=== PATIENT | female | born 1945 | race African-American/Black ===

== ENCOUNTER 2019-03-28 11:16 | Inpatient (IN) | payer OTHER, SELFPAY ==
[2019-03-28] VITALS (20 sets, daily range): BP systolic 107–153; BP diastolic 74–116; PULSE 92–162; RESP 16–27; TEMP 35.6; O2SAT 97–100; BMI 40.5
--- NOTE | ~2019-03-28 | CT_ITS ---
EXAMINATION: CTA chest PE abdomen pel EXAM DATE: 03/30/2019 09:38 INDICATION: Shortness of breath, elevated liver function tests. Generalized abdominal pain. Rule out pulmonary embolism. TECHNIQUE: Spiral CTA of the chest (pulmonary arteries) was performed with 100 cc Omnipaque 350 intr avenous contrast injection. Images were acquired during the pulmonary arterial phase. Coronal maxi mum intensity projection 3D-reconstructions were created by the technologist on dedicated workstation . Axial, coronal and sagittal reformatted images were reviewed. Spiral CT of the abdomen was then pe rformed with the same intravenous contrast injection. Axial, coronal and sagittal reformatted image s were reviewed. The dose-length product (DLP) for this examination was 1965.52 mGy-cm. The exposur e was tailored according to patient size (auto mA exposure control), and iterative reconstruction (A SIR) was used as additional dose reduction technique. There is no prior study for comparison. FINDINGS: CHEST: Patient has a transvenous pacemaker wire from right femoral approach with tip in the right joellen tricle. No thoracic aortic dissection. There are small bilateral dependent pleural effusions. There is bibasilar groundglass airspace disease which could be edema and/or atelectasis. Some other scatter ed groundglass opacities. Tracheobronchial tree is patent. There is no mediastinal, hilar or axill monica lymphadenopathy. There is no pneumothorax. There is moderate cardiomegaly. There is right low er lobe intralobar and segmental pulmonary embolism. There is left lower lobe segmental pulmonary emb olism. I discussed this finding with Wilian Adhikari MD at 03/30/2019 09:47 HAND CANDLE DIPPER. There is mild cor onary arterial calcification, arterial sclerosis. ABDOMEN PELVIS: Heterogeneously enhancing liver which could be hepatic venous congestion related give n dilated appearance to the right atrium and IVC. There are gallstones within an otherwise unremarka ble gallbladder. No evidence of obstructive biliary disease. There is small wedge-shaped region of d ecreased enhancement in the spleen, possible small splenic infarction. Pancreas, adrenal glands are u nremarkable. There is small amount of ascites in the pelvis and small amount of perihepatic fluid. T here is a Blandon catheter within a collapsed bladder. The uterus is not identified and has likely been surgically resected. There is no retroperitoneal or pelvic lymphadenopathy. The appendix is not positively visualized. There is no pericecal inflammatory change to suggest appe ndicitis. There is small sliding gastroesophageal hiatal hernia. There is expected amount of colon ic stool. No free intraperitoneal gas. There are no osteoblastic or osteolytic lesions identified . IMPRESSION: 1. Small bilateral pulmonary emboli. 2. Moderate cardiomegaly. 3. Small pleural effusions and adjacent atelectasis. 4. Probable mild pulmonary edema. 5. Possible small splenic infarction. 6. Cholelithiasis. Reviewed, dictated and finalized at location A. CANDLE DIPPER
--- NOTE | ~2019-03-28 | US_ITS ---
EXAMINATION: US venous doppler LE EXAM DATE: 03/28/2019 17:21 INDICATION: Bilateral leg pain and swelling. TECHNIQUE: Multiple grayscale, color flow and Doppler images of the lower extremity deep venous syste ms bilaterally were obtained and reviewed. There is no prior study for comparison. FINDINGS: Right side: The right common femoral, femoral and profunda veins demonstrate normal color flow, respi ratory variation, augmentation and compressibility. Compressibility, color flow confirmed within the right popliteal, posterior tibial, peroneal, and greater saphenous veins. Left side: The left common femoral, femoral and profunda veins demonstrate normal color flow, respira tory variation, augmentation and compressibility. Compressibility, color flow confirmed within the l eft popliteal, posterior tibial, peroneal, and greater saphenous veins. IMPRESSION: 1. No lower extremity deep venous thrombosis bilaterally. Reviewed, dictated and finalized at location A. SOFTWARE TEST ENGINEER
--- NOTE | ~2019-03-28 | US_ITS ---
EXAMINATION: US renal BI DATE: 03/29/2019 13:50 INDICATION: Abnormal kidney function tests. TECHNIQUE: Multiple ultrasound grayscale images of the kidneys were obtained. COMPARISON: None. FINDINGS: The right kidney measures 9.6 x 4.0 x 4.0 cm. The left kidney measures 10.3 x 5.8 x 4.6 cm. The kidne ys demonstrate normal parenchymal echogenicity. There is no hydronephrosis. The bladder is decompress ed. IMPRESSION: 1. Normal kidney sizes. No hydronephrosis. Reviewed, dictated and finalized at location A. RAL PRE ARRANGEMENT COUNSELOR
--- NOTE | ~2019-03-28 | XR_ITS ---
EXAMINATION: XR chest 2V DATE: 03/28/2019 12:21 INDICATION: Shortness of breath TECHNIQUE: PA and lateral views of the chest were obtained. COMPARISON: Chest radiograph dated 02/03/19 FINDINGS: Mild increased perihilar opacities which appears to result from bronchial wall thickening. No focal a irspace consolidation. No pleural effusion or pneumothorax. Cardiomegaly. Moderate thoracic spondylos is. IMPRESSION: 1. Perihilar bronchial wall thickening without focal airspace consolidation which could be related to bronchitis or mild perihilar pulmonary edema with peribronchial cuffing. 2. Cardiomegaly. Reviewed, dictated and finalized at location A. SHAPER IMPRESSION: 1. Perihilar bronchial wall thickening without focal airspace consolidation whi ch could be related to bronchitis or mild perihilar pulmonary edema with peribr onchial cuffing. 2. Cardiomegaly.
--- NOTE | ~2019-03-28 | XR_ITS ---
EXAMINATION: XR chest 1V portable DATE: 03/29/2019 01:17 INDICATION: Shortness of breath. TECHNIQUE: A single frontal view of the chest was obtained. COMPARISON: Chest 2 views 03/28/2019 FINDINGS: There is no pneumonia, pleural effusion, or pneumothorax. Cardiomegaly is noted. IMPRESSION: 1. Cardiomegaly. Reviewed, dictated and finalized at location A. OR PHARMACY TECHNICIAN IMPRESSION: 1. Cardiomegaly.
--- NOTE | ~2019-03-28 | XR_ITS ---
EXAMINATION: XR chest PICC line EXAM DATE: 03/29/2019 12:42 INDICATION: PICC line placement. TECHNIQUE: Portable AP frontal chest x-ray was obtained. Comparison is made to prior examination from 03/29/2019. FINDINGS: There is a left-sided PICC line with tip projecting over the SVC at level of isaías. There is cardiomegaly. No confluent consolidation, pneumothorax or pleural effusion suspected. There are n o osseous abnormalities identified. IMPRESSION: 1. PICC line tip projecting over SVC. 2. Cardiomegaly. Reviewed, dictated and finalized at location A. NISTRATION PROFESSIONAL
--- NOTE | ~2019-03-28 | XR_ITS ---
EXAMINATION: XR chest 1V portable DATE: 03/30/2019 07:53 INDICATION: Respiratory failure. TECHNIQUE: A single frontal view of the chest was obtained. COMPARISON: Chest single view 03/29/2019 FINDINGS: There is mild atelectasis in left lower lung zone. No pleural effusion or pneumothorax. Car diomegaly is noted. A left upper extremity peripherally inserted central venous catheter (PICC) is se en with tip in the superior vena cava. IMPRESSION: 1. Mild atelectasis in left lower lung zone. 2. Cardiomegaly. Reviewed, dictated and finalized at location A. OGIC DEVELOPER
--- NOTE | 2019-03-28 11:25 | ECG_ITS ---
Measurements Intervals [place] Rate: 159 P: [place]: 0 QRS: 9 QRSD: 75 T: 83 QT: 279 QTc: 454 Interpretive Statements ATRIAL FIBRILLATION WITH RAPID VENTRICULAR RESPONSE LOW QRS VOLTAGE- DIFFUSE LEADS BORDERLINE T WAVE ABNORMALITY- LATERAL LEADS ABNORMAL ECG Electronically Signed On 04-02-2019 19:04:14 PEDIATRIC ASSISTANT by Hector Antunez D.O.
--- NOTE | 2019-03-28 11:32 | ED.SOB ---
HPI - SOB/Dyspnea General Chief Complaint: Shortness of Breath/Dyspnea Stated Complaint: SOB, FLUID ON LUNGS Time Seen by Provider: 03/28/19 11:19 Source: patient and RN notes reviewed Mode of arrival: ambulatory Limitations: no limitations History of Present Illness HPI Narrative: Pt is a 74 y/o female who presents to the ED with c/o SOB which began 2 months ago, but has worsened since yesterday. She reports her SOB is worsened when she is laying down. Pt states she was getting her blood drawn yesterday, when she drank a bottle of water, and her symptoms worsened. Pt denies chest pain, chest pressure, nausea, or vomiting. She reports she has been referred to Dr. Messer, a electroencephalogram technologist, but has been unable to schedule an appointment with him to evaluate her on her symptoms. She reports being diagnosed with atrial fibrillation last month, and was prescribed medication for it. However, she reports the medication would cause LOC, so she stopped taking her medication. Pt reports her physician did not change her prescription despite her complaints. Pt reports she has been gaining water weight recently. The pt was seen at [facility] recently and was diagnosed with a PE with Atrial fibrillation with RVR and a DVT. The pt was prescribed Eliquis and was discharged shortly after. MD elicited complaint: shortness of breath Pertinent past history: other (atrial fibrillation) Onset (ago): month(s) (2 months ago) Context: other (atrial fibrillation) Timing: other (worse since yesterday) Exacerbating factors: lying flat Relieving factors: nothing Known history of: other (atrial fibrillation) Associated symptoms: denies other symptoms Related Data Home Medications Medication Instructions Recorded Confirmed cholecalciferol (vitamin D3) 50 2,000 unit PO DAILY 02/15/19 mcg (2,000 unit) tablet digoxin 250 mcg (0.25 mg) tablet 250 mcg PO DAILY 02/15/19 metoprolol succinate 25 mg 25 mg PO DAILY 02/15/19 tablet,extended release 24 hr potassium chloride 20 mEq 40 meq PO DAILY tablet 02/15/19 tablet,extended release(part/cryst) spironolactone 50 mg tablet 50 mg PO BID 02/15/19 apixaban [Eliquis] 5 mg PO BID 03/28/19 furosemide 40 mg PO DAILY 03/28/19 potassium chloride 20 meq PO BID 03/28/19 03/28/19 Allergies Allergy/AdvReac Type Severity Reaction Status Date / Time codeine Allergy Unknown Confusion Verified 03/28/19 11:33 Review of Systems Review of Systems: All systems reviewed & are unremarkable except as noted in HPI and below Cardiovascular: Cardiovascular: Denies chest pain and Denies other (chest pressure) Respiratory: Respiratory: Reports dyspnea Gastrointestinal: Gastrointestinal: Denies nausea and Denies vomiting PMFSH Past Medical History Medical History Breast cancer Cardiomegaly Fx ankle Surgical History Surgical History H/O: hysterectomy History of appendectomy Hx of tonsillectomy S/P lumpectomy, right breast Social History Social History Smoking status: Former smoker Tobacco type: cigarettes Exam Narrative: Exam Narrative: GENERAL: Uncomfortable-appearing, well-nourished, and in mild distress. HEAD: Normocephalic, atraumatic. EYES: PERRL and EOMI. ENT: Mucous membranes moist. CHEST: Clear to auscultation. Mild tachypnea. HEART: Tachycardic and irregularly irregular. Normal peripheral pulses. ABDOMEN: Soft, nontender, nondistended. EXTREMITIES: Normal range of motion. 2+ edema. SKIN: Warm, dry, no rash. NEURO: Alert and oriented x3. PSYCH: Very anxious, normal thought content. Course Course Emergency Course: He required diltiazem 20 mg to slow down her rhythm. Prior to going up to her room patient went back into [facility] so a drip was ordered. Patient took Eliquis this morning but has not been taking it for several days. She feels
[2019-03-28 11:55] LABS: Basophils Percent Auto 0.6 % (0.2-1.2); Eosinophils Absolute Auto 0.1 K/mm3 (0-0.3); Hematocrit 47.4 % (37.0-47.0); Hemoglobin 15.9 g/dL (12.0-15.0); Immature Granulocyte Absolute 0.02 K/mm3 (0.00-0.031); Immature Granulocyte Percent A 0.3 % (0-0.5); Lymphocytes Absolute Auto 3.68 K/mm3 (0.9-3.2); Lymphocytes Percent Auto 52.6 % (18.3-44.2); Mean Corpuscular HGB Conc 33.5 g/dl (32-36); Mean Corpuscular Hemoglobin 29.9 pg (26-34); Mean Corpuscular Volume 89.3 fl (80-100); Mean Platelet Volume 12.9 fl (7.4-10.4); Monocytes Absolute Auto 0.5 K/mm3 (0.1-0.6); Monocytes Percent Auto 7.3 % (2.6-8.5); Neutrophils Absolute Auto 2.6 K/mm3 (1.3-6.7); Neutrophils Percent Auto 37.2 % (45.5-73.1); Platelet Count Result 92 k/mm3 (150-375); Red Blood Count 5.31 M/mm3 (4.2-5.4); Red Cell Distribution Width 17.9 % (11.5-14.5)
[2019-03-28 12:05] LABS: INR 1.7; Prothrombin Time 19.8 Seconds (11.1-14.7)
[2019-03-28 12:07] LABS: Blood Urea Nitrogen 25 mg/dL (7-17); Calcium 9.5 mg/dL (8.4-10.2); Carbon Dioxide 20 mmol/L (22-30); Chloride 106 mmol/L (98-107); Estimated CRCL calculation 41 ml/min; Estimated Glomerular Filt Rate 45; Glucose 112 mg/dL (65-105); Potassium 4.5 mmol/L (3.4-5.0); Sodium 137 mmol/L (137-145)
[2019-03-28 12:08] LABS: Partial Thromboplastin Time 38.1 SECONDS (22.3-36.8)
[2019-03-28 12:18] LABS: NT Pro B Type Natriuretic Pept 1500 PG/ML (5-100); Troponin I 0.024 ng/mL (0.000-0.034)
[2019-03-28] MEDS: HEPARIN SODIUM 5,000 UNITS/ML VIAL 6500 UNITS IV PUSH (14:14)
--- NOTE | 2019-03-28 16:10 | PM.CNCAR ---
Assessment and Plan Assessment and plan (1) Noncompliance: Code(s): Z91.19 - Patient's noncompliance with other medical treatment and regimen Status: Acute (2) History of DVT (deep vein thrombosis): Code(s): Z86.718 - Personal history of other venous thrombosis and embolism Status: Acute Assessment and Plan: Will resume anticoagulation, currently with heparin now, and subsequently eventually was switched to oral anticoagulation after assuring that she will take it regularly. Will find a medicine that agrees with her insurance so she can take a regularly (3) Atrial fibrillation: Code(s): I48.91 - Unspecified atrial fibrillation Status: Acute Assessment and Plan: Rate was fast initially now better after was given IV metoprolol, continue with digoxin and switch to oral metoprolol 12.5 every 6 hours and up titrate as tolerated try to maintain heart rate without dropping her blood pressure. Will get echocardiogram to evaluate current status of ventricular systolic function (4) History of pulmonary embolism: Code(s): Z86.711 - Personal history of pulmonary embolism Status: Acute Assessment and Plan: She needs to be on heparin, and subsequently on anticoagulation (5) Diastolic congestive heart failure: Code(s): I50.30 - Unspecified diastolic (congestive) heart failure Status: Acute Assessment and Plan: Will get echocardiogram to evaluate current status of left ventricular systolic function, rate control for atrial fibrillation, IV Lasix, follow up input and outputs closely. (6) Hypertension: Code(s): I10 - Essential (primary) hypertension Status: Acute Additional Plan Thank you for allowing me to participate in this patient's care, I will be following up with you. Please do not hesitate to call me for any other inquiry History of Present Illness History of Present Illness Consult date/time: 03/28/19 16:10 74 years old lady with history of hypertension, history of dyslipidemia, history of atrial fibrillation, history of recent PE and DVT, she was supposed to be on Eliquis but she had not been taking it as she thought it was giving her side effects. Was sent to the emergency room today from her primary care's office because of tachycardia shortness of breath and significant leg swelling. Apparently she had history of known AFib but does aorta she was given medication for that but she stated that 20 which takes a medicine blood pressure drops so she stopped taking those medications, also she was given Eliquis for PE and DVT, and she was noted to have possible side effects from the medicine and possible interaction because of ingrown toenail in her foot, with that she stopped Eliquis. Comes in today complaining of shortness of breath significant orthopnea significant leg swelling. No chest pain. No syncope no dizziness. She was noted to have AFib with RVR, improved now since admission to the hospital here. Reason For Visit: SOB, FLUID ON LUNGS Review of Systems Constitutional: Constitutional: Reports fatigue, Reports lethargy and Reports weakness Cardiovascular: Cardiovascular: Reports as per HPI Respiratory: Respiratory: Reports dyspnea on exertion Gastrointestinal: Gastrointestinal: Reports nausea PMFSH Past Medical History Medical History Breast cancer Cardiomegaly Fx ankle Surgical History Surgical History H/O: hysterectomy History of appendectomy Hx of tonsillectomy S/P lumpectomy, right breast Social History Social History Smoking status: Former smoker Tobacco type: cigarettes Meds Home Medications and Allergies Home Medications Medication Instructions Recorded Confirmed Type cholecalciferol (vitamin D3) 50 2,000 unit PO DAILY
--- NOTE | 2019-03-28 18:20 | PC.NURSE ---
HEPARIN GTT STARTED AT 18U/HR AT 1415.
--- NOTE | 2019-03-28 18:21 | PC.NURSE ---
HEPARIN GTT DECREASED TO 14U/HR.
--- NOTE | 2019-03-28 18:47 | ADMGEN ---
This patient, Consuelo Tovar, was admitted to IMU Room 213-01. Patient/family oriented to hospital policies and general routines including ID bracelet, bed and alarms, visiting hours, pain management, procedures, bathroom and other care routines, personal items, smoking policy, room service/diet, and visiting hours. Valuables list has been completed. Information on how to activate the Rapid Response Team has been discussed. Patient/Family are encouraged to report perceived risks to care and to ask questions if they do not understand what they are told or what they should do.
[2019-03-28] MEDS: HEPARIN SOD/D5W 100 UNITS/ML 25,000 UNITS/250 ML BAG 14 UNITS IV CONT (19:00)
[2019-03-28 19:22] LABS: Cholesterol 148 mg/dL (0-200); HDL Direct 32 mg/dL; Triglycerides 107 mg/dL (<150)
[2019-03-28 19:32] LABS: LDL Cholesterol Direct 100 mg/dL
--- NOTE | 2019-03-28 19:47 | PM.IMHP ---
H&P: HPI History of Present Illness Chief complaint: afib rvr Narrative: Consuelo Tovar is a 74 year old female the patient has a history of PEs and DVTs. The patient was supposed to be on Eliquis but took herself off of the Eliquis. The patient stated that she was afraid to take a blood thinner because she has her toenails done in bleeds often and she is afraid that she would bleed from her toenails. The patient also has a history of atrial fibrillation and she took herself off of the metoprolol because she stated she felt dizzy did like the way it made her feel. She said that the box stacker she was supposed his he rescheduled her appointment 3 times and so she go back to him. The patient was given a referral to see Dr. hutchins and she had not yet had an appoint with Dr. hutchins. The patient was found to be in AFib RVR in the emergency room. So Dr. sosa was outside sales consultant and had a ready seen the patient in the emergency room. The patient was in her primary care doctor's office yesterday. Patient stated she had gone hypotensive with her medications. This is when the patient was referred to Dr. hutchins. The patient has been short of breath and had increased leg swelling. Her legs were weeping and she developed ulcerated area to the left lower extremity. She is not diabetic. Patient was started on heparin drip for her AFib. Her heart rate was up to the 130s when I saw initially blood pressure is 182/78. But she had been started on the Cardizem drip. Her blood pressure came down to 117/76. She states she does not take anything for blood pressure just for her AFib. Date of service 03/28/2019 she said her last echo was about 6 years ago. Review of Systems Review of Systems: All systems reviewed & are unremarkable except as noted in HPI and below Constitutional: Constitutional: Reports as per HPI and Reports no additional constitutional complaints Comments: Short of breath when lying flat and with exertion. Her legs became so edematous did they start to break open on the left lower leg. She said it started to heal a very well but then started to break open again. It is draining thick white substance. No fever chills. She has pain to the left leg. She stated she had a DVT in that left leg. And a PE. However she did not feel like it was safe to continue with the blood thinners. Eyes: Eyes: Reports as per HPI and Reports no additional eye complaints ENT: Reports system reviewed and no additional complaints, except as documented and Reports Normal hearing present Cardiovascular: Cardiovascular: Reports no additional cardiovascular complaints Respiratory: Respiratory: Reports no additional respiratory complaints and Reports no additional respiratory complaints Gastrointestinal: Gastrointestinal: Reports as per HPI and Reports no additional gastrointestinal complaints Musculoskeletal: Musculoskeletal: Reports no additional musculoskeletal complaints Integumentary/Breasts: Skin/Breast: Reports system reviewed and no additional complaints, except as docu and Reports as per HPI Neurologic: Reports system reviewed and no additional complaints, except as documented, Reports as per HPI and Reports Normal hearing present Psychiatric: Psychiatric: Reports no additional psychiatric complaints and Reports as per HPI Endocrine: Endocrine: Reports no additional endocrine complaints Hematologic/Lymphatic: Hematologic/Lymphatic: Reports no additional hematologic/lymphatic complaints Allergic/Immunologic: Allergic/Immunologic: Reports no additional allergic/immunologic complaints [facility] Past Medical History Medical History (Updated 03/28/19 @ 20:09 by Tricia Faust NP) Breast cancer Lumpectomy and chemotherapy and radiation. Cardiomegaly CHF (congestive heart failure), NYHA class I Diastolic Fx ankle Left ankle ORIF Surgical History Surgical History (Updated 03/28/19 @ 20:09 by Tricia Faust NP) H/O: hysterectomy History of appendect
[2019-03-28] MEDS: METOPROLOL TARTRATE 12.5 MG TABLET PO (23:19)
[2019-03-29] VITALS (22 sets, daily range): BP systolic 100–150; BP diastolic 57–106; PULSE 43–137; RESP 13–28; TEMP 36.2–36.8; O2SAT 93–100
--- NOTE | 2019-03-29 | ECHO_ITS ---
Patient Info Name: Consuelo Tovar Age: 74 years : 1945 Gender: Female Ht: 66 in Wt: 243 lbs BSA: 2.32 m2 HR: 106 bpm BP: 126 / 91 mmHg Heart Rhythm: Atrial Fibrillation Technical Quality: Good Exam Date: 03/29/2019 9:53 AM Exam Location: [facility] Patient Status: Inpatient Admit Date: 03/28/2019 Staff Ordering Physician: Davonte Mendenhall MD Accounting Machine Servicer: Loi Hogue RDCS Attending Provider: Sherif Palma MD Exam Type: CA echo doppler color flow Study Info Indications I50.9 - Heart failure, unspecified Complete two-dimensional, color flow and Doppler transthoracic echocardiogram is performed. Strain analysis performed. History/Risk Factors SOB, CHF; cardiomegaly, HTN, edema, tachycardia. Summary 1. Left ventricular systolic function is mildly reduced, estimated at 40-45%. 2. There is mildly increased left ventricular wall thickness. 3. There is mild to moderate aortic valve stenosis. 4. There is moderate mitral valve regurgitation. 5. Mild pulmonary hypertension, estimated pulmonary arterial systolic pressure is 45 mmHg. 6. There is mild tricuspid valve regurgitation. Left Ventricle Left ventricular chamber dimension is normal. Left ventricular systolic function is mildly reduced, estimated at 40-45%. There is mildly increased left ventricular wall thickness. Left ventricular septal wall motion is abnormal with septal motion related to bundle branch block. Right Ventricle Right ventricular chamber dimension is normal. Right ventricular systolic function is normal. Left Atria Left atrial area is mild to moderately enlarged. Right Atria Right atrial chamber dimension is normal. Aortic Valve The aortic valve is trileaflet. There is no aortic valve sclerosis. There is mild to moderate aortic valve stenosis. There is no aortic valve regurgitation. Pulmonic Valve The pulmonic valve is normal. There is no pulmonic valve stenosis. There is no pulmonic regurgitation. Mitral Valve The mitral valve has normal leaflets. There is no mitral valve stenosis. There is moderate mitral valve regurgitation. Tricuspid Valve The tricuspid valve leaflets are normal. There is no significant tricuspid valve stenosis. There is mild tricuspid valve regurgitation. Mild pulmonary hypertension, estimated pulmonary arterial systolic pressure is 45 mmHg. Pericardium/Pleural The pericardium appears normal. There is no pericardial effusion. Inferior Vena Cava Normal inferior vena cava with >50% collapse upon inspiration consistent with elevated right atrial pressure, 15 mmHg. Aorta The aortic root size at the sinus of Valsalva is normal. The prox ascending aorta size is normal. Left Ventricular Outflow Tract Name Value Normal LVOT 2D LVOT Diameter 1.7 cm LVOT Doppler LVOT Peak Gradient 2 mmHg LVOT Mean Gradient 1 mmHg LVOT VTI 10 cm LVOT VTI/AV VTI Ratio 0.7 LVOT Stroke Volume 24 ml LVOT
[2019-03-29 00:27] LABS: Partial Thromboplastin Time 157.6 SECONDS (22.3-36.8)
--- NOTE | 2019-03-29 01:08 | PM.EVENT ---
Event Note Event Note Event Note: Rapid Response Note This is a 74 year old female who is being treated for atrial fibrillation w/ RVR and who had stopped taking her home medications and suddenly tonight was found to memo down to the 30s on telemetry. Rapid response was called and on my arrival to bedside the patient is complaining of shortness of breath. I examined the patient and she had scattered wheeze but no significant crackles or rales. STAT CXR was obtained and did demonstrate pulmonary congestion but not much different from her earlier CXR. I administered a Xopenex treatment which helped and ABG was obtained. Approximately 20 minutes later the patient had another similar episode of bradycardia down to the 30s on telemetry. I have consulted [facility] and transferred the patient to the ICU and she has been placed on pacer pads and the heart monitor for possible pacing if necessary. Routine labs have been obtained including troponin and electrolytes. I have called and discussed the case in detail with Cardiology, Dr. Graham who is in agreement. Total critical care time spent overnight exceeded 36 minutes.
[2019-03-29 01:13] LABS: Base Excess ABG -3.1 mEq/l (+/-2.0); Carboxyhemoglobin 0.3 % THb (0-2.0); Device ROOM AIR; Fractional Inspired Oxygen 21 %; HCO3 ABG 20.6 mEq/l (22.0-26.0); Methemoglobin ABG 0.4 %THb (0-1.5); Modified Allen's Test Pass; Oxygen Saturation ABG 95.2 % (95.0-100.0); PCO2 ABG 33.5 mmHg (35.0-45.0); PO2 ABG 74.6 mmHg (80.0-100.0); PO2 FiO2 Ratio Arterial Blood 3.55 %; Reduced Hemoglobin 6.3 %THb (0-5.0); Site Drawn LEFT RADIAL; Total Hemoglobin 16.1 g/dL (12.0-18.0); pH ABG 7.406 (7.350-7.450)
[2019-03-29 02:04] LABS: Basophils Absolute Auto 0.1 K/mm3 (0.0-0.1); Basophils Percent Auto 0.9 % (0.2-1.2); Eosinophils Absolute Auto 0.3 K/mm3 (0-0.3); Eosinophils Percent Auto 2.7 % (0-4.4); Hematocrit 48.6 % (37.0-47.0); Hemoglobin 15.9 g/dL (12.0-15.0); Immature Granulocyte Absolute 0.02 K/mm3 (0.00-0.031); Immature Granulocyte Percent A 0.2 % (0-0.5); Immature Platelet Fraction Pct 12.6 % (0.9-11.2); Lymphocytes Percent Auto 62.3 % (18.3-44.2); Mean Corpuscular HGB Conc 32.7 g/dl (32-36); Mean Corpuscular Hemoglobin 29.9 pg (26-34); Mean Corpuscular Volume 91.4 fl (80-100); Mean Platelet Volume 13.9 fl (7.4-10.4); Monocytes Absolute Auto 0.6 K/mm3 (0.1-0.6); Monocytes Percent Auto 6.7 % (2.6-8.5); Neutrophils Absolute Auto 2.5 K/mm3 (1.3-6.7); Neutrophils Percent Auto 27.2 % (45.5-73.1); Platelet Count Result 109 k/mm3 (150-375); Red Blood Count 5.32 M/mm3 (4.2-5.4); Red Cell Distribution Width 18.8 % (11.5-14.5); White Blood Count 9.2 K/mm3 (4.5-10.0)
[2019-03-29 02:09] LABS: Lactic Acid 3.3 mmol/L (0.7-2.1)
[2019-03-29 02:11] LABS: Alanine Aminotransferase 40 U/L (4-35); Albumin Level 3.4 g/dL (3.5-5.1); Alkaline Phosphatase 547 U/L (38-126); Aspartate Amino Transferase 51 U/L (14-36); Bilirubin,Total 3.3 mg/dL (0.2-1.3); Blood Urea Nitrogen 25 mg/dL (7-17); Calcium 9.6 mg/dL (8.4-10.2); Carbon Dioxide 17 mmol/L (22-30); Chloride 105 mmol/L (98-107); Estimated CRCL calculation 42 ml/min; Estimated Glomerular Filt Rate 45; Glucose 134 mg/dL (65-105); Magnesium 2.1 mg/dL (1.6-2.3); Potassium 4.3 mmol/L (3.4-5.0); Sodium 137 mmol/L (137-145)
[2019-03-29 04:30] LABS: Free T4 Free Thyroxine Reflex 1.02 ng/dL (0.78-2.19)
[2019-03-29 04:33] LABS: Troponin I 0.023 ng/mL (0.000-0.034)
[2019-03-29 05:16] LABS: Total Triiodothyronine (T3) 0.61 NG/ML (0.97-1.69)
--- NOTE | 2019-03-29 08:45 | PM.IMPN ---
Progress Note: A&P Assessment and Plan (1) Atrial fibrillation with RVR: Code(s): I48.91 - Unspecified atrial fibrillation Status: Acute Assessment and Plan: Continue anticoagulation with heparin Rate control is problematic due to intermittent bradycardia and possible underlying sick sinus syndrome TSH is slightly elevated with normal free T4 and slightly low total T3 suggesting sick euthyroid Echocardiogram pending Cardiology evaluation in progress (2) Hypertension: Qualifiers: Hypertension type: essential hypertension Qualified Code(s): I10 - Essential (primary) hypertension Code(s): I10 - Essential (primary) hypertension Status: Chronic Assessment and Plan: Blood pressure soft with low-dose metoprolol Continue to monitor (3) Diastolic congestive heart failure: Qualifiers: Heart failure chronicity: acute Qualified Code(s): I50.31 - Acute diastolic (congestive) heart failure Code(s): I50.30 - Unspecified diastolic (congestive) heart failure Status: Acute Assessment and Plan: She does not appear to be in acute heart failure Monitor volume status (4) CKD (chronic kidney disease) stage 3, GFR 30-59 ml/min: Code(s): N18.3 - Chronic kidney disease, stage 3 (moderate) Status: Acute Assessment and Plan: Renal U/s (5) Erythrocytosis: Code(s): D75.1 - Secondary polycythemia Status: Acute Assessment and Plan: Suspect secondary perhaps due to sleep apnea ApneaLink (6) Thrombocytopenia: Code(s): D69.6 - Thrombocytopenia, unspecified Status: Acute Assessment and Plan: Etiology unclear, likely chronic (present 02/03/19) Obtain old labs Subjective Date/time seen: 03/29/19 08:45 Interval history: History of ?enlarged heart? and rhythm issues for few months. Last echocardiogram about 5 years ago. Was noncompliant with medications at home because they made her feel bad. Had an appointment with last marker buttock kept getting pushed back. Finally her shortness of breath and ankle swelling worsened to the point where she came to the emergency department.. At admission she had atrial fibrillation with rapid ventricular rate. 03/28 PM she was noted to have episodes of bradycardia and transferred to the intensive care unit. She denied pain. Her only complaint is shortness of breath with any exertion including conversation. Denied GI or complaints. No abnormal bleeding. Review of Systems Review of Systems: All systems reviewed & are unremarkable except as noted in HPI and below Exam Narrative: Exam Narrative: HEENT: EOMI, PERRL, pharyngeal mucosa pink and intact NECK: No JVD CHEST: Clear to auscultation. Normal effort. HEART: NL S1/S2, irregular, tachycardic, no murmur ABDOMEN: BS+, soft, nontender, no mass, no bruits EXTREMITIES: No cyanosis, 1+ pretibial and ankle edema NEUROLOGIC: CN intact and symmetric to inspection. MUSCULOSKELETAL: Tone and strength symmetric. PSYCH: Alert. Oriented to person, place, and time. Objective Data Vital Signs Vital Signs: Vital Signs - 24 hr 03/28/19 11:25 03/28/19 11:26 03/28/19 11:27 Temperature Pulse Rate 151 H 143 H 147 H Respiratory Rate 17 24 H 23 H Blood Pressure 153/116 H 138/103 H Pulse Oximetry 03/28/19 11:29 03/28/19 11:30 03/28/19 11:42 Temperature Pulse Rate 162 H 151 H 156 H Respiratory Rate 22 H 27 H Blood Pressure 138/103 H Pulse Oximetry 97 03/28/19 11:45 03/28/19 11:51 03/28/19 12:00 Temperature Pulse Rate 135 H 131 H 100 Respiratory Rate 24 H 25 H 17 Blood Pressure 122/98 H Pulse Oximetry 03/28/19 12:01 03/28/19 12:24 03/28/19 12:35 Temperature Pulse Rate 108 H 110 H 115 H Respiratory Rate 16 22 H 24 H Blood Pressure 107/74 Pulse Oximetry 03/28/19 13:07 03/28/19 13:15 03/28/19 13:30 Temperature Pulse Rate 95 95 92 Respiratory Rate 21 H 19
--- NOTE | 2019-03-29 08:56 | WPDCNINT ---
Assessment and Plan Assessment and plan (1) Atrial fibrillation with RVR: Code(s): I48.91 - Unspecified atrial fibrillation Status: Acute Assessment and Plan: patient with AFib RVR, was started on Cardizem drip, in the intermediate unit patient was bradycardic x1 in the 40s on the night 02/25/2019. Patient was transferred to the ICU for further management - no episodes of bradycardia and the ICU with patient has been hovering between the 90s to 110s with her heart rate - cardiology following the patient - on heparin infusion - digoxin is on hold, continue low-dose metoprolol, - echocardiogram has been done 03/29/2019 and pending (2) CHF (congestive heart failure), NYHA class I: Code(s): I50.9 - Heart failure, unspecified Status: Chronic Assessment and Plan: history of diastolic heart failure, echocardiogram pending to assess heart function - currently rate controlled AFib - continue IV Lasix (3) CKD (chronic kidney disease) stage 3, GFR 30-59 ml/min: Code(s): N18.3 - Chronic kidney disease, stage 3 (moderate) Status: Acute Assessment and Plan: history of stage 3 chronic kidney disease - ultrasound of the kidneys has been ordered (4) Noncompliance: Code(s): Z91.19 - Patient's noncompliance with other medical treatment and regimen Status: Acute Assessment and Plan: 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 the [place] superintendent of schools patient has been noncompliant with her medications (5) History of DVT (deep vein thrombosis): Code(s): Z86.718 - Personal history of other venous thrombosis and embolism Status: Resolved Assessment and Plan: history of PE and DVT, patient took herself off Eliquis (6) Hypertension: Qualifiers: Hypertension type: essential hypertension Qualified Code(s): I10 - Essential (primary) hypertension Code(s): I10 - Essential (primary) hypertension Status: Chronic Assessment and Plan: blood pressure on the lower end of normal, will hold all antihypertensive (7) DVT prophylaxis: Code(s): Z29.9 - Encounter for prophylactic measures, unspecified Status: Acute Assessment and Plan: continue heparin infusion Additional Plan discussed with patient at length and updated her with her condition and plan of care. I answered all questions and she is aware that she will be getting an echocardiogram done today to assess the status of her heart. Code status: Full code Critical care time spent: 43 minutes Due to a high probability of clinically significant, life threatening deterioration, the patient required my highest level of preparedness to intervene emergently and I personally spent this critical care time directly and personally managing the patient. This critical care time included obtaining a history; examining the patient; pulse oximetry; ordering and review of studies; arranging urgent treatment with development of a management plan; evaluation of patient's response to treatment; frequent reassessment; and discussions with other providers. It was exclusive of separately billable procedures and treating other patients and teaching time. Please see Assessment and Plan section and the rest of the note for further information on patient assessment and treatment Candy Butcher Consult Note Consult date: 03/29/19 Time Seen: 06:54 Reason for consult: AFib RVR, shortness of breath, lower extremity swelling. HPI: Consuelo Tovar is a 74 year old female With past medical history of CHF - diastolic dysfunction,atrial fibrillation, cardiomegaly, breast cancer status post right breast lumpectomy, history of DVT and PE presented to the ED on 03/28/2019 with complains of shortness of breath, lower extremity swelling. Patient has a history of atrial fibrillation and took herself off metoprolol and Eliquis. Has been noncompliant and was sent to the ED from a primary care doctor's office for tachycardia, shortn
[2019-03-29 09:46] LABS: Partial Thromboplastin Time > 200.0 SECONDS (22.3-36.8)
[2019-03-29] MEDS: hetaSTARCH 6%/NACL 500 ML 250 ML IV CONT (10:59)
[2019-03-29] MEDS: FUROSEMIDE INJ 40 MG/4 ML VIAL IV PUSH ×2 (11:00→18:54)
[2019-03-29] MEDS: METOPROLOL TARTRATE 12.5 MG TABLET PO ×2 (11:00→18:13)
[2019-03-29] MEDS: SILVERGEL (ELTA) 45 ML 1 APPLIC TOPICAL (11:00)
[2019-03-29] MEDS: LIDOCAINE HCL 1% PF INJ 5 ML VIAL INFILTRATE (11:50)
--- NOTE | 2019-03-29 12:47 | PM.PNCARD ---
Progress Note: A&P Assessment and Plan (1) Noncompliance: Code(s): Z91.19 - Patient's noncompliance with other medical treatment and regimen Status: Acute (2) History of DVT (deep vein thrombosis): Code(s): Z86.718 - Personal history of other venous thrombosis and embolism Status: Resolved Assessment and Plan: Will resume anticoagulation, currently with heparin now, and subsequently eventually was switched to oral anticoagulation after assuring that she will take it regularly. Will find a medicine that agrees with her insurance so she can take a regularly (3) Atrial fibrillation: Code(s): I48.91 - Unspecified atrial fibrillation Status: Chronic Assessment and Plan: Rate was fast initially now better after was given IV metoprolol, continue with oral metoprolol 12.5 every 6 hours and up titrate as tolerated try to maintain heart rate without dropping her blood pressure. Will get echocardiogram to evaluate current status of ventricular systolic function. Digoxin and Cardizem IV 5 milligrams/hour were discontinued overnight for bradycardia with heart rate 43 bpm, slow ventricular response for atrial fibrillation. She continues on metoprolol tartrate 12.5 mg q.6 hours with careful monitoring of heart rate, currently ranging from the mid 80s to 112 beats per minute. Consider increasing metoprolol as needed or resuming digoxin at a lower dose pending echo results and pending digoxin level. (4) History of pulmonary embolism: Code(s): Z86.711 - Personal history of pulmonary embolism Status: Acute Assessment and Plan: She needs to be on heparin, and subsequently on anticoagulation (5) Diastolic congestive heart failure: Qualifiers: Heart failure chronicity: acute Qualified Code(s): I50.31 - Acute diastolic (congestive) heart failure Code(s): I50.30 - Unspecified diastolic (congestive) heart failure Status: Acute Assessment and Plan: Will get echocardiogram to evaluate current status of left ventricular systolic function, rate control for atrial fibrillation, IV Lasix, follow up input and outputs closely. (6) Hypertension: Qualifiers: Hypertension type: essential hypertension Qualified Code(s): I10 - Essential (primary) hypertension Code(s): I10 - Essential (primary) hypertension Status: Chronic Assessment and Plan: blood pressure currently well controlled and we will continue to monitor on current regimen. Subjective Date/time seen: 02/20/20 12:47 Patient denies chest pain or dizziness. She reports stable dyspnea. Patient was seen, examined, chart reviewed, case discussed with nurse and child and youth program assistant. Exam Narrative: Exam Narrative: Exam Narrative: Awake alert oriented x3 not in acute distress Neck is supple, she has elevated JVD, no carotid bruit Chest: Decreased breathing sounds at the bases noted with bilateral basilar crackles Cardiovascular: Irregularly irregular rhythm, 2/6 systolic murmur noted left sternal border Abdomen: Soft nontender bowel sounds positive Extremities: +2 edema has good pulses distally bilaterally Objective Data Vital Signs Vital Signs: Vital Signs - 24 hr 03/28/19 13:07 03/28/19 13:15 03/28/19 13:30 Temperature Pulse Rate 95 95 92 Respiratory Rate 21 H 19 27 H Blood Pressure Pulse Oximetry 03/28/19 13:36 03/28/19 18:24 03/28/19 19:20 Temperature 35.6 C L Pulse Rate 96 102 H 95 Respiratory Rate 19 20 20 Blood Pressure 117/76 117/76 133/86 Pulse Oximetry 100 100 03/28/19 20:00 03/28/19 23:19 03/29/19 00:00 Temperature 36.2 C L Pulse Rate 121 H 115 H 127 H Respiratory Rate 22 H Blood Pressure 125/93 H Pulse Oximetry 100 03/29/19 00:53 03/29/19 01:35 03/29/19 02:00 Temperature Pulse Rate 43 L 84 98 Respiratory Rate 22 H 22 H Blood Pressure 124/99 H Pulse Oximetry 98 03/29/19 02:25 03/29/19 04:00 03/29/19 0
[2019-03-29 13:17] LABS: Partial Thromboplastin Time 70.5 SECONDS (22.3-36.8)
[2019-03-29 15:09] LABS: Digoxin < 0.4 ng/mL (0.8-2.0)
[2019-03-29 15:36] LABS: Troponin I 0.016 ng/mL (0.000-0.034)
--- NOTE | 2019-03-29 16:25 | PM.PNCARD ---
Subjective Date/time seen: 03/29/19 16:25 Patient noted to have episodic arrhythmia with episodes of tachycardia followed by bradycardia, with heaviness in the chest and neck pain, due to that it was decided to proceed with cardiac catheterization on urgent basis. Cardiac catheterization was done revealed no significant coronary disease revealed moderate left ventricular systolic dysfunction. Temporary pacemaker was placed due to episodes of bradycardia Objective Data Vital Signs Vital Signs: Vital Signs - 24 hr 03/28/19 18:24 03/28/19 19:20 03/28/19 20:00 Temperature 35.6 C L Pulse Rate 102 H 95 121 H Respiratory Rate 20 20 Blood Pressure 117/76 133/86 Pulse Oximetry 100 100 03/28/19 23:19 03/29/19 00:00 03/29/19 00:53 Temperature 36.2 C L Pulse Rate 115 H 127 H 43 L Respiratory Rate 22 H Blood Pressure 125/93 H Pulse Oximetry 100 03/29/19 01:35 03/29/19 02:00 03/29/19 02:25 Temperature Pulse Rate 84 98 98 Respiratory Rate 22 H 22 H 24 H Blood Pressure 124/99 H Pulse Oximetry 98 03/29/19 04:00 03/29/19 06:00 03/29/19 08:00 Temperature 36.6 C 36.6 C Pulse Rate 97 100 118 H Respiratory Rate 18 28 H Blood Pressure 100/67 107/83 Pulse Oximetry 100 100 03/29/19 10:00 03/29/19 11:00 03/29/19 12:00 Temperature 36.7 C Pulse Rate 98 111 H 137 H Respiratory Rate 20 22 H Blood Pressure 124/74 123/58 L Pulse Oximetry 98 94 03/29/19 14:00 Temperature Pulse Rate 116 H Respiratory Rate Blood Pressure Pulse Oximetry Intake/Output Intake/Output: Intake & Output 03/26/19 03/27/19 03/28/19 03/29/19 23:59 23:59 23:59 23:59 Intake Total 830.0 Output Total 300 Balance 530.0 Meds/Results Medications: Active Medications Generic Name Dose Route Start Last Admin Trade Name Freq PRN Reason Stop Dose Admin Acetaminophen 650 mg 03/28/19 14:17 Tylenol Tablet PO Q4H PRN Mild Pain (1-3) or Fever Hydrocodone Bitart/Acetaminophen 1 tab 03/28/19 14:17 [place] 5-325 Mg PO Q4H PRN Pain Rated 4-6 Digoxin 250 mcg 03/29/19 09:00 03/29/19 08:35 Lanoxin Tab PO Not Given QAM [facility] Furosemide 40 mg 03/29/19 09:00 03/29/19 11:00 Lasix Inj IV PUSH 40 mg DAILY ELIDIA Administration Heparin Sodium (Porcine) 6,500 units 03/28/19 14:01 Heparin Sodium IV PUSH PRN PRN aPTT less than 55 seconds Heparin Sodium (Porcine) 3,000 units 03/28/19 14:01 Heparin Sodium IV PUSH PRN PRN aPTT 55 - 70 seconds Heparin Sodium/Dextrose 25,000 units in 250 mls @ 12 mls/hr 03/29/19 14:25 Heparin Sodium/D5w 100 Units/Ml IV CONT .[id number] [facility] Protocol 1,200 UNITS/HR Metoprolol Tartrate 12.5 mg 03/29/19 00:00 03/29/19 11:00 Lopressor PO 12.5 mg Q6HR ELIDIA Administration Morphine Sulfate 4 mg 03/28/19 14:17 Morphine Sulfate Inj IV PUSH Q2H PRN Pain Rated 7-10 Ondansetron HCl 4 mg 03/28/19 14:17 Zofran Inj IV PUSH Q4H PRN Nausea Silver Nitrate 1 applic 03/29/19 09:00 03/29/19 11:00 Silvergel TOPICAL 1 applic DAILY ELIDIA Administration Radiology Results: ITS Impressions Venous Doppler Study 03/28/19 17:22 IMPRESSION: 1. No lower extremity deep venous thrombosis bilaterally. Chest X-Ray 03/29/19 12:47 IMPRESSION: 1. PICC line tip projecting over SVC. 2. Cardiomegaly. Renal Ultrasound 03/29/19 14:10 IMPRESSION: 1. Normal kidney sizes. No hydronephrosis. Labs Labs: Laboratory Results - last 24 hr 03/28/19 03/28/19 03/29/19 18:57 23:49 01:06 WBC RBC Hgb Hct MCV MCH MCHC RDW Plt Count MPV Immature Gran % (Auto) Neut % (Auto) Lymph % (Auto) Potter % (Auto) Eos % (Auto) Baso % (Auto) Lymph # (Auto) Potter # (Auto) Eos # (Auto) Baso # (Auto) Abs Immat Gran (auto) Absolute Neuts (auto) Absolute Nucleated RBC N
--- NOTE | 2019-03-29 16:26 | WPDCARDPROC ---
Cardiac Cath Procedure Note Date of procedure:: 03/29/19 Performing physician:: Davonte Mendenhall MD Procedure: 1. Left heart catheterization, selective coronary angiogram. 2. Left ventricular angiogram. 3. Insertion of temporary pacemaker 4. Angio-Seal device for arterial hemostasis 5. Conscious sedation. Fire Management Officer: Dr. Davonte Mendenhall Complications: None. Sedation: Conscious sedation, local anesthesia, using 1 mg of Versed said, 25 mcg of fentanyl, and using 1% lidocaine for local anesthesia. Starting time is 3:55 p.m. ending time is 4:15 p.m. Technique: After informed consent was obtained from patient, was brought to the laborer general, put in the laborer general table, prepped and draped in usual sterile fashion. Seven Russian sheath inserted to the right common femoral vein using ultrasound guidance through the sheath temporary pacemaker wire was inserted advanced to right atrium and right ventricle, pacing was checked. Pacing threshold was checked and measured and continued pacing was done with backup pacing of 70 and output of 5 volts Five Russian sheath was inserted into the right common femoral artery, through the sheath 5 Russian JL4 catheter inserted, advanced to the left coronary artery, left coronary artery angiogram was obtained. The catheter was exchanged over guidewire into a 5 Russian JR4 catheter, advanced to the right coronary artery, right coronary artery angiogram was obtained. The catheter then was exchanged over guidewire into this 5 Russian pigtail catheter, advanced to left ventricle, left ventricular angiogram was obtained. The catheter then was pulled, the sheath was pulled applying Angio-Seal device for arterial hemostasis. Patient tolerated the procedure no complication, taken from the laborer general to his room in stable condition stable vital signs. Hemodynamics: aortic pressure 124/60 . LV pressure 124/04 with LVEDP of 24 mmHg Angiographic findings: Left main: Medium size artery no significant disease or stenosis. Lad medium size artery showed mid LAD 40% narrowing followed by 50% narrowing in the mid section. Left circumflex artery, medium size artery, no significant disease or stenosis. RCA: Dominant vessel, showed mid RCA significant irregularity with a 40-50% disease. LV: Mildly dilated left ventricle with moderate left ventricular systolic dysfunction EF 40% Summary: Mild coronary disease with a moderate left ventricular systolic dysfunction with nonischemic cardiomyopathy. Early signs of sick sinus syndrome, needing temporary pacemaker. Recommendation: workup for cause of her episodes of distress, which could be due to large PE, continue with heparin, continue with backup pacing, to consider long-term need for permanent pacemaker if she still has significant bradycardia .
[2019-03-29] MEDS: HEPARIN SOD/D5W 100 UNITS/ML 25,000 UNITS/250 ML BAG 12 UNITS IV CONT (18:10)
[2019-03-29] MEDS: ALPRAZOLAM 0.25 MG TABLET PO (18:54)
[2019-03-30] VITALS (21 sets, daily range): BP systolic 89–122; BP diastolic 52–85; PULSE 68–108; RESP 16–25; TEMP 36.3–37; O2SAT 93–100
[2019-03-30 02:27] LABS: Partial Thromboplastin Time > 200.0 SECONDS (22.3-36.8)
--- NOTE | 2019-03-30 03:15 | PCRCNOTE ---
RN EUGENE RENE REQUESTED PT APNEA LINK BE DONE TOMORROW DUE CC AND PT CONFUSION
[2019-03-30] MEDS: METOPROLOL TARTRATE 12.5 MG TABLET PO ×3 (05:30→17:33)
[2019-03-30] MEDS: FUROSEMIDE INJ 40 MG/4 ML VIAL IV PUSH (08:42)
[2019-03-30] MEDS: SILVERGEL (ELTA) 45 ML 1 APPLIC TOPICAL (08:43)
--- NOTE | 2019-03-30 08:59 | WPDINTPN ---
Progress Note: A&P Assessment and Plan (1) Respiratory distress: Code(s): R06.03 - Acute respiratory distress Status: Acute Assessment and Plan: respiratory distress could be related to, heart failure, coronary disease, PE - cardiology's requested CT chest with PE protocol. - LE venous Doppler negative for DVTs bilateral - patient on 2 L nasal cannula with good O2 sats - will add bronchodilators (2) Atrial fibrillation with RVR: Code(s): I48.91 - Unspecified atrial fibrillation Status: Acute Assessment and Plan: patient with AFib RVR, was started on Cardizem drip, in the intermediate unit patient was bradycardic x1 in the 40s on the night 02/25/2019. Patient was transferred to the ICU for further management - 03/29/2019 a temporary venous pacemaker was inserted, may require permanent pacemaker for sick sinus syndrome - 03/29/2019 coronary angiogram with mild coronary disease, sick sinus syndrome, EF of 40% - remains on heparin infusion - low-dose metoprolol (3) CHF (congestive heart failure), NYHA class I: Code(s): I50.9 - Heart failure, unspecified Status: Chronic Assessment and Plan: history of still systolic heart failure, - echocardiogram has been done 03/29/2019: EF 40-45%, moderate aortic valve stenosis, moderate ventral valve regurg, mild pulmonary hypertension with RVSP of 45 mmHg - currently rate controlled AFib - continue IV Lasix and low-dose metoprolol - patient may need a permanent pacemaker (4) CKD (chronic kidney disease) stage 3, GFR 30-59 ml/min: Code(s): N18.3 - Chronic kidney disease, stage 3 (moderate) Status: Acute Assessment and Plan: history of stage 3 chronic kidney disease - renal ultrasound showed normal size kidneys, no hydronephrosis - BMP pending (5) Noncompliance: Code(s): Z91.19 - Patient's noncompliance with other medical treatment and regimen Status: Acute Assessment and Plan: according the jack machine operator patient has been noncompliant with her medications (6) History of DVT (deep vein thrombosis): Code(s): Z86.718 - Personal history of other venous thrombosis and embolism Status: Resolved Assessment and Plan: history of PE and DVT, patient took herself off Eliquis (7) Hypertension: Qualifiers: Hypertension type: essential hypertension Qualified Code(s): I10 - Essential (primary) hypertension Code(s): I10 - Essential (primary) hypertension Status: Chronic Assessment and Plan: blood pressure on the lower end of normal, will hold all antihypertensive (8) Elevated LFTs: Code(s): R94.5 - Abnormal results of liver function studies Status: Acute Assessment and Plan: patient with elevated LFTs and bilirubin, likely related to hepatic congestion or hepatic and/or biliary disease - obtain hepatitis panel - CT abdomen and pelvis (9) DVT prophylaxis: Code(s): Z29.9 - Encounter for prophylactic measures, unspecified Status: Acute Assessment and Plan: continue heparin infusion Additional Plan discussed with patient at length and updated her with her condition and plan of care. I updated her with the cardiac catheterization and echocardiogram results. She is aware that she will be going for of CT scan of the chest abdomen pelvis Critical care time spent: 33 minutes Due to a high probability of clinically significant, life threatening deterioration, the patient required my highest level of preparedness to intervene emergently and I personally spent this critical care time directly and personally managing the patient. This critical care time included obtaining a history; examining the patient; pulse oximetry; ordering and review of studies; arranging urgent treatment with development of a management plan; evaluation of patient's response to treatment; frequent reassessment; and disc
[2019-03-30 11:07] LABS: Basophils Percent Auto 0.6 % (0.2-1.2); Eosinophils Absolute Auto 0.1 K/mm3 (0-0.3); Eosinophils Percent Auto 0.8 % (0-4.4); Hematocrit 44.7 % (37.0-47.0); Hemoglobin 14.5 g/dL (12.0-15.0); Immature Granulocyte Absolute 0.02 K/mm3 (0.00-0.031); Immature Granulocyte Percent A 0.3 % (0-0.5); Immature Platelet Fraction Pct 11.5 % (0.9-11.2); Lymphocytes Absolute Auto 3.18 K/mm3 (0.9-3.2); Lymphocytes Percent Auto 49.5 % (18.3-44.2); Mean Corpuscular HGB Conc 32.4 g/dl (32-36); Mean Corpuscular Hemoglobin 29.7 pg (26-34); Mean Corpuscular Volume 91.4 fl (80-100); Mean Platelet Volume 13.9 fl (7.4-10.4); Monocytes Absolute Auto 0.4 K/mm3 (0.1-0.6); Monocytes Percent Auto 6.4 % (2.6-8.5); Neutrophils Absolute Auto 2.7 K/mm3 (1.3-6.7); Neutrophils Percent Auto 42.4 % (45.5-73.1); Platelet Count Result 103 k/mm3 (150-375); Red Blood Count 4.89 M/mm3 (4.2-5.4); Red Cell Distribution Width 18.6 % (11.5-14.5); White Blood Count 6.4 K/mm3 (4.5-10.0)
[2019-03-30 11:18] LABS: Lactic Acid Reflex 1.4 mmol/L (0.7-2.1)
[2019-03-30 11:21] LABS: Partial Thromboplastin Time 162.9 SECONDS (22.3-36.8)
--- NOTE | 2019-03-30 11:33 | P.PNIM_ITS ---
Progress Note: A&P Assessment and Plan (1) Atrial fibrillation with RVR: Code(s): I48.91 - Unspecified atrial fibrillation Status: Acute Assessment and Plan: * Continue anticoagulation with heparin * Rate control is problematic due to intermittent bradycardia and possible underlying sick sinus syndrome * TSH is slightly elevated with normal free T4 and slightly low total T3 suggesting sick euthyroid * 03/29 cath negative * 03/29 temporary pacemaker * Continue digoxin and metoprolol and heparin (2) Hypertension: Qualifiers: Hypertension type: essential hypertension Qualified Code(s): I10 - Essential (primary) hypertension Code(s): I10 - Essential (primary) hypertension Status: Chronic Assessment and Plan: * Blood pressure soft with low-dose metoprolol * Continue to monitor (3) Diastolic congestive heart failure: Qualifiers: Heart failure chronicity: acute Qualified Code(s): I50.31 - Acute diastolic (congestive) heart failure Code(s): I50.30 - Unspecified diastolic (congestive) heart failure Status: Acute Assessment and Plan: * She does not appear to be in acute heart failure * Monitor volume status (4) CKD (chronic kidney disease) stage 3, GFR 30-59 ml/min: Code(s): N18.3 - Chronic kidney disease, stage 3 (moderate) Status: Acute Assessment and Plan: * Renal U/s (5) Erythrocytosis: Code(s): D75.1 - Secondary polycythemia Status: Acute Assessment and Plan: * Suspect secondary perhaps due to sleep apnea * ApneaLink (6) Thrombocytopenia: Code(s): D69.6 - Thrombocytopenia, unspecified Status: Acute Assessment and Plan: * Etiology unclear, likely chronic (present 02/03/19) * Obtain old labs (7) Pulmonary emboli: Code(s): I26.99 - Other pulmonary embolism without acute cor pulmonale Status: Acute Assessment and Plan: * Continue heparin drip (8) Elevated LFTs: Code(s): R94.5 - Abnormal results of liver function studies Status: Acute Assessment and Plan: * 03/[address] no [address] CT * possible congestive * 03/30 LFTs and hepatitis serologies pending Subjective Date/time seen: 03/30/19 11:33 Interval history: Breathing better today. Spell of shortness of breath yesterday with orthopnea. No chest pain. No abnormal bleeding on heparin. Currently NPO. Review of Systems Review of Systems: All systems reviewed & are unremarkable except as noted in HPI and below Exam Narrative: Exam Narrative: HEENT: EOMI, PERRL, pharyngeal mucosa pink and intact NECK: No JVD CHEST: Clear to auscultation. Normal effort. HEART: NL S1/S2, irregular, tachycardic, no murmur ABDOMEN: BS+, soft, nontender, no mass, no bruits EXTREMITIES: No cyanosis, 1+ pretibial and ankle edema NEUROLOGIC: CN intact and symmetric to inspection. MUSCULOSKELETAL: Tone and strength symmetric. PSYCH: Alert. Oriented to person, place, and time. Objective Data Vital Signs Vital Signs: Vital Signs - 24 hr 03/29/19 12:00 03/29/19 14:00 03/29/19 16:30 Temperature 98.0 F Pulse Rate 137 H 116 H 136 H Pulse Rate [Bilateral Posterior Tibial Doppler] Respiratory Rate 22 H 21 H Blood Pressure 123/58 L 150/106 H Pulse Oximetry 94 100 03/29/19 16:45 03/29/19 17:00 03/29/19 17:15 Temperature
--- NOTE | 2019-03-30 11:33 | PM.IMPN ---
Progress Note: A&P Assessment and Plan (1) Atrial fibrillation with RVR: Code(s): I48.91 - Unspecified atrial fibrillation Status: Acute Assessment and Plan: Continue anticoagulation with heparin Rate control is problematic due to intermittent bradycardia and possible underlying sick sinus syndrome TSH is slightly elevated with normal free T4 and slightly low total T3 suggesting sick euthyroid 03/29 cath negative 03/29 temporary pacemaker Continue digoxin and metoprolol and heparin (2) Hypertension: Qualifiers: Hypertension type: essential hypertension Qualified Code(s): I10 - Essential (primary) hypertension Code(s): I10 - Essential (primary) hypertension Status: Chronic Assessment and Plan: Blood pressure soft with low-dose metoprolol Continue to monitor (3) Diastolic congestive heart failure: Qualifiers: Heart failure chronicity: acute Qualified Code(s): I50.31 - Acute diastolic (congestive) heart failure Code(s): I50.30 - Unspecified diastolic (congestive) heart failure Status: Acute Assessment and Plan: She does not appear to be in acute heart failure Monitor volume status (4) CKD (chronic kidney disease) stage 3, GFR 30-59 ml/min: Code(s): N18.3 - Chronic kidney disease, stage 3 (moderate) Status: Acute Assessment and Plan: Renal U/s (5) Erythrocytosis: Code(s): D75.1 - Secondary polycythemia Status: Acute Assessment and Plan: Suspect secondary perhaps due to sleep apnea ApneaLink (6) Thrombocytopenia: Code(s): D69.6 - Thrombocytopenia, unspecified Status: Acute Assessment and Plan: Etiology unclear, likely chronic (present 02/03/19) Obtain old labs (7) Pulmonary emboli: Code(s): I26.99 - Other pulmonary embolism without acute cor pulmonale Status: Acute Assessment and Plan: Continue heparin drip (8) Elevated LFTs: Code(s): R94.5 - Abnormal results of liver function studies Status: Acute Assessment and Plan: 03/[address] possible congestive 03/30 LFTs and hepatitis serologies pending Subjective Date/time seen: 03/30/19 11:33 Interval history: Breathing better today. Spell of shortness of breath yesterday with orthopnea. No chest pain. No abnormal bleeding on heparin. Currently NPO. Review of Systems Review of Systems: All systems reviewed & are unremarkable except as noted in HPI and below Exam Narrative: Exam Narrative: HEENT: EOMI, PERRL, pharyngeal mucosa pink and intact NECK: No JVD CHEST: Clear to auscultation. Normal effort. HEART: NL S1/S2, irregular, tachycardic, no murmur ABDOMEN: BS+, soft, nontender, no mass, no bruits EXTREMITIES: No cyanosis, 1+ pretibial and ankle edema NEUROLOGIC: CN intact and symmetric to inspection. MUSCULOSKELETAL: Tone and strength symmetric. PSYCH: Alert. Oriented to person, place, and time. Objective Data Vital Signs Vital Signs: Vital Signs - 24 hr 03/29/19 12:00 03/29/19 14:00 03/29/19 16:30 Temperature 98.0 F Pulse Rate 137 H 116 H 136 H Pulse Rate [Bilateral Posterior Tibial Doppler] Respiratory Rate 22 H 21 H Blood Pressure 123/58 L 150/106 H Pulse Oximetry 94 100 03/29/19 16:45 03/29/19 17:00 03/29/19 17:15 Temperature Pulse Rate 116 H 103 H 90 Pulse Rate [Bilateral Posterior Tibial Doppler] Respiratory Rate 19 21 H 17 Blood Pressure 134/84 126/75 115/57 L Pulse Oximetry 100 100 93 03/29/19 17:30 03/29/19 18:00 03/29/19 18:13 Temperature Pulse Rate 98 97 102 H Pulse Rate [Bilateral Posterior Tibial Doppler] Respiratory Rate 13 14 Blood Pressure 118/69 121/94 H Pulse Oximetry 95 93 03/29/19 18:30 03/29/19 20:00 03/29/19 22:00 Temperature 98.3 F Pulse Rate 107 H 88 89 Pulse Rate [Bilateral Posterior Tibial Doppler] Respiratory Rate 18 20 16 Blood Pressure 130/76 144/87 H 117/65
[2019-03-30 11:51] LABS: Hepatitis B Surface Antigen Negative (Negative)
[2019-03-30 11:57] LABS: HAV RESULT Negative (Negative); Hepatitis B Core IgM Result Negative (Negative)
[2019-03-30 12:08] LABS: Hepatitis C Virus Antibody Negative (Negative)
[2019-03-30] MEDS: PANTOPRAZOLE SOD SESQUIHYDRATE 20 MG TAB PO (12:21)
[2019-03-30] MEDS: IPRATROPIUM BR 0.02% INH SOLN 0.5 MG/2.5 ML VIAL INHALATION ×2 (14:35→19:37)
[2019-03-30] MEDS: LEVALBUTEROL NEB 1.25 MG/3 ML 0.63 MG INHALATION ×2 (14:35→19:37)
--- NOTE | 2019-03-30 15:29 | PM.PNCARD ---
Progress Note: A&P Assessment and Plan (1) Noncompliance: Code(s): Z91.19 - Patient's noncompliance with other medical treatment and regimen Status: Acute (2) History of DVT (deep vein thrombosis): Code(s): Z86.718 - Personal history of other venous thrombosis and embolism Status: Resolved Assessment and Plan: Will resume anticoagulation, currently with heparin now, and subsequently eventually was switched to oral anticoagulation after assuring that she will take it regularly. Will find a medicine that agrees with her insurance so she can take a regularly (3) Atrial fibrillation: Code(s): I48.91 - Unspecified atrial fibrillation Status: Chronic Assessment and Plan: Rate was fast initially now better after was given IV metoprolol, continue with oral metoprolol 12.5 every 6 hours and up titrate as tolerated try to maintain heart rate without dropping her blood pressure. Currently rate is in the 100 or so, temporary pacemaker was placed yesterday because of occasional bradycardia, okay to start on digoxin now, and amiodarone for rate control. Eventually if she has significant pacing she would need permanent pacemaker (4) History of pulmonary embolism: Code(s): Z86.711 - Personal history of pulmonary embolism Status: Acute Assessment and Plan: She needs to be on heparin, and subsequently on anticoagulation (5) Diastolic congestive heart failure: Qualifiers: Heart failure chronicity: acute Qualified Code(s): I50.31 - Acute diastolic (congestive) heart failure Code(s): I50.30 - Unspecified diastolic (congestive) heart failure Status: Acute Assessment and Plan: Echocardiogram with moderate left ventricular systolic dysfunction, agree with diuresis and lisinopril (6) Hypertension: Qualifiers: Hypertension type: essential hypertension Qualified Code(s): I10 - Essential (primary) hypertension Code(s): I10 - Essential (primary) hypertension Status: Chronic Assessment and Plan: blood pressure currently well controlled and we will continue to monitor on current regimen. Subjective Date/time seen: 03/30/19 15:29 She feels better today, no chest pain, shortness breath is much better, she has mild orthopnea still with leg swelling. Currently has temporary pacemaker, but mostly she is in AFib with tachycardia had not been paced so much Exam Narrative: Exam Narrative: Exam Narrative: Awake alert oriented x3 not in acute distress Neck is supple, she has elevated JVD, no carotid bruit Chest: Decreased breathing sounds at the bases noted with bilateral basilar crackles Cardiovascular: Irregularly irregular rhythm, 2/6 systolic murmur noted left sternal border Abdomen: Soft nontender bowel sounds positive Extremities: +2 edema has good pulses distally bilaterally Objective Data Vital Signs Vital Signs: Vital Signs - 24 hr 03/29/19 16:30 03/29/19 16:45 03/29/19 17:00 Temperature Pulse Rate 136 H 116 H 103 H Pulse Rate [Bilateral Posterior Tibial Doppler] Respiratory Rate 21 H 19 21 H Blood Pressure 150/106 H 134/84 126/75 Pulse Oximetry 100 100 100 03/29/19 17:15 03/29/19 17:30 03/29/19 18:00 Temperature Pulse Rate 90 98 97 Pulse Rate [Bilateral Posterior Tibial Doppler] Respiratory Rate 17 13 14 Blood Pressure 115/57 L 118/69 121/94 H Pulse Oximetry 93 95 93 03/29/19 18:13 03/29/19 18:30 03/29/19 20:00 Temperature 36.8 C Pulse Rate 102 H 107 H 88 Pulse Rate [Bilateral Posterior Tibial Doppler] Respiratory Rate 18 20 Blood Pressure 130/76 144/87 H Pulse Oximetry 94 97 03/29/19 22:00 03/30/19 00:00 03/30/19 02:00 Temperature 36.6 C Pulse Rate 89 91 78 Pulse Rate [Bilateral Posterior Tibial Doppler] 78 Respiratory Rate 16 16 17 Blood Pressure 117/65 89/65 L 100/70 Pulse Oximetry 96 100 99 03/30/19 04:00 03/30/19 05:30 03/30/19 08:00 Temperature 36.7
--- NOTE | 2019-03-30 16:50 | PC.NURSE ---
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 Refuses to take scheduled meds or iv zofran. bp 114/85, hr 101. will continue to monitor.
[2019-03-30] MEDS: AMIODARONE HCL 200 MG TABLET 400 MG PO (17:32)
[2019-03-30] MEDS: DIGOXIN INJ 250 MCG/ML 2 ML AMP (*BKC) 500 MCG IV PUSH (17:33)
[2019-03-30 18:37] LABS: Partial Thromboplastin Time 100.9 SECONDS (22.3-36.8)
[2019-03-30 19:01] LABS: Alanine Aminotransferase 31 U/L (4-35); Albumin Level 2.5 g/dL (3.5-5.1); Alkaline Phosphatase 444 U/L (38-126); Aspartate Amino Transferase 38 U/L (14-36); Bilirubin,Total 2.9 mg/dL (0.2-1.3); Blood Urea Nitrogen 25 mg/dL (7-17); Calcium 9.3 mg/dL (8.4-10.2); Carbon Dioxide 24 mmol/L (22-30); Chloride 103 mmol/L (98-107); Estimated CRCL calculation 45 ml/min; Estimated Glomerular Filt Rate 49; Glucose 91 mg/dL (65-105); Potassium 4.3 mmol/L (3.4-5.0); Sodium 137 mmol/L (137-145)
[2019-03-30] MEDS: HEPARIN SOD/D5W 100 UNITS/ML 25,000 UNITS/250 ML BAG 8 UNITS IV CONT (22:28)
--- NOTE | 2019-03-30 23:50 | PCRCNOTE ---
The apnea link was cancelled per Buffy Vargas RN due to the patients condition.
[2019-03-31] VITALS (30 sets, daily range): BP systolic 82–115; BP diastolic 54–77; PULSE 63–101; RESP 14–23; TEMP 36.1–36.7; O2SAT 96–100
--- NOTE | 2019-03-31 00:02 | PCRCNOTE ---
The apnea link was cancelled due to the patients condition per Buffy Vargas RN.
[2019-03-31] MEDS: METOPROLOL TARTRATE 12.5 MG TABLET PO ×5 (00:26→23:57)
[2019-03-31 00:56] LABS: Partial Thromboplastin Time 90.3 SECONDS (22.3-36.8)
[2019-03-31] MEDS: IPRATROPIUM BR 0.02% INH SOLN 0.5 MG/2.5 ML VIAL INHALATION ×4 (01:05→21:12)
[2019-03-31] MEDS: LEVALBUTEROL NEB 1.25 MG/3 ML 0.63 MG INHALATION ×4 (01:06→21:12)
[2019-03-31 06:22] LABS: Hematocrit 41.3 % (37.0-47.0); Hemoglobin 13.9 g/dL (12.0-15.0); Mean Corpuscular HGB Conc 33.7 g/dl (32-36); Mean Platelet Volume 12.9 fl (7.4-10.4); Platelet Count Result 124 k/mm3 (150-375); Red Blood Count 4.64 M/mm3 (4.2-5.4); Red Cell Distribution Width 18.1 % (11.5-14.5); White Blood Count 7.1 K/mm3 (4.5-10.0)
[2019-03-31 06:34] LABS: Alanine Aminotransferase 27 U/L (4-35); Albumin Level 2.4 g/dL (3.5-5.1); Alkaline Phosphatase 408 U/L (38-126); Aspartate Amino Transferase 37 U/L (14-36); Bilirubin,Total 2.3 mg/dL (0.2-1.3); Blood Urea Nitrogen 27 mg/dL (7-17); Carbon Dioxide 26 mmol/L (22-30); Chloride 100 mmol/L (98-107); Estimated CRCL calculation 48 ml/min; Estimated Glomerular Filt Rate 54; Glucose 102 mg/dL (65-105); Magnesium 1.9 mg/dL (1.6-2.3); Phosphorus 3.5 mg/dL (2.5-4.5); Potassium 4.5 mmol/L (3.4-5.0); Sodium 135 mmol/L (137-145)
[2019-03-31 06:35] LABS: Partial Thromboplastin Time 91.3 SECONDS (22.3-36.8)
[2019-03-31] MEDS: PANTOPRAZOLE SOD SESQUIHYDRATE 20 MG TAB PO (08:34)
[2019-03-31] MEDS: SILVERGEL (ELTA) 45 ML 1 APPLIC TOPICAL (08:34)
[2019-03-31] MEDS: AMIODARONE HCL 200 MG TABLET 400 MG PO ×2 (08:38→17:09)
--- NOTE | 2019-03-31 08:58 | WPDINTPN ---
Progress Note: A&P Assessment and Plan (1) Respiratory distress: Code(s): R06.03 - Acute respiratory distress Status: Acute Assessment and Plan: respiratory distress could be related to heart failure, coronary disease, PE With bilateral PE found on CT scan - cardiology's requested CT chest with PE protocol which showed bilateral PE. - LE venous Doppler negative for DVTs bilateral - patient on 2 L nasal cannula with good O2 sats - Will continue bronchodilators (2) Atrial fibrillation with RVR: Code(s): I48.91 - Unspecified atrial fibrillation Status: Acute Assessment and Plan: patient with AFib RVR, was started on Cardizem drip, in the intermediate unit patient was bradycardic x1 in the 40s on the night 02/25/2019. Patient was transferred to the ICU for further management - 03/29/2019 a temporary venous pacemaker was inserted, may require permanent pacemaker for sick sinus syndrome but there are no immediate plans for rate from cardiology service. Temporary pacemaker has been discontinued today. - 03/29/2019 coronary angiogram with mild coronary disease, sick sinus syndrome, EF of 40% - remains on heparin infusion. No signs of bleeding. H&H remained stable. It will be transitioned to p.o. anticoagulants today by cardiology service. - low-dose metoprolol. Heart rate within acceptable range. Temporary pacer has been discontinued today by cardiology service. (3) CHF (congestive heart failure), NYHA class I: Code(s): I50.9 - Heart failure, unspecified Status: Chronic Assessment and Plan: history of still systolic heart failure, - echocardiogram has been done 03/29/2019: EF 40-45%, moderate aortic valve stenosis, moderate ventral valve regurg, mild pulmonary hypertension with RVSP of 45 mmHg - currently rate controlled AFib With low-dose metoprolol. She has been started on amiodarone and digoxin by Cardiology Service. - continue IV Lasix and low-dose metoprolol She was started on low-dose lisinopril by cardiology service. She has developed some cough and it will be switched to losartan by cardiology service. - patient may need a permanent pacemaker But there are no immediate plans from cardiology service. 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 (6) History of DVT (deep vein thrombosis): Code(s): Z86.718 - Personal history of other venous thrombosis and embolism Status: Resolved Assessment and Plan: history of PE and DVT, patient took herself off Eliquis CT done yesterday showed bilateral PE. She will be transitioned to p.o. Eliquis and heparin infusion will be stopped. (7) Hypertension: Qualifiers: Hypertension type: essential hypertension Qualified Code(s): I10 - Essential (primary) hypertension Code(s): I10 - Essential (primary) hypertension Status: Chronic Assessment and Plan: blood pressure on the lower end of normal, Morning doses of antihypertensive medication has been on hold. Greater blood pressure improved and her medication will be given. (8) Elevated LFTs: Code(s): R94.5 - Abnormal results of liver function studies Status: Acute Assessment and Plan: patient with elevated LFTs and bilirubin, likely related to hepatic congestion or hepatic and/or biliary disease - Hepatitis panel has been negative. LFTs are improving with bilirubin and AST trending
--- NOTE | 2019-03-31 09:49 | P.PNIM_ITS ---
Progress Note: A&P Assessment and Plan (1) Atrial fibrillation with RVR: Code(s): I48.91 - Unspecified atrial fibrillation Status: Acute Assessment and Plan: * Continue anticoagulation with heparin * TSH is slightly elevated with normal free T4 and slightly low total T3 suggesting sick euthyroid * 03/29 cath negative * 03/29 temporary pacemaker * Continue digoxin and metoprolol and heparin * 03/30 temp pacer intermittently not capturing, few brief pauses (2) Hypertension: Qualifiers: Hypertension type: essential hypertension Qualified Code(s): I10 - Essential (primary) hypertension Code(s): I10 - Essential (primary) hypertension Status: Chronic Assessment and Plan: * Blood pressure soft * monitor (3) Diastolic congestive heart failure: Qualifiers: Heart failure chronicity: acute Qualified Code(s): I50.31 - Acute diast olic (congestive) heart failure Code(s): I50.30 - Unspecified diastolic (congestive) heart failure Status: Acute Assessment and Plan: * She does not appear to be in acute heart failure * Monitor volume status (4) CKD (chronic kidney disease) stage 3, GFR 30-59 ml/min: Code(s): N18.3 - Chronic kidney disease, stage 3 (moderate) Status: Acute Assessment and Plan: * Renal U/s WNL (5) Erythrocytosis: Code(s): D75.1 - Secondary polycythemia Status: Acute Assessment and Plan: * Suspect secondary perhaps due to sleep apnea * ApneaLink pending (6) Thrombocytopenia: Code(s): D69.6 - Thrombocytopenia, unspecified Status: Acute Assessment and Plan: * Etiology unclear, likely chronic (present 02/03/19) * Obtain old labs (7) Pulmonary emboli: Code(s): I26.99 - Other pulmonary embolism without acute cor pulmonale Status: Acute Assessment and Plan: * Continue heparin drip (8) Elevated LFTs: Code(s): R94.5 - Abnormal results of liver function studies Status: Acute Assessment and Plan: * 03/[address] * possible congestive * 03/31 improving AST and ALT with negative viral hepatitis serologies Subjective Date/time seen: 03/31/19 09:49 Interval history: Feels better. No sob or chest pain. Good appetite. No gi/gu c/o. No edema. Review of Systems Review of Systems: All systems reviewed & are unremarkable except as noted in HPI and below Exam Narrative: Exam Narrative: HEENT: EOMI, PERRL, pharyngeal mucosa pink and intact NECK: No JVD CHEST: Clear to auscultation. Normal effort. HEART: NL S1/S2, irregular, tachycardic, no murmur ABDOMEN: BS+, soft, nontender, no mass, no bruits EXTREMITIES: No cyanosis, 1+ pretibial and ankle edema NEUROLOGIC: CN intact and symmetric to inspection. MUSCULOSKELETAL: Tone and strength symmetric. PSYCH: Alert. Oriented to person, place, and time. Objective Data Vital Signs Vital Signs: Vital Signs - 24 hr 03/30/19 10:00 03/30/19 12:00 03/30/19 12:20 Temperature 98.6 F Pulse Rate 103 H 98 108 H Pulse Rate [Bilateral Posterior Tibial Doppler] Pulse Rate [Right Pedal (Dorsalis Pedis) Doppler] Respiratory Rate 18 18 Blood Pressure 106/73 98/52 L Pulse Oximetry 98 99 03/30/19 14:00 03/30/19 14:35 03/30/19 14:44 Temperature Pulse Rate 89 97 97 Pulse Rate [Bilateral Poste
--- NOTE | 2019-03-31 09:49 | PM.IMPN ---
Progress Note: A&P Assessment and Plan (1) Atrial fibrillation with RVR: Code(s): I48.91 - Unspecified atrial fibrillation Status: Acute Assessment and Plan: Continue anticoagulation with heparin TSH is slightly elevated with normal free T4 and slightly low total T3 suggesting sick euthyroid 03/29 cath negative 03/29 temporary pacemaker Continue digoxin and metoprolol and heparin 03/30 temp pacer intermittently not capturing, few brief pauses (2) Hypertension: Qualifiers: Hypertension type: essential hypertension Qualified Code(s): I10 - Essential (primary) hypertension Code(s): I10 - Essential (primary) hypertension Status: Chronic Assessment and Plan: Blood pressure soft monitor (3) Diastolic congestive heart failure: Qualifiers: Heart failure chronicity: acute Qualified Code(s): I50.31 - Acute diastolic (congestive) heart failure Code(s): I50.30 - Unspecified diastolic (congestive) heart failure Status: Acute Assessment and Plan: She does not appear to be in acute heart failure Monitor volume status (4) CKD (chronic kidney disease) stage 3, GFR 30-59 ml/min: Code(s): N18.3 - Chronic kidney disease, stage 3 (moderate) Status: Acute Assessment and Plan: Renal U/s WNL (5) Erythrocytosis: Code(s): D75.1 - Secondary polycythemia Status: Acute Assessment and Plan: Suspect secondary perhaps due to sleep apnea ApneaLink pending (6) Thrombocytopenia: Code(s): D69.6 - Thrombocytopenia, unspecified Status: Acute Assessment and Plan: Etiology unclear, likely chronic (present 02/03/19) Obtain old labs (7) Pulmonary emboli: Code(s): I26.99 - Other pulmonary embolism without acute cor pulmonale Status: Acute Assessment and Plan: Continue heparin drip (8) Elevated LFTs: Code(s): R94.5 - Abnormal results of liver function studies Status: Acute Assessment and Plan: 03/[address] no [address] CT possible congestive 03/31 improving AST and ALT with negative viral hepatitis serologies Subjective Date/time seen: 03/31/19 09:49 Interval history: Feels better. No sob or chest pain. Good appetite. No gi/gu c/o. No edema. Review of Systems Review of Systems: All systems reviewed & are unremarkable except as noted in HPI and below Exam Narrative: Exam Narrative: HEENT: EOMI, PERRL, pharyngeal mucosa pink and intact NECK: No JVD CHEST: Clear to auscultation. Normal effort. HEART: NL S1/S2, irregular, tachycardic, no murmur ABDOMEN: BS+, soft, nontender, no mass, no bruits EXTREMITIES: No cyanosis, 1+ pretibial and ankle edema NEUROLOGIC: CN intact and symmetric to inspection. MUSCULOSKELETAL: Tone and strength symmetric. PSYCH: Alert. Oriented to person, place, and time. Objective Data Vital Signs Vital Signs: Vital Signs - 24 hr 03/30/19 10:00 03/30/19 12:00 03/30/19 12:20 Temperature 98.6 F Pulse Rate 103 H 98 108 H Pulse Rate [Bilateral Posterior Tibial Doppler] Pulse Rate [Right Pedal (Dorsalis Pedis) Doppler] Respiratory Rate 18 18 Blood Pressure 106/73 98/52 L Pulse Oximetry 98 99 03/30/19 14:00 03/30/19 14:35 03/30/19 14:44 Temperature Pulse Rate 89 97 97 Pulse Rate [Bilateral Posterior Tibial Doppler] 89 Pulse Rate [Right Pedal (Dorsalis Pedis) Doppler] Respiratory Rate 18 18 18 Blood Pressure 108/74 Pulse Oximetry 98 03/30/19 16:00 03/30/19 17:32 03/30/19 17:33 Temperature 97.4 F L Pulse Rate 89 108 H 93 Pulse Rate [Bilateral Posterior Tibial Doppler] Pulse Rate [Right Pedal (Dorsalis Pedis) Doppler] Respiratory Rate 20 Blood Pressure 114/85 Pulse Oximetry 98 03/30/19 18:00 03/30/19 19:35 03/30/19 19:38 Temperature 98.0 F Pulse Rate 102 H 80 94 Pulse Rate [Bilateral Posterior Tibial Doppler] 80 Pulse Rate [Right Pedal (Dorsalis Pedis) Doppler]
--- NOTE | 2019-03-31 12:02 | PM.PNCARD ---
Progress Note: A&P Assessment and Plan (1) Noncompliance: Code(s): Z91.19 - Patient's noncompliance with other medical treatment and regimen Status: Acute (2) History of DVT (deep vein thrombosis): Code(s): Z86.718 - Personal history of other venous thrombosis and embolism Status: Resolved Assessment and Plan: Will resume anticoagulation, currently with heparin now, and subsequently eventually was switched to oral anticoagulation after assuring that she will take it regularly. Will find a medicine that agrees with her insurance so she can take a regularly (3) Atrial fibrillation: Code(s): I48.91 - Unspecified atrial fibrillation Status: Chronic Assessment and Plan: Rate was fast initially now better after was given IV metoprolol, continue with oral metoprolol 12.5 every 6 hours and up titrate as tolerated try to maintain heart rate without dropping her blood pressure. Currently rate is is well controlled with current medications, temporary pacemaker was removed, will continue follow-up heart rate, no need for permanent pacemaker at this time. Will switch heparin to Eliquis oral (4) History of pulmonary embolism: Code(s): Z86.711 - Personal history of pulmonary embolism Status: Acute Assessment and Plan: She needs to be on heparin, and subsequently on anticoagulation (5) Diastolic congestive heart failure: Qualifiers: Heart failure chronicity: acute Qualified Code(s): I50.31 - Acute diastolic (congestive) heart failure Code(s): I50.30 - Unspecified diastolic (congestive) heart failure Status: Acute Assessment and Plan: Echocardiogram with moderate left ventricular systolic dysfunction, agree with diuresis and lisinopril (6) Hypertension: Qualifiers: Hypertension type: essential hypertension Qualified Code(s): I10 - Essential (primary) hypertension Code(s): I10 - Essential (primary) hypertension Status: Chronic Assessment and Plan: blood pressure currently well controlled and we will continue to monitor on current regimen. Additional Plan Will keep in ICU for 1 more day, in view of the past events, consider transfer to telemetry tomorrow there is no new events Subjective Date/time seen: 03/31/19 12:02 Feels much better today, rhythm is more stabilized she is not needing the pacemaker, which was removed today. She still in AFib but rate is well controlled shortness breath is better leg swelling is better Exam Narrative: Exam Narrative: Exam Narrative: Awake alert oriented x3 not in acute distress Neck is supple, she has elevated JVD, no carotid bruit Chest: Decreased breathing sounds at the bases noted with bilateral basilar crackles Cardiovascular: Irregularly irregular rhythm, 2/6 systolic murmur noted left sternal border Abdomen: Soft nontender bowel sounds positive Extremities: +2 edema has good pulses distally bilaterally Objective Data Vital Signs Vital Signs: Vital Signs - 24 hr 03/30/19 12:20 03/30/19 14:00 03/30/19 14:35 Temperature Pulse Rate 108 H 89 97 Pulse Rate [Bilateral Posterior Tibial Doppler] 89 Pulse Rate [Right Pedal (Dorsalis Pedis) Doppler] Respiratory Rate 18 18 Blood Pressure 108/74 Pulse Oximetry 98 03/30/19 14:44 03/30/19 16:00 03/30/19 17:32 Temperature 36.3 C L Pulse Rate 97 89 108 H Pulse Rate [Bilateral Posterior Tibial Doppler] Pulse Rate [Right Pedal (Dorsalis Pedis) Doppler] Respiratory Rate 18 20 Blood Pressure 114/85 Pulse Oximetry 98 03/30/19 17:33 03/30/19 18:00 03/30/19 19:35 Temperature 36.7 C Pulse Rate 93 102 H 80 Pulse Rate [Bilateral Posterior Tibial Doppler] 80 Pulse Rate [Right Pedal (Dorsalis Pedis) Doppler] Respiratory Rate 25 H 22 H Blood Pressure 114/73 122/68 Pulse Oximetry 93 98 03/30/19 19:38 03/30/19 19:50 03/30/19 20:00 Temperature Pulse Rate 94 97 106 H Pulse Rate [B
[2019-03-31] MEDS: APIXABAN 5 MG TABLET 10 MG PO (21:11)
[2019-04-01] VITALS (23 sets, daily range): BP systolic 78–133; BP diastolic 42–85; PULSE 75–117; RESP 13–22; TEMP 36–36.9; O2SAT 94–100
[2019-04-01] MEDS: LEVALBUTEROL NEB 1.25 MG/3 ML 0.63 MG INHALATION ×4 (02:12→22:27)
[2019-04-01] MEDS: IPRATROPIUM BR 0.02% INH SOLN 0.5 MG/2.5 ML VIAL INHALATION ×4 (02:12→22:28)
[2019-04-01] MEDS: METOPROLOL TARTRATE 12.5 MG TABLET PO ×2 (05:53→12:27)
[2019-04-01 06:24] LABS: Partial Thromboplastin Time 141.2 SECONDS (22.3-36.8)
[2019-04-01 06:27] LABS: Alanine Aminotransferase 25 U/L (4-35); Albumin Level 2.3 g/dL (3.5-5.1); Alkaline Phosphatase 343 U/L (38-126); Aspartate Amino Transferase 32 U/L (14-36); Blood Urea Nitrogen 22 mg/dL (7-17); Calcium 8.5 mg/dL (8.4-10.2); Carbon Dioxide 27 mmol/L (22-30); Chloride 103 mmol/L (98-107); Estimated CRCL calculation 54 ml/min; Estimated Glomerular Filt Rate 59; Glucose 91 mg/dL (65-105); Magnesium 1.9 mg/dL (1.6-2.3); Phosphorus 3.4 mg/dL (2.5-4.5); Potassium 3.7 mmol/L (3.4-5.0); Sodium 134 mmol/L (137-145)
[2019-04-01 07:31] LABS: Hematocrit 41.1 % (37.0-47.0); Hemoglobin 13.4 g/dL (12.0-15.0); Mean Corpuscular HGB Conc 32.6 g/dl (32-36); Mean Corpuscular Hemoglobin 30.1 pg (26-34); Mean Corpuscular Volume 92.4 fl (80-100); Mean Platelet Volume 13.7 fl (7.4-10.4); Platelet Count Result 127 k/mm3 (150-375); Red Blood Count 4.45 M/mm3 (4.2-5.4); Red Cell Distribution Width 18.1 % (11.5-14.5); White Blood Count 6.1 K/mm3 (4.5-10.0)
[2019-04-01] MEDS: AMIODARONE HCL 200 MG TABLET 400 MG PO ×2 (09:16→16:20)
[2019-04-01] MEDS: PANTOPRAZOLE SOD SESQUIHYDRATE 20 MG TAB PO (09:16)
[2019-04-01] MEDS: APIXABAN 5 MG TABLET 10 MG PO ×2 (09:16→20:58)
[2019-04-01] MEDS: SILVERGEL (ELTA) 45 ML 1 APPLIC TOPICAL (09:22)
--- NOTE | 2019-04-01 09:42 | P.PNIM_ITS ---
Progress Note: A&P Assessment and Plan (1) Atrial fibrillation with RVR: Code(s): I48.91 - Unspecified atrial fibrillation Status: Acute Assessment and Plan: * Continue anticoagulation with heparin * TSH is slightly elevated with normal free T4 and slightly low total T3 suggesting sick euthyroid * 03/29 cath negative * 03/29 temporary pacemaker * Continue digoxin and metoprolol and heparin * 03/31 temp pacer intermittently not capturing, few brief pauses, removed * 04/01 afib with v rate 90s, no prolonged pauses or bradycardia; on amio, metoprolol; to med tele; start PT/OT (2) CHF (congestive heart failure): Qualifiers: Heart failure type: systolic Heart failure chronicity: acute on chronic Qualified Code(s): I50.23 - Acute on chronic systolic (congestive) heart failure Code(s): I50.9 - Heart failure, unspecified Status: Acute Assessment and Plan: * EF 40-45% * IV furosemide, spironolactone, losartan, metoprolol * 04/01 KCL PO x 1, f/u lab * 04/01 Na 134, restrict fluids (3) Hypertension: Qualifiers: Hypertension type: essential hypertension Qualified Code(s): I10 - Essential (primary) hypertension Code(s): I10 - Essential (primary) hypertension Status: Chronic Assessment and Plan: * Blood pressure soft * monitor (4) CKD (chronic kidney disease) stage 3, GFR 30-59 ml/min: Code(s): N18.3 - Chronic kidney disease, stage 3 (moderate) Status: Acute Assessment and Plan: * Renal U/s WNL * 04/01 creatinine improved to 1.1 (5) Erythrocytosis: Code(s): D75.1 - Secondary polycythemia Status: Acute Assessment and Plan: * Suspect secondary perhaps due to sleep apnea * ApneaLink pending (6) Thrombocytopenia: Code(s): D69.6 - Thrombocytopenia, unspecified Status: Acute Assessment and Plan: * Etiology unclear, likely chronic (present 02/03/19) * 04/01 PLT 127k (7) Pulmonary emboli: Qualifiers: Pulmonary embolism type: unspecified Chronicity: unspecified Acute cor pulmonale presence: without acute cor pulmonale Qualified Code(s): I26.99 - Other pulmonary embolism without acute cor pulmonale Code(s): I26.99 - Other pulmonary embolism without acute cor pulmonale Status: Acute Assessment and Plan: * Continue Eliquis (8) Elevated LFTs: Code(s): R94.5 - Abnormal results of liver function studies Status: Acute Assessment and Plan: * 03/[address] no [address] lesions [address] CT * possible congestive * 03/31 improving AST and ALT with negative viral hepatitis serologies * 04/01 transaminases WNL Subjective Date/time seen: 04/01/19 09:42 Interval history: Feeling better. Tolerated diet. No cp or palpitations. No dizziness or presyncope. No bleeding. No gi/gu c/o. Review of Systems Review of Systems: All systems reviewed & are unremarkable except as noted in HPI and below Exam Narrative: Exam Narrative: HEENT: EOMI, PERRL, pharyngeal mucosa pink and intact NECK: No JVD CHEST: Clear to auscultation. Normal effort. HEART: NL S1/S2, irregular, no murmur ABDOMEN: BS+, soft, nontender, no mass, no bruits EXTREMITIES: No cyanosis, 1+ pretibial and ankle edema NEUROLOGIC: CN intact and symmetric to inspection. MUSCULOSKELETAL: Tone and strength symmetric. PSYCH: Alert. Oriented to person, place, and time. Objective Data Vital Signs Vital Signs: Vital Signs - 24 hr 03/31/19
--- NOTE | 2019-04-01 09:42 | PM.IMPN ---
Progress Note: A&P Assessment and Plan (1) Atrial fibrillation with RVR: Code(s): I48.91 - Unspecified atrial fibrillation Status: Acute Assessment and Plan: Continue anticoagulation with heparin TSH is slightly elevated with normal free T4 and slightly low total T3 suggesting sick euthyroid 03/29 cath negative 03/29 temporary pacemaker Continue digoxin and metoprolol and heparin 03/31 temp pacer intermittently not capturing, few brief pauses, removed 04/01 afib with v rate 90s, no prolonged pauses or bradycardia; on amio, metoprolol; to med tele; start PT/OT (2) CHF (congestive heart failure): Qualifiers: Heart failure type: systolic Heart failure chronicity: acute on chronic Qualified Code(s): I50.23 - Acute on chronic systolic (congestive) heart failure Code(s): I50.9 - Heart failure, unspecified Status: Acute Assessment and Plan: EF 40-45% IV furosemide, spironolactone, losartan, metoprolol 04/01 KCL PO x 1, f/u lab 04/01 Na 134, restrict fluids (3) Hypertension: Qualifiers: Hypertension type: essential hypertension Qualified Code(s): I10 - Essential (primary) hypertension Code(s): I10 - Essential (primary) hypertension Status: Chronic Assessment and Plan: Blood pressure soft monitor (4) CKD (chronic kidney disease) stage 3, GFR 30-59 ml/min: Code(s): N18.3 - Chronic kidney disease, stage 3 (moderate) Status: Acute Assessment and Plan: Renal U/s WNL 04/01 creatinine improved to 1.1 (5) Erythrocytosis: Code(s): D75.1 - Secondary polycythemia Status: Acute Assessment and Plan: Suspect secondary perhaps due to sleep apnea ApneaLink pending (6) Thrombocytopenia: Code(s): D69.6 - Thrombocytopenia, unspecified Status: Acute Assessment and Plan: Etiology unclear, likely chronic (present 02/03/19) 04/01 PLT 127k (7) Pulmonary emboli: Qualifiers: Pulmonary embolism type: unspecified Chronicity: unspecified Acute cor pulmonale presence: without acute cor pulmonale Qualified Code(s): I26.99 - Other pulmonary embolism without acute cor pulmonale Code(s): I26.99 - Other pulmonary embolism without acute cor pulmonale Status: Acute Assessment and Plan: Continue Eliquis (8) Elevated LFTs: Code(s): R94.5 - Abnormal results of liver function studies Status: Acute Assessment and Plan: 03/[address] CT possible congestive 03/31 improving AST and ALT with negative viral hepatitis serologies 04/01 transaminases WNL Subjective Date/time seen: 04/01/19 09:42 Interval history: Feeling better. Tolerated diet. No cp or palpitations. No dizziness or presyncope. No bleeding. No gi/gu c/o. Review of Systems Review of Systems: All systems reviewed & are unremarkable except as noted in HPI and below Exam Narrative: Exam Narrative: HEENT: EOMI, PERRL, pharyngeal mucosa pink and intact NECK: No JVD CHEST: Clear to auscultation. Normal effort. HEART: NL S1/S2, irregular, no murmur ABDOMEN: BS+, soft, nontender, no mass, no bruits EXTREMITIES: No cyanosis, 1+ pretibial and ankle edema NEUROLOGIC: CN intact and symmetric to inspection. MUSCULOSKELETAL: Tone and strength symmetric. PSYCH: Alert. Oriented to person, place, and time. Objective Data Vital Signs Vital Signs: Vital Signs - 24 hr 03/31/19 10:00 03/31/19 12:00 03/31/19 12:27 Temperature 97 F L Pulse Rate 75 73 73 Respiratory Rate 21 H 19 Blood Pressure 110/66 110/66 Pulse Oximetry 97 99 03/31/19 14:00 03/31/19 15:03 03/31/19 15:14 Temperature Pulse Rate 76 68 89 Respiratory Rate 18 17 18 Blood Pressure 106/65 Pulse Oximetry 100 03/31/19 16:00 03/31/19 17:09 03/31/19 18:00 Temperature 98.1 F Pulse Rate 87 87 85 Respiratory Rate 20 23 H Blood Pressure 115/77 115/67 Pulse Oximetry 99 98 03/31/19 20:00
[2019-04-01] MEDS: LOSARTAN POTASSIUM 25 MG TABLET PO (10:57)
[2019-04-01] MEDS: SPIRONOLACTONE 25 MG TABLET PO (10:57)
[2019-04-01] MEDS: POTASSIUM CHLORIDE 20 MEQ TABLET 40 MEQ PO (10:57)
[2019-04-01] MEDS: FUROSEMIDE INJ 40 MG/4 ML VIAL 20 MG IV PUSH ×2 (10:58→16:20)
--- NOTE | 2019-04-01 11:29 | PM.PNCARD ---
Progress Note: A&P Assessment and Plan (1) Noncompliance: Code(s): Z91.19 - Patient's noncompliance with other medical treatment and regimen Status: Acute (2) History of DVT (deep vein thrombosis): Code(s): Z86.718 - Personal history of other venous thrombosis and embolism Status: Resolved Assessment and Plan: Will resume anticoagulation, currently with heparin now, and subsequently eventually was switched to oral anticoagulation after assuring that she will take it regularly. Will find a medicine that agrees with her insurance so she can take a regularly (3) Atrial fibrillation: Code(s): I48.91 - Unspecified atrial fibrillation Status: Chronic Assessment and Plan: Rate was fast initially now better after was given IV metoprolol, continue with oral metoprolol 12.5 every 6 hours and up titrate as tolerated try to maintain heart rate without dropping her blood pressure. Currently rate is is well controlled with current medications, temporary pacemaker was removed, will continue follow-up heart rate, no need for permanent pacemaker at this time. Will switch heparin to Eliquis oral (4) History of pulmonary embolism: Code(s): Z86.711 - Personal history of pulmonary embolism Status: Acute Assessment and Plan: She needs to be on heparin, and subsequently on anticoagulation (5) Diastolic congestive heart failure: Qualifiers: Heart failure chronicity: acute Qualified Code(s): I50.31 - Acute diastolic (congestive) heart failure Code(s): I50.30 - Unspecified diastolic (congestive) heart failure Status: Acute Assessment and Plan: Echocardiogram with moderate left ventricular systolic dysfunction, agree with diuresis and lisinopril (6) Hypertension: Qualifiers: Hypertension type: essential hypertension Qualified Code(s): I10 - Essential (primary) hypertension Code(s): I10 - Essential (primary) hypertension Status: Chronic Assessment and Plan: blood pressure currently well controlled and we will continue to monitor on current regimen. Additional Plan She is stable enough to be transferred to telemetry today, will continue quality assurance monitor body Subjective Date/time seen: 04/01/19 11:29 She feels much better today, shortness breath is better, still with mild leg swelling. Heart rate is well controlled now but she still is in AFib Exam Narrative: Exam Narrative: Exam Narrative: Awake alert oriented x3 not in acute distress Neck is supple, she has elevated JVD, no carotid bruit Chest: Decreased breathing sounds at the bases noted with bilateral basilar crackles Cardiovascular: Irregularly irregular rhythm, 2/6 systolic murmur noted left sternal border Abdomen: Soft nontender bowel sounds positive Extremities: +2 edema has good pulses distally bilaterally Objective Data Vital Signs Vital Signs: Vital Signs - 24 hr 03/31/19 12:00 03/31/19 12:27 03/31/19 14:00 Temperature 36.1 C L Pulse Rate 73 73 76 Respiratory Rate 19 18 Blood Pressure 110/66 106/65 Pulse Oximetry 99 100 03/31/19 15:03 03/31/19 15:14 03/31/19 16:00 Temperature 36.7 C Pulse Rate 68 89 87 Respiratory Rate 17 18 20 Blood Pressure 115/77 Pulse Oximetry 99 03/31/19 17:09 03/31/19 18:00 03/31/19 20:00 Temperature 36.4 C Pulse Rate 87 85 92 Respiratory Rate 23 H 21 H Blood Pressure 115/67 110/68 Pulse Oximetry 98 98 03/31/19 21:14 03/31/19 21:17 03/31/19 21:28 Temperature Pulse Rate 79 81 85 Respiratory Rate 21 H 17 19 Blood Pressure Pulse Oximetry 96 03/31/19 22:00 03/31/19 23:57 04/01/19 00:00 Temperature 36.4 C Pulse Rate 82 101 H 117 H Respiratory Rate 16 13 Blood Pressure 98/58 L 113/84 Pulse Oximetry 100 94 04/01/19 01:55 04/01/19 02:13 04/01/19 02:19 Temperature Pulse Rate 78 80 87 Respiratory Rate 17 20 18 Blood Pressure 94/56 L Pulse Oximetry 95 04/01/19
--- NOTE | 2019-04-01 12:15 | PC.NURSE ---
This patient, Consuelo Tovar, was received from ICU on 04/01/19 at 1215. Personal belongings list checked and signed. Patient/family oriented to unit policies and routines. Report received from JENNIFER Jane.
--- NOTE | 2019-04-01 12:27 | WPDINTPN ---
Progress Note: A&P Assessment and Plan (1) Respiratory distress: Code(s): R06.03 - Acute respiratory distress Status: Acute Assessment and Plan: respiratory distress could be related to heart failure, coronary disease, PE with bilateral PE found on CT scan - cardiology's requested CT chest with PE protocol which showed bilateral PE. - LE venous Doppler negative for DVTs bilateral - patient on 2 L nasal cannula with good O2 sats - Will continue bronchodilators (2) Atrial fibrillation with RVR: Code(s): I48.91 - Unspecified atrial fibrillation Status: Acute Assessment and Plan: patient with AFib RVR, was started on Cardizem drip, in the intermediate unit patient was bradycardic x1 in the 40s on the night 02/25/2019. Patient was transferred to the ICU for further management - 03/29/2019 a temporary venous pacemaker was inserted, may require permanent pacemaker for sick sinus syndrome but there are no immediate plans for rate from cardiology service. Temporary pacemaker has been discontinued today. - 03/29/2019 coronary angiogram with mild coronary disease, sick sinus syndrome, EF of 40% - she has been transition to p.o. Eliquis. - low-dose metoprolol. Heart rate within acceptable range. Temporary pacer has been discontinued today by cardiology service. (3) CHF (congestive heart failure), NYHA class I: Code(s): I50.9 - Heart failure, unspecified Status: Chronic Assessment and Plan: history of Chronic systolic heart failure, - echocardiogram has been done 03/29/2019: EF 40-45%, moderate aortic valve stenosis, moderate ventral valve regurg, mild pulmonary hypertension with RVSP of 45 mmHg - currently rate controlled AFib With low-dose metoprolol. She has been started on amiodarone and digoxin by Cardiology Service. - continue IV Lasix and low-dose metoprolol. Borderline low blood pressure. Lasix will be switched to 20 mg twice a day from 40 mg once a day as per cardiology. She was started on low-dose lisinopril by cardiology service. She has developed some cough and it will be switched to losartan by cardiology service. - patient may need a permanent pacemaker But there are no immediate plans from cardiology service. 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 (6) History of DVT (deep vein thrombosis): Code(s): Z86.718 - Personal history of other venous thrombosis and embolism Status: Resolved Assessment and Plan: history of PE and DVT, patient took herself off Eliquis. Now seems to be willing to compliant. CT done yesterday showed bilateral PE. She Has been transitioned to Eliquis. (7) Hypertension: Qualifiers: Hypertension type: essential hypertension Qualified Code(s): I10 - Essential (primary) hypertension Code(s): I10 - Essential (primary) hypertension Status: Chronic Assessment and Plan: blood pressure on the lower end of normal. Lasix will be switched to 20 mg twice a day instead of 40 mg once a day. (8) Elevated LFTs: Code(s): R94.5 - Abnormal results of liver function studies Status: Acute Assessment and Plan: patient with elevated LFTs and bilirubin, likely related to hepatic congestion or hepatic and/or biliary disease - Hepatitis panel has been negative. LFTs are improving with bilirubin and AST trending down. ALT has already been normalized. Klaus
--- NOTE | 2019-04-01 12:29 | PC.NURSE ---
This patient, Consuelo Tovar, was transferred to [ 2md] on 04/01/19 at 1200. Personal belongings sent with patient. Belongings list checked and signed with receiving [ ]. Report given to [khushi hirsch ]. Appropriate documentation sent with patient.
[2019-04-02] VITALS (25 sets, daily range): BP systolic 96–128; BP diastolic 52–78; PULSE 82–104; RESP 16–20; TEMP 36.1–36.6; O2SAT 96–100
[2019-04-02] MEDS: METOPROLOL TARTRATE 12.5 MG TABLET PO ×5 (00:35→23:59)
[2019-04-02 06:14] LABS: Hematocrit 40.2 % (37.0-47.0); Hemoglobin 13.3 g/dL (12.0-15.0); Mean Corpuscular HGB Conc 33.1 g/dl (32-36); Mean Corpuscular Hemoglobin 30.6 pg (26-34); Mean Corpuscular Volume 92.4 fl (80-100); Mean Platelet Volume 12.8 fl (7.4-10.4); Platelet Count Result 140 k/mm3 (150-375); Red Blood Count 4.35 M/mm3 (4.2-5.4); Red Cell Distribution Width 18.2 % (11.5-14.5); White Blood Count 6.1 K/mm3 (4.5-10.0)
[2019-04-02 06:26] LABS: Alanine Aminotransferase 25 U/L (4-35); Albumin Level 2.6 g/dL (3.5-5.1); Alkaline Phosphatase 389 U/L (38-126); Aspartate Amino Transferase 37 U/L (14-36); Bilirubin,Total 1.7 mg/dL (0.2-1.3); Blood Urea Nitrogen 23 mg/dL (7-17); Calcium 8.4 mg/dL (8.4-10.2); Carbon Dioxide 26 mmol/L (22-30); Chloride 100 mmol/L (98-107); Estimated CRCL calculation 50 ml/min; Estimated Glomerular Filt Rate 54; Glucose 105 mg/dL (65-105); Magnesium 1.8 mg/dL (1.6-2.3); Potassium 4.5 mmol/L (3.4-5.0); Sodium 135 mmol/L (137-145)
[2019-04-02 06:28] LABS: Partial Thromboplastin Time 66.1 SECONDS (22.3-36.8)
[2019-04-02] MEDS: LEVALBUTEROL NEB 1.25 MG/3 ML 0.63 MG INHALATION ×3 (09:02→19:27)
[2019-04-02] MEDS: IPRATROPIUM BR 0.02% INH SOLN 0.5 MG/2.5 ML VIAL INHALATION ×3 (09:02→19:27)
--- NOTE | 2019-04-02 09:45 | P.PNIM_ITS ---
Progress Note: A&P Assessment and Plan (1) Atrial fibrillation with RVR: Code(s): I48.91 - Unspecified atrial fibrillation Status: Acute Assessment and Plan: * Continue anticoagulation with heparin * TSH is slightly elevated with normal free T4 and slightly low total T3 suggesting sick euthyroid * 03/29 cath negative * 03/29 temporary pacemaker * Continue digoxin and metoprolol and heparin * 03/31 temp pacer intermittently not capturing, few brief pauses, removed * 04/01 afib with v rate 90s, no prolonged pauses or bradycardia; on amio, metoprolol; to med tele; start PT/OT * 04/02 rate control remains fairly good, intermittently over 100 (2) CHF (congestive heart failure): Qualifiers: Heart failure type: systolic Heart failure chronicity: acute on chronic Qualified Code(s): I50.23 - Acute on chronic systolic (congestive) heart failure Code(s): I50.9 - Heart failure, unspecified Status: Acute Assessment and Plan: * EF 40-45% * IV furosemide, spironolactone, losartan, metoprolol * 04/01 KCL PO x 1, f/u lab * 04/01 Na 134, restricted fluids (3) Hypertension: Qualifiers: Hypertension type: essential hypertension Qualified Code(s): I10 - Essential (primary) hypertension Code(s): I10 - Essential (primary) hypertension Status: Chronic Assessment and Plan: * Blood pressure soft * 04/02 held losartan * monitor (4) CKD (chronic kidney disease) stage 3, GFR 30-59 ml/min: Code(s): N18.3 - Chronic kidney disease, stage 3 (moderate) Status: Acute Assessment and Plan: * Renal U/s WNL * 04/01 creatinine improved to 1.1 (5) Erythrocytosis: Code(s): D75.1 - Secondary polycythemia Status: Acute Assessment and Plan: * Suspect secondary perhaps due to sleep apnea * ApneaLink shows SEVERE sleep disordered breathing (6) Thrombocytopenia: Code(s): D69.6 - Thrombocytopenia, unspecified Status: Acute Assessment and Plan: * Etiology unclear, likely chronic (present 02/03/19) * 04/02 PLT stable (7) Pulmonary emboli: Qualifiers: Pulmonary embolism type: unspecified Chronicity: unspecified Acute cor pulmonale presence: without acute cor pulmonale Qualified Code(s): I26.99 - Other pulmonary embolism without acute cor pulmonale Code(s): I26.99 - Other pulmonary embolism without acute cor pulmonale Status: Acute Assessment and Plan: * Continue Eliquis 10mg bid, day #4 anticoagulation * 04/02 d/c meeks (8) Elevated LFTs: Code(s): R94.5 - Abnormal results of liver function studies Status: Acute Assessment and Plan: * 03/[address] * possible congestive * 03/31 improving AST and ALT with negative viral hepatitis serologies * 04/01 transaminases WNL (9) Obstructive sleep apnea of adult: Code(s): G47.33 - Obstructive sleep apnea (adult) (pediatric) Status: Acute Assessment and Plan: * 04/02 severe by Apnea Link * 04/02 auto-titrating cpap ordered Subjective Date/time seen: 04/02/19 09:45 Interval history: Did not sleep well. No cp or palpitations. No dizziness or presyncope. Urine in meeks with dark blood. No other bleeding. No other gi/gu c/o. Review of Systems Review of Systems: All systems reviewed & are unremarkable except as noted in HPI and below Exam Narrative: Exam Narrative: HEENT: EOMI, PERRL, pharyngeal mucosa pink and intact NECK: No JVD CHEST: Clear to auscultation
--- NOTE | 2019-04-02 09:45 | PM.IMPN ---
Progress Note: A&P Assessment and Plan (1) Atrial fibrillation with RVR: Code(s): I48.91 - Unspecified atrial fibrillation Status: Acute Assessment and Plan: Continue anticoagulation with heparin TSH is slightly elevated with normal free T4 and slightly low total T3 suggesting sick euthyroid 03/29 cath negative 03/29 temporary pacemaker Continue digoxin and metoprolol and heparin 03/31 temp pacer intermittently not capturing, few brief pauses, removed 04/01 afib with v rate 90s, no prolonged pauses or bradycardia; on amio, metoprolol; to med tele; start PT/OT 04/02 rate control remains fairly good, intermittently over 100 (2) CHF (congestive heart failure): Qualifiers: Heart failure type: systolic Heart failure chronicity: acute on chronic Qualified Code(s): I50.23 - Acute on chronic systolic (congestive) heart failure Code(s): I50.9 - Heart failure, unspecified Status: Acute Assessment and Plan: EF 40-45% IV furosemide, spironolactone, losartan, metoprolol 04/01 KCL PO x 1, f/u lab 04/01 Na 134, restricted fluids (3) Hypertension: Qualifiers: Hypertension type: essential hypertension Qualified Code(s): I10 - Essential (primary) hypertension Code(s): I10 - Essential (primary) hypertension Status: Chronic Assessment and Plan: Blood pressure soft 04/02 held losartan monitor (4) CKD (chronic kidney disease) stage 3, GFR 30-59 ml/min: Code(s): N18.3 - Chronic kidney disease, stage 3 (moderate) Status: Acute Assessment and Plan: Renal U/s WNL 04/01 creatinine improved to 1.1 (5) Erythrocytosis: Code(s): D75.1 - Secondary polycythemia Status: Acute Assessment and Plan: Suspect secondary perhaps due to sleep apnea ApneaLink shows SEVERE sleep disordered breathing (6) Thrombocytopenia: Code(s): D69.6 - Thrombocytopenia, unspecified Status: Acute Assessment and Plan: Etiology unclear, likely chronic (present 02/03/19) 04/02 PLT stable (7) Pulmonary emboli: Qualifiers: Pulmonary embolism type: unspecified Chronicity: unspecified Acute cor pulmonale presence: without acute cor pulmonale Qualified Code(s): I26.99 - Other pulmonary embolism without acute cor pulmonale Code(s): I26.99 - Other pulmonary embolism without acute cor pulmonale Status: Acute Assessment and Plan: Continue Eliquis 10mg bid, day #4 anticoagulation 04/02 d/c meeks (8) Elevated LFTs: Code(s): R94.5 - Abnormal results of liver function studies Status: Acute Assessment and Plan: 03/[address] no [address] lesions by CT possible congestive 03/31 improving AST and ALT with negative viral hepatitis serologies 04/01 transaminases WNL (9) Obstructive sleep apnea of adult: Code(s): G47.33 - Obstructive sleep apnea (adult) (pediatric) Status: Acute Assessment and Plan: 04/02 severe by Apnea Link 04/02 auto-titrating cpap ordered Subjective Date/time seen: 04/02/19 09:45 Interval history: Did not sleep well. No cp or palpitations. No dizziness or presyncope. Urine in meeks with dark blood. No other bleeding. No other gi/gu c/o. Review of Systems Review of Systems: All systems reviewed & are unremarkable except as noted in HPI and below Exam Narrative: Exam Narrative: HEENT: EOMI, PERRL, pharyngeal mucosa pink and intact NECK: No JVD CHEST: Clear to auscultation. Normal effort. HEART: NL S1/S2, irregular, no murmur ABDOMEN: BS+, soft, nontender, no mass, no bruits EXTREMITIES: No cyanosis, 1+ pretibial and ankle edema NEUROLOGIC: CN intact and symmetric to inspection. MUSCULOSKELETAL: Tone and strength symmetric. PSYCH: Alert. Oriented to person, place, and time. Objective Data Vital Signs Vital Signs: Vital Signs - 24 hr 04/01/19 09:49 04/01/19 10:00 04/01/19 12:00 Temperature 97 F L Pulse Rate 90 81 82 Respiratory R
[2019-04-02] MEDS: APIXABAN 5 MG TABLET 10 MG PO ×2 (09:58→20:37)
[2019-04-02] MEDS: PANTOPRAZOLE SOD SESQUIHYDRATE 20 MG TAB PO (09:58)
[2019-04-02] MEDS: SPIRONOLACTONE 25 MG TABLET PO (09:59)
[2019-04-02] MEDS: AMIODARONE HCL 200 MG TABLET 400 MG PO ×2 (10:00→17:24)
[2019-04-02] MEDS: FUROSEMIDE INJ 40 MG/4 ML VIAL 20 MG IV PUSH ×2 (10:00→17:27)
[2019-04-02] MEDS: SILVERGEL (ELTA) 45 ML 1 APPLIC TOPICAL (12:33)
--- NOTE | 2019-04-02 16:52 | PM.PNCARD ---
Progress Note: A&P Assessment and Plan (1) Noncompliance: Code(s): Z91.19 - Patient's noncompliance with other medical treatment and regimen Status: Acute (2) History of DVT (deep vein thrombosis): Code(s): Z86.718 - Personal history of other venous thrombosis and embolism Status: Resolved Assessment and Plan: Will resume anticoagulation, currently with heparin now, and subsequently eventually was switched to oral anticoagulation after assuring that she will take it regularly. Will find a medicine that agrees with her insurance so she can take a regularly (3) Atrial fibrillation: Code(s): I48.91 - Unspecified atrial fibrillation Status: Chronic Assessment and Plan: Rate was fast initially now better after was given IV metoprolol, continue with oral metoprolol 12.5 every 6 hours and up titrate as tolerated try to maintain heart rate without dropping her blood pressure. Currently rate is is well controlled with current medications, temporary pacemaker was removed, will continue follow-up heart rate, no need for permanent pacemaker at this time. Will switch heparin to Eliquis oral (4) History of pulmonary embolism: Code(s): Z86.711 - Personal history of pulmonary embolism Status: Acute Assessment and Plan: She is on Eliquis (5) Diastolic congestive heart failure: Qualifiers: Heart failure chronicity: acute Qualified Code(s): I50.31 - Acute diastolic (congestive) heart failure Code(s): I50.30 - Unspecified diastolic (congestive) heart failure Status: Acute Assessment and Plan: Echocardiogram with moderate left ventricular systolic dysfunction, agree with diuresis and losartan (6) Hypertension: Qualifiers: Hypertension type: essential hypertension Qualified Code(s): I10 - Essential (primary) hypertension Code(s): I10 - Essential (primary) hypertension Status: Chronic Assessment and Plan: blood pressure currently well controlled and we will continue to monitor on current regimen. Subjective Date/time seen: 04/02/19 16:52 She feels better today, shortness breath is better, she still complains of cough Exam Narrative: Exam Narrative: Exam Narrative: Awake alert oriented x3 not in acute distress Neck is supple, she has elevated JVD, no carotid bruit Chest: Decreased breathing sounds at the bases noted with bilateral basilar crackles Cardiovascular: Irregularly irregular rhythm, 2/6 systolic murmur noted left sternal border Abdomen: Soft nontender bowel sounds positive Extremities: +2 edema has good pulses distally bilaterally Objective Data Vital Signs Vital Signs: Vital Signs - 24 hr 04/01/19 18:22 04/01/19 20:00 04/01/19 22:00 Temperature 36.1 C L Pulse Rate 105 H 93 Respiratory Rate 21 H Blood Pressure 84/42 L 100/64 Pulse Oximetry 100 04/01/19 22:28 04/01/19 22:34 04/02/19 00:00 Temperature Pulse Rate 110 H 101 H 100 Respiratory Rate 20 20 Blood Pressure Pulse Oximetry 04/02/19 00:35 04/02/19 04:00 04/02/19 05:33 Temperature Pulse Rate 104 H 88 102 H Respiratory Rate Blood Pressure Pulse Oximetry 04/02/19 06:00 04/02/19 08:55 04/02/19 09:06 Temperature 36.6 C Pulse Rate 92 96 97 Respiratory Rate 20 20 20 Blood Pressure 103/62 Pulse Oximetry 99 97 04/02/19 10:00 04/02/19 10:07 04/02/19 11:30 Temperature 36.4 C Pulse Rate 90 Respiratory Rate 16 Blood Pressure 96/78 L 101/52 L 100/62 Pulse Oximetry 100 04/02/19 12:33 04/02/19 14:00 04/02/19 14:05 Temperature 36.4 C L Pulse Rate 99 86 94 Respiratory Rate 16 20 Blood Pressure 108/65 Pulse Oximetry 99 04/02/19 14:15 Temperature Pulse Rate 98 Respiratory Rate 20 Blood Pressure Pulse Oximetry Intake/Output Intake/Output: Intake & Output 03/30/19 03/31/19 04/01/19 04/02/19 23:59 23:59 23:59 23:59 Intake Total 1090 758 930 580 O
--- NOTE | 2019-04-02 19:08 | PC.NURSE ---
On 04/02/19, the license pending Registered Nurse, Denny Worthy, provided care and completed [employer] documentation on this patient. I have reviewed the documentation and agree with the findings.
[2019-04-02] MEDS: ALPRAZOLAM 0.25 MG TABLET PO (20:37)
[2019-04-02] MEDS: GUAIFENESIN/DEXTROMETHORPHAN 10 ML UDC PO (20:37)
[2019-04-03] VITALS (23 sets, daily range): BP systolic 97–122; BP diastolic 51–72; PULSE 67–100; RESP 16–21; TEMP 36.1–36.6; O2SAT 90–100
[2019-04-03] MEDS: IPRATROPIUM BR 0.02% INH SOLN 0.5 MG/2.5 ML VIAL INHALATION ×4 (01:36→20:09)
[2019-04-03] MEDS: LEVALBUTEROL NEB 1.25 MG/3 ML 0.63 MG INHALATION ×4 (01:36→20:09)
[2019-04-03] MEDS: METOPROLOL TARTRATE 12.5 MG TABLET PO ×3 (05:44→17:02)
[2019-04-03] MEDS: GUAIFENESIN/DEXTROMETHORPHAN 10 ML UDC PO ×2 (05:45→21:36)
[2019-04-03 06:02] LABS: Hematocrit 37.9 % (37.0-47.0); Hemoglobin 12.7 g/dL (12.0-15.0); Mean Corpuscular HGB Conc 33.5 g/dl (32-36); Mean Corpuscular Hemoglobin 30.2 pg (26-34); Mean Corpuscular Volume 90.2 fl (80-100); Mean Platelet Volume 11.8 fl (7.4-10.4); Platelet Count Result 146 k/mm3 (150-375); Red Cell Distribution Width 17.8 % (11.5-14.5); White Blood Count 4.9 K/mm3 (4.5-10.0)
[2019-04-03 06:16] LABS: Alanine Aminotransferase 27 U/L (4-35); Albumin Level 2.8 g/dL (3.5-5.1); Alkaline Phosphatase 349 U/L (38-126); Aspartate Amino Transferase 40 U/L (14-36); Bilirubin,Total 2.7 mg/dL (0.2-1.3); Blood Urea Nitrogen 21 mg/dL (7-17); Calcium 8.6 mg/dL (8.4-10.2); Carbon Dioxide 27 mmol/L (22-30); Chloride 101 mmol/L (98-107); Estimated CRCL calculation 56 ml/min; Estimated Glomerular Filt Rate 59; Glucose 88 mg/dL (65-105); Magnesium 1.8 mg/dL (1.6-2.3); Potassium 4.6 mmol/L (3.4-5.0); Sodium 136 mmol/L (137-145)
[2019-04-03] MEDS: LOSARTAN POTASSIUM 25 MG TABLET PO (08:20)
[2019-04-03] MEDS: APIXABAN 5 MG TABLET 10 MG PO ×2 (08:20→21:36)
[2019-04-03] MEDS: FUROSEMIDE INJ 40 MG/4 ML VIAL 20 MG IV PUSH (08:21)
[2019-04-03] MEDS: AMIODARONE HCL 200 MG TABLET 400 MG PO ×2 (08:21→17:00)
[2019-04-03] MEDS: PANTOPRAZOLE SOD SESQUIHYDRATE 20 MG TAB PO (08:21)
[2019-04-03] MEDS: SPIRONOLACTONE 25 MG TABLET PO (08:21)
[2019-04-03] MEDS: SILVERGEL (ELTA) 45 ML 1 APPLIC TOPICAL (08:35)
--- NOTE | 2019-04-03 09:30 | PCPTNOTE ---
Attempted to see Pt. Pt had breathing treatment and received breakfast, requested for therapy to come back a little later. Will attempt again later.
--- NOTE | 2019-04-03 14:17 | P.PNIM_ITS ---
Progress Note: A&P Assessment and Plan (1) Atrial fibrillation with RVR: Code(s): I48.91 - Unspecified atrial fibrillation Status: Acute Assessment and Plan: * Continue anticoagulation with heparin * TSH is slightly elevated with normal free T4 and slightly low total T3 suggesting sick euthyroid * 03/29 cath negative * 03/29 temporary pacemaker * Continue digoxin and metoprolol and heparin * 03/31 temp pacer intermittently not capturing, few brief pauses, removed * 04/01 afib with v rate 90s, no prolonged pauses or bradycardia; on amio, metoprolol; to med tele; start PT/OT * 04/02 rate control remains fairly good, intermittently over 100 continue metoprolol (2) CHF (congestive heart failure): Qualifiers: Heart failure chronicity: acute on chronic Heart failure type: systolic Qualified Code(s): I50.23 - Acute on chronic systolic (congestive) heart failure Code(s): I50.9 - Heart failure, unspecified Status: Acute Assessment and Plan: * EF 40-45% * IV furosemide, spironolactone, losartan, metoprolol, change to po lasix in am04/04 * 04/01 KCL PO x 1, f/u lab * 04/01 Na 134, restricted fluids * 04/03 Na 136 (3) Hypertension: Qualifiers: Hypertension type: essential hypertension Qualified Code(s): I10 - Essential (primary) hypertension Code(s): I10 - Essential (primary) hypertension Status: Chronic Assessment and Plan: * Blood pressure soft * 04/02 held losartan but resumed today 04/03 * monitor (4) CKD (chronic kidney disease) stage 3, GFR 30-59 ml/min: Code(s): N18.3 - Chronic kidney disease, stage 3 (moderate) Status: Acute Assessment and Plan: * Renal U/s WNL * 04/01 creatinine improved to 1.1 and again today 04/03 (5) Erythrocytosis: Code(s): D75.1 - Secondary polycythemia Status: Acute Assessment and Plan: * Suspect secondary perhaps due to sleep apnea * ApneaLink shows SEVERE sleep disordered breathing * Resolved (6) Thrombocytopenia: Code(s): D69.6 - Thrombocytopenia, unspecified Status: Acute Assessment and Plan: * Etiology unclear, likely chronic (present 02/03/19) * 04/02 PLT stable * 04/03 up to 146 K today (7) Pulmonary emboli: Qualifiers: Acute cor pulmonale presence: without acute cor pulmonale Chronicity: unspecified Pulmonary embolism type: unspecified Qualified Code(s): I26.99 - Other pulmonary embolism without acute cor pulmonale Code(s): I26.99 - Other pulmonary embolism without acute cor pulmonale Status: Acute Assessment and Plan: * Continue Eliquis 10mg bid, day #5 anticoagulation * 04/02 d/c constantino (8) Elevated LFTs: Code(s): R94.5 - Abnormal results of liver function studies Status: Acute Assessment and Plan: * 03/[address] CT * possible congestive * 03/31 improving AST and ALT with negative viral hepatitis serologies * 04/01 transaminases WNL * Continue to monitor (9) Obstructive sleep apnea of adult: Code(s): G47.33 - Obstructive sleep apnea (adult) (pediatric) Status: Acute Assessment and Plan: * 04/02 severe by Apnea Link * 04/02 auto-titrating cpap ordered Subjective Date/time seen: 04/03/19 14:17 Interval history: Date of visit 04/03. 74-year-old white female admitted with shortness of breath and found to have pulmonary emboli and congestive heart failure. Breathing better now on oral medication with IV lasix No cp or palpitations. No dizziness or presyncope. Walking kristi
--- NOTE | 2019-04-03 14:17 | PM.IMPN ---
Progress Note: A&P Assessment and Plan (1) Atrial fibrillation with RVR: Code(s): I48.91 - Unspecified atrial fibrillation Status: Acute Assessment and Plan: Continue anticoagulation with heparin TSH is slightly elevated with normal free T4 and slightly low total T3 suggesting sick euthyroid 03/29 cath negative 03/29 temporary pacemaker Continue digoxin and metoprolol and heparin 03/31 temp pacer intermittently not capturing, few brief pauses, removed 04/01 afib with v rate 90s, no prolonged pauses or bradycardia; on amio, metoprolol; to med tele; start PT/OT 04/02 rate control remains fairly good, intermittently over 100 continue metoprolol (2) CHF (congestive heart failure): Qualifiers: Heart failure chronicity: acute on chronic Heart failure type: systolic Qualified Code(s): I50.23 - Acute on chronic systolic (congestive) heart failure Code(s): I50.9 - Heart failure, unspecified Status: Acute Assessment and Plan: EF 40-45% IV furosemide, spironolactone, losartan, metoprolol, change to po lasix in am04/04 04/01 KCL PO x 1, f/u lab 04/01 Na 134, restricted fluids 04/03 Na 136 (3) Hypertension: Qualifiers: Hypertension type: essential hypertension Qualified Code(s): I10 - Essential (primary) hypertension Code(s): I10 - Essential (primary) hypertension Status: Chronic Assessment and Plan: Blood pressure soft 04/02 held losartan but resumed today 04/03 monitor (4) CKD (chronic kidney disease) stage 3, GFR 30-59 ml/min: Code(s): N18.3 - Chronic kidney disease, stage 3 (moderate) Status: Acute Assessment and Plan: Renal U/s WNL 04/01 creatinine improved to 1.1 and again today 04/03 (5) Erythrocytosis: Code(s): D75.1 - Secondary polycythemia Status: Acute Assessment and Plan: Suspect secondary perhaps due to sleep apnea ApneaLink shows SEVERE sleep disordered breathing Resolved (6) Thrombocytopenia: Code(s): D69.6 - Thrombocytopenia, unspecified Status: Acute Assessment and Plan: Etiology unclear, likely chronic (present 02/03/19) 04/02 PLT stable 04/03 up to 146 K today (7) Pulmonary emboli: Qualifiers: Acute cor pulmonale presence: without acute cor pulmonale Chronicity: unspecified Pulmonary embolism type: unspecified Qualified Code(s): I26.99 - Other pulmonary embolism without acute cor pulmonale Code(s): I26.99 - Other pulmonary embolism without acute cor pulmonale Status: Acute Assessment and Plan: Continue Eliquis 10mg bid, day #5 anticoagulation 04/02 d/c constantino (8) Elevated LFTs: Code(s): R94.5 - Abnormal results of liver function studies Status: Acute Assessment and Plan: 03/[address] possible congestive 03/31 improving AST and ALT with negative viral hepatitis serologies 04/01 transaminases WNL Continue to monitor (9) Obstructive sleep apnea of adult: Code(s): G47.33 - Obstructive sleep apnea (adult) (pediatric) Status: Acute Assessment and Plan: 04/02 severe by Apnea Link 04/02 auto-titrating cpap ordered Subjective Date/time seen: 04/03/19 14:17 Interval history: Date of visit 04/03. 74-year-old white female admitted with shortness of breath and found to have pulmonary emboli and congestive heart failure. Breathing better now on oral medication with IV lasix No cp or palpitations. No dizziness or presyncope. Walking halls with walker and PT Exam Narrative: Exam Narrative: Blood pressure 112/52 pulse 66 afebrile HEENT: EOMI, PERRL NECK: No JVD supple CHEST: Clear to auscultation. Normal effort. HEART: NL S1/S2, irregular, no murmur ABDOMEN: BS+, soft, nontender, no mass, no bruits EXTREMITIES: No cyanosis, trace pretibial and ankle edema NEUROLOGIC: CN intact and symmetric to inspection. Objective Data Vital Signs Vital Signs: Vital Signs - 24 h
--- NOTE | 2019-04-03 15:20 | PM.PNCARD ---
Progress Note: A&P Assessment and Plan (1) Noncompliance: Code(s): Z91.19 - Patient's noncompliance with other medical treatment and regimen Status: Acute (2) History of DVT (deep vein thrombosis): Code(s): Z86.718 - Personal history of other venous thrombosis and embolism Status: Resolved Assessment and Plan: Will resume anticoagulation, currently with heparin now, and subsequently eventually was switched to oral anticoagulation after assuring that she will take it regularly. Will find a medicine that agrees with her insurance so she can take a regularly (3) Atrial fibrillation: Code(s): I48.91 - Unspecified atrial fibrillation Status: Chronic Assessment and Plan: Rate was fast initially now better after was given IV metoprolol, continue with oral metoprolol 12.5 every 6 hours and up titrate as tolerated try to maintain heart rate without dropping her blood pressure. Currently rate is is well controlled with current medications, temporary pacemaker was removed, will continue follow-up heart rate, no need for permanent pacemaker at this time. Will switch heparin to Eliquis oral (4) History of pulmonary embolism: Code(s): Z86.711 - Personal history of pulmonary embolism Status: Acute Assessment and Plan: She is on Eliquis (5) Diastolic congestive heart failure: Qualifiers: Heart failure chronicity: acute Qualified Code(s): I50.31 - Acute diastolic (congestive) heart failure Code(s): I50.30 - Unspecified diastolic (congestive) heart failure Status: Acute Assessment and Plan: Echocardiogram with moderate left ventricular systolic dysfunction, agree with diuresis and losartan (6) Hypertension: Qualifiers: Hypertension type: essential hypertension Qualified Code(s): I10 - Essential (primary) hypertension Code(s): I10 - Essential (primary) hypertension Status: Chronic Assessment and Plan: blood pressure currently well controlled and we will continue to monitor on current regimen. Additional Plan She is stable enough to be transferred to telemetry today, will continue monitoring coordinator Subjective Date/time seen: 04/03/19 15:20 She is in a splint today, still with cough no chest pain since this lot. Leg swelling is much better Exam Narrative: Exam Narrative: Exam Narrative: Awake alert oriented x3 not in acute distress Neck is supple, she has elevated JVD, no carotid bruit Chest: Decreased breathing sounds at the bases noted with bilateral basilar crackles Cardiovascular: Irregularly irregular rhythm, 2/6 systolic murmur noted left sternal border Abdomen: Soft nontender bowel sounds positive Extremities: +1 edema has good pulses distally bilaterally Objective Data Vital Signs Vital Signs: Vital Signs - 24 hr 04/02/19 16:00 04/02/19 17:24 04/02/19 17:27 Temperature Pulse Rate 89 82 82 Respiratory Rate Blood Pressure Pulse Oximetry 04/02/19 18:00 04/02/19 19:28 04/02/19 19:32 Temperature 36.1 C L Pulse Rate 89 96 96 Respiratory Rate 16 20 Blood Pressure 122/66 Pulse Oximetry 100 96 04/02/19 19:36 04/02/19 20:00 04/02/19 23:59 Temperature 36.4 C L Pulse Rate 94 85 92 Respiratory Rate 20 18 Blood Pressure 128/76 Pulse Oximetry 96 04/03/19 00:00 04/03/19 01:36 04/03/19 01:45 Temperature Pulse Rate 100 84 80 Respiratory Rate 20 20 Blood Pressure Pulse Oximetry 04/03/19 02:00 04/03/19 04:00 04/03/19 05:44 Temperature 36.2 C L Pulse Rate 81 88 86 Respiratory Rate 20 Blood Pressure 108/60 Pulse Oximetry 98 04/03/19 06:00 04/03/19 08:00 04/03/19 08:21 Temperature 36.3 C L Pulse Rate 86 79 82 Respiratory Rate 21 H Blood Pressure 105/57 L Pulse Oximetry 100 04/03/19 09:30 04/03/19 10:00 04/03/19 12:00 Temperature 36.6 C Pulse Rate 84 67 89 Respiratory Rate 20 18 Blood Pressure 112/51 L Puls
[2019-04-03] MEDS: FUROSEMIDE INJ 40 MG/4 ML VIAL IV PUSH (17:00)
--- NOTE | 2019-04-03 19:12 | PC.NURSE ---
On 04/03/2019, the License pending nurse, Denny Worthy RN provided care and completed [employer] documentation on this patient. I have reviewed the documentation and agree with the findings.
--- NOTE | 2019-04-03 19:14 | PC.NURSE ---
On 04/03/2019, the License Pending nurse Denny Worthy RN provided care and completed [employer] documentation on this patient. I have reviewed the documentation and agree with the findings.
[2019-04-04] VITALS (10 sets, daily range): BP systolic 109–133; BP diastolic 57–67; PULSE 83–104; RESP 12–22; TEMP 36.2–36.5; O2SAT 93–99
[2019-04-04] MEDS: IPRATROPIUM BR 0.02% INH SOLN 0.5 MG/2.5 ML VIAL INHALATION ×3 (01:49→14:07)
[2019-04-04] MEDS: LEVALBUTEROL NEB 1.25 MG/3 ML 0.63 MG INHALATION ×3 (01:50→14:07)
[2019-04-04] MEDS: METOPROLOL TARTRATE 12.5 MG TABLET PO ×2 (03:11→07:32)
[2019-04-04 05:13] LABS: Hematocrit 38.1 % (37.0-47.0); Hemoglobin 12.7 g/dL (12.0-15.0); Mean Corpuscular HGB Conc 33.3 g/dl (32-36); Mean Corpuscular Hemoglobin 29.7 pg (26-34); Mean Corpuscular Volume 89.2 fl (80-100); Mean Platelet Volume 11.8 fl (7.4-10.4); Platelet Count Result 141 k/mm3 (150-375); Red Blood Count 4.27 M/mm3 (4.2-5.4); Red Cell Distribution Width 17.6 % (11.5-14.5); White Blood Count 3.7 K/mm3 (4.5-10.0)
[2019-04-04 05:30] LABS: Alanine Aminotransferase 26 U/L (4-35); Albumin Level 2.7 g/dL (3.5-5.1); Alkaline Phosphatase 333 U/L (38-126); Aspartate Amino Transferase 40 U/L (14-36); Bilirubin,Total 2.1 mg/dL (0.2-1.3); Blood Urea Nitrogen 17 mg/dL (7-17); Calcium 8.8 mg/dL (8.4-10.2); Carbon Dioxide 29 mmol/L (22-30); Chloride 100 mmol/L (98-107); Estimated CRCL calculation 55 ml/min; Estimated Glomerular Filt Rate 59; Glucose 93 mg/dL (65-105); Magnesium 1.8 mg/dL (1.6-2.3); Potassium 3.9 mmol/L (3.4-5.0); Sodium 138 mmol/L (137-145)
--- NOTE | 2019-04-04 09:24 | PM.PNCARD ---
Progress Note: A&P Assessment and Plan (1) Diastolic congestive heart failure: Qualifiers: Heart failure chronicity: acute Qualified Code(s): I50.31 - Acute diastolic (congestive) heart failure Code(s): I50.30 - Unspecified diastolic (congestive) heart failure Status: Acute Assessment and Plan: Echocardiogram with moderate left ventricular systolic dysfunction. [facility] with no significant CAD consistent with non ischemic cardiomyopathy Continue current dose of Metoprolol, Losartan and Spironolactone On Lasix PO daily. Will increase dose to BID. She is stable for discharge from cardiac standpoint. Need BMP in a week. Will arrange for follow up in a week with Dr Mendenhall (2) Atrial fibrillation: Code(s): I48.91 - Unspecified atrial fibrillation Status: Chronic Assessment and Plan: Decrease Amiodarone to 200 mg daily COntinue Metoprolol Continue Eliquis Currently rate is is well controlled with current medications, temporary pacemaker was removed, will continue follow-up heart rate, no need for permanent pacemaker at this time. Will switch heparin to Eliquis oral (3) History of DVT (deep vein thrombosis): Code(s): Z86.718 - Personal history of other venous thrombosis and embolism Status: Resolved Assessment and Plan: Continue Eliquis (4) History of pulmonary embolism: Code(s): Z86.711 - Personal history of pulmonary embolism Status: Acute Assessment and Plan: She is on Eliquis (5) Hypertension: Qualifiers: Hypertension type: essential hypertension Qualified Code(s): I10 - Essential (primary) hypertension Code(s): I10 - Essential (primary) hypertension Status: Chronic Assessment and Plan: blood pressure currently well controlled and we will continue to monitor on current regimen. Additional Plan Tolerating Metoprolol, Losartan and Spironolactone. Subjective Date/time seen: 04/04/19 09:24 Feels better and ready to go home. Denies chest pain or dyspnea. Review of Systems Constitutional: Constitutional: Reports fatigue, Reports lethargy and Reports weakness Cardiovascular: Cardiovascular: Reports as per HPI and Reports dyspnea on exertion Respiratory: Respiratory: Reports dyspnea on exertion Gastrointestinal: Gastrointestinal: Reports nausea Neurologic: Reports weakness Endocrine: Endocrine: Reports fatigue Exam Narrative: Exam Narrative: Exam Narrative: Awake alert oriented x3 not in acute distress Neck is supple, she has elevated JVD, no carotid bruit Chest: Decreased breathing sounds at the bases noted with bilateral basilar crackles Cardiovascular: Irregularly irregular rhythm, 2/6 systolic murmur noted left sternal border Abdomen: Soft nontender bowel sounds positive Extremities: +1 edema has good pulses distally bilaterally Objective Data Vital Signs Vital Signs: Vital Signs - 24 hr 04/03/19 09:30 04/03/19 10:00 04/03/19 12:00 Temperature 36.6 C Pulse Rate 84 67 89 Respiratory Rate 20 18 Blood Pressure 112/51 L Pulse Oximetry 91 04/03/19 14:00 04/03/19 15:28 04/03/19 15:40 Temperature 36.2 C L Pulse Rate 85 85 89 Respiratory Rate 20 20 20 Blood Pressure 106/67 Pulse Oximetry 97 04/03/19 16:00 04/03/19 17:00 04/03/19 17:02 Temperature Pulse Rate 92 78 78 Respiratory Rate Blood Pressure Pulse Oximetry 04/03/19 18:00 04/03/19 20:00 04/03/19 20:23 Temperature 36.1 C L 36.6 C Pulse Rate 98 94 88 Respiratory Rate 16 20 20 Blood Pressure 97/64 L 122/72 Pulse Oximetry 100 90 04/03/19 20:25 04/03/19 20:29 04/04/19 00:00 Temperature 36.4 C Pulse Rate 90 90 Respiratory Rate 20 20 Blood Pressure 133/67 Pulse Oximetry 95 93 04/04/19 01:50 04/04/19 01:55 04/04/19 03:11 Temperature Pulse Rate 96 92 84 Respiratory Rate 20 20 Blood Pressure Pulse Oximetry 04/04/19 04:00 04/04/19 08:23 02
[2019-04-04] MEDS: APIXABAN 5 MG TABLET 10 MG PO (10:06)
[2019-04-04] MEDS: AMIODARONE HCL 200 MG TABLET PO (10:06)
[2019-04-04] MEDS: PANTOPRAZOLE SOD SESQUIHYDRATE 20 MG TAB PO (10:06)
[2019-04-04] MEDS: LOSARTAN POTASSIUM 25 MG TABLET PO (10:07)
[2019-04-04] MEDS: FUROSEMIDE INJ 40 MG/4 ML VIAL IV PUSH (10:07)
[2019-04-04] MEDS: SILVERGEL (ELTA) 45 ML 1 APPLIC TOPICAL (10:07)
[2019-04-04] MEDS: SPIRONOLACTONE 25 MG TABLET PO (10:07)
--- NOTE | 2019-04-04 17:27 | P.DS_ITS ---
DS: Diagnosis Admitting Diagnosis Admitting Diagnosis: Patient's noncompliance with other medical treatment and re gimen Discharge Diagnosis (1) Atrial fibrillation with RVR: Code(s): I48.91 - Unspecified atrial fibrillation Status: Acute Assessment and Plan: * TSH is slightly elevated with normal free T4 and slightly low total T3 sugg esting sick euthyroid * 03/29 cath negative for CAD with EF 40-45% * 03/29 temporary pacemaker placed and removed 03/31 * 04/01 afib with v rate 90s, no prolonged pauses or bradycardia; on amio, metoprolol with eliquis at discharge (2) CHF (congestive heart failure): Qualifiers: Heart failure type: systolic Heart failure chronicity: acute on chronic Qualified Code(s): I50.23 - Acute on chronic systolic (congestive) heart failure Code(s): I50.9 - Heart failure, unspecified Status: Acute Assessment and Plan: * EF 40-45% * IV furosemide, spironolactone, losartan, metoprolol, change to po lasix in am04/04 day or d/c bid 40 mg (3) Hypertension: Qualifiers: Hypertension type: essential hypertension Qualified Code(s): I10 - Essential (primary) hypertension Code(s): I10 - Essential (primary) hypertension Status: Chronic Assessment and Plan: * Blood pressure soft initially * 04/02 held losartan but resumed today 04/03 along with metoprolol * monitor (4) CKD (chronic kidney disease) stage 3, GFR 30-59 ml/min: Code(s): N18.3 - Chronic kidney disease, stage 3 (moderate) Status: Acute Assessment and Plan: * Renal U/s WNL * 04/01 creatinine improved to 1.1 at d/c (5) Erythrocytosis: Code(s): D75.1 - Secondary polycythemia Status: Acute Assessment and Plan: * Suspect secondary perhaps due to sleep apnea * ApneaLink shows SEVERE sleep disordered breathing * Resolved * needs sleep study (6) Thrombocytopenia: Code(s): D69.6 - Thrombocytopenia, unspecified Status: Acute Assessment and Plan: * Etiology unclear, likely chronic (present 02/03/19) * 04/02 PLT stable * 04/03 up to 146 K at d/c (7) Pulmonary emboli: Qualifiers: Pulmonary embolism type: unspecified Chronicity: unspecified Acute cor pulmonale presence: without acute cor pulmonale Qualified Code(s): I26.99 - Other pulmonary embolism without acute cor pulmonale Code(s): I26.99 - Other pulmonary embolism without acute cor pulmonale Status: Acute Assessment and Plan: * Continue Eliquis 5mg bid at d/c (8) Elevated LFTs: Code(s): R94.5 - Abnormal results of liver function studies Status: Acute Assessment and Plan: * 03/29 no hepatic lesions by CT * probable congestive * 03/31 improving AST and ALT with negative viral hepatitis serologies * 04/01 transaminases WNL (9) Obstructive sleep apnea of adult: Code(s): G47.33 - Obstructive sleep apnea (adult) (pediatric) Status: Acute Assessment and Plan: * 04/02 severe by Apnea Link * / auto-titrating cpap ordered * formal sleep study later DS: Summary Hospital Course Hospital Course: 74-year-old black female admitted with chest discomfort shortness of breath. She had atrial fibrillation rapid ventricular response and rate was controlled and she was anticoagulated. Echocardiogram showed decreased ejection fraction about 40% and with elevated troponin and rhythm issue underwent cardiac catheterization which showed normal coronaries. CTA the chest showed pulmonary emboli which she had been known to have and
--- NOTE | 2019-04-04 17:27 | PM.DS ---
DS: Diagnosis Admitting Diagnosis Admitting Diagnosis: Patient's noncompliance with other medical treatment and regimen Discharge Diagnosis (1) Atrial fibrillation with RVR: Code(s): I48.91 - Unspecified atrial fibrillation Status: Acute Assessment and Plan: TSH is slightly elevated with normal free T4 and slightly low total T3 suggesting sick euthyroid 03/29 cath negative for CAD with EF 40-45% 03/29 temporary pacemaker placed and removed 03/31 04/01 afib with v rate 90s, no prolonged pauses or bradycardia; on amio, metoprolol with eliquis at discharge (2) CHF (congestive heart failure): Qualifiers: Heart failure type: systolic Heart failure chronicity: acute on chronic Qualified Code(s): I50.23 - Acute on chronic systolic (congestive) heart failure Code(s): I50.9 - Heart failure, unspecified Status: Acute Assessment and Plan: EF 40-45% IV furosemide, spironolactone, losartan, metoprolol, change to po lasix in am04/04 day or d/c bid 40 mg (3) Hypertension: Qualifiers: Hypertension type: essential hypertension Qualified Code(s): I10 - Essential (primary) hypertension Code(s): I10 - Essential (primary) hypertension Status: Chronic Assessment and Plan: Blood pressure soft initially 04/02 held losartan but resumed today 04/03 along with metoprolol monitor (4) CKD (chronic kidney disease) stage 3, GFR 30-59 ml/min: Code(s): N18.3 - Chronic kidney disease, stage 3 (moderate) Status: Acute Assessment and Plan: Renal U/s WNL 04/01 creatinine improved to 1.1 at d/c (5) Erythrocytosis: Code(s): D75.1 - Secondary polycythemia Status: Acute Assessment and Plan: Suspect secondary perhaps due to sleep apnea ApneaLink shows SEVERE sleep disordered breathing Resolved needs sleep study (6) Thrombocytopenia: Code(s): D69.6 - Thrombocytopenia, unspecified Status: Acute Assessment and Plan: Etiology unclear, likely chronic (present 02/03/19) 04/02 PLT stable 04/03 up to 146 K at d/c (7) Pulmonary emboli: Qualifiers: Pulmonary embolism type: unspecified Chronicity: unspecified Acute cor pulmonale presence: without acute cor pulmonale Qualified Code(s): I26.99 - Other pulmonary embolism without acute cor pulmonale Code(s): I26.99 - Other pulmonary embolism without acute cor pulmonale Status: Acute Assessment and Plan: Continue Eliquis 5mg bid at d/c (8) Elevated LFTs: Code(s): R94.5 - Abnormal results of liver function studies Status: Acute Assessment and Plan: 03/29 no hepatic lesions by CT probable congestive 03/31 improving AST and ALT with negative viral hepatitis serologies 04/01 transaminases WNL (9) Obstructive sleep apnea of adult: Code(s): G47.33 - Obstructive sleep apnea (adult) (pediatric) Status: Acute Assessment and Plan: 04/02 severe by Apnea Link 04/02 auto-titrating cpap ordered formal sleep study later DS: Summary Hospital Course Hospital Course: 74-year-old black female admitted with chest discomfort shortness of breath. She had atrial fibrillation rapid ventricular response and rate was controlled and she was anticoagulated. Echocardiogram showed decreased ejection fraction about 40% and with elevated troponin and rhythm issue underwent cardiac catheterization which showed normal coronaries. CTA the chest showed pulmonary emboli which she had been known to have and anticoagulation was continued. She will follow-up with Dr. ugalde all in 1 week and have a basic metabolic profile drawn an also Continue the ARB, beta-jessica, diuretic, amiodarone, and Eliquis with spironolactone Time Spent with Patient Time attestation: Total time spent providing and/or coordinating discharge services: 35 minutes Exam Narrative: Exam Narrative: Condition on discharge Blood pressure 110/58 pulse is 96
== END 2019-04-04 14:26 | disposition home or self-care (01) | DRG 286 ==
LOC: ANHED 14:03 → ANHIMU 18:42 → ANHICU 03-29 03:34 → ANH2MED 04-02 09:11 → ANHICU 04-05 08:16
PROVIDERS: Family Medicine; Internal Medicine; Internal Medicine Cardiovascular Disease; Nurse Practitioner; Specialist; Admitting Provider Family Medicine; Emergency Provider Emergency Medicine; PCP Family Medicine; Visit Provider Internal Medicine
PROC: 5A1223Z Performance of Cardiac Pacing, Continuous (ICD-10-PCS; CPT 33210; principal; 2019-03-29 15:30)
PROC: 4A023N7 Measurement of Cardiac Sampling and Pressure, Left Heart, Percutaneous Approach (ICD-10-PCS; CPT 93452; 2019-03-29 15:30)
PROC: 5A1223Z Performance of Cardiac Pacing, Continuous (ICD-10-PCS; 2019-03-29 15:30)
DX: I48.91 Unspecified atrial fibrillation (principal); I50.23 Acute on chronic systolic (congestive) heart failure; I26.99 Other pulmonary embolism without acute cor pulmonale; I13.0 Hypertensive heart and chronic kidney disease with heart failure and stage 1 through stage 4 chronic kidney disease, or unspecified chronic kidney disease; Z86.711 Personal history of pulmonary embolism; Z86.718 Personal history of other venous thrombosis and embolism; Z91.14 Patient's other noncompliance with medication regimen; N18.3 Chronic kidney disease, stage 3 (moderate); D69.6 Thrombocytopenia, unspecified; R06.03 Acute respiratory distress; G47.33 Obstructive sleep apnea (adult) (pediatric); D75.1 Secondary polycythemia; I42.8 Other cardiomyopathies
CPT/HCPCS: 33210; 36415; 36569; 36600; 71045; 71046; 71275; 74177; 76775; 80048; 80053; 80061; 80074; 80162; 82375; 82805; 83050; 83605; 83735; 83880; 84100; 84439; 84443; 84480; 84484; 85025; 85027; 85055; 85610; 85730; 87040; 87070; 87081; 87205; 93005; 93306; 93458; 93970; 94640; 94762; 96365; 96366; 96367; 96368; 96374; 96375; 96376; 97110; 97116; 97161; 97165; 97535; 99285; A9270; C1751; C1760; C1887; C1894; G0269; G0378; J0461; J1160; J1644; J1940; J2250; J3010; J7040; Q9967

== ENCOUNTER 2019-05-22 08:41 | Outpatient (CLI) | payer OTHER, SELFPAY | END 2019-05-22 08:42 | disposition home or self-care (01) | PROVIDERS: PCP Family Medicine; Visit Provider Family Medicine | DX: H93.19 Tinnitus, unspecified ear (principal); H81.10 Benign paroxysmal vertigo, unspecified ear; H90.3 Sensorineural hearing loss, bilateral | CPT/HCPCS: 92557; 92567 ==

== ENCOUNTER 2019-11-26 06:52 | Outpatient (CLI) | payer OTHER, SELFPAY ==
--- NOTE | ~2019-11-26 | CT_ITS ---
EXAMINATION: CTA chest PE protocol DATE: 11/26/2019 08:27 INDICATION: Pulmonary embolism TECHNIQUE: Computed tomography (CT) pulmonary angiogram of the chest was performed with 100 mL Omnipa que-350 intravenous contrast. Additional 3D reconstructions utilizing coronal maximum intensity proje ction (MIP) were performed. Automated exposure control and iterative reconstruction technique were em ployed. The dose-length product was 874.54 mGy-cm. COMPARISON: None FINDINGS: Excellent contrast opacification of the pulmonary arteries. There is mild streak artifact from dense contrast in the superior vena cava and right atrium. Mild scattered respiratory motion artifact which does not significantly limit evaluation. Previously seen filling defects in segmental and subsegment al pulmonary arteries in the right and left lower lobes have resolved. No pulmonary arterial filling defects to suggest pulmonary embolism in the current study. Mild scattered dependent atelectasis. The re is some smooth septal line thickening in the peripheral and dependent lungs consistent with mild p ulmonary edema. No pneumonia, pleural effusion or pneumothorax. Cardiomegaly. Small amount of atheros clerotic coronary artery calcification. No pericardial effusion. Thoracic aorta is normal in caliber. Multinodular goiter with largest right thyroid nodule measuring 1.2 cm in maximal diameter. No patho logically enlarged thoracic lymphadenopathy. Small sliding-type hiatal hernia. A couple small calcif ied hepatic nodules consistent with old granulomatous disease. Mild thoracic spondylosis. IMPRESSION: 1. Resolution of prior pulmonary embolism. 2. Likely congestive heart failure with cardiomegaly and mild pulmonary edema. 3. Small sliding-type hiatal hernia. 4. Multinodular goiter. Reviewed, dictated and finalized at location A.
[2019-11-26 08:20] LABS: Estimated Glomerular Filt Rate 54
== END 2019-11-26 06:53 | disposition home or self-care (01) ==
PROVIDERS: PCP Family Medicine; Visit Provider Specialist
DX: I51.7 Cardiomegaly (principal); J81.1 Chronic pulmonary edema; K44.9 Diaphragmatic hernia without obstruction or gangrene; E04.2 Nontoxic multinodular goiter
CPT/HCPCS: 71275; Q9967

== ENCOUNTER 2020-08-25 15:44 | Outpatient (CLI) | payer OTHER, SELFPAY ==
[2020-08-25 19:20] LABS: Add Urine Microscopic? YES; Appearance Urine Clear (Clear); Bilirubin Urine Negative (Negative); Blood Urine Negative (Negative); Color Urine Yellow (Yellow); Glucose Urine UA Negative (Negative); Ketones Urine Negative (Negative); Leukocyte Esterase Ur Negative LEU/UL (NEGATIVE); Nitrate Urine Negative (Negative); Protein Urine Negative (Negative); RBC Urine 0-2 /hpf (0-2); Specific Grav Ur 1.019 (1.001-1.035); Squamous Epithelial Cell Urine Rare /hpf (Few); Urobilinogen Urine Negative mg/dL (<2.0)
== END 2020-08-25 15:45 | disposition home or self-care (01) ==
LOC: ANHBWCLAB 15:46
PROVIDERS: PCP Family Medicine; Visit Provider Family Medicine
DX: R35.0 Frequency of micturition (principal)
CPT/HCPCS: 81001; 87086

== ENCOUNTER 2020-12-23 08:20 | Outpatient (CLI) | payer OTHER, SELFPAY ==
--- NOTE | ~2020-12-23 | XR_ITS ---
XR abdomen/kub 1V DATE: 12/23/2020 09:36 INDICATION: Chronic lower right sided flank pain TECHNIQUE: AP view COMPARISON: 03/30/2019 CT chest abdomen pelvis FINDINGS: Nonspecific bowel gas pattern without evidence of obstruction. No apparent intraperitoneal air. No visceromegaly is evident. Mild levoscoliosis of the lumbar spine. IMPRESSION: Nonspecific abdomen Reviewed, dictated and finalized at Location A. Reviewed, dictated and finalized at location A. GER OF PRODUCT IMPRESSION: Nonspecific abdomen
[2020-12-23 18:36] LABS: Hematocrit 42.3 % (37.0-47.0); Hemoglobin 13.4 g/dL (12.0-15.0); Mean Corpuscular HGB Conc 31.7 g/dl (32-36); Mean Corpuscular Hemoglobin 29.9 pg (26-34); Mean Corpuscular Volume 94.4 fl (80-100); Platelet Count Result 223 k/mm3 (150-375); Red Blood Count 4.48 M/mm3 (4.2-5.4); Red Cell Distribution Width 13.6 % (11.5-14.5); White Blood Count 5.2 K/mm3 (4.5-10.0)
[2020-12-23 18:42] LABS: Add Urine Microscopic? YES; Appearance Urine Clear (Clear); Bacteria Urine Trace /hpf; Bilirubin Urine Negative (Negative); Blood Urine Negative (Negative); Color Urine Yellow (Yellow); Glucose Urine UA Negative (Negative); Ketones Urine Negative (Negative); Leukocyte Esterase Ur Negative LEU/UL (NEGATIVE); Mucus Urine Rare /lpf; Nitrate Urine Negative (Negative); Protein Urine Negative (Negative); Specific Grav Ur 1.025 (1.001-1.035); Squamous Epithelial Cell Urine Few /hpf (Few); Urobilinogen Urine Negative mg/dL (<2.0); WBC Urine 0-3 /hpf (0-3)
[2020-12-23 18:58] LABS: Alanine Aminotransferase 16 U/L (4-35); Albumin Level 4.5 g/dL (3.5-5.1); Alkaline Phosphatase 144 U/L (38-126); Anion Gap 11 mmol/L (8-16); Aspartate Amino Transferase 28 U/L (14-36); Bilirubin,Total 0.7 mg/dL (0.2-1.3); Blood Urea Nitrogen 19 mg/dL (7-17); Calcium 10.2 mg/dL (8.4-10.2); Carbon Dioxide 24 mmol/L (22-30); Chloride 107 mmol/L (98-107); Cholesterol 258 mg/dL (0-200); Estimated Glomerular Filt Rate > 60; Glucose 103 mg/dL (65-110); HDL Direct 68 mg/dL; Potassium 4.2 mmol/L (3.4-5.0); Sodium 142 mmol/L (137-145); Triglycerides 109 mg/dL (<150)
[2020-12-23 19:09] LABS: LDL Cholesterol Direct 146 mg/dL
== END 2020-12-23 08:21 | disposition home or self-care (01) ==
PROVIDERS: PCP Family Medicine; Visit Provider Family Medicine
DX: D69.6 Thrombocytopenia, unspecified (principal); D75.1 Secondary polycythemia; I48.91 Unspecified atrial fibrillation; I50.9 Heart failure, unspecified; R74.8 Abnormal levels of other serum enzymes; R94.5 Abnormal results of liver function studies; N18.30 Chronic kidney disease, stage 3 unspecified; M54.9 Dorsalgia, unspecified; N20.0 Calculus of kidney
CPT/HCPCS: 36415; 74018; 80053; 80061; 81001; 84443; 85027

== ENCOUNTER 2021-07-27 10:59 | Outpatient (CLI) | payer OTHER, SELFPAY ==
[2021-07-27 18:44] LABS: Appearance Urine Clear (Clear); Bilirubin Urine Negative (Negative); Color Urine Yellow (Yellow); Glucose Urine UA Negative (Negative); Ketones Urine Negative (Negative); Leukocyte Esterase Ur Negative LEU/UL (NEGATIVE); Nitrate Urine Negative (Negative); Protein Urine 3+ mg/dL (Negative); Specific Grav Ur 1.025 (1.001-1.035); pH Urine 6.5 (5.0-9.0)
[2021-07-27 18:45] LABS: Add Urine Microscopic? YES; Blood Urine Trace-Intact (Negative)
== END 2021-07-27 11:00 | disposition home or self-care (01) ==
PROVIDERS: PCP Family Medicine; Visit Provider Family Medicine
DX: R82.998 Other abnormal findings in urine (principal); R74.8 Abnormal levels of other serum enzymes; E66.9 Obesity, unspecified
CPT/HCPCS: 81001; 87086

== ENCOUNTER 2021-08-12 10:13 | Outpatient (CLI) | payer OTHER, SELFPAY ==
--- NOTE | ~2021-08-12 | XR_ITS ---
EXAMINATION: XR abdomen obstructive series DATE: 08/12/2021 11:18 INDICATION: Unspecified abdominal pain TECHNIQUE: Upright and supine views of the abdomen were obtained. COMPARISON: 12/23/2020 FINDINGS: The bowel gas pattern is normal. There are no dilated loops of bowel. No free intraperitone al gas is identified. There is mild osteoarthritis of the hips. IMPRESSION: 1. Nonobstructive bowel gas pattern. Reviewed, dictated and finalized at location B.
[2021-08-12 19:11] LABS: Hemoglobin 13.1 g/dL (12.0-15.0); Immature Platelet Fraction Pct 14.4 % (0.9-11.2); Mean Corpuscular HGB Conc 31.2 g/dl (32-36); Mean Corpuscular Volume 96.3 fl (80-100); Mean Platelet Volume 13.3 fl (7.4-10.4); Platelet Count Result 109 k/mm3 (150-375); Red Blood Count 4.36 M/mm3 (4.2-5.4); Red Cell Distribution Width 17.3 % (11.5-14.5); White Blood Count 4.9 K/mm3 (4.5-10.0)
[2021-08-12 19:18] LABS: Lipase 71 U/L (23-300)
[2021-08-12 19:25] LABS: Appearance Urine Cloudy (Clear); Bilirubin Urine 1+ (Negative); Blood Urine Negative (Negative); Color Urine Yellow (Yellow); Glucose Urine UA Negative (Negative); Ketones Urine Trace mg/dL (Negative); Leukocyte Esterase Ur Negative LEU/UL (NEGATIVE); Nitrate Urine Negative (Negative); Protein Urine 3+ mg/dL (Negative); Specific Grav Ur >= 1.030 (1.001-1.035); pH Urine 5.5 (5.0-9.0)
[2021-08-12 19:54] LABS: Thyroid Stimulating Hormone < 0.015 uIU/mL (0.465-4.680)
[2021-08-12 20:24] LABS: Add Urine Microscopic? YES; Bacteria Urine Trace /hpf; Budding Yeast Urine Present /hpf; Mucus Urine Rare /lpf; Squamous Epithelial Cell Urine Few /hpf (Few)
[2021-08-14 04:30] LABS: GGT 360 U/L (3-65)
[2021-08-21 19:11] LABS: Parathyroid Hormone Related Pr 10 pg/mL (11-20)
== END 2021-08-12 10:14 | disposition home or self-care (01) ==
LOC: ANHBWCIMG 10:15 → ANHBWCLAB 13:13 → ANHBWCIMG 13:18 → ANHBWCLAB 13:20
PROVIDERS: PCP Family Medicine; Visit Provider Family Medicine
DX: R10.9 Unspecified abdominal pain (principal); R11.0 Nausea; R19.7 Diarrhea, unspecified; R74.8 Abnormal levels of other serum enzymes; N18.32 Chronic kidney disease, stage 3b
CPT/HCPCS: 36415; 74019; 81001; 82306; 82977; 83519; 83690; 84443; 85027; 85055

== ENCOUNTER 2021-08-18 08:12 | Outpatient (CLI) | payer OTHER, SELFPAY ==
[2021-08-18 19:53] LABS: Appearance Urine Slightly Cloudy (Clear); Bilirubin Urine 1+ (Negative); Blood Urine Negative (Negative); Color Urine Amber (Yellow); Glucose Urine UA Negative (Negative); Ketones Urine Trace mg/dL (Negative); Leukocyte Esterase Ur Negative LEU/UL (NEGATIVE); Nitrate Urine Negative (Negative); Protein Urine 2+ mg/dL (Negative); Specific Grav Ur 1.025 (1.001-1.035); pH Urine 5.5 (5.0-9.0)
[2021-08-18 19:57] LABS: Bacteria Urine Trace /hpf; Mucus Urine Rare /lpf; RBC Urine 0-2 /hpf (0-2); Squamous Epithelial Cell Urine Many /hpf (Few)
[2021-08-18 20:01] LABS: Add Urine Microscopic? YES
[2021-08-18 20:30] LABS: Thyroid Stimulating Hormone < 0.015 uIU/mL (0.465-4.680)
[2021-08-18 21:18] LABS: Free T4 Free Thyroxine 3.99 ng/mL (0.78-2.19)
== END 2021-08-18 08:13 | disposition home or self-care (01) ==
PROVIDERS: PCP Family Medicine; Visit Provider Family Medicine
DX: R79.89 Other specified abnormal findings of blood chemistry (principal); E03.9 Hypothyroidism, unspecified; R31.9 Hematuria, unspecified; I10 Essential (primary) hypertension
CPT/HCPCS: 36415; 81001; 84439; 84443

== ENCOUNTER 2021-08-24 14:12 | Outpatient (CLI) | payer OTHER, SELFPAY ==
[2021-08-27 19:15] LABS: Triiodothyronine T3 Free 2.5 pg/mL (2.3-4.2)
== END 2021-08-24 14:13 | disposition home or self-care (01) ==
PROVIDERS: PCP Family Medicine; Visit Provider Family Medicine
DX: R79.89 Other specified abnormal findings of blood chemistry (principal)
CPT/HCPCS: 36415; 84481

== ENCOUNTER 2021-08-27 09:33 | Outpatient (CLI) | payer OTHER, SELFPAY ==
--- NOTE | ~2021-08-27 | CT_ITS ---
EXAMINATION: CT abdomen wo con DATE: 08/27/2021 09:59 INDICATION: Right upper quadrant abdominal pain. Tachycardia. Elevated liver enzymes. TECHNIQUE: Computed tomography (CT) of the abdomen and pelvis was performed without intravenous contr ast. Automated exposure control and iterative reconstruction technique were employed. The dose-length product was 772.71 mGy-cm. COMPARISON: 03/30/2019 FINDINGS: Mild atelectasis in the lingula and right middle and lower lobes. Cardiomegaly. Persistent small valencia cardial effusion. Prior pleural effusion has resolved. Small sliding-type hiatal hernia. Couple calci fied gallstones within the decompressed gallbladder with no abnormal gallbladder wall thickening or p ericholecystic inflammatory stranding to suggest acute cholecystitis. Mild diffuse hepatic steatosis. Spleen, pancreas, bilateral adrenal glands and kidneys are normal. Visualized portion of the bowels are normal. Small amount of perihepatic ascites. Prominent diffuse body wall edema with additional pr ominent periportal and mesenteric edema. Tiny fat-containing umbilical hernia. No pathologically enla rged abdominal lymphadenopathy. Mild lumbar curvature with mild spondylosis with severe lower lumbar facet osteoarthritis. IMPRESSION: 1. Cholelithiasis. 2. Nonspecific small amount of ascites with mild mesenteric and periportal edema and extensive body w all edema. 3. Unchanged small pericardial effusion. Reviewed, dictated and finalized at location A. IMPRESSION: 1. Cholelithiasis. 2. Nonspecific small amount of ascites with mild mesenteric and periportal joyce a and extensive body wall edema. 3. Unchanged small pericardial effusion.
== END 2021-08-27 09:34 | disposition home or self-care (01) ==
PROVIDERS: PCP Family Medicine; Visit Provider Family Medicine
DX: R74.8 Abnormal levels of other serum enzymes (principal); R10.11 Right upper quadrant pain; K46.9 Unspecified abdominal hernia without obstruction or gangrene; R10.9 Unspecified abdominal pain; K80.20 Calculus of gallbladder without cholecystitis without obstruction; R18.8 Other ascites; M79.89 Other specified soft tissue disorders; I31.3 Pericardial effusion (noninflammatory)
CPT/HCPCS: 74150

== ENCOUNTER 2021-08-27 10:06 | Inpatient (IN) | payer OTHER, SELFPAY ==
[2021-08-27] VITALS (13 sets, daily range): BP systolic 110–134; BP diastolic 61–114; PULSE 75–150; RESP 16–28; TEMP 36.1–36.5; O2SAT 93–100; BMI 42.5
--- NOTE | ~2021-08-27 | XR_ITS ---
XR chest 2V 08/27/2021 11:22 Indication: Fluid overload. Procedure: 2 view chest Comparison: Comparison to multiple prior studies sequentially, with oldest reviewed study dated 03/28. Findings: Cardiomegaly. There is left basilar atelectasis. No focal pneumonia, pleural effusion or pn eumothorax. Mild interstitial edema. Impression: 1: Cardiomegaly with mild interstitial edema. Reviewed, dictated and finalized at location L. Impression: 1: Cardiomegaly with mild interstitial edema.
--- NOTE | ~2021-08-27 | US_ITS ---
EXAMINATION: US venous doppler [facility] DATE: 08/27/2021 14:01 INDICATION: Lower limb edema. TECHNIQUE: Grayscale ultrasound images without and with compression and Doppler ultrasound images of the bilateral lower extremity veins were obtained. COMPARISON: Ultrasound 03/28/2019 FINDINGS: The visualized portions of right common femoral vein, profunda (deep) femoral vein, popliteal vein, p eroneal veins, posterior tibial veins, and greater saphenous vein outflow are patent. The femoral vei n is not well visualized. The visualized portions of left common femoral vein, profunda femoral vein, popliteal vein, peroneal veins, posterior tibial veins, and greater saphenous vein outflow are patent. The femoral vein is not well visualized. IMPRESSION: 1. No deep venous thrombosis. Reviewed, dictated and finalized at location A.
--- NOTE | ~2021-08-27 | CT_ITS ---
EXAMINATION: CTA chest PE protocol DATE: 08/27/2021 17:40 INDICATION: Shortness of breath. TECHNIQUE: Computed tomography angiography (CTA) of the chest was performed with 100 mL Omnipaque-350 intravenous contrast timed to evaluate the pulmonary arteries. Coronal maximum intensity projection 3D-reconstructions were created by the technologist. Automated exposure control and iterative reconst ruction technique were employed. The dose-length product was 627.17 mGy-cm. COMPARISON: Chest CT 11/26/2019 FINDINGS: The lungs demonstrate mild atelectasis. There is smooth septal thickening, consistent with mild pulmonary edema. No pleural effusion. Cardiomegaly is noted. No pericardial effusion. There is n o pulmonary embolus. There is a small sliding hiatal hernia. Body wall edema is noted. There is moder ate thoracic spondylosis. IMPRESSION: 1. No pulmonary embolus. 2. Mild pulmonary edema. 3. Cardiomegaly. 4. Small sliding hiatal hernia. Reviewed, dictated and finalized at location A.
--- NOTE | 2021-08-27 10:11 | ECG_ITS ---
Measurements Intervals [place] Rate: 121 P: AL: 0 QRS: 2 QRSD: 60 T: 4 QT: 338 QTc: 480 Interpretive Statements ATRIAL FIBRILLATION WITH RAPID VENTRICULAR RESPONSE LOW QRS VOLTAGE ANTERIOR INFARCT, AGE INDETERMINATE BORDERLINE T WAVE ABNORMALITY- HIGH LATERAL LEADS BASELINE ARTIFACT- I, III, AVR, AVL ABNORMAL ECG Electronically Signed On 08-27-2021 16:14:22 CDT by Hector Antunez D.O.
[2021-08-27 10:37] LABS: Basophils Absolute Auto 0.1 K/mm3 (0.0-0.1); Basophils Percent Auto 1.5 % (0.2-1.2); Eosinophils Absolute Auto 0.2 K/mm3 (0-0.3); Eosinophils Percent Auto 4.6 % (0-4.4); Hematocrit 42.8 % (37.0-47.0); Hemoglobin 13.5 g/dL (12.0-15.0); Immature Granulocyte Absolute 0.01 K/mm3 (0.00-0.031); Immature Granulocyte Percent A 0.2 % (0-0.5); Lymphocytes Absolute Auto 2.01 K/mm3 (0.9-3.2); Lymphocytes Percent Auto 42.4 % (18.3-44.2); Mean Corpuscular HGB Conc 31.5 g/dl (32-36); Mean Corpuscular Hemoglobin 29.7 pg (26-34); Mean Corpuscular Volume 94.3 fl (80-100); Monocytes Absolute Auto 0.8 K/mm3 (0.1-0.6); Monocytes Percent Auto 15.8 % (2.6-8.5); Neutrophils Absolute Auto 1.7 K/mm3 (1.3-6.7); Neutrophils Percent Auto 35.5 % (45.5-73.1); Platelet Count Result 154 k/mm3 (150-375); Red Blood Count 4.54 M/mm3 (4.2-5.4); Red Cell Distribution Width 16.6 % (11.5-14.5); White Blood Count 4.7 K/mm3 (4.5-10.0)
[2021-08-27 10:46] LABS: Alanine Aminotransferase 22 U/L (6-35); Alkaline Phosphatase 346 U/L (38-126); Anion Gap 7 mmol/L (8-16); Aspartate Amino Transferase 36 U/L (14-36); Bilirubin,Total 2.6 mg/dL (0.2-1.3); Blood Urea Nitrogen 19 mg/dL (7-17); Calcium 8.7 mg/dL (8.4-10.2); Carbon Dioxide 20 mmol/L (22-30); Chloride 108 mmol/L (98-107); Estimated CRCL calculation 45 ml/min; Estimated Glomerular Filt Rate 49; Glucose 111 mg/dL (65-110); INR 1.4; Potassium 4.4 mmol/L (3.4-5.0); Prothrombin Time 16.7 Seconds (11.1-14.7); Sodium 135 mmol/L (137-145)
[2021-08-27 10:47] LABS: Partial Thromboplastin Time 35.8 SECONDS (22.3-36.8)
[2021-08-27 10:58] LABS: NT Pro B Type Natriuretic Pept 1560 pg/mL (5-100); Troponin I < 0.012 ng/mL (0.000-0.034)
--- NOTE | 2021-08-27 12:16 | ED.RECABL ---
HPI - Recheck/Abnormal Lab/Rx General Chief Complaint: Recheck/Abnormal Lab/Rx Stated Complaint: Request for ED after CT Scan Time Seen by Provider: 08/27/21 11:19 Source: patient and RN notes reviewed Mode of arrival: ambulatory Limitations: no limitations History of Present Illness HPI narrative: This is a 76 year old female with history of atrial fibrillation who presents for evaluation of swelling. Patient reports she has gained 20 pounds in 2 weeks. She has swelling in both leg , groin and abdomen. He denies taking a diuretic. She reports being started on carvedilol 2 weeks ago for palpitations. She was diagnosed with palpitations and atrial fibrillation in the past. She denies chest pain but she reports shortness of breath for several months. She also states she is only urinating 30 cc every 10 hours. She states she has cut back on her fluid intake because she is having difficulty making it to bathroom. 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 She denies anticoagulation. Related Data Home Medications Medication Instructions Recorded Confirmed cholecalciferol (vitamin D3) 25 25 mcg PO DAILY 12/20/19 08/27/21 mcg (1,000 unit) capsule multivitamin 1 tablet PO DAILY 12/20/19 08/27/21 Allergies Allergy/AdvReac Type Severity Reaction Status Date / Time codeine Allergy Unknown Confusion Verified 08/27/21 15:14 Review of Systems Review of Systems: All systems reviewed & are unremarkable except as noted in HPI and below Constitutional: Constitutional: Denies chills, Reports fatigue and Reports weakness ENT: Denies nasal congestion Respiratory: Respiratory: Denies cough and Reports dyspnea Gastrointestinal: Gastrointestinal: Reports abdominal pain, Denies diarrhea, Denies nausea and Denies vomiting Neurologic: Denies headache(s) and Denies focal weakness PMFSH Past Medical History Medical History Atrial fibrillation Breast cancer Lumpectomy and chemotherapy and radiation. CHF (congestive heart failure) Erythrocytosis Fx ankle Left ankle ORIF Hernia History of DVT (deep vein thrombosis) Ultrasounds clear today History of pulmonary embolism Hypertension Nephrolithiasis Obesity Obstructive sleep apnea of adult Pulmonary emboli Thrombocytopenia UTI (urinary tract infection) Surgical History Surgical History H/O: hysterectomy History of appendectomy History of removal of Port-a-Cath Hx of tonsillectomy S/P lumpectomy, right breast Family History Family History Mother Medical history unknown Father Murder Social History Social History (Updated 08/27/21 @ 12:55 by MOISES Torres) Social History: Patient quit smoking in the . She has 2 children. 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 She wishes to be a full code. 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 No alcohol or illicit drugs. 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
[2021-08-27] MEDS: dilTIAZem HCl INJ 25 MG/5 ML VIAL 10 MG IV PUSH (12:31)
[2021-08-27] MEDS: FUROSEMIDE INJ 40 MG/4 ML VIAL IV PUSH ×2 (12:31→20:16)
[2021-08-27] MEDS: ENOXAPARIN 120 MG/0.8 ML SYRINGE SUB-Q (12:41)
[2021-08-27] MEDS: dilTIAZem 100 MG/100 ML 100 MG/100 ML BAG IV CONT (12:42)
--- NOTE | 2021-08-27 12:44 | PM.IMHP ---
H&P: HPI History of Present Illness Date/Time: 08/27/21 12:44 Chief Complaint: Shortness of breath Narrative: Patient is a 76-year-old female with past medical history of AFib, CHF, cardiomegaly who presented to the ED from outpatient imaging complaints swelling, shortness of breath and palpitations over the last couple weeks. Patient does report a 20 lb weight gain. She also stated that she has edema all the way up to her groin and abdomen. Patient stated that she has been having many issues over the last few years with palpitations. She stated that her palpitations have never went away. It was found of 2019 that she had a DVT and a PE. She is very short of breath and cannot complete sentences and does take a couple of seconds to a minute in between each sentence. Abdomen is very distended and firm. She stated that she has gained over 20 lb and she has not been urinating but 30 cc every 10 hours. She stated that she went to the doctor and they took her off the metoprolol per on carvedilol because the metoprolol caused her to swell up more. She stated that the carvedilol has not helped or did anything to her that she is swollen still and her heart rate is still high. She did state that she was having increased shortness of breath. She stated that as she stated the carvedilol that lightheadedness and dizziness has been a concern she is just not able to do things. She also stated that her rates been in the 130s 140s before the carvedilol. She also stated that she put herself on a fluid restriction issues care that it was going to cause her to gain more weight. She denies any nausea, vomiting, chest pain, hearing changes, visual changes, headache, sweats, fevers, chills. She also stated that she was on a blood thinner however they took her off of that. Patient does have a history and currently in AFib. Cardiology has been consulted due to uncontrolled heart rate. Will put patient on metoprolol 25 mg p.o. b.i.d.. Currently on Cardizem drip. Patient was able to get on the commode and off the commode with minimal help. She is putting out more urine with the Lasix IV that was given in the ED. venous Dopplers were ordered and D-dimer was 11.16. CTA has been ordered. Patient is being admitted to the hospital services in observation. Review of Systems Review of Systems: All systems reviewed & are unremarkable except as noted in HPI and below PMFSH Past Medical History Medical History Atrial fibrillation Breast cancer Lumpectomy and chemotherapy and radiation. CHF (congestive heart failure) Erythrocytosis Fx ankle Left ankle ORIF Hernia History of DVT (deep vein thrombosis) Ultrasounds clear today History of pulmonary embolism Hypertension Nephrolithiasis Obesity Obstructive sleep apnea of adult Pulmonary emboli Thrombocytopenia UTI (urinary tract infection) Surgical History Surgical History H/O: hysterectomy History of appendectomy History of removal of Port-a-Cath Hx of tonsillectomy S/P lumpectomy, right breast Family History Family History Mother Medical history unknown Father Murder Social History Social History (Updated 08/27/21 @ 12:55 by MOISES Torres) Social History: Patient quit smoking in the . She has 2 children. 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 She wishes to be a full code. 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 No alcohol or illicit drugs. 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
[2021-08-27 13:22] LABS: Appearance Urine Slightly Cloudy (Clear); Bilirubin Urine 1+ (Negative); Blood Urine Negative (Negative); Color Urine Amber (Yellow); Glucose Urine UA Negative (Negative); Ketones Urine Negative (Negative); Leukocyte Esterase Ur Negative LEU/UL (Negative); Nitrate Urine Negative (Negative); Protein Urine 2+ mg/dL (Negative); Specific Grav Ur 1.025 (1.001-1.035)
--- NOTE | 2021-08-27 13:26 | PC.NURSE ---
Ordered pt a heart healthy lunch at 1326 being sent to her room in 201 per hakeem
[2021-08-27 13:27] LABS: Mucus Urine Rare /lpf; RBC Urine 0-2 /hpf (0-2); Squamous Epithelial Cell Urine Moderate /hpf (Few); WBC Urine 0-3 /hpf
[2021-08-27 13:34] LABS: SARS-CoV-2 RNA PCR Negative
[2021-08-27 13:34] LABS: Add Urine Microscopic? YES
[2021-08-27 13:43] LABS: D Dimer 11.16 ug/mL (<0.48)
--- NOTE | 2021-08-27 15:05 | ADMGEN ---
This patient, Consuelo Tovar, was admitted to IMU Room 201-01 @ 1434. Patient oriented to hospital policies and general routines including ID bracelet, bed and alarms, visiting hours, pain management, procedures, bathroom and other care routines, personal items, smoking policy, room service/diet, and visiting hours. Information on how to activate the Rapid Response Team has been discussed. Patient encouraged to report perceived risks to care and to ask questions if they do not understand what they are told or what they should do.
--- NOTE | 2021-08-27 17:48 | PM.CNCAR ---
Assessment and Plan Assessment and plan (1) Atrial fibrillation with RVR: Code(s): I48.91 - Unspecified atrial fibrillation Status: Acute Assessment and Plan: Patient with likely permanent atrial fibrillation, admitted with AFib RVR Probably some degree of noncompliance as she has been off all of her cardiac medications. Will add p.o. metoprolol and wean off the diltiazem since she has a degree of systolic failure. Resume Eliquis Continue with rate control and anticoagulation strategy (2) Acute on chronic combined systolic and diastolic CHF (congestive heart failure): Code(s): I50.43 - Acute on chronic combined systolic (congestive) and diastolic (congestive) heart failure Status: Acute Assessment and Plan: History of nonischemic cardiomyopathy, EF 40% in 2020, now in acute heart failure with severe volume overload, with at least a 20 lb weight gain (I suspect more based on her anasarca). Agree with furosemide 40 mg IV push b.i.d. Metoprolol, Entresto (1/2 tab BID to start then titrate in 1-2 days if BP OK), probably add spironolactone and Jardiance at some point Daily BMP (3) Cardiomyopathy: Code(s): I42.9 - Cardiomyopathy, unspecified Status: Acute Assessment and Plan: EF was 40% in 2020 Echo pending (4) Hypertension: Qualifiers: Hypertension type: essential hypertension Qualified Code(s): I10 - Essential (primary) hypertension Code(s): I10 - Essential (primary) hypertension Status: Acute Assessment and Plan: History of hypertension Controlled at this time (5) CKD (chronic kidney disease) stage 3, GFR 30-59 ml/min: Code(s): N18.3 - Chronic kidney disease, stage 3 (moderate) Status: Acute Assessment and Plan: CKD stage 2-3 Daily BMP (6) CAD (coronary artery disease): Code(s): I25.10 - Atherosclerotic heart disease of [place] coronary artery without angina pectoris Status: Acute Assessment and Plan: Mild to moderate CAD by catheterization in 2020 Asymptomatic, no angina Resume statin, cont Eliquis (7) Noncompliance: Code(s): Z91.19 - Patient's noncompliance with other medical treatment and regimen Status: Acute Assessment and Plan: History of noncompliance in the past, has been off cardiac medications Patient can't understand why she is swollen. Counseled patient about her CHF and atrial fibrillation leading to swelling and SOB, these are long-term problems needing ongoing care and long-term medications, etc. At the end of the conversation she could not understand why she was swollen. Will need more education regarding her health conditions History of Present Illness History of Present Illness Consult date/time: 08/27/21 17:48 Reason For Visit: atrial fibrillation with rvr,chf Narrative: Consuelo Tovar is a 76-year-old female whom I was asked to see at the request of the ER MD Dr. Plata for advice and opinion regarding her atrial fibrillation and CHF in consultation. History of persistent AFib, CHF, hypertension, hyperlipidemia DVT and PE. History of grade 3 right-sided breast cancer 2010. Patient was admitted here in March 2019 with AFib, heart failure, and noncompliance, seen by Dr. Mendenhall at the time. Echo EF was 40%. She also has some episodes of tachycardia and bradycardia and required a temporary pacemaker. She underwent cardiac catheterization which showed 50% mid Left anterior descending stenosis and 40-50% stenosis of the mid RCA. Mildly dilated left ventricle with ejection fraction of 40%. She was discharged on furosemide, amiodarone, metoprolol, losartan, spironolactone and Eliquis in a fib w/ a controlled HR. Patient has followed up with Dr. Mendenhall, but has
--- NOTE | 2021-08-27 18:06 | PC.NURSE ---
1445- IV Cardizem infusing at 5ml/hr- monitor atrial fib 120's-140's
[2021-08-27] MEDS: METOPROLOL TARTRATE 25 MG TABLET PO (20:16)
[2021-08-27] MEDS: APIXABAN 5 MG TABLET PO (22:13)
[2021-08-27] MEDS: SACUBITRIL/VALSARTAN 12-13 MG TABLET 1 TAB PO (22:13)
[2021-08-28] VITALS (18 sets, daily range): BP systolic 93–125; BP diastolic 42–71; PULSE 63–100; RESP 12–22; TEMP 36.4–36.9; O2SAT 97–100
--- NOTE | 2021-08-28 | ECHO_ITS ---
Patient Info Name: Consuelo Tovar Age: 76 years : 1945 Gender: Female Ht: 66 in Wt: 270 lbs BSA: 2.45 m2 HR: 74 bpm BP: 93 / 57 mmHg Heart Rhythm: Atrial Fibrillation Technical Quality: Fair Exam Date: 08/28/2021 7:33 AM Exam Location: [facility] Patient Status: Outpatient Admit Date: 08/27/2021 Staff Ordering Physician: Sudhakar Aguilar Political Cartoonist: Bouchra Pacheco RDCS Attending Provider: Misty Sagastume DO Referring Physician: Jeff STEWART; Exam Type: CA echo doppler color flow Study Info Indications - afib, edema Complete two-dimensional, color flow and Doppler transthoracic echocardiogram is performed. Summary 1. Complete two-dimensional, color flow and Doppler transthoracic echocardiogram is performed. 2. Left ventricular hypertrophy with mild LV enlargement and mild hypokinesia. 3. Severe biatrial dilation. 4. Moderate tricuspid insufficiency. 5. Small amount mitral aortic and pulmonic insufficiency. 6. Atrial fibrillation. Left Ventricle Left ventricular chamber dimension is mildly enlarged. Left ventricular systolic function is mildly reduced, estimated at 45-50%. There is mild concentric increased left ventricular wall thickness. The left ventricular diastolic function is indeterminate. Right Ventricle Right ventricular chamber dimension is normal. Left Atria Left atrial chamber dimension is moderately enlarged. Right Atria Right atrial chamber dimension is severely enlarged. Aortic Valve The aortic valve is trileaflet. There is trace aortic valve regurgitation. Pulmonic Valve The pulmonic valve is normal. There is trace pulmonic regurgitation. Mitral Valve The mitral valve has normal leaflets. There is mild mitral valve regurgitation. Tricuspid Valve The tricuspid valve leaflets are normal. There is mild to moderate tricuspid valve regurgitation. Pericardium/Pleural There is small pericardial effusion. Aorta The aortic root size at the sinus of Valsalva is normal. Left Ventricular Outflow Tract Name Value Normal LVOT 2D LVOT Diameter 2.0 cm LVOT Doppler LVOT Peak Gradient 3 mmHg LVOT Mean Gradient 1 mmHg LVOT VTI 14 cm LVOT VTI/AV VTI Ratio 0.6 LVOT Stroke Volume 41 ml LVOT CO 2.7 l/min LVOT CI 1.1 l/min/m2 Pulmonic Valve Name Value Normal RVOT Doppler RVOT Peak Gradient 1 mmHg PV Doppler PV Peak Gradient 3 mmHg Mitral Valve Name Va
[2021-08-28 04:41] LABS: Basophils Absolute Auto 0.1 K/mm3 (0.0-0.1); Basophils Percent Auto 1.3 % (0.2-1.2); Eosinophils Absolute Auto 0.2 K/mm3 (0-0.3); Eosinophils Percent Auto 3.6 % (0-4.4); Hematocrit 42.2 % (37.0-47.0); Hemoglobin 13.8 g/dL (12.0-15.0); Immature Granulocyte Absolute 0.01 K/mm3 (0.00-0.031); Immature Granulocyte Percent A 0.2 % (0-0.5); Lymphocytes Absolute Auto 2.16 K/mm3 (0.9-3.2); Lymphocytes Percent Auto 41.4 % (18.3-44.2); Mean Corpuscular HGB Conc 32.7 g/dl (32-36); Mean Corpuscular Hemoglobin 30.1 pg (26-34); Mean Corpuscular Volume 92.1 fl (80-100); Mean Platelet Volume 12.3 fl (7.4-10.4); Monocytes Absolute Auto 0.8 K/mm3 (0.1-0.6); Monocytes Percent Auto 16.1 % (2.6-8.5); Neutrophils Percent Auto 37.4 % (45.5-73.1); Platelet Count Result 155 k/mm3 (150-375); Red Blood Count 4.58 M/mm3 (4.2-5.4); Red Cell Distribution Width 16.6 % (11.5-14.5); White Blood Count 5.2 K/mm3 (4.5-10.0)
[2021-08-28 04:54] LABS: Alanine Aminotransferase 21 U/L (6-35); Albumin Level 2.8 g/dL (3.5-5.1); Alkaline Phosphatase 348 U/L (38-126); Anion Gap 7 mmol/L (8-16); Aspartate Amino Transferase 33 U/L (14-36); Bilirubin,Total 2.1 mg/dL (0.2-1.3); Blood Urea Nitrogen 20 mg/dL (7-17); Calcium 8.7 mg/dL (8.4-10.2); Carbon Dioxide 21 mmol/L (22-30); Chloride 107 mmol/L (98-107); Estimated CRCL calculation 43 ml/min; Estimated Glomerular Filt Rate 45; Glucose 112 mg/dL (65-110); Potassium 4.2 mmol/L (3.4-5.0); Sodium 135 mmol/L (137-145)
[2021-08-28] MEDS: FUROSEMIDE INJ 40 MG/4 ML VIAL IV PUSH ×2 (08:26→20:43)
[2021-08-28] MEDS: CHOLECALCIFEROL 1,000 UNITS TABLET 1000 UNITS PO (08:27)
[2021-08-28] MEDS: SACUBITRIL/VALSARTAN 12-13 MG TABLET 1 TAB PO ×2 (08:28→20:43)
[2021-08-28] MEDS: MULTIVITAMINS THERAPEUTIC TAB (*BKC) 1 TABLET PO (08:28)
[2021-08-28] MEDS: METOPROLOL TARTRATE 25 MG TABLET PO ×2 (08:28→20:43)
[2021-08-28] MEDS: ATORVASTATIN 20 MG TABLET PO (08:29)
[2021-08-28] MEDS: APIXABAN 5 MG TABLET PO ×2 (08:29→20:42)
--- NOTE | 2021-08-28 09:05 | PM.PNCARD ---
Progress Note: A&P Assessment and Plan (1) Atrial fibrillation with RVR: Code(s): I48.91 - Unspecified atrial fibrillation Status: Acute Assessment and Plan: Patient with likely permanent atrial fibrillation, admitted with AFib RVR Probably some degree of noncompliance as she has been off all of her cardiac medications. Will add p.o. metoprolol and wean off the diltiazem since she has a degree of systolic failure. Resume Eliquis Continue with rate control and anticoagulation strategy (2) Acute on chronic combined systolic and diastolic CHF (congestive heart failure): Code(s): I50.43 - Acute on chronic combined systolic (congestive) and diastolic (congestive) heart failure Status: Acute Assessment and Plan: History of nonischemic cardiomyopathy, EF 40% in 2020, now in acute heart failure with severe volume overload. Agree with furosemide 40 mg IV push b.i.d. Metoprolol, Entresto (1/2 tab BID to start then titrate in 1-2 days if BP OK), Added spironolactone Daily BMP (3) Cardiomyopathy: Code(s): I42.9 - Cardiomyopathy, unspecified Status: Acute Assessment and Plan: EF was 40% in 2020 Echo during this hospitalization shows mild LV dysfunction, EF 45%, severe SON (4) Hypertension: Qualifiers: Hypertension type: essential hypertension Qualified Code(s): I10 - Essential (primary) hypertension Code(s): I10 - Essential (primary) hypertension Status: Acute Assessment and Plan: History of hypertension Controlled at this time (5) CKD (chronic kidney disease) stage 3, GFR 30-59 ml/min: Code(s): N18.3 - Chronic kidney disease, stage 3 (moderate) Status: Acute Assessment and Plan: CKD stage 2-3 Daily BMP (6) CAD (coronary artery disease): Code(s): I25.10 - Atherosclerotic heart disease of [place] coronary artery without angina pectoris Status: Acute Assessment and Plan: Mild to moderate CAD by catheterization in 2020 Asymptomatic, no angina Resume statin, cont Eliquis (7) Noncompliance: Code(s): Z91.19 - Patient's noncompliance with other medical treatment and regimen Status: Acute Assessment and Plan: History of noncompliance in the past, has been off cardiac medications Patient can't understand why she is swollen. Counseled patient about her CHF and atrial fibrillation leading to swelling and SOB, these are long-term problems needing ongoing care and long-term medications, etc. At the end of the conversation she could not understand why she was swollen. Will need more education regarding her health conditions Subjective Date/time seen: 08/28/21 09:05 cardiology follow up for atrial fibrillation, CHF Feeling better with rate control but still has significant dyspnea with any activity. No palpitations or chest pain today. Review of Systems Constitutional: Constitutional: Denies fever(s) Eyes: Eyes: Reports no additional eye complaints ENT: Denies epistaxis Cardiovascular: Cardiovascular: Denies chest pain, Reports pedal edema, Reports leg edema, Denies lightheadedness, Reports palpitations, Reports dyspnea and Reports dyspnea on exertion Respiratory: Respiratory: Denies chest congestion, Denies cough, Reports dyspnea and Reports dyspnea on exertion Gastrointestinal: Gastrointestinal: Denies abdominal pain and Denies hematochezia Musculoskeletal: Musculoskeletal: Denies no additional musculoskeletal complaints Integumentary/Breasts: Skin/Breast: Reports system reviewed and no additional complaints, except as docu and Reports pruritus (Skin on legs and abdomen feels tight and itchy) Neurologic: Reports system reviewed and no additional complaints, except as documented, Denies behavio
[2021-08-28] MEDS: diphenhydrAMINE HCl CAP 25 MG CAPSULE PO ×2 (12:12→20:43)
--- NOTE | 2021-08-28 16:19 | P.PNIM_ITS ---
Progress Note: A&P Assessment and Plan (1) Diastolic congestive heart failure: Code(s): I50.30 - Unspecified diastolic (congestive) heart failure Status: Acute Assessment and Plan: * BNP elevated at 1560 * Severe bilateral edema noted on lower extremities * IV Lasix initiated and continued from ed * Echo ordered * Cardiology on board * Trend labs * daily weights * Strict I&Os 08/28: Appreciate cardiology consultation, will continue current management and assess response to diuresis, start Entresto and spironolactone (2) Atrial fibrillation with RVR: Code(s): I48.91 - Unspecified atrial fibrillation Status: Acute Assessment and Plan: * EKG indicates afib RVR with a rate in the 120s * Not on any anticoagulation * Probably should be on one since she also has a history of DVT and PE * Frank vas score is 4 which places her at a high risk * Start aspirin * Echo ordered * Cardiology on board * Dimer ordered * Venous doppler ordered * Metoprolol 25mg PO Q12Hr * Cardizem drip on board (3) CKD (chronic kidney disease) stage 3, GFR 30-59 ml/min: Code(s): N18.3 - Chronic kidney disease, stage 3 (moderate) Status: Acute Assessment and Plan: * Current BUN 19, Cr 1.30, Creatinine Clearance 45, GFR 49 * Appears to be at baseline * Continue to trend labs * Avoid nephrotoxic medications * Renal dose medications as needed * Trend urine output (4) Obstructive sleep apnea of adult: Code(s): G47.33 - Obstructive sleep apnea (adult) (pediatric) Status: Acute Assessment and Plan: * Continue CPAP/BIPAP per home settings (5) Hypertension: Qualifiers: Hypertension type: essential hypertension Qualified Code(s): I10 - Essential (primary) hypertension Code(s): I10 - Essential (primary) hypertension Status: Acute Assessment and Plan: * Current BP is 110/61 * On carvedilol at home, Cardiology wants to change it to metoprolol * Trend Blood pressure * Adjust therapy as indicated (6) Hyperthyroidism: Code(s): E05.90 - Thyrotoxicosis, unspecified without thyrotoxic crisis or storm Status: Acute Assessment and Plan: * Last TSH <0.015 form 08/18/21 * Will repeat to get T3 and T4 * Treat as indicated (7) Elevated d-dimer: Code(s): R79.89 - Other specified abnormal findings of blood chemistry Status: Acute Assessment and Plan: * D.Dimer is 11.16 * CTA ordered * Venous doppler negative for DVT * Could have a PE with tachycardia, tachypnea, and shortness of breath * Hx of PE * Start full dose lovenox until CT results are back Subjective Date/time seen: 08/28/21 16:19 Interval history: patient states she feels much better than when she came in. No chest pain or shortness of breath.? No nausea, vomiting or diarrhea.? No fevers or chills. Review of Systems Review of Systems: All systems reviewed & are unremarkable except as noted in HPI and below Exam Narrative: General:??No acute distress, alert and oriented per baseline HEENT:? Atraumatic, normocephalic, mucous membranes moist CV:? Regular rate and rhythm, S1, S2 Lungs:? Clear to auscultation bilaterally, no rales or crackles noted, no wheezes, good air entry Abdomen:? Soft, nontender, n
--- NOTE | 2021-08-28 16:19 | PM.IMPN ---
Progress Note: A&P Assessment and Plan (1) Diastolic congestive heart failure: Code(s): I50.30 - Unspecified diastolic (congestive) heart failure Status: Acute Assessment and Plan: BNP elevated at 1560 Severe bilateral edema noted on lower extremities IV Lasix initiated and continued from ed Echo ordered Cardiology on board Trend labs daily weights Strict I&Os 08/28: Appreciate cardiology consultation, will continue current management and assess response to diuresis, start Entresto and spironolactone (2) Atrial fibrillation with RVR: Code(s): I48.91 - Unspecified atrial fibrillation Status: Acute Assessment and Plan: EKG indicates afib RVR with a rate in the 120s Not on any anticoagulation Probably should be on one since she also has a history of DVT and PE Frank vas score is 4 which places her at a high risk Start aspirin Echo ordered Cardiology on board Dimer ordered Venous doppler ordered Metoprolol 25mg PO Q12Hr Cardizem drip on board (3) CKD (chronic kidney disease) stage 3, GFR 30-59 ml/min: Code(s): N18.3 - Chronic kidney disease, stage 3 (moderate) Status: Acute Assessment and Plan: Current BUN 19, Cr 1.30, Creatinine Clearance 45, GFR 49 Appears to be at baseline Continue to trend labs Avoid nephrotoxic medications Renal dose medications as needed Trend urine output (4) Obstructive sleep apnea of adult: Code(s): G47.33 - Obstructive sleep apnea (adult) (pediatric) Status: Acute Assessment and Plan: Continue CPAP/BIPAP per home settings (5) Hypertension: Qualifiers: Hypertension type: essential hypertension Qualified Code(s): I10 - Essential (primary) hypertension Code(s): I10 - Essential (primary) hypertension Status: Acute Assessment and Plan: Current BP is 110/61 On carvedilol at home, Cardiology wants to change it to metoprolol Trend Blood pressure Adjust therapy as indicated (6) Hyperthyroidism: Code(s): E05.90 - Thyrotoxicosis, unspecified without thyrotoxic crisis or storm Status: Acute Assessment and Plan: Last TSH <0.015 form 08/18/21 Will repeat to get T3 and T4 Treat as indicated (7) Elevated d-dimer: Code(s): R79.89 - Other specified abnormal findings of blood chemistry Status: Acute Assessment and Plan: D.Dimer is 11.16 CTA ordered Venous doppler negative for DVT Could have a PE with tachycardia, tachypnea, and shortness of breath Hx of PE Start full dose lovenox until CT results are back Subjective Date/time seen: 08/28/21 16:19 Interval history: patient states she feels much better than when she came in. No chest pain or shortness of breath.? No nausea, vomiting or diarrhea.? No fevers or chills. Review of Systems Review of Systems: All systems reviewed & are unremarkable except as noted in HPI and below Exam Narrative: General:??No acute distress, alert and oriented per baseline HEENT:? Atraumatic, normocephalic, mucous membranes moist CV:? Regular rate and rhythm, S1, S2 Lungs:? Clear to auscultation bilaterally, no rales or crackles noted, no wheezes, good air entry Abdomen:? Soft, nontender, nondistended Extremities:? significant edema in B/L? Skin:? No rashes noted, no lesions or wounds seen Psych:? Euthymic, normal affect Objective Data Vital Signs Vital Signs: Vital Signs - 24 hr 08/27/21 18:00 08/27/21 19:58 08/27/21 20:16 Temperature 97.7 F Pulse Rate 118 H 127 H 105 H Respiratory Rate 20 Blood Pressure 112/68 Pulse Oximetry 100 Oxygen Delivery 08/27/21 20:16 08/27/21 20:00 08/27/21 20:00 Temperature Pulse Rate 105 H 97 Respiratory Rate Blood Pressure Pulse Oximetry Oxygen Delivery Room Air 08/27/21 22:13 08/27/21 22:00 08/28/21 00:00 Temper
[2021-08-29] VITALS (17 sets, daily range): BP systolic 115–131; BP diastolic 53–72; PULSE 74–118; RESP 16–20; TEMP 36.3–36.9; O2SAT 96–100
[2021-08-29] MEDS: FUROSEMIDE INJ 40 MG/4 ML VIAL IV PUSH ×2 (08:26→20:31)
[2021-08-29] MEDS: MULTIVITAMINS THERAPEUTIC TAB (*BKC) 1 TABLET PO (08:27)
[2021-08-29] MEDS: ATORVASTATIN 20 MG TABLET PO (08:27)
[2021-08-29] MEDS: SPIRONOLACTONE 25 MG TABLET PO (08:28)
[2021-08-29] MEDS: SACUBITRIL/VALSARTAN 12-13 MG TABLET 1 TAB PO ×2 (08:28→20:31)
[2021-08-29] MEDS: APIXABAN 5 MG TABLET PO ×2 (08:28→20:30)
[2021-08-29] MEDS: CHOLECALCIFEROL 1,000 UNITS TABLET 1000 UNITS PO (08:28)
[2021-08-29] MEDS: METOPROLOL TARTRATE 25 MG TABLET PO ×2 (08:28→20:31)
--- NOTE | 2021-08-29 12:48 | PM.IMPN ---
Progress Note: A&P Assessment and Plan (1) Diastolic congestive heart failure: Code(s): I50.30 - Unspecified diastolic (congestive) heart failure Status: Acute Assessment and Plan: BNP elevated at 1560 Severe bilateral edema noted on lower extremities IV Lasix initiated and continued from ed Echo ordered Cardiology on board Trend labs daily weights Strict I&Os 08/28: Appreciate cardiology consultation, will continue current management and assess response to diuresis, start Entresto and spironolactone 08/29: Much improved, anticipate discharging tomorrow on oral medications after continued IV diuresing today (2) Atrial fibrillation with RVR: Code(s): I48.91 - Unspecified atrial fibrillation Status: Acute Assessment and Plan: 08/29: Off Cardizem drip, appreciate cardiology consultation, continue metoprolol, Entresto, Aldactone and Eliquis (3) CKD (chronic kidney disease) stage 3, GFR 30-59 ml/min: Code(s): N18.3 - Chronic kidney disease, stage 3 (moderate) Status: Acute Assessment and Plan: kidney function is essentially stable (4) Obstructive sleep apnea of adult: Code(s): G47.33 - Obstructive sleep apnea (adult) (pediatric) Status: Acute Assessment and Plan: Continue CPAP/BIPAP per home settings (5) Hypertension: Qualifiers: Hypertension type: essential hypertension Qualified Code(s): I10 - Essential (primary) hypertension Code(s): I10 - Essential (primary) hypertension Status: Acute Assessment and Plan: blood pressure stable on current medications, see above for details (6) Hyperthyroidism: Code(s): E05.90 - Thyrotoxicosis, unspecified without thyrotoxic crisis or storm Status: Acute Assessment and Plan: repeat TSH, asymptomatic (7) Elevated d-dimer: Code(s): R79.89 - Other specified abnormal findings of blood chemistry Status: Acute Assessment and Plan: CTA showed some pulmonary edema with no PE, suspect elevated D-dimers an acute phase reactant due to heart failure exacerbation Subjective Date/time seen: 08/29/21 12:48 Interval history: Patient sitting up in bed, resting comfortably. She states her swelling is much improved but still a lot more than baseline.? No overnight events noted.? No chest pain or shortness of breath.? No nausea, vomiting or diarrhea.? No fevers or chills. Review of Systems Review of Systems: All systems reviewed & are unremarkable except as noted in HPI and below Exam Narrative: General:??No acute distress, alert and oriented per baseline HEENT:? Atraumatic, normocephalic, mucous membranes moist CV:? Regular rate and rhythm, S1, S2 Lungs:? Clear to auscultation bilaterally, no rales or crackles noted, no wheezes, good air entry Abdomen:? Soft, nontender, nondistended Extremities:? Trace pitting edema bilateral lower extremity Skin:? No rashes noted, no lesions or wounds seen Psych:? Euthymic, normal affect Objective Data Vital Signs Vital Signs: Vital Signs - 24 hr 08/28/21 14:00 08/28/21 16:00 08/28/21 16:00 Temperature 98.2 F Pulse Rate 82 84 Respiratory Rate 14 Blood Pressure 109/60 Pulse Oximetry 97 97 Oxygen Delivery Room Air 08/28/21 16:00 08/28/21 20:00 08/28/21 20:00 Temperature 98.1 F Pulse Rate 100 63 63 Respiratory Rate 22 H 22 H Blood Pressure 122/71 Pulse Oximetry 100 100 Oxygen Delivery Room Air 08/28/21 20:43 08/28/21 20:00 08/28/21 21:32 Temperature Pulse Rate 89 93 96 Respiratory Rate Blood Pressure Pulse Oximetry Oxygen Delivery 08/28/21 23:32 08/28/21 23:41 08/29/21 00:00 Temperature 97.6 F Pulse Rate 73 73 83 Respiratory Rate 20 20 Blood Pressure 125/67 Pulse Oximetry 97 97 Oxygen Delivery Room Air 08/29/21 02:00 08/29/21 04:00 08/29/21 04:00 Temperature
[2021-08-29 14:32] LABS: Thyroid Stimulating Hormone 0.019 uIU/mL (0.465-4.680)
--- NOTE | 2021-08-29 14:53 | PM.PNCARD ---
Progress Note: A&P Assessment and Plan (1) Atrial fibrillation with RVR: Code(s): I48.91 - Unspecified atrial fibrillation Status: Acute Assessment and Plan: Patient with likely permanent atrial fibrillation, admitted with AFib RVR Exacerbation secondary to noncompliance as she stopped all her medications. Continue metoprolol tartrate 25 mg every 12 hours. Up titrate for heart rate control as appropriate. Transition to Toprol XL prior to discharge. Continue with rate control and anticoagulation strategy (2) Acute on chronic combined systolic and diastolic CHF (congestive heart failure): Code(s): I50.43 - Acute on chronic combined systolic (congestive) and diastolic (congestive) heart failure Status: Acute Assessment and Plan: History of nonischemic cardiomyopathy, EF 40% in 2020, now in acute heart failure with severe volume overload. Agree with furosemide 40 mg IV push b.i.d. Metoprolol, Entresto increased to 24/26 mg twice daily as BP permits. Continue spironolactone. Daily BMP no labs ordered for today so will order (3) Cardiomyopathy: Code(s): I42.9 - Cardiomyopathy, unspecified Status: Acute Assessment and Plan: EF was 40% in 2020 Echo during this hospitalization shows mild LV dysfunction, EF 45%, severe SON (4) Hypertension: Qualifiers: Hypertension type: essential hypertension Qualified Code(s): I10 - Essential (primary) hypertension Code(s): I10 - Essential (primary) hypertension Status: Acute Assessment and Plan: History of hypertension Controlled at this time (5) CKD (chronic kidney disease) stage 3, GFR 30-59 ml/min: Code(s): N18.3 - Chronic kidney disease, stage 3 (moderate) Status: Acute Assessment and Plan: CKD stage 2-3 Daily BMP (6) CAD (coronary artery disease): Code(s): I25.10 - Atherosclerotic heart disease of [place] coronary artery without angina pectoris Status: Acute Assessment and Plan: Mild to moderate CAD by catheterization in 2020 Asymptomatic, no angina Continue statin (7) Noncompliance: Code(s): Z91.19 - Patient's noncompliance with other medical treatment and regimen Status: Acute Assessment and Plan: History of noncompliance in the past, has been off cardiac medications Counseled patient about her CHF and atrial fibrillation leading to swelling and SOB, these are long-term problems needing ongoing care and long-term medications, etc. At the end of the conversation she could not understand why she was swollen. Subjective Date/time seen: Date of service: 08/29/21 14:53 Follow-up for CHF, medication noncompliance, atrial fibrillation Patient feeling much better overall. States her abdomen and legs are less tight L able to move better, breathing much improved. Still notes coughing productive at times wheezing but significant improved shortness of breath. No chest pain or palpitations. Heart rate fairly well controlled on telemetry. Good urine output with diuresis. Review of Systems Review of Systems: Feeling better overall All systems reviewed & are unremarkable except as noted in HPI and below Constitutional: Constitutional: Denies fever(s) Eyes: Eyes: Reports no additional eye complaints ENT: Denies epistaxis Cardiovascular: Cardiovascular: Denies chest pain, Reports pedal edema, Reports leg edema, Denies lightheadedness, Reports palpitations, Reports dyspnea and Reports dyspnea on exertion Respiratory: Respiratory: Denies chest congestion, Denies cough, Reports dyspnea and Reports dyspnea on exertion Gastrointestinal: Gastrointestinal: Denies abdominal pain and Denies hematochezia Genitourinary: Genitourinary: Reports as per HPI Mus
--- NOTE | 2021-08-29 15:28 | PC.NURSE ---
Dr. Sagastume notified of asymptomatic 6 beat run of Vtach.
[2021-08-29 16:29] LABS: Anion Gap 5 mmol/L (8-16); Blood Urea Nitrogen 18 mg/dL (7-17); Calcium 7.7 mg/dL (8.4-10.2); Carbon Dioxide 26 mmol/L (22-30); Chloride 105 mmol/L (98-107); Estimated CRCL calculation 54 ml/min; Estimated Glomerular Filt Rate 59; Glucose 111 mg/dL (65-110); Potassium 3.6 mmol/L (3.4-5.0); Sodium 136 mmol/L (137-145)
[2021-08-29] MEDS: ONDANSETRON INJ 4 MG/2 ML VIAL IV PUSH (20:28)
[2021-08-29] MEDS: diphenhydrAMINE HCl CAP 25 MG CAPSULE PO (20:31)
[2021-08-30] VITALS (17 sets, daily range): BP systolic 96–131; BP diastolic 55–85; PULSE 63–114; RESP 12–22; TEMP 35.7–37.2; O2SAT 93–100
[2021-08-30] MEDS: diphenhydrAMINE HCl CAP 25 MG CAPSULE PO ×2 (05:06→20:27)
[2021-08-30] MEDS: MULTIVITAMINS THERAPEUTIC TAB (*BKC) 1 TABLET PO (08:21)
[2021-08-30] MEDS: SACUBITRIL/VALSARTAN 12-13 MG TABLET 1 TAB PO ×2 (08:21→20:22)
[2021-08-30] MEDS: CHOLECALCIFEROL 1,000 UNITS TABLET 1000 UNITS PO (08:21)
[2021-08-30] MEDS: SPIRONOLACTONE 25 MG TABLET PO (08:21)
[2021-08-30] MEDS: FUROSEMIDE INJ 40 MG/4 ML VIAL IV PUSH ×3 (08:21→20:23)
[2021-08-30] MEDS: ATORVASTATIN 20 MG TABLET PO (08:21)
[2021-08-30] MEDS: APIXABAN 5 MG TABLET PO ×2 (08:21→20:23)
[2021-08-30] MEDS: METOPROLOL TARTRATE 25 MG TABLET PO (08:21)
--- NOTE | 2021-08-30 09:28 | PM.IMPN ---
Progress Note: A&P Assessment and Plan (1) Diastolic congestive heart failure: Code(s): I50.30 - Unspecified diastolic (congestive) heart failure Status: Acute Assessment and Plan: BNP elevated at 1560 Severe bilateral edema noted on lower extremities IV Lasix initiated and continued from ed Echo ordered Cardiology on board Trend labs daily weights Strict I&Os 08/28: Appreciate cardiology consultation, will continue current management and assess response to diuresis, start Entresto and spironolactone 08/29: Much improved, anticipate discharging tomorrow on oral medications after continued IV diuresing today 08/30: Continues to improve, not euvolemic yet, continue IV diuresis today, increase Lasix from q.12h to q.8 hours, Is and Os and daily weights appear grossly inaccurate (2) Atrial fibrillation with RVR: Code(s): I48.91 - Unspecified atrial fibrillation Status: Acute Assessment and Plan: 08/29: Off Cardizem drip, appreciate cardiology consultation, continue metoprolol, Entresto, Aldactone and Eliquis (3) CKD (chronic kidney disease) stage 3, GFR 30-59 ml/min: Code(s): N18.3 - Chronic kidney disease, stage 3 (moderate) Status: Acute Assessment and Plan: kidney function is essentially stable (4) Obstructive sleep apnea of adult: Code(s): G47.33 - Obstructive sleep apnea (adult) (pediatric) Status: Acute Assessment and Plan: Continue CPAP/BIPAP per home settings (5) Hypertension: Qualifiers: Hypertension type: essential hypertension Qualified Code(s): I10 - Essential (primary) hypertension Code(s): I10 - Essential (primary) hypertension Status: Acute Assessment and Plan: blood pressure stable on current medications, see above for details (6) Hyperthyroidism: Code(s): E05.90 - Thyrotoxicosis, unspecified without thyrotoxic crisis or storm Status: Acute Assessment and Plan: repeat TSH, asymptomatic (7) Elevated d-dimer: Code(s): R79.89 - Other specified abnormal findings of blood chemistry Status: Acute Assessment and Plan: CTA showed some pulmonary edema with no PE, suspect elevated D-dimers an acute phase reactant due to heart failure exacerbation Subjective Date/time seen: 08/30/21 09:28 Interval history: patient feels better than yesterday, still with significant swelling in her abdomen and lower extremities.? No overnight events noted.? No chest pain or shortness of breath.? No nausea, vomiting or diarrhea.? No fevers or chills. Review of Systems Review of Systems: ? 12 point review of systems was assessed and was negative except as noted in the HPI Exam Narrative: General:??No acute distress, alert and oriented per baseline HEENT:? Atraumatic, normocephalic, mucous membranes moist CV:? Regular rate and rhythm, S1, S2 Lungs:? Clear to auscultation bilaterally, no rales or crackles noted, no wheezes, good air entry Abdomen:? Soft, nontender, nondistended Extremities:? Trace pitting edema bilateral lower extremity, Edema noted in abdomen Skin:? No rashes noted, no lesions or wounds seen Psych:? Euthymic, normal affect Objective Data Vital Signs Vital Signs: Vital Signs - 24 hr 08/29/21 10:00 08/29/21 12:00 08/29/21 12:00 Temperature 97.5 F L Pulse Rate 89 74 85 Respiratory Rate 18 Blood Pressure 125/56 L Pulse Oximetry 100 Oxygen Delivery 08/29/21 12:00 08/29/21 13:20 08/29/21 14:00 Temperature Pulse Rate 85 Respiratory Rate Blood Pressure Pulse Oximetry 100 99 Oxygen Delivery Room Air Room Air 08/29/21 16:00 08/29/21 16:00 08/29/21 16:00 Temperature 97.6 F Pulse Rate 84 99 Respiratory Rate 16 Blood Pressure 128/60 Pulse Oximetry 99 100 Oxygen Delivery Room Air 08/29/21 18:00 08/29/21 20:31 08/29/21 20:00 Temperature
--- NOTE | 2021-08-30 13:37 | PM.PNCARD ---
Progress Note: A&P Assessment and Plan (1) Atrial fibrillation with RVR: Code(s): I48.91 - Unspecified atrial fibrillation Status: Acute Assessment and Plan: Patient with likely permanent atrial fibrillation, admitted with AFib RVR Exacerbation secondary to noncompliance as she stopped all her medications. Continue metoprolol tartrate but increased to 50 mg every 12 hours. Up titrate for heart rate control as appropriate. Transition to Toprol XL prior to discharge. Continue with rate control and anticoagulation strategy (2) Acute on chronic combined systolic and diastolic CHF (congestive heart failure): Code(s): I50.43 - Acute on chronic combined systolic (congestive) and diastolic (congestive) heart failure Status: Acute Assessment and Plan: History of nonischemic cardiomyopathy, EF 40% in 2020, now in acute heart failure with severe volume overload. Increase furosemide 40 mg IV push q.8 hours Entresto 24/26 mg twice daily as BP permits. Continue spironolactone. Renal function stable, monitor electrolytes closely. Given additional 20 mEq potassium chloride p.o. x1. Patient has slow improvement overall. Agree with increase in diuretic. Monitor electrolytes and renal function. Accurate input and output, daily weight. (3) Cardiomyopathy: Qualifiers: Cardiomyopathy type: dilated Qualified Code(s): I42.0 - Dilated cardiomyopathy Code(s): I42.9 - Cardiomyopathy, unspecified Status: Acute Assessment and Plan: EF was 40% in 2020 Echo during this hospitalization shows mild LV dysfunction, EF 45%, severe SON May benefit from addition of Jardiance 10 mg daily. Check with insurance for coverage (4) Hypertension: Qualifiers: Hypertension type: essential hypertension Qualified Code(s): I10 - Essential (primary) hypertension Code(s): I10 - Essential (primary) hypertension Status: Acute Assessment and Plan: History of hypertension Controlled at this time (5) CKD (chronic kidney disease) stage 3, GFR 30-59 ml/min: Code(s): N18.3 - Chronic kidney disease, stage 3 (moderate) Status: Acute Assessment and Plan: CKD stage 2-3 Daily BMP (6) CAD (coronary artery disease): Code(s): I25.10 - Atherosclerotic heart disease of [place] coronary artery without angina pectoris Status: Acute Assessment and Plan: Mild to moderate CAD by catheterization in 2020 Asymptomatic, no angina Continue statin (7) Noncompliance: Code(s): Z91.19 - Patient's noncompliance with other medical treatment and regimen Status: Acute Assessment and Plan: History of noncompliance in the past, has been off cardiac medications Patient has been counseled about her CHF and atrial fibrillation leading to swelling and SOB, these are long-term problems needing ongoing care and long-term medications, etc. At the end of the conversation she could not understand why she was swollen. Subjective Date/time seen: Date of service: 08/30/21 13:37 Follow-up for atrial fibrillation with RVR, CHF, noncompliance Patient feels okay but complains of diffuse itching which began long before she presented to the emergency department after stopping her medications. States her breathing is a little better, edema slowly improving but complains of fullness in her abdomen which is uncomfortable at times depending on which position she lies in bed. Remains in atrial fibrillation with episodes of RVR early this morning. No chest pain, fevers or chills. Review of Systems Review of Systems: All systems reviewed & are unremarkable except as noted in HPI and below Constitutional: Constitutional: Denies fever(s) Eyes: Eyes: Reports no additio
[2021-08-30] MEDS: POTASSIUM CHLORIDE 20 MEQ TABLET PO (17:38)
--- NOTE | 2021-08-30 18:44 | PC.NURSE ---
This patient, Consuelo Tovar, was transferred to [facility] via bed without issue on 08/30/21 at 1844. Personal belongings sent with patient. Report given to JENNIFER Bucio. Appropriate documentation sent with patient.
--- NOTE | 2021-08-30 19:19 | PC.NURSE ---
Pt arrived from [facility] to [facility] @2357.
[2021-08-30] MEDS: METOPROLOL TARTRATE 50 MG TAB PO (20:21)
[2021-08-31] VITALS (12 sets, daily range): BP systolic 102–128; BP diastolic 54–80; PULSE 90–113; RESP 16–20; TEMP 36–36.9; O2SAT 94–100
[2021-08-31] MEDS: diphenhydrAMINE HCl CAP 25 MG CAPSULE PO (03:56)
[2021-08-31] MEDS: FUROSEMIDE INJ 40 MG/4 ML VIAL IV PUSH ×3 (05:42→19:48)
--- NOTE | 2021-08-31 08:04 | PM.IMPN ---
Progress Note: A&P Assessment and Plan (1) Diastolic congestive heart failure: Code(s): I50.30 - Unspecified diastolic (congestive) heart failure Status: Acute Assessment and Plan: BNP elevated at 1560 Severe bilateral edema noted on lower extremities IV Lasix initiated and continued from ed Echo ordered Cardiology on board Trend labs daily weights Strict I&Os 08/28: Appreciate cardiology consultation, will continue current management and assess response to diuresis, start Entresto and spironolactone 08/29: Much improved, anticipate discharging tomorrow on oral medications after continued IV diuresing today 08/30: Continues to improve, not euvolemic yet, continue IV diuresis today, increase Lasix from q.12h to q.8 hours, Is and Os and daily weights appear grossly inaccurate 08/31: Still improving, not euvolemic (2) Atrial fibrillation with RVR: Code(s): I48.91 - Unspecified atrial fibrillation Status: Acute Assessment and Plan: 08/29: Off Cardizem drip, appreciate cardiology consultation, continue metoprolol, Entresto, Aldactone and Eliquis (3) CKD (chronic kidney disease) stage 3, GFR 30-59 ml/min: Code(s): N18.3 - Chronic kidney disease, stage 3 (moderate) Status: Acute Assessment and Plan: kidney function is essentially stable (4) Obstructive sleep apnea of adult: Code(s): G47.33 - Obstructive sleep apnea (adult) (pediatric) Status: Acute Assessment and Plan: Continue CPAP/BIPAP per home settings (5) Hypertension: Qualifiers: Hypertension type: essential hypertension Qualified Code(s): I10 - Essential (primary) hypertension Code(s): I10 - Essential (primary) hypertension Status: Acute Assessment and Plan: blood pressure stable on current medications, see above for details (6) Hyperthyroidism: Code(s): E05.90 - Thyrotoxicosis, unspecified without thyrotoxic crisis or storm Status: Acute Assessment and Plan: repeat TSH, asymptomatic (7) Elevated d-dimer: Code(s): R79.89 - Other specified abnormal findings of blood chemistry Status: Acute Assessment and Plan: CTA showed some pulmonary edema with no PE, suspect elevated D-dimers an acute phase reactant due to heart failure exacerbation Subjective Date/time seen: 08/31/21 08:04 Interval history: patient still with edema, much improved. She thinks 1 more day of diuresis will help wants to go home tomorrow. ?No overnight events noted.? No chest pain or shortness of breath.? No nausea, vomiting or diarrhea.? No fevers or chills. Review of Systems Review of Systems: All systems reviewed & are unremarkable except as noted in HPI and below Exam Narrative: General:??No acute distress, alert and oriented per baseline HEENT:? Atraumatic, normocephalic, mucous membranes moist CV:? Regular rate and rhythm, S1, S2 Lungs:? Clear to auscultation bilaterally, no rales or crackles noted, no wheezes, good air entry Abdomen:? Soft, nontender, nondistended Extremities:? Trace pitting edema bilateral lower extremity, decreased edema in abdomen Skin:? No rashes noted, no lesions or wounds seen Psych:? Euthymic, normal affect Objective Data Vital Signs Vital Signs: Vital Signs - 24 hr 08/30/21 08:21 08/30/21 10:00 08/30/21 12:00 Temperature 98.9 F Pulse Rate 105 H 97 95 Respiratory Rate 12 Blood Pressure 96/60 L Pulse Oximetry 99 Oxygen Delivery 08/30/21 12:00 08/30/21 12:00 08/30/21 14:00 Temperature Pulse Rate 87 97 Respiratory Rate Blood Pressure Pulse Oximetry 99 Oxygen Delivery Room Air 08/30/21 16:00 08/30/21 16:00 08/30/21 16:00 Temperature 97.2 F L Pulse Rate 92 82 Respiratory Rate 16 Blood Pressure 105/85 Pulse Oximetry 100 100 Oxygen Delivery Room Air 08/30/21 18:00 08/30/21 18:40
[2021-08-31] MEDS: METOPROLOL TARTRATE 50 MG TAB PO ×2 (09:45→19:47)
[2021-08-31] MEDS: APIXABAN 5 MG TABLET PO ×2 (09:45→19:48)
[2021-08-31] MEDS: SACUBITRIL/VALSARTAN 12-13 MG TABLET 1 TAB PO ×2 (09:45→19:47)
[2021-08-31] MEDS: ATORVASTATIN 20 MG TABLET PO (09:45)
[2021-08-31] MEDS: MULTIVITAMINS THERAPEUTIC TAB (*BKC) 1 TABLET PO (09:46)
[2021-08-31] MEDS: SPIRONOLACTONE 25 MG TABLET PO (09:46)
[2021-08-31] MEDS: CHOLECALCIFEROL 1,000 UNITS TABLET 1000 UNITS PO (09:46)
--- NOTE | 2021-08-31 10:24 | P.PNCA_ITS ---
Progress Note: A&P Assessment and Plan (1) Atrial fibrillation with RVR: Code(s): I48.91 - Unspecified atrial fibrillation Status: Acute Assessment and Plan: Patient with likely permanent atrial fibrillation, admitted with AFib RVR * Exacerbation secondary to noncompliance as she stopped all her medications. * Continue metoprolol tartrate 50 mg every 12 hours. Up titrate for heart rate control as appropriate. Transition to Toprol XL prior to discharge. * Continue with rate control and anticoagulation strategy (2) Acute on chronic combined systolic and diastolic CHF (congestive heart failure): Code(s): I50.43 - Acute on chronic combined systolic (congestive) and diastolic (congestive) heart failure Status: Acute Assessment and Plan: History of nonischemic cardiomyopathy, EF 40% in 2020, now in acute heart failure with severe volume overload. * Increase furosemide 40 mg IV push q.8 hours * Entresto 24/26 mg twice daily as BP permits. * Continue spironolactone. * Renal function stable, monitor electrolytes closely. * Accurate I&O * Fluid restriction * Daily standing weight (3) Cardiomyopathy: Qualifiers: Cardiomyopathy type: dilated Qualified Code(s): I42.0 - Dilated cardiomyopathy Code(s): I42.9 - Cardiomyopathy, unspecified Status: Acute Assessment and Plan: EF was 40% in 2020 * Echo during this hospitalization shows mild LV dysfunction, EF 45%, severe SON * Add Jardiance 10mg daily (4) Hypertension: Qualifiers: Hypertension type: essential hypertension Qualified Code(s): I10 - Essential (primary) hypertension Code(s): I10 - Essential (primary) hypertension Status: Acute Assessment and Plan: History of hypertension * Controlled at this time (5) CKD (chronic kidney disease) stage 3, GFR 30-59 ml/min: Code(s): N18.3 - Chronic kidney disease, stage 3 (moderate) Status: Acute Assessment and Plan: CKD stage 2-3 * Daily BMP, renal function improved today. (6) CAD (coronary artery disease): Code(s): I25.10 - Atherosclerotic heart disease of [place] coronary artery without angina pectoris Status: Acute Assessment and Plan: Mild to moderate CAD by catheterization in 2020 * Asymptomatic, no angina * Continue statin (7) Noncompliance: Code(s): Z91.19 - Patient's noncompliance with other medical treatment and regimen Status: Acute Assessment and Plan: History of noncompliance in the past, has been off cardiac medications * Patient has been counseled about her CHF and atrial fibrillation leading to swelling and SOB, these are long-term problems needing ongoing care and long- term medications, etc. Subjective Date/time seen: 08/31/21 10:24 cardiology follow up for Afib, CHF Continues to make slow improvement. Denies any shortness of breath. Does feel palpitations from time to time. Swelling is improving. Review of Systems Review of Systems: All systems reviewed & are unremarkable except as noted in HPI and below Constitutional: Constitutional: Denies fever(s) Eyes: Eyes: Reports no additional eye complaints ENT: Denies epistaxis Cardiovascular: Cardiovascular: Denies chest pain, Reports pedal edema, Reports leg edema, Denies lightheadedness,
--- NOTE | 2021-08-31 10:24 | PM.PNCARD ---
Progress Note: A&P Assessment and Plan (1) Atrial fibrillation with RVR: Code(s): I48.91 - Unspecified atrial fibrillation Status: Acute Assessment and Plan: Patient with likely permanent atrial fibrillation, admitted with AFib RVR Exacerbation secondary to noncompliance as she stopped all her medications. Continue metoprolol tartrate 50 mg every 12 hours. Up titrate for heart rate control as appropriate. Transition to Toprol XL prior to discharge. Continue with rate control and anticoagulation strategy (2) Acute on chronic combined systolic and diastolic CHF (congestive heart failure): Code(s): I50.43 - Acute on chronic combined systolic (congestive) and diastolic (congestive) heart failure Status: Acute Assessment and Plan: History of nonischemic cardiomyopathy, EF 40% in 2020, now in acute heart failure with severe volume overload. Increase furosemide 40 mg IV push q.8 hours Entresto 24/26 mg twice daily as BP permits. Continue spironolactone. Renal function stable, monitor electrolytes closely. Accurate I&O Fluid restriction Daily standing weight (3) Cardiomyopathy: Qualifiers: Cardiomyopathy type: dilated Qualified Code(s): I42.0 - Dilated cardiomyopathy Code(s): I42.9 - Cardiomyopathy, unspecified Status: Acute Assessment and Plan: EF was 40% in 2020 Echo during this hospitalization shows mild LV dysfunction, EF 45%, severe SON Add Jardiance 10mg daily (4) Hypertension: Qualifiers: Hypertension type: essential hypertension Qualified Code(s): I10 - Essential (primary) hypertension Code(s): I10 - Essential (primary) hypertension Status: Acute Assessment and Plan: History of hypertension Controlled at this time (5) CKD (chronic kidney disease) stage 3, GFR 30-59 ml/min: Code(s): N18.3 - Chronic kidney disease, stage 3 (moderate) Status: Acute Assessment and Plan: CKD stage 2-3 Daily BMP, renal function improved today. (6) CAD (coronary artery disease): Code(s): I25.10 - Atherosclerotic heart disease of [place] coronary artery without angina pectoris Status: Acute Assessment and Plan: Mild to moderate CAD by catheterization in 2020 Asymptomatic, no angina Continue statin (7) Noncompliance: Code(s): Z91.19 - Patient's noncompliance with other medical treatment and regimen Status: Acute Assessment and Plan: History of noncompliance in the past, has been off cardiac medications Patient has been counseled about her CHF and atrial fibrillation leading to swelling and SOB, these are long-term problems needing ongoing care and long-term medications, etc. Subjective Date/time seen: 08/31/21 10:24 cardiology follow up for Afib, CHF Continues to make slow improvement. Denies any shortness of breath. Does feel palpitations from time to time. Swelling is improving. Review of Systems Review of Systems: All systems reviewed & are unremarkable except as noted in HPI and below Constitutional: Constitutional: Denies fever(s) Eyes: Eyes: Reports no additional eye complaints ENT: Denies epistaxis Cardiovascular: Cardiovascular: Denies chest pain, Reports pedal edema, Reports leg edema, Denies lightheadedness, Reports palpitations, Reports dyspnea and Reports dyspnea on exertion Respiratory: Respiratory: Denies chest congestion, Denies cough, Reports dyspnea and Reports dyspnea on exertion Gastrointestinal: Gastrointestinal: Denies abdominal pain and Denies hematochezia Genitourinary: Genitourinary: Reports as per HPI Musculoskeletal: Musculoskeletal: Denies no additional musculoskeletal complaints Integumentary/Breasts: Skin/Breast: Reports system reviewed
[2021-09-01] VITALS (12 sets, daily range): BP systolic 92–113; BP diastolic 49–72; PULSE 80–128; RESP 16–18; TEMP 36.7–37.1; O2SAT 98–100
[2021-09-01] MEDS: FUROSEMIDE INJ 40 MG/4 ML VIAL IV PUSH (05:56)
[2021-09-01] MEDS: SACUBITRIL/VALSARTAN 12-13 MG TABLET 1 TAB PO (09:36)
[2021-09-01] MEDS: CHOLECALCIFEROL 1,000 UNITS TABLET 1000 UNITS PO (09:36)
[2021-09-01] MEDS: ATORVASTATIN 20 MG TABLET PO (09:36)
[2021-09-01] MEDS: SPIRONOLACTONE 25 MG TABLET PO (09:36)
[2021-09-01] MEDS: MULTIVITAMINS THERAPEUTIC TAB (*BKC) 1 TABLET PO (09:36)
[2021-09-01] MEDS: METOPROLOL TARTRATE 50 MG TAB PO (09:36)
[2021-09-01] MEDS: APIXABAN 5 MG TABLET PO ×2 (09:36→20:02)
[2021-09-01] MEDS: EMPAGLIFLOZIN 10 MG TABLET PO (09:36)
--- NOTE | 2021-09-01 10:46 | PM.IMPN ---
Progress Note: A&P Assessment and Plan (1) Diastolic congestive heart failure: Code(s): I50.30 - Unspecified diastolic (congestive) heart failure Status: Acute Assessment and Plan: BNP elevated at 1560 Severe bilateral edema noted on lower extremities IV Lasix initiated and continued from ed Echo ordered Cardiology on board Trend labs daily weights Strict I&Os 08/28: Appreciate cardiology consultation, will continue current management and assess response to diuresis, start Entresto and spironolactone 08/29: Much improved, anticipate discharging tomorrow on oral medications after continued IV diuresing today 08/30: Continues to improve, not euvolemic yet, continue IV diuresis today, increase Lasix from q.12h to q.8 hours, Is and Os and daily weights appear grossly inaccurate 08/31: Still improving, not euvolemic 09/01: Appreciate Cardiology recommendations, improving on increased diuresis, transition to oral diuresis today in anticipation of discharge in the next 24-48 hours per Cardiology (2) Atrial fibrillation with RVR: Code(s): I48.91 - Unspecified atrial fibrillation Status: Acute Assessment and Plan: 08/29: Off Cardizem drip, appreciate cardiology consultation, continue metoprolol, Entresto, Aldactone and Eliquis (3) CKD (chronic kidney disease) stage 3, GFR 30-59 ml/min: Code(s): N18.3 - Chronic kidney disease, stage 3 (moderate) Status: Acute Assessment and Plan: kidney function is essentially stable (4) Obstructive sleep apnea of adult: Code(s): G47.33 - Obstructive sleep apnea (adult) (pediatric) Status: Acute Assessment and Plan: Continue CPAP/BIPAP per home settings (5) Hypertension: Qualifiers: Hypertension type: essential hypertension Qualified Code(s): I10 - Essential (primary) hypertension Code(s): I10 - Essential (primary) hypertension Status: Acute Assessment and Plan: blood pressure stable on current medications, see above for details (6) Hyperthyroidism: Code(s): E05.90 - Thyrotoxicosis, unspecified without thyrotoxic crisis or storm Status: Acute Assessment and Plan: repeat TSH, asymptomatic (7) Elevated d-dimer: Code(s): R79.89 - Other specified abnormal findings of blood chemistry Status: Acute Assessment and Plan: CTA showed some pulmonary edema with no PE, suspect elevated D-dimers an acute phase reactant due to heart failure exacerbation Subjective Date/time seen: 09/01/21 10:46 Interval history: Patient sitting up decided bed, eating food. She thinks she would feel better if she went home tomorrow instead of today. She still has some fluid buildup in her belly and legs. She does feel significantly better than yesterday. She has not had any episodes of palpitations. No overnight events noted.? No chest pain or shortness of breath.? No nausea, vomiting or diarrhea.? No fevers or chills. Extensive time spent discussing all of patient's medications, indications, importance. All questions answered. Patient very concerned about being able to afford everything. Review of Systems Review of Systems: ? 12 point review of systems was assessed and was negative except as noted in the HPI Exam Narrative: General:??No acute distress, alert and oriented per baseline HEENT:? Atraumatic, normocephalic, mucous membranes moist CV:? Regular rate and rhythm, S1, S2 Lungs:? Clear to auscultation bilaterally, no rales or crackles noted, no wheezes, good air entry Abdomen:? Soft, nontender, nondistended Extremities:? Trace pitting edema bilateral lower extremity, decreased edema in abdomen Skin:? No rashes noted, no lesions or wounds seen Psych:? Euthymic, normal affect Objective Data Vital Signs Vital Signs: Vital Signs - 24 hr 08/31/21 12:00 08/31/21 14:08 08/31/21 12:00 Brendon
--- NOTE | 2021-09-01 11:00 | PM.PNCARD ---
Progress Note: A&P Assessment and Plan (1) Atrial fibrillation with RVR: Code(s): I48.91 - Unspecified atrial fibrillation <MOISES Hicks - Last Filed: 09/01/21 11:28> Status: Acute <MOISES Hicks - Last Filed: 09/01/21 11:28> Assessment and Plan: Patient with likely permanent atrial fibrillation, admitted with AFib RVR Exacerbation secondary to noncompliance as she stopped all her medications. Increase metoprolol to 75mg b.i.d. Up titrate as necessary. Continue with rate control and anticoagulation strategy <MOISES Hicks - Last Filed: 09/01/21 11:28> (2) Acute on chronic combined systolic and diastolic CHF (congestive heart failure): Code(s): I50.43 - Acute on chronic combined systolic (congestive) and diastolic (congestive) heart failure <MOISES Hicks - Last Filed: 09/01/21 11:28> Status: Acute <MOISES Hicks - Last Filed: 09/01/21 11:28> Assessment and Plan: History of nonischemic cardiomyopathy, EF 40% in 2020, now in acute heart failure with severe volume overload. Shift furosemide to 80mg p.o. BID with the intention she will be able to discharge within 24-48 hours Shifting Entresto to lisinopril because she cannot afford the Entresto Continue spironolactone. Renal function stable, monitor electrolytes closely. Accurate I&O Fluid restriction Daily standing weight Complaining of some positional dizziness. check orthostatic BP <MOISES Hicks - Last Filed: 09/01/21 11:28> (3) Cardiomyopathy: Qualifiers: Cardiomyopathy type: dilated Qualified Code(s): I42.0 - Dilated cardiomyopathy <MOISES Hicks - Last Filed: 09/01/21 11:28> Code(s): I42.9 - Cardiomyopathy, unspecified <MOISES Hicks - Last Filed: 09/01/21 11:28> Status: Acute <MOISES Hicks - Last Filed: 09/01/21 11:28> Assessment and Plan: EF was 40% in 2020 Echo during this hospitalization shows mild LV dysfunction, EF 45%, severe SON Add Jardiance 10mg daily <MOISES Hicks - Last Filed: 09/01/21 11:28> (4) Hypertension: Qualifiers: Hypertension type: essential hypertension Qualified Code(s): I10 - Essential (primary) hypertension <MOISES Hicks - Last Filed: 09/01/21 11:28> Code(s): I10 - Essential (primary) hypertension <MOISES Hicks - Last Filed: 09/01/21 11:28> Status: Acute <MOISES Hicks - Last Filed: 09/01/21 11:28> Assessment and Plan: History of hypertension Controlled at this time <MOISES Hicks - Last Filed: 09/01/21 11:28> (5) CKD (chronic kidney disease) stage 3, GFR 30-59 ml/min: Code(s): N18.3 - Chronic kidney disease, stage 3 (moderate) <MOISES Hicks - Last Filed: 09/01/21 11:28> Status: Acute <MOISES Hicks - Last Filed: 09/01/21 11:28> Assessment and Plan: CKD stage 2-3 Daily BMP <MOISES Hicks - Last Filed: 09/01/21 11:28> (6) CAD (coronary artery disease): Code(s): I25.10 - Atherosclerotic heart disease of [place] coronary artery without angina pectoris <MOISES Hicks - Last Filed: 09/01/21 11:28> Status: Acute <MOISES Hicks - Last Filed: 09/01/21 11:28> Assessment and Plan: Mild to moderate CAD by catheterization in 2020 Asymptomatic, no angina Continue statin <MOISES Hicks - Last Filed: 09/01/21 11:28> (7) Noncompliance: Code(s): Z91.19 - Patient's noncompliance with other medical treatment and regimen <MOISES Hicks - Last Filed: 09/01/21 11:28> Status: Acute <MOISES Hicks - Last Filed: 09/01/21 11:28> Assessment and Plan: History of noncompliance in the past, has been off cardiac medications Patient has been counseled about her CHF and atrial fibrillation leading to swelling and
[2021-09-01] MEDS: FUROSEMIDE 80 MG TABLET PO (16:36)
[2021-09-01] MEDS: diphenhydrAMINE HCl CAP 25 MG CAPSULE PO (20:02)
[2021-09-01] MEDS: METOPROLOL TARTRATE 25 MG TABLET 75 MG PO (20:02)
[2021-09-02] VITALS (10 sets, daily range): BP systolic 104–107; BP diastolic 69–77; PULSE 67–122; RESP 16–20; TEMP 36.4–36.5; O2SAT 98–100
--- NOTE | 2021-09-02 09:15 | PM.PNCARD ---
Progress Note: A&P Assessment and Plan (1) Atrial fibrillation with RVR: Code(s): I48.91 - Unspecified atrial fibrillation Status: Acute Assessment and Plan: Patient with likely permanent atrial fibrillation, admitted with AFib RVR Exacerbation secondary to noncompliance as she stopped all her medications. Will further increase metoprolol to 100 mg b.i.d. Up titrate as necessary. Continue with rate control and anticoagulation strategy (2) Acute on chronic combined systolic and diastolic CHF (congestive heart failure): Code(s): I50.43 - Acute on chronic combined systolic (congestive) and diastolic (congestive) heart failure Status: Acute Assessment and Plan: History of nonischemic cardiomyopathy, EF 40% in 2020, now in acute heart failure with severe volume overload. Shift furosemide to 80mg p.o. BID with the intention she will be able to discharge within 24-48 hours Shifting Entresto to lisinopril because she cannot afford the Entresto Continue spironolactone. Renal function stable, monitor electrolytes closely. Accurate I&O Fluid restriction Daily standing weight (3) Cardiomyopathy: Qualifiers: Cardiomyopathy type: dilated Qualified Code(s): I42.0 - Dilated cardiomyopathy Code(s): I42.9 - Cardiomyopathy, unspecified Status: Acute Assessment and Plan: EF was 40% in 2020 Echo during this hospitalization shows mild LV dysfunction, EF 45%, severe SON (4) Hypertension: Qualifiers: Hypertension type: essential hypertension Qualified Code(s): I10 - Essential (primary) hypertension Code(s): I10 - Essential (primary) hypertension Status: Acute Assessment and Plan: History of hypertension Controlled at this time (5) CKD (chronic kidney disease) stage 3, GFR 30-59 ml/min: Code(s): N18.3 - Chronic kidney disease, stage 3 (moderate) Status: Acute Assessment and Plan: CKD stage 2-3 Daily BMP (6) CAD (coronary artery disease): Code(s): I25.10 - Atherosclerotic heart disease of [place] coronary artery without angina pectoris Status: Acute Assessment and Plan: Mild to moderate CAD by catheterization in 2020 Asymptomatic, no angina Continue statin (7) Noncompliance: Code(s): Z91.19 - Patient's noncompliance with other medical treatment and regimen Status: Acute Assessment and Plan: History of noncompliance in the past, has been off cardiac medications Patient has been counseled about her CHF and atrial fibrillation leading to swelling and SOB, these are long-term problems needing ongoing care and long-term medications, etc. Subjective Date/time seen: 09/02/21 09:15 Interval history: 76-year-old admitted with hypertension, AFib, heart failure Date of service 09/02/2021-anxious to go home. No chest pain or shortness of breath. Review of Systems Review of Systems: All systems reviewed & are unremarkable except as noted in HPI and below Constitutional: Constitutional: Denies fever(s) Eyes: Eyes: Reports no additional eye complaints ENT: Denies epistaxis Cardiovascular: Cardiovascular: Denies chest pain, Reports pedal edema, Reports leg edema, Denies lightheadedness, Reports palpitations, Reports dyspnea and Reports dyspnea on exertion Respiratory: Respiratory: Denies chest congestion, Denies cough, Reports dyspnea and Reports dyspnea on exertion Gastrointestinal: Gastrointestinal: Denies abdominal pain and Denies hematochezia Genitourinary: Genitourinary: Reports as per HPI Musculoskeletal: Musculoskeletal: Denies no additional musculoskeletal complaints Integumentary/Breasts: Skin/Breast: Reports system reviewed and no additional complaints, except
--- NOTE | 2021-09-02 09:15 | P.PNCA_ITS ---
Progress Note: A&P Assessment and Plan (1) Atrial fibrillation with RVR: Code(s): I48.91 - Unspecified atrial fibrillation Status: Acute Assessment and Plan: Patient with likely permanent atrial fibrillation, admitted with AFib RVR * Exacerbation secondary to noncompliance as she stopped all her medications. * Will further increase metoprolol to 100 mg b.i.d. Up titrate as necessary. * Continue with rate control and anticoagulation strategy (2) Acute on chronic combined systolic and diastolic CHF (congestive heart failure): Code(s): I50.43 - Acute on chronic combined systolic (congestive) and diastolic (congestive) heart failure Status: Acute Assessment and Plan: History of nonischemic cardiomyopathy, EF 40% in 2020, now in acute heart failure with severe volume overload. * Shift furosemide to 80mg p.o. BID with the intention she will be able to discharge within 24-48 hours * Shifting Entresto to lisinopril because she cannot afford the Entresto * Continue spironolactone. * Renal function stable, monitor electrolytes closely. * Accurate I&O * Fluid restriction * Daily standing weight * (3) Cardiomyopathy: Qualifiers: Cardiomyopathy type: dilated Qualified Code(s): I42.0 - Dilated cardiomyopathy Code(s): I42.9 - Cardiomyopathy, unspecified Status: Acute Assessment and Plan: EF was 40% in 2020 * Echo during this hospitalization shows mild LV dysfunction, EF 45%, severe SON * (4) Hypertension: Qualifiers: Hypertension type: essential hypertension Qualified Code(s): I10 - Essential (primary) hypertension Code(s): I10 - Essential (primary) hypertension Status: Acute Assessment and Plan: History of hypertension * Controlled at this time (5) CKD (chronic kidney disease) stage 3, GFR 30-59 ml/min: Code(s): N18.3 - Chronic kidney disease, stage 3 (moderate) Status: Acute Assessment and Plan: CKD stage 2-3 * Daily BMP (6) CAD (coronary artery disease): Code(s): I25.10 - Atherosclerotic heart disease of [place] coronary artery without angina pectoris Status: Acute Assessment and Plan: Mild to moderate CAD by catheterization in 2020 * Asymptomatic, no angina * Continue statin (7) Noncompliance: Code(s): Z91.19 - Patient's noncompliance with other medical treatment and regimen Status: Acute Assessment and Plan: History of noncompliance in the past, has been off cardiac medications * Patient has been counseled about her CHF and atrial fibrillation leading to swelling and SOB, these are long-term problems needing ongoing care and long- term medications, etc. Subjective Date/time seen: 09/02/21 09:15 Interval history: 76-year-old admitted with hypertension, AFib, heart failure Date of service 09/02/2021-anxious to go home. No chest pain or shortness of breath. Review of Systems Review of Systems: All systems reviewed & are unremarkable except as noted in HPI and below Constitutional: Constitutional: Denies fever(s) Eyes: Eyes: Reports no additional eye complaints ENT: Denies epistaxis Cardiovascular: Cardiovascular: Denies chest pain, Reports pedal edema, Reports leg edema, Denies lightheadedness, Reports palpita
[2021-09-02] MEDS: APIXABAN 5 MG TABLET PO ×2 (09:16→21:09)
[2021-09-02] MEDS: MULTIVITAMINS THERAPEUTIC TAB (*BKC) 1 TABLET PO (09:16)
[2021-09-02] MEDS: SPIRONOLACTONE 25 MG TABLET PO (09:16)
[2021-09-02] MEDS: METOPROLOL TARTRATE 25 MG TABLET 75 MG PO (09:16)
[2021-09-02] MEDS: FUROSEMIDE 80 MG TABLET PO (09:16)
[2021-09-02] MEDS: EMPAGLIFLOZIN 10 MG TABLET PO (09:16)
[2021-09-02] MEDS: ATORVASTATIN 20 MG TABLET PO (09:16)
[2021-09-02] MEDS: CHOLECALCIFEROL 1,000 UNITS TABLET 1000 UNITS PO (09:16)
--- NOTE | 2021-09-02 14:28 | PM.IMPN ---
Progress Note: A&P Assessment and Plan (1) Diastolic congestive heart failure: Code(s): I50.30 - Unspecified diastolic (congestive) heart failure Status: Acute Assessment and Plan: Acute on chronic Cardiology consulted Started on Entresto and spironolactone but later switched to lisinopril due to cost. IV diuresis Which is switched to oral now Fluid restriction trend labs also on Jardiance 10 mg daily echo with mild LV dysfunction EF 45% severe SON [id number] CAD by catheterization in 2019 History of noncompliance with medications off cardiac medication prior to admission (2) Atrial fibrillation with RVR: Code(s): I48.91 - Unspecified atrial fibrillation Status: Acute Assessment and Plan: Started on Cardizem drip. On rate control metoprolol 100 mg b.i.d. On Eliquis for anticoagulation (3) CKD (chronic kidney disease) stage 3, GFR 30-59 ml/min: Code(s): N18.3 - Chronic kidney disease, stage 3 (moderate) Status: Acute Assessment and Plan: kidney function is essentially stable Recheck labs in a.m. (4) Obstructive sleep apnea of adult: Code(s): G47.33 - Obstructive sleep apnea (adult) (pediatric) Status: Acute Assessment and Plan: Continue CPAP/BIPAP per home settings (5) Hypertension: Qualifiers: Hypertension type: essential hypertension Qualified Code(s): I10 - Essential (primary) hypertension Code(s): I10 - Essential (primary) hypertension Status: Acute Assessment and Plan: blood pressure stable on current medications, see above for details (6) Hyperthyroidism: Code(s): E05.90 - Thyrotoxicosis, unspecified without thyrotoxic crisis or storm Status: Acute Assessment and Plan: repeat TSH, asymptomatic (7) Elevated d-dimer: Code(s): R79.89 - Other specified abnormal findings of blood chemistry Status: Acute Assessment and Plan: CTA showed some pulmonary edema with no PE, suspect elevated D-dimers an acute phase reactant due to heart failure exacerbation Plan remove [place] Subjective Date/time seen: 09/02/21 14:28 Interval history: 09/02/2021 no overnight events. Swelling is getting better. Still has some swelling in her right side of abdominal wall No nausea vomiting no fever chills Blandon in place. Review of Systems Review of Systems: All systems reviewed & are unremarkable except as noted in HPI and below Exam Narrative: General:??No acute distress, alert and oriented per baseline HEENT:? Atraumatic, normocephalic, mucous membranes moist CV:? Regular rate and rhythm, S1, S2 Lungs:? Clear to auscultation bilaterally, no rales or crackles noted, no wheezes, good air entry Abdomen:? Soft, nontender, nondistended Extremities:? Trace pitting edema bilateral lower extremity, decreased edema in abdomen Skin:? No rashes noted, no lesions or wounds seen Psych:? Euthymic, normal affect Objective Data Vital Signs Vital Signs: Vital Signs - 24 hr 09/01/21 14:29 09/01/21 16:00 09/01/21 20:02 Temperature 98.1 F Pulse Rate 87 96 106 H Respiratory Rate 18 Blood Pressure 108/64 Pulse Oximetry 100 09/01/21 21:34 09/01/21 20:00 09/02/21 00:00 Temperature 98.4 F Pulse Rate 80 128 H 113 H Respiratory Rate 18 Blood Pressure 113/72 Pulse Oximetry 99 09/02/21 04:00 09/02/21 09:16 09/02/21 08:00 Temperature Pulse Rate 89 122 H 110 H Respiratory Rate Blood Pressure Pulse Oximetry 09/02/21 12:00 Temperature Pulse Rate 99 Respiratory Rate Blood Pressure Pulse Oximetry Intake/Output Intake/Output: Intake & Output 08/30/21 08/31/21 09/01/21 09/02/21 23:59 23:59 23:59 23:59 Intake Total 1590 1000 840 460 Output Total 3425 4500 3550 900 [facility] -[id number] [phone] -[phone] -440 Meds/Results Medications: Active Medications Generic Name Dos
[2021-09-02] MEDS: FUROSEMIDE 40 MG TABLET PO (16:52)
[2021-09-02] MEDS: METOPROLOL TARTRATE 50 MG TAB 100 MG PO (21:10)
[2021-09-03] VITALS (7 sets, daily range): BP systolic 109; BP diastolic 61; PULSE 85–99; RESP 20; TEMP 36.7; O2SAT 96–98
[2021-09-03] MEDS: diphenhydrAMINE HCl CAP 25 MG CAPSULE PO (00:27)
[2021-09-03 06:20] LABS: Alanine Aminotransferase 25 U/L (6-35); Alkaline Phosphatase 339 U/L (38-126); Anion Gap 7 mmol/L (8-16); Aspartate Amino Transferase 50 U/L (14-36); Blood Urea Nitrogen 18 mg/dL (7-17); Calcium 8.6 mg/dL (8.4-10.2); Carbon Dioxide 31 mmol/L (22-30); Chloride 100 mmol/L (98-107); Estimated CRCL calculation 48 ml/min; Estimated Glomerular Filt Rate 53; Glucose 102 mg/dL (65-110); Magnesium 1.7 mg/dL (1.6-2.3); Potassium 3.9 mmol/L (3.4-5.0); Sodium 138 mmol/L (137-145)
[2021-09-03 06:21] LABS: Basophils Absolute Auto 0.1 K/mm3 (0.0-0.1); Basophils Percent Auto 1.5 % (0.2-1.2); Eosinophils Absolute Auto 0.4 K/mm3 (0-0.3); Eosinophils Percent Auto 7.1 % (0-4.4); Hemoglobin 14.9 g/dL (12.0-15.0); Immature Granulocyte Absolute 0.01 K/mm3 (0.00-0.031); Immature Granulocyte Percent A 0.2 % (0-0.5); Lymphocytes Absolute Auto 2.85 K/mm3 (0.9-3.2); Lymphocytes Percent Auto 53.6 % (18.3-44.2); Mean Corpuscular HGB Conc 33.1 g/dl (32-36); Mean Corpuscular Hemoglobin 29.9 pg (26-34); Mean Corpuscular Volume 90.4 fl (80-100); Mean Platelet Volume 11.7 fl (7.4-10.4); Monocytes Absolute Auto 0.6 K/mm3 (0.1-0.6); Monocytes Percent Auto 11.5 % (2.6-8.5); Neutrophils Absolute Auto 1.4 K/mm3 (1.3-6.7); Neutrophils Percent Auto 26.1 % (45.5-73.1); Platelet Count Result 214 k/mm3 (150-375); Red Blood Count 4.98 M/mm3 (4.2-5.4); White Blood Count 5.3 K/mm3 (4.5-10.0)
[2021-09-03] MEDS: FUROSEMIDE 40 MG TABLET PO (08:08)
[2021-09-03] MEDS: METOPROLOL TARTRATE 50 MG TAB 100 MG PO (08:08)
[2021-09-03] MEDS: CHOLECALCIFEROL 1,000 UNITS TABLET 1000 UNITS PO (08:08)
[2021-09-03] MEDS: SPIRONOLACTONE 25 MG TABLET PO (08:08)
[2021-09-03] MEDS: MULTIVITAMINS THERAPEUTIC TAB (*BKC) 1 TABLET PO (08:09)
[2021-09-03] MEDS: EMPAGLIFLOZIN 10 MG TABLET PO (08:09)
[2021-09-03] MEDS: APIXABAN 5 MG TABLET PO (08:09)
[2021-09-03] MEDS: ATORVASTATIN 20 MG TABLET PO (08:09)
--- NOTE | 2021-09-03 08:45 | PM.PNCARD ---
Progress Note: A&P Assessment and Plan (1) Atrial fibrillation with RVR: Code(s): I48.91 - Unspecified atrial fibrillation Status: Acute Assessment and Plan: Patient with likely permanent atrial fibrillation, admitted with AFib RVR Exacerbation secondary to noncompliance as she stopped all her medications. Will further increase metoprolol to 100 mg b.i.d. Up titrate as necessary. Continue with rate control and anticoagulation strategy (2) Acute on chronic combined systolic and diastolic CHF (congestive heart failure): Code(s): I50.43 - Acute on chronic combined systolic (congestive) and diastolic (congestive) heart failure Status: Acute Assessment and Plan: History of nonischemic cardiomyopathy, EF 40% in 2020, now in acute heart failure with severe volume overload. Decrease furosemide to 40mg b.i.d. Shifting Entresto to lisinopril because she cannot afford the Entresto Continue spironolactone. Renal function stable, electrolytes WNL Outpatient BMP in one week Low sodium diet OK for discharge home today from a cardiac standpoint (3) Cardiomyopathy: Qualifiers: Cardiomyopathy type: dilated Qualified Code(s): I42.0 - Dilated cardiomyopathy Code(s): I42.9 - Cardiomyopathy, unspecified Status: Acute Assessment and Plan: EF was 40% in 2020 Echo during this hospitalization shows mild LV dysfunction, EF 45%, severe SON (4) Hypertension: Qualifiers: Hypertension type: essential hypertension Qualified Code(s): I10 - Essential (primary) hypertension Code(s): I10 - Essential (primary) hypertension Status: Acute Assessment and Plan: History of hypertension Controlled at this time (5) CKD (chronic kidney disease) stage 3, GFR 30-59 ml/min: Code(s): N18.3 - Chronic kidney disease, stage 3 (moderate) Status: Acute Assessment and Plan: CKD stage 2-3 Daily BMP (6) CAD (coronary artery disease): Code(s): I25.10 - Atherosclerotic heart disease of [place] coronary artery without angina pectoris Status: Acute Assessment and Plan: Mild to moderate CAD by catheterization in 2020 Asymptomatic, no angina Continue statin (7) Noncompliance: Code(s): Z91.19 - Patient's noncompliance with other medical treatment and regimen Status: Acute Assessment and Plan: History of noncompliance in the past, has been off cardiac medications Patient has been counseled about her CHF and atrial fibrillation leading to swelling and SOB, these are long-term problems needing ongoing care and long-term medications, etc. Subjective Date/time seen: 09/03/21 08:45 Cardiology follow up for CHF, Afib Feeling much better today. Swelling continues to improve. No chest pain or shortness of breath. Review of Systems Review of Systems: All systems reviewed & are unremarkable except as noted in HPI and below Constitutional: Constitutional: Denies fever(s) Eyes: Eyes: Reports no additional eye complaints ENT: Denies epistaxis Cardiovascular: Cardiovascular: Denies chest pain, Reports pedal edema, Reports leg edema, Denies lightheadedness, Reports palpitations, Reports dyspnea and Reports dyspnea on exertion Respiratory: Respiratory: Denies chest congestion, Denies cough, Reports dyspnea and Reports dyspnea on exertion Gastrointestinal: Gastrointestinal: Denies abdominal pain and Denies hematochezia Genitourinary: Genitourinary: Reports as per HPI Musculoskeletal: Musculoskeletal: Denies no additional musculoskeletal complaints Integumentary/Breasts: Skin/Breast: Reports system reviewed and no additional complaints, except as docu and Reports pruritus (Skin on legs and abdomen feels tight and itchy) Neurologic: Reports system reviewed and no additional complaints, e
--- NOTE | 2021-09-03 11:27 | PM.DS ---
DS: Admitting Diagnosis Discharge Date 09/03/21 Admitting Diagnosis shortness of breath DS: Discharge Diagnosis Discharge Diagnosis (1) Diastolic congestive heart failure: Code(s): I50.30 - Unspecified diastolic (congestive) heart failure Status: Acute Assessment and Plan: Acute on chronic , noncompliant with medications as she was off cardiac medication prior to admission for several months. Cardiology consulted Started on Entresto and spironolactone but later switched to lisinopril due to cost. IV diuresis Which is switched to oral now . She diuresed well with IV diuresis and was switched to Lasix oral by the time of discharge. Fluid restriction trend labs He is also placed on Jardiance 10 mg daily echo with mild LV dysfunction EF 45% severe SON on ONUR inhibitor and beta-jessica [id number] CAD by catheterization in 2019 follow-up with cardiology closely Discussed diet fluid restriction monitoring weight with scale, taking medications regularly and follow-up with cardiology (2) Atrial fibrillation with RVR: Code(s): I48.91 - Unspecified atrial fibrillation Status: Acute Assessment and Plan: Started on Cardizem drip. On rate control metoprolol 100 mg b.i.d. On Eliquis for anticoagulation (3) CKD (chronic kidney disease) stage 3, GFR 30-59 ml/min: Code(s): N18.3 - Chronic kidney disease, stage 3 (moderate) Status: Acute Assessment and Plan: kidney function is essentially stable BMP in 1 week (4) Obstructive sleep apnea of adult: Code(s): G47.33 - Obstructive sleep apnea (adult) (pediatric) Status: Acute Assessment and Plan: Continue CPAP/BIPAP per home settings (5) Hypertension: Qualifiers: Hypertension type: essential hypertension Qualified Code(s): I10 - Essential (primary) hypertension Code(s): I10 - Essential (primary) hypertension Status: Acute Assessment and Plan: blood pressure stable on current medications, see above for details (6) Hyperthyroidism: Code(s): E05.90 - Thyrotoxicosis, unspecified without thyrotoxic crisis or storm Status: Acute Assessment and Plan: repeat TSH, asymptomatic (7) Elevated d-dimer: Code(s): R79.89 - Other specified abnormal findings of blood chemistry Status: Acute Assessment and Plan: CTA showed some pulmonary edema with no PE, suspect elevated D-dimers an acute phase reactant due to heart failure exacerbation DS: Summary Hospital Course Hospital Course: See above Time Spent with Patient Time attestation: Total time spent providing and/or coordinating discharge services: remarks Exam Narrative: General:??No acute distress, alert and oriented per baseline HEENT:? Atraumatic, normocephalic, mucous membranes moist CV:? Regular rate and rhythm, S1, S2 Lungs:? Clear to auscultation bilaterally, no rales or crackles noted, no wheezes, good air entry Abdomen:? Soft, nontender, nondistended Extremities:? Trace pitting edema bilateral lower extremity, decreased edema in abdomen Skin:? No rashes noted, no lesions or wounds seen Psych:? Euthymic, normal affect DS: Data Data Completed and Pending Labs on day of discharge: Labs from last 24 hours 09/03/21 09/03/21 05:40 05:40 WBC 5.3 RBC 4.98 Hgb 14.9 Hct 45.0 MCV 90.4 MCH 29.9 MCHC 33.1 RDW 16.0 H Plt Count 214 MPV 11.7 H Immature Gran % (Auto) 0.2 Neut % (Auto) 26.1 L Lymph % (Auto) 53.6 H [place] % (Auto) 11.5 H Eos % (Auto) 7.1 H Baso % (Auto) 1.5 H Lymph # (Auto) 2.85 [place] # (Auto) 0.6 Eos # (Auto) 0.4 H Baso # (Auto) 0.1 Abs Immat Gran (auto) 0.01 Absolute Neuts (auto) 1.4 Absolute Nucleated RBC 0.0 Nucleated RBC % 0.0 Sodium 138 Potassium 3.9 Chloride 100 Carbon Dioxide 31 H Anion Gap 7 L BUN 18 H Creatinine 1.20 H Estim
== END 2021-09-03 13:15 | disposition home or self-care (01) | DRG 291 ==
LOC: ANHED 12:57 → ANHIMU 13:13 → ANH3MED 08-30 18:32
PROVIDERS: Internal Medicine Cardiovascular Disease; Student in an Organized Health Care Education/Training Program; Admitting Provider Family Medicine; Emergency Provider General Practice; PCP Family Medicine; Visit Provider Internal Medicine
DX: I13.0 Hypertensive heart and chronic kidney disease with heart failure and stage 1 through stage 4 chronic kidney disease, or unspecified chronic kidney disease (principal); I50.43 Acute on chronic combined systolic (congestive) and diastolic (congestive) heart failure; I48.21 Permanent atrial fibrillation; I42.8 Other cardiomyopathies; I11.0 Hypertensive heart disease with heart failure; N18.30 Chronic kidney disease, stage 3 unspecified; I25.10 Atherosclerotic heart disease of native coronary artery without angina pectoris; E05.90 Thyrotoxicosis, unspecified without thyrotoxic crisis or storm; G47.33 Obstructive sleep apnea (adult) (pediatric); R60.1 Generalized edema; R79.1 Abnormal coagulation profile; Z86.718 Personal history of other venous thrombosis and embolism; Z85.3 Personal history of malignant neoplasm of breast; Z86.711 Personal history of pulmonary embolism; Z91.19 Patient's noncompliance with other medical treatment and regimen; Z87.442 Personal history of urinary calculi; Z90.710 Acquired absence of both cervix and uterus; Z87.891 Personal history of nicotine dependence
CPT/HCPCS: 36415; 71046; 71275; 80048; 80053; 81001; 83735; 83880; 84443; 84484; 85025; 85380; 85610; 85730; 93005; 93306; 93970; 96365; 96366; 96372; 96375; 96376; 97161; 97165; 97535; 99285; A9270; C9803; G0378; J1650; J1940; J2405; Q9967; U0003; U0005

== ENCOUNTER 2021-09-09 08:12 | Outpatient (CLI) | payer OTHER, SELFPAY ==
[2021-09-09 21:53] LABS: Anion Gap 12 mmol/L (8-16); Blood Urea Nitrogen 30 mg/dL (7-17); Calcium 9.6 mg/dL (8.4-10.2); Carbon Dioxide 24 mmol/L (22-30); Chloride 101 mmol/L (98-107); Estimated Glomerular Filt Rate 41; Glucose 146 mg/dL (65-110); Potassium 3.9 mmol/L (3.4-5.0); Sodium 137 mmol/L (137-145)
== END 2021-09-09 08:13 | disposition home or self-care (01) ==
LOC: ANHBWCLAB 08:13
PROVIDERS: PCP Family Medicine; Visit Provider Internal Medicine
DX: I50.30 Unspecified diastolic (congestive) heart failure (principal); I42.9 Cardiomyopathy, unspecified
CPT/HCPCS: 36415; 80048

== ENCOUNTER 2021-09-28 12:03 | Outpatient (CLI) | payer OTHER, SELFPAY ==
[2021-09-28 19:58] LABS: Anion Gap 13 mmol/L (8-16); Blood Urea Nitrogen 32 mg/dL (7-17); Calcium 9.4 mg/dL (8.4-10.2); Carbon Dioxide 31 mmol/L (22-30); Chloride 93 mmol/L (98-107); Estimated Glomerular Filt Rate 45; Glucose 144 mg/dL (65-110); Potassium 3.1 mmol/L (3.4-5.0); Sodium 137 mmol/L (137-145)
== END 2021-09-28 12:04 | disposition home or self-care (01) ==
PROVIDERS: PCP Family Medicine; Visit Provider Family Medicine
DX: I50.43 Acute on chronic combined systolic (congestive) and diastolic (congestive) heart failure (principal)
CPT/HCPCS: 36415; 80048

== ENCOUNTER 2021-10-07 08:39 | Outpatient (CLI) | payer OTHER, SELFPAY ==
[2021-10-07 19:56] LABS: Hemoglobin A1C 6.3 % (<5.7)
[2021-10-07 20:09] LABS: Anion Gap 12 mmol/L (8-16); Blood Urea Nitrogen 26 mg/dL (7-17); Calcium 9.5 mg/dL (8.4-10.2); Carbon Dioxide 25 mmol/L (22-30); Chloride 98 mmol/L (98-107); Estimated Glomerular Filt Rate 49; Glucose 148 mg/dL (65-110); Potassium 3.7 mmol/L (3.4-5.0); Sodium 135 mmol/L (137-145)
== END 2021-10-07 08:40 | disposition home or self-care (01) ==
PROVIDERS: PCP Family Medicine; Visit Provider Family Medicine
DX: E87.6 Hypokalemia (principal); R73.9 Hyperglycemia, unspecified
CPT/HCPCS: 36415; 80048; 83036

== ENCOUNTER 2021-11-09 11:37 | Outpatient (CLI) | payer OTHER, SELFPAY ==
--- NOTE | ~2021-11-09 | XR_ITS ---
XR chest 2V 11/09/2021 12:26 Indication: Chronic shortness of breath Procedure: 2 view chest Comparison: Comparison to multiple prior studies sequentially, with oldest reviewed study dated 03/29. Findings: Cardiomegaly. There is chronic lingular atelectasis/scarring. No acute focal pneumonia, raimundo ma, pleural effusion or pneumothorax. No acute osseous abnormality. Impression: 1: No acute cardiopulmonary disease. Reviewed, dictated and finalized at location A. Impression: 1: No acute cardiopulmonary disease.
[2021-11-09 19:49] LABS: Alanine Aminotransferase 29 U/L (6-35); Alkaline Phosphatase 370 U/L (38-126); Anion Gap 12 mmol/L (8-16); Aspartate Amino Transferase 111 U/L (14-36); Bilirubin,Total 1.8 mg/dL (0.2-1.3); Blood Urea Nitrogen 25 mg/dL (7-17); Calcium 9.4 mg/dL (8.4-10.2); Carbon Dioxide 22 mmol/L (22-30); Chloride 104 mmol/L (98-107); Estimated Glomerular Filt Rate 53; Glucose 113 mg/dL (65-110); Sodium 138 mmol/L (137-145)
[2021-11-09 19:53] LABS: NT Pro B Type Natriuretic Pept 1640 pg/mL (5-100)
[2021-11-09 20:42] LABS: Free T4 Free Thyroxine 1.58 ng/mL (0.78-2.19)
[2021-11-09 20:49] LABS: Basophils Absolute Auto 0.1 K/mm3 (0.0-0.1); Basophils Percent Auto 1.1 % (0.2-1.2); Eosinophils Absolute Auto 0.2 K/mm3 (0-0.3); Eosinophils Percent Auto 3.5 % (0-4.4); Hematocrit 50.8 % (37.0-47.0); Hemoglobin 16.5 g/dL (12.0-15.0); Immature Platelet Fraction Pct 12.3 % (0.9-11.2); Lymphocytes Absolute Auto 2.67 K/mm3 (0.9-3.2); Lymphocytes Percent Auto 49.8 % (18.3-44.2); Mean Corpuscular HGB Conc 32.5 g/dl (32-36); Mean Corpuscular Hemoglobin 29.2 pg (26-34); Mean Corpuscular Volume 89.8 fl (80-100); Monocytes Absolute Auto 0.6 K/mm3 (0.1-0.6); Monocytes Percent Auto 10.3 % (2.6-8.5); Neutrophils Absolute Auto 1.9 K/mm3 (1.3-6.7); Neutrophils Percent Auto 35.3 % (45.5-73.1); Platelet Count Result 138 k/mm3 (150-375); Red Blood Count 5.66 M/mm3 (4.2-5.4); Red Cell Distribution Width 20.4 % (11.5-14.5); White Blood Count 5.4 K/mm3 (4.5-10.0)
[2021-11-11 12:55] LABS: Triiodothyronine T3 Free 2.8 pg/mL (2.3-4.2)
[2021-11-12 13:53] LABS: Thyroid Stimulating Immunoglob <89 % baseline (<140)
== END 2021-11-09 11:38 | disposition home or self-care (01) ==
PROVIDERS: PCP Family Medicine; Visit Provider Family Medicine
DX: E05.90 Thyrotoxicosis, unspecified without thyrotoxic crisis or storm (principal); I48.91 Unspecified atrial fibrillation; I25.10 Atherosclerotic heart disease of native coronary artery without angina pectoris; E87.6 Hypokalemia; I50.43 Acute on chronic combined systolic (congestive) and diastolic (congestive) heart failure; R06.00 Dyspnea, unspecified
CPT/HCPCS: 36415; 71046; 80053; 83880; 84439; 84443; 84445; 84481; 85025; 85055

== ENCOUNTER 2021-11-16 09:46 | Outpatient (CLI) | payer OTHER, SELFPAY ==
--- NOTE | ~2021-11-16 | US_ITS ---
EXAMINATION: US thyroid DATE: 11/16/2021 10:43 INDICATION: Thyrotoxicosis TECHNIQUE: Multiple ultrasound images of the thyroid were obtained. COMPARISON: None. FINDINGS: The right thyroid lobe measures 3.8 x 1.6 x 1.8 cm. The left thyroid lobe measures 2.8 x 1.0 x 1.8 c m. Wider than tall 1.4 cm solid isoechoic nodule with smooth margins and without echogenic foci in t he right thyroid lobe (TI-RADS 3, mildly suspicious , FNA if >=2.5 cm, annual followup is >=1.5 cm). 8 mm solid hypoechoic nodule with smooth margins at the inferior right thyroid lobe (TI-RADS 5, highl y suspicious , FNA if >=1.0 cm, annual followup is >0.5 cm). 1 cm wider than tall solid isoechoic nod ule with smooth or ill-defined margins in the left thyroid lobe TI-RADS 3. There is normal echotextu re, echogenicity and vascular flow throughout the remainder of the thyroid gland. IMPRESSION: 1. Multinodular goiter, with no nodules meeting criteria for biopsy at this time. Recommend annual th yroid ultrasound follow-up. Reviewed, dictated and finalized at location B. IMPRESSION: 1. Multinodular goiter, with no nodules meeting criteria for biopsy at this daniella e. Recommend annual thyroid ultrasound follow-up.
== END 2021-11-16 09:47 | disposition home or self-care (01) ==
PROVIDERS: PCP Family Medicine; Visit Provider Radiology Diagnostic Radiology
DX: E05.90 Thyrotoxicosis, unspecified without thyrotoxic crisis or storm (principal); E04.2 Nontoxic multinodular goiter
CPT/HCPCS: 76536

== ENCOUNTER 2021-11-17 14:05 | Outpatient (CLI) | payer OTHER, SELFPAY ==
[2021-11-17 19:08] LABS: Anion Gap 14 mmol/L (8-16); Blood Urea Nitrogen 24 mg/dL (7-17); Calcium 9.1 mg/dL (8.4-10.2); Carbon Dioxide 23 mmol/L (22-30); Chloride 102 mmol/L (98-107); Estimated Glomerular Filt Rate 49; Glucose 113 mg/dL (65-110); Iron 98 ug/dL (37-170); Potassium 3.4 mmol/L (3.4-5.0); Sodium 139 mmol/L (137-145)
[2021-11-17 19:17] LABS: Percent Iron Saturation 24 % (20-50)
[2021-11-17 19:43] LABS: Basophils Absolute Auto 0.1 K/mm3 (0.0-0.1); Basophils Percent Auto 1.2 % (0.2-1.2); Eosinophils Absolute Auto 0.2 K/mm3 (0-0.3); Eosinophils Percent Auto 2.7 % (0-4.4); Hematocrit 50.3 % (37.0-47.0); Hemoglobin 16.6 g/dL (12.0-15.0); Immature Granulocyte Absolute 0.02 K/mm3 (0.00-0.031); Immature Granulocyte Percent A 0.4 % (0-0.5); Immature Platelet Fraction Pct 10.9 % (0.9-11.2); Lymphocytes Percent Auto 51.2 % (18.3-44.2); Mean Corpuscular Hemoglobin 29.8 pg (26-34); Mean Corpuscular Volume 90.3 fl (80-100); Mean Platelet Volume 12.2 fl (7.4-10.4); Monocytes Absolute Auto 0.7 K/mm3 (0.1-0.6); Monocytes Percent Auto 11.5 % (2.6-8.5); Neutrophils Absolute Auto 1.9 K/mm3 (1.3-6.7); Platelet Count Result 149 k/mm3 (150-375); Red Blood Count 5.57 M/mm3 (4.2-5.4); Red Cell Distribution Width 21.2 % (11.5-14.5); White Blood Count 5.7 K/mm3 (4.5-10.0)
== END 2021-11-17 14:06 | disposition home or self-care (01) ==
LOC: ANHBWCLAB 14:07
PROVIDERS: PCP Family Medicine; Visit Provider Family Medicine
DX: E87.6 Hypokalemia (principal); D75.1 Secondary polycythemia; R53.83 Other fatigue
CPT/HCPCS: 36415; 80048; 82728; 83540; 83550; 85025; 85055

== ENCOUNTER 2021-11-25 09:11 | Outpatient (CLI) | payer OTHER, SELFPAY ==
--- NOTE | 2021-12-04 16:22 | P.PCNPFT_ITS ---
PFT Procedure Performed PFT Procedure Performed Spirometry with Pre/Post Bronchodilator Plethysmography (Lung Vol) Diffusing Cap (DLCO) Flow Vol Loop PFT Interpretation DOS: 11/25/2021 REQUESTING: Sol Virgen PA-C REASON FOR TESTING: Dyspnea PULMONARY FUNCTION TESTS Results are reliable and reproducible. Spirometry: pre bronchodilator FEV1 is 1.36 L, 71%, normal. Pre bronchodilator FVC is 2.08 L, 83%, normal. FEV1/FVC 66%, within normal range. After bronchodilator, FEV1 increases 17% greater than 200 mL. FVC increases 5%. This is statistically significant. the FEF 25-75% is 0.56 L, below the lower limit of normal. This is 35% predicted. This is extremely low. After br onchodilator, the FEF 25-75 increases by 101%, and this becomes 1.12 L, 70% predicted, normal. Lung volumes: Total lung capacity 5.37 L, 114%, normal. Residual volume 3.13 L, 142%, moderate air trapping. RV/TLC increased 58%, consistent with air trapping. Airway resistance increased, 170%. Diffusion: DLCO is 15.1, 72% predicted, within the normal range. DLCO/VA is 4.5, normal, 109% predicted. Flow volume loop: There is coving of the expiratory limb. IMPRESSION: This study shows a mild obstructive ventilatory pattern which is severe in the small airways with excellent response to bronchodilator. Air trapping is moderate. Clinical correlation is recommended. Kenia Lee MD
== END 2021-11-25 09:12 | disposition home or self-care (01) ==
PROVIDERS: PCP Family Medicine; Visit Provider Physician Assistant
DX: R06.00 Dyspnea, unspecified (principal)
CPT/HCPCS: 94060; 94726; 94729

== ENCOUNTER 2021-12-14 08:15 | Outpatient (CLI) | payer OTHER, SELFPAY ==
--- NOTE | ~2021-12-14 | XR_ITS ---
EXAMINATION: XR chest 2V DATE: 12/14/2021 08:25 INDICATION: Atherosclerotic heart disease of [place] coronary arteries TECHNIQUE: Frontal and lateral views of the chest are obtained COMPARISON: 11/09/2021 FINDINGS: The lungs are free of acute opacities. Chronic scarring or atelectasis is noted in the ling patrick. No pleural effusion or pneumothorax. The cardiomediastinal silhouette is normal. There is modera te thoracic spondylosis. IMPRESSION: 1. No acute cardiopulmonary abnormality. Reviewed, dictated and finalized at location B. MANAGEMENT MANAGER
== END 2021-12-14 08:16 | disposition home or self-care (01) ==
PROVIDERS: PCP Family Medicine; Visit Provider Family Medicine
DX: I25.10 Atherosclerotic heart disease of native coronary artery without angina pectoris (principal); I42.0 Dilated cardiomyopathy; I50.43 Acute on chronic combined systolic (congestive) and diastolic (congestive) heart failure
CPT/HCPCS: 71046

== ENCOUNTER 2021-12-24 10:27 | Outpatient (CLI) | payer OTHER, SELFPAY ==
[2021-12-28 01:36] LABS: Thyroid Peroxidase Antibodies <1 IU/mL (<9)
== END 2021-12-24 10:28 | disposition home or self-care (01) ==
LOC: ANHWCLAB 10:29
PROVIDERS: PCP Family Medicine; Visit Provider Internal Medicine Endocrinology, Diabetes & Metabolism
DX: R79.89 Other specified abnormal findings of blood chemistry (principal); E04.9 Nontoxic goiter, unspecified
CPT/HCPCS: 36415; 84443; 86376

== ENCOUNTER 2022-01-07 11:30 | Outpatient (CLI) | payer OTHER, SELFPAY ==
--- NOTE | ~2022-01-07 | XR_ITS ---
XR chest 2V 01/07/2022 14:31 Indication: Chronic shortness of breath. Procedure: 2 view chest Comparison: 03/30/2019 Findings: Cardiomegaly. Chronic lingular atelectasis/scarring. No acute focal pneumonia, edema or eff usion. No pneumothorax. Impression: 1: No acute cardiopulmonary disease. Reviewed, dictated and finalized at location A. D DYNAMICIST Impression: 1: No acute cardiopulmonary disease.
[2022-01-07 18:52] LABS: Appearance Urine Clear (Clear); Bilirubin Urine Negative (Negative); Blood Urine Negative (Negative); Color Urine Yellow (Yellow); Glucose Urine UA Negative (Negative); Ketones Urine Negative (Negative); Leukocyte Esterase Ur Negative LEU/UL (NEGATIVE); Nitrate Urine Negative (Negative); Protein Urine 1+ mg/dL (Negative); Specific Grav Ur 1.015 (1.001-1.035); pH Urine 6.5 (5.0-9.0)
[2022-01-07 18:54] LABS: Amorphous Sediment Urine Few; Mucus Urine Rare /lpf; RBC Urine 0-2 /hpf (0-2); Squamous Epithelial Cell Urine Occasional /hpf (Few); WBC Urine 0-3 /hpf (0-3)
[2022-01-07 19:02] LABS: Add Urine Microscopic? YES
== END 2022-01-07 11:31 | disposition home or self-care (01) ==
LOC: ANHBWCLAB 11:31
PROVIDERS: PCP Family Medicine; Visit Provider Family Medicine
DX: R53.83 Other fatigue (principal); I25.10 Atherosclerotic heart disease of native coronary artery without angina pectoris; I50.43 Acute on chronic combined systolic (congestive) and diastolic (congestive) heart failure; R06.00 Dyspnea, unspecified
CPT/HCPCS: 71046; 81001

== ENCOUNTER 2022-02-10 11:32 | Outpatient (CLI) | payer MEDICARE, SELFPAY ==
[2022-02-10 19:17] LABS: Add Urine Microscopic? YES; Appearance Urine Clear (Clear); Bilirubin Urine Negative (Negative); Blood Urine 3+ (Negative); Color Urine Yellow (Yellow); Glucose Urine UA Negative (Negative); Ketones Urine Negative (Negative); Leukocyte Esterase Ur 3+ LEU/UL (Negative); Nitrate Urine Negative (Negative); Protein Urine Trace mg/dL (Negative); Specific Grav Ur 1.015 (1.001-1.035)
[2022-02-10 19:30] LABS: Bacteria Urine Trace /hpf; Mucus Urine Rare /lpf; RBC Urine 21-50 /hpf (0-2); Squamous Epithelial Cell Urine Occasional /hpf (Few); WBC Clumps Urine Present /HPF; WBC Urine >75 /hpf
== END 2022-02-10 11:33 | disposition home or self-care (01) ==
PROVIDERS: PCP Family Medicine; Visit Provider Family Medicine
DX: R31.9 Hematuria, unspecified (principal)
CPT/HCPCS: 81001; 87077; 87086; 87186

== ENCOUNTER 2022-02-11 07:45 | Outpatient (CLI) | payer MEDICARE, SELFPAY ==
[2022-02-11 21:03] LABS: Anion Gap 9 mmol/L (8-16); Blood Urea Nitrogen 40 mg/dL (7-17); Calcium 9.1 mg/dL (8.4-10.2); Carbon Dioxide 34 mmol/L (22-30); Chloride 86 mmol/L (98-107); Estimated Glomerular Filt Rate 53; Glucose 109 mg/dL (65-110); Potassium 3.1 mmol/L (3.4-5.0); Sodium 129 mmol/L (137-145)
== END 2022-02-11 07:46 | disposition home or self-care (01) ==
PROVIDERS: PCP Family Medicine; Visit Provider Family Medicine
DX: E87.6 Hypokalemia (principal)
CPT/HCPCS: 36415; 80048

== ENCOUNTER 2022-02-23 08:15 | Outpatient (CLI) | payer MEDICARE, SELFPAY ==
[2022-02-23 20:28] LABS: Basophils Absolute Auto 0.1 K/mm3 (0.0-0.1); Basophils Percent Auto 1.1 % (0.2-1.2); Eosinophils Absolute Auto 0.2 K/mm3 (0-0.3); Eosinophils Percent Auto 3.5 % (0-4.4); Hematocrit 44.3 % (37.0-47.0); Hemoglobin 14.3 g/dL (12.0-15.0); Immature Granulocyte Absolute 0.02 K/mm3 (0.00-0.031); Immature Granulocyte Percent A 0.3 % (0-0.5); Lymphocytes Absolute Auto 2.08 K/mm3 (0.9-3.2); Lymphocytes Percent Auto 31.7 % (18.3-44.2); Mean Corpuscular HGB Conc 32.3 g/dl (32-36); Mean Corpuscular Hemoglobin 31.7 pg (26-34); Mean Corpuscular Volume 98.2 fl (80-100); Mean Platelet Volume 11.5 fl (7.4-10.4); Monocytes Absolute Auto 0.7 K/mm3 (0.1-0.6); Monocytes Percent Auto 10.2 % (2.6-8.5); Neutrophils Absolute Auto 3.5 K/mm3 (1.3-6.7); Neutrophils Percent Auto 53.2 % (45.5-73.1); Platelet Count Result 260 k/mm3 (150-375); Red Blood Count 4.51 M/mm3 (4.2-5.4); Red Cell Distribution Width 17.2 % (11.5-14.5); White Blood Count 6.6 K/mm3 (4.5-10.0)
[2022-02-23 20:35] LABS: Alanine Aminotransferase 58 U/L (6-35); Albumin Level 3.9 g/dL (3.5-5.1); Alkaline Phosphatase 651 U/L (38-126); Anion Gap 7 mmol/L (8-16); Aspartate Amino Transferase 77 U/L (14-36); Bilirubin,Total 1.1 mg/dL (0.2-1.3); Blood Urea Nitrogen 28 mg/dL (7-17); Calcium 9.2 mg/dL (8.4-10.2); Carbon Dioxide 27 mmol/L (22-30); Chloride 100 mmol/L (98-107); Estimated Glomerular Filt Rate 59; Glucose 102 mg/dL (65-110); Potassium 4.1 mmol/L (3.4-5.0); Sodium 134 mmol/L (137-145)
== END 2022-02-23 08:16 | disposition home or self-care (01) ==
PROVIDERS: PCP Family Medicine; Visit Provider Family Medicine
DX: E87.6 Hypokalemia (principal); D75.1 Secondary polycythemia
CPT/HCPCS: 36415; 80053; 85025

== ENCOUNTER 2022-04-21 12:06 | Outpatient (CLI) | payer MEDICARE, SELFPAY ==
[2022-04-21 18:47] LABS: Hematocrit 52.4 % (37.0-47.0); Hemoglobin 16.5 g/dL (12.0-15.0); Mean Corpuscular HGB Conc 31.5 g/dl (32-36); Mean Corpuscular Hemoglobin 31.3 pg (26-34); Mean Corpuscular Volume 99.4 fl (80-100); Mean Platelet Volume 13.1 fl (7.4-10.4); Platelet Count Result 121 k/mm3 (150-375); Red Blood Count 5.27 M/mm3 (4.2-5.4); Red Cell Distribution Width 17.6 % (11.5-14.5); White Blood Count 5.4 K/mm3 (4.5-10.0)
[2022-04-21 19:34] LABS: Appearance Urine Clear (Clear); Bilirubin Urine 1+ (Negative); Blood Urine Trace-intact (Negative); Color Urine Yellow (Yellow); Glucose Urine UA Negative (Negative); Ketones Urine Negative (Negative); Leukocyte Esterase Ur Negative LEU/UL (NEGATIVE); Nitrate Urine Negative (Negative); Protein Urine 3+ mg/dL (Negative); Specific Grav Ur 1.025 (1.001-1.035)
[2022-04-21 20:07] LABS: Add Urine Microscopic? YES
[2022-04-21 20:08] LABS: RBC Urine 0-2 /hpf (0-2); WBC Urine None seen /hpf (0-3)
[2022-04-21 20:10] LABS: Calcium Oxalate Crystals Urine Present /hpf; Squamous Epithelial Cell Urine None seen /hpf (Few)
[2022-04-21 20:11] LABS: Bacteria Urine None seen /hpf
[2022-04-21 20:12] LABS: Alanine Aminotransferase 36 U/L (6-35); Albumin Level 4.7 g/dL (3.5-5.1); Alkaline Phosphatase 600 U/L (38-126); Anion Gap 13 mmol/L (8-16); Aspartate Amino Transferase 75 U/L (14-36); Blood Urea Nitrogen 19 mg/dL (7-17); Calcium 9.6 mg/dL (8.4-10.2); Carbon Dioxide 24 mmol/L (22-30); Chloride 98 mmol/L (98-107); Estimated Glomerular Filt Rate > 60; Glucose 90 mg/dL (65-110); Potassium 3.3 mmol/L (3.4-5.0); Sodium 135 mmol/L (137-145)
== END 2022-04-21 12:07 | disposition home or self-care (01) ==
PROVIDERS: PCP Family Medicine; Visit Provider Family Medicine
DX: E87.6 Hypokalemia (principal); R73.9 Hyperglycemia, unspecified; R53.83 Other fatigue; I50.30 Unspecified diastolic (congestive) heart failure; I48.91 Unspecified atrial fibrillation; I42.0 Dilated cardiomyopathy; I25.10 Atherosclerotic heart disease of native coronary artery without angina pectoris; I10 Essential (primary) hypertension; D75.1 Secondary polycythemia; I50.23 Acute on chronic systolic (congestive) heart failure; N18.30 Chronic kidney disease, stage 3 unspecified
CPT/HCPCS: 36415; 80053; 81001; 83036; 84443; 85027

== ENCOUNTER 2022-05-11 12:31 | Outpatient (CLI) | payer MEDICARE, SELFPAY ==
[2022-05-11 18:07] LABS: Free T4 Free Thyroxine 1.63 ng/mL (0.78-2.19)
[2022-05-14 02:59] LABS: Thyroid Peroxidase Antibodies <1 IU/mL (<9)
[2022-05-15 05:41] LABS: Triiodothyronine T3 Free 1.9 pg/mL (2.3-4.2)
== END 2022-05-11 12:32 | disposition home or self-care (01) ==
LOC: ANHWCLAB 12:32
PROVIDERS: PCP Family Medicine; Visit Provider Internal Medicine Endocrinology, Diabetes & Metabolism
DX: R79.89 Other specified abnormal findings of blood chemistry (principal); E04.9 Nontoxic goiter, unspecified
CPT/HCPCS: 36415; 84439; 84443; 84481; 86376

== ENCOUNTER 2022-05-18 08:13 | Inpatient (IN) | payer MEDICARE, SELFPAY ==
[2022-05-18] VITALS (15 sets, daily range): BP systolic 95–125; BP diastolic 60–91; PULSE 60–124; RESP 14–24; TEMP 36.2–36.4; O2SAT 90–100; BMI 36.4
--- NOTE | 2022-05-18 | ECHO_ITS ---
Patient Info Name: Consuelo Jordan Young Age: 77 years : 1945 Gender: Female Ht: 66 in Wt: 220 lbs BSA: 2.20 m2 HR: 80 bpm BP: 95 / 60 mmHg Heart Rhythm: Atrial Fibrillation, Tachycardia Technical Quality: Fair Exam Date: 05/18/2022 4:47 PM Exam Location: [facility] Patient Status: Inpatient Admit Date: 05/18/2022 Staff Ordering Physician: Tricia Faust NP Acid Operator: Bouchra Pacheco RDCS Attending Provider: Skip Salvador MD Referring Physician: Christianne KENNEDY; Exam Type: CA echo doppler color flow Study Info Indications - chf Complete two-dimensional, color flow and Doppler transthoracic echocardiogram is performed. Summary 1. Complete two-dimensional, color flow and Doppler transthoracic echocardiogram is performed. 2. Left ventricular chamber dimension is normal. 3. Left ventricular systolic function is mildly reduced, estimated at 40-45%. 4. There is mildly increased left ventricular wall thickness. 5. Right ventricular chamber dimension is mildly enlarged. 6. Right ventricular systolic function is reduced. 7. Flattening of the septum in diastole and systole consistent with right ventricular volume and pressure overload. 8. Left atrial chamber dimension is severely enlarged. 9. Right atrial chamber dimension is severely enlarged. 10. There is mild aortic valve regurgitation. 11. The mitral valve has thickened leaflets. 12. There is moderate mitral valve regurgitation. 13. There is moderate to severe tricuspid valve regurgitation. 14. There is mild pulmonic regurgitation. 15. Dilated inferior vena cava with no collapse upon inspiration consistent with elevated right atrial pressure, 15 mmHg. 16. There is small pericardial effusion. Left Ventricle Left ventricular chamber dimension is normal. Left ventricular systolic function is mildly reduced, estimated at 40-45%. There is mildly increased left ventricular wall thickness. Right Ventricle Flattening of the septum in diastole and systole consistent with right ventricular volume and pressure overload. Right ventricular chamber dimension is mildly enlarged. Right ventricular systolic function is reduced. Left Atria Left atrial chamber dimension is severely enlarged. Right Atria Right atrial chamber dimension is severely enlarged. Atrial Septum Intact interatrial septum visualized by color flow imaging. Aortic Valve The aortic valve is trileaflet. There is no aortic valve stenosis. There is mild aortic valve regurgitation. Pulmonic Valve The pulmonic valve is not well visualized. There is mild pulmonic regurgitation. Mitral Valve The mitral valve has thickened leaflets. There is moderate mitral valve regurgitation. Tricuspid Valve There is moderate to severe tricuspid valve regurgitation. Pericardium/Pleural There is small pericardial effusion. Inferior Vena Cava Dilated inferior vena cava with no collapse upon inspiration consistent with elevated right atrial pressure, 15 mmHg. Aorta The aortic root size at the sinus of Valsalva is normal. Left Ventricular Outflow Tract Name Value Normal LVOT 2D LVOT Diameter 2.0 cm LVOT Doppler
--- NOTE | ~2022-05-18 | XR_ITS ---
EXAMINATION: XR chest 1V portable DATE: 05/18/2022 08:31 INDICATION: Shortness of breath. TECHNIQUE: A single frontal view of the chest was obtained. COMPARISON: Chest 2 views 01/07/2022, chest CT 08/27/2021 FINDINGS: There is mild atelectasis in left lower lung zone. No pleural effusion or pneumothorax. Car diomegaly is noted. IMPRESSION: 1. Mild atelectasis in left lower lung zone. 2. Cardiomegaly. Reviewed, dictated and finalized at location A.
--- NOTE | ~2022-05-18 | XR_ITS ---
Portable chest x-ray Comparison: 05/18/2022 Clinical History: Shortness of breath Findings: Lungs are clear, without focal consolidation or pleural effusion. Cardiomediastinal silho uette is stable. Bones and soft tissues are unremarkable. Impression: Clear lungs. Reviewed, dictated and finalized at location . Impression: Clear lungs.
--- NOTE | ~2022-05-18 | US_ITS ---
EXAMINATION: US renal BI DATE: 05/19/2022 16:43 INDICATION: decreased urine output and hematuria TECHNIQUE: Multiple grayscale and Doppler ultrasound images of the kidneys were obtained. COMPARISON: CT abdomen 08/27/2021 FINDINGS: The right kidney measures 9.1 x 3.8 x 4.0 cm. The left kidney measures 10.2 x 4.8 x 4.3 cm. The kidne ys demonstrate normal parenchymal echogenicity. There is no hydronephrosis. The bladder is decompress ed by Blandon catheter. IMPRESSION: Unremarkable renal sonogram findings. Urinary bladder decompressed by Blandon catheter and therefore no t well evaluated. Reviewed, dictated and finalized at location K. IMPRESSION: Unremarkable renal sonogram findings. Urinary bladder decompressed by Blandon cat heter and therefore not well evaluated.
--- NOTE | ~2022-05-18 | XR_ITS ---
XR abdomen/kub 1V 05/20/2022 12:36 INDICATION: Gross hematuria TECHNIQUE: KUB COMPARISON: None FINDINGS: Bowel gas pattern is normal. There is no evidence of free air, mass, organomegaly, ascites or obstruction. No abnormal calculi are seen. The bones appear intact. There is mild levoscoliosis with lower lumbar spondylosis. Calcifications in the pelvis are believed to be phleboliths. IMPRESSION: 1: No acute abdominal abnormality identified. Reviewed, dictated and finalized at location L.
--- NOTE | ~2022-05-18 | CT_ITS ---
EXAMINATION: CT abdomen pelvis wo con DATE: 05/20/2022 12:22 INDICATION: Hematuria. Acute kidney injury. TECHNIQUE: Computed tomography (CT) of the abdomen and pelvis was performed without intravenous contr ast. Automated exposure control and iterative reconstruction technique were employed. The dose-length product was 1108.57 mGy-cm. COMPARISON: CT abdomen 08/27/2021 FINDINGS: The visualized portions of the lung bases demonstrate mild atelectasis. No pleural effusion . Cardiomegaly is noted. There is a small pericardial effusion. Calcifications in the liver consisten t with old granulomatous disease. The spleen is normal. The gallbladder is absent. The pancreas, adre nal glands, and kidneys are normal. There is no urolithiasis. There is a Blandon catheter in expected p osition. There are no dilated loops of bowel. The appendix is not visualized. There is widespread raimundo ma of the intra-abdominal fat and body wall fat. There are no pathologically enlarged lymph nodes. Th ere is a small volume of perihepatic ascites. There is mild lumbar spondylosis. IMPRESSION: 1. No urolithiasis. 2. Stable small pericardial effusion. 3. Stable small volume of ascites. 4. Widespread edema of the intra-abdominal fat and body wall fat again seen. Reviewed, dictated and finalized at location A.
--- NOTE | 2022-05-18 08:15 | ECG_ITS ---
Measurements Intervals [place] Rate: 134 P: [place]: 0 QRS: 3 QRSD: 75 T: 32 QT: 317 QTc: 474 Interpretive Statements ATRIAL FIBRILLATION WITH RAPID VENTRICULAR RESPONSE LOW QRS VOLTAGE IN PRECORDIAL LEADS CANNOT RULE OUT ANTEROSEPTAL INFARCT, AGE INDETERMINATE ABNORMAL ECG COMPARED TO ECG 08/27/2021 10:15:59 NO SIGNIFICANT CHANGES Electronically Signed On 05-18-2022 16:18:04 CDT by Jj Jones M.D.
--- NOTE | 2022-05-18 08:29 | ED.GENADULT ---
HPI - General Adult General Chief complaint: Shortness of Breath/Dyspnea Stated complaint: SOB Time Seen by Provider: 05/18/22 08:14 Source: patient and RN notes reviewed History of Present Illness HPI narrative: Patient presents emergency department from ophthalmology office via EMS for shortness of breath. Patient states she is scheduled to have eye surgery on her left eye this morning. She states that she was feeling short of breath and second to that EMS was called. When EMS arrived they did note the patient that be in A-fib but should patient does have a history of. Patient states she did not take her medications this morning she normally takes them at 8 AM. Patient states that she has been feeling short of breath since this morning she denies any fevers or chills she denies any chest pain abdominal pain nausea or vomiting or any other symptoms. The patient does note history of heart failure and does take Lasix Related Data Home Medications Medication Instructions Recorded Confirmed cholecalciferol (vitamin D3) 25 25 mcg PO DAILY 12/20/19 05/11/22 mcg (1,000 unit) capsule multivitamin 1 tablet PO DAILY 12/20/19 05/11/22 aspirin 81 mg tablet,delayed 81 mg PO DAILY 11/10/21 05/11/22 release Allergies Allergy/AdvReac Type Severity Reaction Status Date / Time silver Allergy Mild Unknown Verified 05/11/22 11:41 [From Tegaderm AG Mesh] codeine Allergy Unknown Confusion Verified 05/11/22 11:41 astaxanthin Allergy Mild Rash Uncoded 05/11/22 11:41 Review of Systems Review of Systems: Gen.: Denies fevers or chills ENT: Denies congestion Respiratory: Reports shortness of breath CV: Denies chest pain or palpitations GI: Denies abdominal pain nausea, emesis or diarrhea Musculoskeletal: Denies back pain or muscle pain Neuro: Denies numbness, tingling, weakness or focal weakness Skin: Denies rash Except as documented, all other systems reviewed and negative [facility] Past Medical History Medical History (Updated 05/18/22 @ 14:10 by Kahlil Perez DO) Atrial fibrillation Breast cancer Lumpectomy and chemotherapy and radiation. CAD (coronary artery disease) CHF (congestive heart failure) Erythrocytosis Fx ankle Left ankle ORIF Hernia History of DVT (deep vein thrombosis) Ultrasounds clear today History of pulmonary embolism Hypertension Nephrolithiasis Obesity Obstructive sleep apnea of adult Pulmonary emboli Thrombocytopenia UTI (urinary tract infection) Surgical History Surgical History (Updated 05/18/22 @ 12:23 by Tricia Faust NP) H/O: hysterectomy History of appendectomy History of removal of Port-a-Cath Hx laparoscopic cholecystectomy Hx of cardiac cath Hx of tonsillectomy S/P lumpectomy, right breast S/P ORIF (open reduction internal fixation) fracture myra ankles Family History Family History Mother Medical history unknown Father Murder Social History Social History Social History: Patient quit smoking in the 1980s. She has 2 children. Her power contracts attorney. She wishes to be a full code. 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 No alcohol or illicit drugs. 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
[2022-05-18 08:54] LABS: Basophils Absolute Auto 0.1 K/mm3 (0.0-0.1); Basophils Percent Auto 1.2 % (0.2-1.2); Eosinophils Absolute Auto 0.1 K/mm3 (0-0.3); Eosinophils Percent Auto 1.9 % (0-4.4); Hematocrit 49.8 % (37.0-47.0); Hemoglobin 16.5 g/dL (12.0-15.0); Immature Granulocyte Absolute 0.02 K/mm3 (0.00-0.031); Immature Granulocyte Percent A 0.4 % (0-0.5); Lymphocytes Absolute Auto 2.22 K/mm3 (0.9-3.2); Lymphocytes Percent Auto 38.9 % (18.3-44.2); Mean Corpuscular HGB Conc 33.1 g/dl (32-36); Mean Corpuscular Volume 96.7 fl (80-100); Mean Platelet Volume 13.3 fl (7.4-10.4); Monocytes Absolute Auto 0.8 K/mm3 (0.1-0.6); Monocytes Percent Auto 13.2 % (2.6-8.5); Neutrophils Absolute Auto 2.5 K/mm3 (1.3-6.7); Neutrophils Percent Auto 44.4 % (45.5-73.1); Platelet Count Result 113 k/mm3 (150-375); Red Blood Count 5.15 M/mm3 (4.2-5.4); Red Cell Distribution Width 19.4 % (11.5-14.5); White Blood Count 5.7 K/mm3 (4.5-10.0)
[2022-05-18 09:03] LABS: Alanine Aminotransferase 34 U/L (6-35); Alkaline Phosphatase 660 U/L (38-126); Anion Gap 11 mmol/L (8-16); Aspartate Amino Transferase 69 U/L (14-36); Bilirubin,Total 5.2 mg/dL (0.2-1.3); Blood Urea Nitrogen 37 mg/dL (7-17); Calcium 8.9 mg/dL (8.4-10.2); Carbon Dioxide 25 mmol/L (22-30); Chloride 103 mmol/L (98-107); Estimated CRCL calculation 37 ml/min; Estimated Glomerular Filt Rate 44; Glucose 81 mg/dL (65-110); Potassium 4.5 mmol/L (3.4-5.0); Sodium 139 mmol/L (137-145)
[2022-05-18 09:15] LABS: NT Pro B Type Natriuretic Pept 1160 pg/mL (19.9-100); Troponin I 0.013 ng/mL (0.000-0.034)
--- NOTE | 2022-05-18 09:36 | PC.NURSE ---
Phleb from lab obtained blood d/t multiple unsuccessful ED staff attempts.
[2022-05-18 09:50] LABS: INR 2.1; Prothrombin Time 22.7 Seconds (11.1-14.7)
[2022-05-18 09:51] LABS: Partial Thromboplastin Time 41.7 SECONDS (22.3-36.8)
[2022-05-18] MEDS: METOPROLOL TARTRATE 25 MG TABLET PO (11:10)
[2022-05-18] MEDS: FUROSEMIDE INJ 100 MG/10 ML VIAL 80 MG IV PUSH ×2 (11:10→18:49)
--- NOTE | 2022-05-18 11:45 | PC.NURSE ---
Patient yelling out that she is SOB. Patient evaluated by 2 RN and EDP and found to be stable. Patient speaking in full sentences, RR even and unlabored. Patient provided with therapeutic communication.
--- NOTE | 2022-05-18 12:20 | PM.IMHP ---
H&P: HPI History of Present Illness Date/Time: 05/18/22 12:20 Chief Complaint: Shortness of breath Narrative: This is a 77-year-old female patient who has a history of atrial fibrillation and congestive heart failure. The patient came to the emergency room today with complaints of shortness of breath. The patient was supposed to have a cataract removed from her left eye today and she developed shortness of breath. EMS was activated. The patient and she stated that she does not always take her medication as prescribed. The patient has been short of breath since this morning and has been edematous. She denies any fever chills. The patient has not taken any of her medications today. Chest x-ray was read as mild atelectasis and left lower lung zones cardiomegaly. Creatinine is 1.4 today baseline is anywhere from 1.1 to 2.13. BNP is 1160. The patient was given Lopressor and Lasix in the emergency room. The patient is being admitted to observation status on the date of service of 05/18/2022. Review of Systems Review of Systems: All systems reviewed & are unremarkable except as noted in HPI and below Constitutional: Constitutional: Reports as per HPI and Reports no additional constitutional complaints Eyes: Eyes: Reports as per HPI and Reports no additional eye complaints ENT: Reports system reviewed and no additional complaints, except as documented and Reports Normal hearing present Cardiovascular: Cardiovascular: Reports no additional cardiovascular complaints Respiratory: Respiratory: Reports no additional respiratory complaints and Reports no additional respiratory complaints Gastrointestinal: Gastrointestinal: Reports as per HPI and Reports no additional gastrointestinal complaints Musculoskeletal: Musculoskeletal: Reports no additional musculoskeletal complaints Integumentary/Breasts: Skin/Breast: Reports system reviewed and no additional complaints, except as docu and Reports as per HPI Neurologic: Reports system reviewed and no additional complaints, except as documented, Reports as per HPI and Reports Normal hearing present Psychiatric: Psychiatric: Reports no additional psychiatric complaints and Reports as per HPI Endocrine: Endocrine: Reports no additional endocrine complaints Hematologic/Lymphatic: Hematologic/Lymphatic: Reports no additional hematologic/lymphatic complaints Allergic/Immunologic: Allergic/Immunologic: Reports no additional allergic/immunologic complaints [facility] Past Medical History Medical History (Updated 05/18/22 @ 14:10 by Kahlil Perez DO) Atrial fibrillation Breast cancer Lumpectomy and chemotherapy and radiation. CAD (coronary artery disease) CHF (congestive heart failure) Erythrocytosis Fx ankle Left ankle ORIF Hernia History of DVT (deep vein thrombosis) Ultrasounds clear today History of pulmonary embolism Hypertension Nephrolithiasis Obesity Obstructive sleep apnea of adult Pulmonary emboli Thrombocytopenia UTI (urinary tract infection) Surgical History Surgical History (Updated 05/18/22 @ 14:39 by Tricia Faust NP) H/O: hysterectomy History of appendectomy History of laparoscopic cholecystectomy History of removal of Port-a-Cath Hx laparoscopic cholecystectomy Hx of cardiac cath Hx of tonsillectomy S/P lumpectomy, right breast S/P ORIF (open reduction internal fixation) fracture myra ankles Family History Family History Mother Medical history unknown Father Murder Social History Social History (Updated 05/18/22 @ 14:29 by Tricia Faust NP) Social History: Patient quit smoking in the . She has 2 children. Her is the power public relations writer. She wishes to be a full code. 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 No alcohol or illicit drugs. Code status full code Smoking packs per day: 3 Smoking cigarettes per day: 60.0 Years smoked: 19 Smoking pack-years: 57.00 Smoking status: Former
--- NOTE | 2022-05-18 14:42 | PC.NURSE ---
Phleb from lab attempted x 2 to get lab work without success.
--- NOTE | 2022-05-18 16:27 | PM.CNCAR ---
Assessment and Plan Assessment and plan (1) Afib: Code(s): I48.91 - Unspecified atrial fibrillation Status: Acute Assessment and Plan: Persistent atrial fibrillation being managed with rate control and anticoagulation strategy. Episode of RVR this morning at outpatient surgery center. She tells me she was supposed to be taking metoprolol 100mg b.i.d as an outpatient (not on home med rec) but has not been taking this for quite some time. She also has diltiazem on her home medication list but reports she is not taking this medication either. Difficult management as patient is unable to tolerate metoprolol (extreme shortness of breath and inability to urinate), diltiazem (unknown adverse reaction), amiodarone (elevated LFT's), flecainide and sotalol (reduced LVSF, and unsure if she has underlying CAD), digoxin (CKD stage 3). She has been referred to Dr. Rodrigues for evaluation for possible ablation but missed her first appointment because of transportation issues. Ultimately, she will need to reschedule with EP to explore non-medical options for management of her arrhythmia. For now, she is generally well rate controlled without any AV charity agents. Continue a/c with apixaban (2) Cardiomyopathy: Qualifiers: Cardiomyopathy type: dilated Qualified Code(s): I42.0 - Dilated cardiomyopathy Code(s): I42.9 - Cardiomyopathy, unspecified Status: Acute Assessment and Plan: She has a known cardiomyopathy with an EF of 40 - 45%. Echo from 01/2022 showing moderate-severe MR, severe TR. She is not currently on any medical therapy for this. Most recent office note from [facility] states patient was hesitant to agree to Entresto or Jardiance. Ideally, would like to start her on Entresto, Jardiance, and spironolactone. She refuses to take beta blockers, otherwise would recommend Toprol XL as well Repeat echo has been ordered (3) Acute on chronic combined systolic and diastolic CHF (congestive heart failure): Code(s): I50.43 - Acute on chronic combined systolic (congestive) and diastolic (congestive) heart failure Status: Acute Assessment and Plan: Presents with shortness of breath but she does not appear to be significantly volume overloaded on exam. No evidence of CHF on CXR. Would continue with her home regimen of furosemide for now Accurate I&O Daily weight Low Na diet CHF counseling History of Present Illness History of Present Illness Consult date/time: 05/18/22 16:27 Requesting physician: Kahlil Perez DO Consult reason: atrial fibrillation and congestive heart failure Reason For Visit: CHF/Atrial Fibrillation Narrative: Consuelo Tovar is a 77 year old female with a history of atrial fibrillation and cardiomyopathy with EF 40 - 45%. This is a patient who was brought to the emergency room from an outpatient surgery center for atrial fibrillation with rapid ventricular response. Per patient report, her heart rate was 199bpm. She was not experiencing any palpitations or chest pain but did have increased shortness of breath. She reports increasing shortness of breath over the past few weeks as well as lower extremity swelling which is chronic. She Reports compliance with her diuretic regimen but does tell me that she quit taking her metoprolol because she felt as if it made her unable to urinate. Cardiology has been asked to see her for management of her atrial fibrillation and acute on chronic CHF. She has removed her telemetry monitoring at the time of my interview but according to RN reportand vital signs documentation, her heart rate has been in the 60-70 range, but she did have some intermittent tachycardia earlier today and was given p.o. metoprolol. Review of Systems Review of Systems: All systems reviewed & are unremarkable except as noted in HPI and below PMFSH Past Medical History Medical History (Reviewed 05/18/22 @ 16:50 by Jennifer Olsen
--- NOTE | 2022-05-18 16:32 | PC.NURSE ---
Patient continually self removing awake overnight monitor and pulse ox. Patient reminded it is of most importance to keep those items on.
--- NOTE | 2022-05-18 16:34 | PC.NURSE ---
Phleb at bedside to attempt to obtain labs.
[2022-05-18 17:35] LABS: Troponin I 0.034 ng/mL (0.000-0.034)
--- NOTE | 2022-05-18 18:03 | ADMGEN ---
This patient, Consuelo Tovar, was admitted to IMU Room 204-01. Patient/family oriented to hospital policies and general routines including ID bracelet, bed and alarms, visiting hours, pain management, procedures, bathroom and other care routines, personal items, smoking policy, room service/diet, and visiting hours. Information on how to activate the Rapid Response Team has been discussed. Patient/Family are encouraged to report perceived risks to care and to ask questions if they do not understand what they are told or what they should do.
[2022-05-18 20:27] LABS: Troponin I 0.024 ng/mL (0.000-0.034)
[2022-05-19] VITALS (25 sets, daily range): BP systolic 94–118; BP diastolic 42–70; PULSE 61–131; RESP 16–22; TEMP 36.3–36.6; O2SAT 94–100
--- NOTE | 2022-05-19 00:35 | ECG_ITS ---
Measurements Intervals [place] Rate: 102 P: [place]: 0 QRS: 47 QRSD: 84 T: 24 QT: 357 QTc: 466 Interpretive Statements ATRIAL FIBRILLATION WITH RAPID VENTRICULAR RESPONSE LOW QRS VOLTAGE [QRS DEFLECTION < 0.5/1.0 mV IN LIMB/CHEST LEADS] POSSIBLE ANTERIOR MYOCARDIAL INFARCTION [30 ms Q WAVE IN V3/V4, OR R < 0.2 mV IN V4], PROBABLY OLD COMPARED TO ECG 05/18/2022 08:19:23 NO SIGNIFICANT CHANGES Electronically Signed On 05-19-2022 18:00:41 CDT by Nani Troy M.D.
[2022-05-19] MEDS: ALBUTEROL SULFATE NEB 2.5 MG/3 ML INH INHALATION ×2 (00:58→09:00)
[2022-05-19] MEDS: IPRATROPIUM BR 0.02% INH SOLN 0.5 MG/2.5 ML VIAL INHALATION ×4 (00:58→20:33)
[2022-05-19] MEDS: BUMETANIDE INJ 1 MG/4 ML VIAL IV PUSH (01:04)
[2022-05-19] MEDS: methylPREDNISolone SOD SUCC 125 MG VIAL IV PUSH (01:10)
[2022-05-19 01:27] LABS: Base Excess ABG -2.6 mEq/l (+/-2.0); Fractional Inspired Oxygen 50 %; HCO3 ABG 18.9 mEq/l (22.0-26.0); Modified Allen's Test Pass; Oxygen Content ABG 22.7 %vol (16.0-22.0); Oxygen Saturation ABG 99.4 % (95.0-100.0); Oxyhemoglobin 97.6 % THb (90.0-100.0); PCO2 ABG 25.9 mmHg (35.0-45.0); PO2 ABG 194.4 mmHg (80.0-100.0); PO2 FiO2 Ratio Arterial Blood 3.89 %; Site Drawn RIGHT RADIAL; Total Hemoglobin 16.3 g/dL (12.0-18.0); pH ABG 7.481 (7.350-7.450)
[2022-05-19 01:28] LABS: Device OTHER DEVICE
[2022-05-19 04:50] LABS: Basophils Percent Auto 0.9 % (0.2-1.2); Eosinophils Percent Auto 0.5 % (0-4.4); Hematocrit 47.6 % (37.0-47.0); Immature Granulocyte Absolute 0.02 K/mm3 (0.00-0.031); Immature Granulocyte Percent A 0.5 % (0-0.5); Immature Platelet Fraction Pct 13.6 % (0.9-11.2); Lymphocytes Absolute Auto 1.07 K/mm3 (0.9-3.2); Mean Corpuscular HGB Conc 33.6 g/dl (32-36); Mean Corpuscular Hemoglobin 31.4 pg (26-34); Mean Corpuscular Volume 93.3 fl (80-100); Mean Platelet Volume 13.5 fl (7.4-10.4); Monocytes Absolute Auto 0.3 K/mm3 (0.1-0.6); Monocytes Percent Auto 6.5 % (2.6-8.5); Neutrophils Absolute Auto 2.9 K/mm3 (1.3-6.7); Neutrophils Percent Auto 66.6 % (45.5-73.1); Platelet Count Result 101 k/mm3 (150-375); Red Cell Distribution Width 19.2 % (11.5-14.5); White Blood Count 4.3 K/mm3 (4.5-10.0)
[2022-05-19 04:56] LABS: Alanine Aminotransferase 34 U/L (6-35); Albumin Level 4.1 g/dL (3.5-5.1); Alkaline Phosphatase 610 U/L (38-126); Anion Gap 14 mmol/L (8-16); Aspartate Amino Transferase 72 U/L (14-36); Bilirubin,Total 6.9 mg/dL (0.2-1.3); Blood Urea Nitrogen 38 mg/dL (7-17); Calcium 8.9 mg/dL (8.4-10.2); Carbon Dioxide 24 mmol/L (22-30); Chloride 99 mmol/L (98-107); Estimated CRCL calculation 30 ml/min; Estimated Glomerular Filt Rate 33; Glucose 94 mg/dL (65-110); Magnesium 2.5 mg/dL (1.6-2.3); Potassium 4.4 mmol/L (3.4-5.0); Sodium 137 mmol/L (137-145)
[2022-05-19] MEDS: ASCORBIC ACID 500 MG TABLET 2000 MG PO (08:36)
[2022-05-19] MEDS: FUROSEMIDE INJ 100 MG/10 ML VIAL 80 MG IV PUSH ×2 (08:36→17:50)
[2022-05-19] MEDS: ASPIRIN 81 MG ENTERIC TABLET PO (08:37)
[2022-05-19] MEDS: CHOLECALCIFEROL 1,000 UNITS TABLET 2000 UNITS PO (08:37)
[2022-05-19] MEDS: APIXABAN 5 MG TABLET PO (08:37)
[2022-05-19] MEDS: MULTIVITAMINS THERAPEUTIC TAB (*BKC) 1 TABLET PO (08:37)
[2022-05-19] MEDS: POTASSIUM CHLORIDE 10 MEQ TABLET.ER PO ×2 (08:37→17:50)
[2022-05-19 11:31] LABS: Total Triiodothyronine (T3) 0.56 NG/ML (0.97-1.69)
[2022-05-19] MEDS: HYDROCORTISONE ACETATE 25 MG SUPPOSITORY RECTAL ×2 (12:17→20:45)
[2022-05-19] MEDS: metOLazone 5 MG TABLET PO (12:17)
[2022-05-19] MEDS: TRIAMCINOLONE ACET 0.1% CREAM 15 GM TUBE 1 APPLIC TOPICAL (15:00)
--- NOTE | 2022-05-19 15:53 | PM.IMPN ---
Progress Note: A&P Assessment and Plan (1) Hematuria: Code(s): R31.9 - Hematuria, unspecified Status: Acute Assessment and Plan: Renal us ordered, cbc. bmp ordered, oac held Watch hematuria consult urology (2) Afib: Code(s): I48.91 - Unspecified atrial fibrillation Status: Acute Assessment and Plan: pt has difficult to manage af, medications causing itchy rash. Patient has anasarca. She has edema from her abdomen all the way down to her lower extremities. Patient was given Lasix in the emergency room. Continue with apixaban Continue with home medications. It appears that her diltiazem was placed on hold from outpatient medication reconciliation. (3) Acute on chronic combined systolic and diastolic CHF (congestive heart failure): Code(s): I50.43 - Acute on chronic combined systolic (congestive) and diastolic (congestive) heart failure Status: Acute Assessment and Plan: An echo will be ordered. Continue with Lasix IV. However will need to continue to monitor her renal function. bmp ordered (4) Hypertension: Qualifiers: Hypertension type: essential hypertension Qualified Code(s): I10 - Essential (primary) hypertension Code(s): I10 - Essential (primary) hypertension Status: Acute Assessment and Plan: watch blood pressures in hospital (5) Obstructive sleep apnea of adult: Code(s): G47.33 - Obstructive sleep apnea (adult) (pediatric) Status: Acute Assessment and Plan: Continue with CPAP/BiPAP (6) Hyperthyroidism: Code(s): E05.90 - Thyrotoxicosis, unspecified without thyrotoxic crisis or storm Status: Acute Assessment and Plan: Continue with current treatment. Subjective Date/time seen: 05/19/22 15:53 77-year-old female patient who has a history of atrial fibrillation and congestive heart failure.? The patient came to the emergency room today with complaints of shortness of breath.? Pt is treated with iv lasix. Pt as difficult to manage af. Unfortunately pt started having hematuria in her meeks catheter and uo is poor. Review of Systems Review of Systems: Poor urine output and hematuria Exam Const: General: cooperative, healthy appearing, comfortable, no acute distress, well developed, alert, awake, Physically active, average body habitus, well nourished and overweight Nutritional Appearance: average body habitus, well nourished and overweight Orientation/consciousness: oriented to person, oriented to place, oriented to time and patient oriented x3 Limitations: no limitations Chest: Chest palpation & inspection: normal inspection of the chest Resp: Effort & Inspection: normal respiratory effort Auscultation: clear to auscultation bilaterally Percussion: percussion normal Cardio: Palpation: normal PMI Rate: regular rate Rhythm: regular rhythm and abnormal rhythm irregularly irregular Heart sounds: S1 normal heart sound present and S2 normal heart sound present Peripheral pulses: Peripheral pulses 2+ throughout GI: Inspection: normal to inspection Auscultation: normal bowel sounds Skin: General skin exam: normal color Lesions: no lesions Rashes: no rashes Trauma: no lacerations or abrasions Wounds: no wounds Hair: normal Nails: normal Neuro: General: oriented to person, oriented to place, oriented to time and patient oriented x3 Cranial nerves: Yes Equal, round and reactive pupils present and Yes Normal hearing present Cognition (Neuro): normal cognition Speech: normal speech Gait exam (Neuro): Normal gait present Motor exam (neuro): 5/5 motor strength present throughout Sensory Exam: normal sensation Extrem: General: normal to inspection Right upper extremity: normal to inspection and shoulder/upper arm Left upper extremity: normal to inspection and shoulder/upper arm Right lower extremity: normal to inspection and edema Details: 3+ Left lower extremity: normal to inspectio
--- NOTE | 2022-05-19 16:14 | PM.PNCARD ---
Progress Note: A&P Assessment and Plan (1) Acute on chronic combined systolic and diastolic CHF (congestive heart failure): Code(s): I50.43 - Acute on chronic combined systolic (congestive) and diastolic (congestive) heart failure Status: Acute Assessment and Plan: She has a known cardiomyopathy with an EF of 40 - 45%.? Echo from 01/2022 showing moderate-severe MR, severe TR. She is not currently on any medical therapy for this.? Most recent office note from [facility] states patient was hesitant to agree to Entresto or Jardiance. Ideally, would like to start her on Entresto, Jardiance, and Spironolactone.? She refuses to take beta blockers, otherwise would recommend Toprol XL as well Repeat echo shows LVEF 40-45%, reduced RVSF, moderate MR, moderate-severe TR, dilated IVC with no collapse Continue with intermittent IV Lasix, will add a dose of Metolazone. (2) Atrial fibrillation with RVR: Code(s): I48.91 - Unspecified atrial fibrillation Status: Acute Assessment and Plan: Persistent atrial fibrillation being managed with rate control and anticoagulation strategy.? Episode of RVR at outpatient surgery center.? She did not tolerate Metoprolol due to urinary retention which she believes was from the medication.? She also has diltiazem on her home medication list but reports she is not taking this medication either.? ? Difficult management as patient is unable to tolerate metoprolol (extreme shortness of breath and inability to urinate), diltiazem (unknown adverse reaction), amiodarone (elevated LFT's), flecainide and sotalol (reduced LVSF, and unsure if she has underlying CAD), digoxin (CKD stage 3).? She has been referred to Dr. Rodrigues for evaluation for possible ablation but missed her first appointment because of transportation issues.? Ultimately, she will need to reschedule with EP to explore non-medical options for management of her arrhythmia. For now, she is generally well rate controlled without any AV charity agents.? Continue a/c with apixaban (3) CKD (chronic kidney disease) stage 3, GFR 30-59 ml/min: Code(s): N18.3 - Chronic kidney disease, stage 3 (moderate) Status: Acute Assessment and Plan: Monitor renal function closely Subjective Date/time seen: 05/19/22 16:14 Interval history: Reason for visit: Congestive heart failure HPI: Consuelo Tovar is a 77 year old female with a history of atrial fibrillation and cardiomyopathy with EF 40 - 45%.? This is a patient who was brought to the emergency room from an outpatient surgery center for atrial fibrillation with rapid ventricular response.? Per patient report, her heart rate was 199bpm.? She was not experiencing any palpitations or chest pain but did have increased shortness of breath.? She reports increasing shortness of breath over the past few weeks as well as lower extremity swelling which is chronic.? She Reports compliance with her diuretic regimen but does tell me that she quit taking her metoprolol because she felt as if it made her unable to urinate.? Cardiology has been asked to see her for management of her atrial fibrillation and acute on chronic CHF.? She has removed her telemetry monitoring at the time of my interview but according to RN report and vital signs documentation, her heart rate has been in the 60-70 range, but she did have some intermittent tachycardia earlier today and was given p.o. metoprolol.? ? Date of service 05/19/2021: Still with lower extremity edema. No chest pain, palpitations. Review of Systems Review of Systems: 8 point ROS obtained. Negative, unless stated in HPI. Exam Const: General: comfortable, no acute distress, alert and awake Orientation/consciousness: patient oriented x3 HENMT: Head: normal to inspection Eyes: General: appearance normal, both eyes and all related structures Sclera: sclerae normal Neck: Neck: supple Resp: Effort & Inspection: normal respiratory
[2022-05-19 17:10] LABS: Hematocrit 48.6 % (37.0-47.0); Hemoglobin 15.7 g/dL (12.0-15.0); Mean Corpuscular HGB Conc 32.3 g/dl (32-36); Mean Corpuscular Hemoglobin 31.5 pg (26-34); Mean Corpuscular Volume 97.6 fl (80-100); Mean Platelet Volume 13.3 fl (7.4-10.4); Platelet Count Result 111 k/mm3 (150-375); Red Blood Count 4.98 M/mm3 (4.2-5.4); Red Cell Distribution Width 19.3 % (11.5-14.5); White Blood Count 3.5 K/mm3 (4.5-10.0)
[2022-05-19 17:20] LABS: Anion Gap 18 mmol/L (8-16); Blood Urea Nitrogen 43 mg/dL (7-17); Calcium 8.4 mg/dL (8.4-10.2); Carbon Dioxide 18 mmol/L (22-30); Chloride 99 mmol/L (98-107); Estimated CRCL calculation 31 ml/min; Estimated Glomerular Filt Rate 36; Glucose 232 mg/dL (65-110); Potassium 4.5 mmol/L (3.4-5.0); Sodium 135 mmol/L (137-145)
[2022-05-19 18:13] LABS: Appearance Urine Turbid (Clear); Bilirubin Urine 1+ (Negative); Blood Urine 3+ (Negative); Color Urine Red (Yellow); Glucose Urine UA Negative (Negative); Ketones Urine Negative (Negative); Leukocyte Esterase Ur Negative LEU/UL (Negative); Nitrate Urine Negative (Negative); Protein Urine 3+ mg/dL (Negative); pH Urine 5.5 (5.0-9.0)
[2022-05-19 18:22] LABS: Bacteria Urine 2+ /hpf; Need Manual Microscopic Reviewed; Non Pathogenic Casts 0-2; Squamous Epithelial Cell Urine None seen /hpf (Few); WBC Urine 51-100 /hpf
[2022-05-19 18:24] LABS: RBC Urine >75 /hpf (0-2)
[2022-05-19 18:25] LABS: Add Urine Microscopic? YES
--- NOTE | 2022-05-19 18:38 | PC.NURSE ---
patient had a bladder spasm and urinated around the catheter. Unmeasurable void documented. Urine is bright red like that in meeks. NO clots noted. Dr. Worley made aware.
[2022-05-20] VITALS (37 sets, daily range): BP systolic 108–121; BP diastolic 51–81; PULSE 94–167; RESP 14–97; TEMP 35.6–36.4; O2SAT 96–100
[2022-05-20] MEDS: IPRATROPIUM BR 0.02% INH SOLN 0.5 MG/2.5 ML VIAL INHALATION ×4 (02:16→20:14)
[2022-05-20 05:09] LABS: Hematocrit 49.7 % (37.0-47.0); Hemoglobin 16.2 g/dL (12.0-15.0); Immature Platelet Fraction Pct 15.1 % (0.9-11.2); Mean Corpuscular HGB Conc 32.6 g/dl (32-36); Mean Corpuscular Hemoglobin 31.5 pg (26-34); Mean Corpuscular Volume 96.5 fl (80-100); Mean Platelet Volume 13.7 fl (7.4-10.4); Platelet Count Result 106 k/mm3 (150-375); Red Blood Count 5.15 M/mm3 (4.2-5.4); Red Cell Distribution Width 19.6 % (11.5-14.5); White Blood Count 7.5 K/mm3 (4.5-10.0)
[2022-05-20 05:21] LABS: Anion Gap 18 mmol/L (8-16); Blood Urea Nitrogen 47 mg/dL (7-17); Calcium 8.7 mg/dL (8.4-10.2); Carbon Dioxide 17 mmol/L (22-30); Chloride 98 mmol/L (98-107); Estimated CRCL calculation 28 ml/min; Estimated Glomerular Filt Rate 31; Glucose 175 mg/dL (65-110); Potassium 4.3 mmol/L (3.4-5.0); Sodium 133 mmol/L (137-145)
[2022-05-20] MEDS: ASPIRIN 81 MG ENTERIC TABLET PO (08:47)
[2022-05-20] MEDS: CHOLECALCIFEROL 1,000 UNITS TABLET 2000 UNITS PO (08:47)
[2022-05-20] MEDS: ASCORBIC ACID 500 MG TABLET 2000 MG PO (08:47)
[2022-05-20] MEDS: TRIAMCINOLONE ACET 0.1% CREAM 15 GM TUBE 1 APPLIC TOPICAL (08:48)
[2022-05-20] MEDS: metOLazone 5 MG TABLET PO (08:48)
[2022-05-20] MEDS: FUROSEMIDE INJ 100 MG/10 ML VIAL 80 MG IV PUSH (08:48)
[2022-05-20] MEDS: POTASSIUM CHLORIDE 10 MEQ TABLET.ER PO ×2 (08:48→19:08)
[2022-05-20] MEDS: HYDROCORTISONE ACETATE 25 MG SUPPOSITORY RECTAL ×2 (08:48→21:24)
[2022-05-20] MEDS: MULTIVITAMINS THERAPEUTIC TAB (*BKC) 1 TABLET PO (08:48)
--- NOTE | 2022-05-20 11:08 | WPDURCON ---
Assessment and Plan Assessment and plan (1) Hematuria: Code(s): R31.9 - Hematuria, unspecified Status: Acute Assessment and Plan: I was unable to irrigate her 14fr catheter even after re-positioning it, therefore her catheter was replaced at the bedside by a [employer] with my supervision with an 18fr catheter without any difficulty. >100cc of blood urine was noted on return. It was then easily irrigated, with several small clots removed from her bladder and immediate clearing of urine to light pink/clear. The patient tolerated this well. (2) PRIETO (acute kidney injury): Code(s): N17.9 - Acute kidney failure, unspecified Status: Acute Assessment and Plan: Unclear of origin, possibly from clogged catheter and urinary retention, will proceed with CT scan to rule out obstruction in upper tracts. (3) UTI (urinary tract infection): Code(s): N39.0 - Urinary tract infection, site not specified Status: Acute Assessment and Plan: Urine culture pending, treat if infection is resulted. (4) Decreased urine output: Code(s): R34 - Anuria and oliguria Status: Acute Assessment and Plan: Urine is now draining and clear after clot removal at the bedside. Urine output should increase since catheter is patent. Monitor output. Urology Consult Note HPI Date Seen: 05/20/22 Time Seen: 11:11 Requesting Physician: Mike Hairston MD Primary Care Provider: Silvano Alvarez MD Consult Narrative Reason for consult: Hematuria/PRIETO/Decreased Urine Output Narrative: Consuelo Tovar is a 77 year old female who presented initially to the ER with c/o SOB from her opthamologist where she was to have eye surgery on 05/18/22. She was brought in by EMS d/t her SOB. She has known A-Fib and hadn't taken her medications that morning d/t impending surgery. During the course of her admission she was started on Lasix and had a meeks placed for I&O monitoring. 50cc was noted on insertion, however hematuria has developed within the past day as well as PRIETO and little urine output. Specifically, she had only 335cc of output in 24 hours on 05/19/22, and 300cc overnight last night. Her creatinine is 1.90 today and 1.00 at baseline. She has a urine culture pending and UA is suggestive of a UTI. She did have a UTI on 02/10/22 growing Klebsiella on her urine culture. Her WHITNEY done yesterday shows no concerns. Her WBC is 7.5 and she is tachycardic but afebrile. The patient states she saw a urologist years ago but doesn't remember why. She states she doesn't have a history of recurrent UTI, blood in her urine or difficulty with urination prior to this episode. She was on Eliquis which is being held as of yesterday. A larger catheter was attempted at being placed in the ER but couldn't therefore a 14fr was placed. Review of Systems Cardiovascular: Cardiovascular: Denies chest pain Respiratory: Respiratory: Reports dyspnea Gastrointestinal: Gastrointestinal: Denies abdominal pain, Denies nausea and Denies vomiting Genitourinary: Genitourinary: Reports hematuria, Denies nocturia, Denies pelvic pain, Denies flank pain, Denies urinary incontinence, Denies urinary hesitancy and Denies urinary urgency PMFSH Past Medical History Medical History Atrial fibrillation Breast cancer Lumpectomy and chemotherapy and radiation. CAD (coronary artery disease) CHF (congestive heart failure) Erythrocytosis Fx ankle Left ankle ORIF Hernia History of DVT (deep vein thrombosis) Ultrasounds clear today History of pulmonary embolism Hypertension Nephrolithiasis Obesity Obstructive sleep apnea of adult Pulmonary emboli Thrombocytopenia UTI (urinary tract infection) Surgical History Surgical History H/O: hysterectomy History of appendectomy History of laparoscopic cholecystectomy History of removal of Port
[2022-05-20] MEDS: guaiFENesin/DEXTROMETHORPHAN 10 ML UDC PO (11:54)
--- NOTE | 2022-05-20 12:14 | PM.IMPN ---
Progress Note: A&P Assessment and Plan (1) PRIETO (acute kidney injury): Code(s): N17.9 - Acute kidney failure, unspecified Status: Acute Assessment and Plan: Creatinine is 1.9 today. Last month her creatinine was 1. Could be from Lasix. She does not have any pedal edema. She does have some edema in the thighs. This could be lymphedema. I would recommend to hold the Lasix at this time but Cardiology is managing that. I will consult Nephrology for further help (2) Hematuria: Code(s): R31.9 - Hematuria, unspecified Status: Acute Assessment and Plan: Renal us ordered, cbc. bmp ordered, oac held Watch hematuria consulted urology (3) Afib: Code(s): I48.91 - Unspecified atrial fibrillation Status: Acute Assessment and Plan: pt has difficult to manage af, medications causing itchy rash. Patient has anasarca. She has edema from her abdomen all the way down to her lower extremities. Patient was given Lasix in the emergency room. Continue with apixaban Continue with home medications. It appears that her diltiazem was placed on hold from outpatient medication reconciliation. Cardiology on board (4) Acute on chronic combined systolic and diastolic CHF (congestive heart failure): Code(s): I50.43 - Acute on chronic combined systolic (congestive) and diastolic (congestive) heart failure Status: Acute Assessment and Plan: An echo will be ordered. Continue with Lasix IV. Creatinine has gone up to 1.9. Would recommend holding Lasix. will defer to Cardiology (5) Hypertension: Qualifiers: Hypertension type: essential hypertension Qualified Code(s): I10 - Essential (primary) hypertension Code(s): I10 - Essential (primary) hypertension Status: Acute Assessment and Plan: Monitor (6) Obstructive sleep apnea of adult: Code(s): G47.33 - Obstructive sleep apnea (adult) (pediatric) Status: Acute Assessment and Plan: Continue with CPAP/BiPAP (7) Hyperthyroidism: Code(s): E05.90 - Thyrotoxicosis, unspecified without thyrotoxic crisis or storm Status: Acute Assessment and Plan: Continue with current treatment. Subjective Date/time seen: 05/20/22 12:14 Patient states she is short of breath and feels really weak Review of Systems Cardiovascular: Cardiovascular: Denies chest pain Respiratory: Respiratory: Reports dyspnea Gastrointestinal: Gastrointestinal: Denies abdominal pain, Denies nausea and Denies vomiting Genitourinary: Genitourinary: Reports hematuria, Denies nocturia, Denies pelvic pain, Denies flank pain, Denies urinary incontinence, Denies urinary hesitancy and Denies urinary urgency Exam Const: General: comfortable Nutritional Appearance: average body habitus, well nourished and overweight Orientation/consciousness: oriented to person, oriented to place, oriented to time and patient oriented x3 Limitations: no limitations Chest: Chest palpation & inspection: normal inspection of the chest Resp: Effort & Inspection: normal respiratory effort Auscultation: clear to auscultation bilaterally Percussion: percussion normal Other: tachypnea Cardio: Palpation: normal PMI Rate: tachycardic Rhythm: regular rhythm and abnormal rhythm irregularly irregular Heart sounds: S1 normal heart sound present and S2 normal heart sound present Peripheral pulses: Peripheral pulses 2+ throughout GI: Inspection: normal to inspection GI Palp: Yes Soft to palpation and No Tenderness to palpation present (GI) Auscultation: normal bowel sounds : Other: gross hematuria noted Urinary Catheter: Urinary Catheter: patent and draining and urine red Skin: General skin exam: normal color Lesions: no lesions Rashes: no rashes Trauma: no lacerations or abrasions Wounds: no wounds Hair: normal Nails: normal Neuro: General: oriented to person, oriented to place, oriented to time and patient orient
--- NOTE | 2022-05-20 13:26 | P.CONNP_ITS ---
Assessment and Plan Assessment and plan (1) PRIETO (acute kidney injury): Code(s): N17.9 - Acute kidney failure, unspecified Status: Acute Assessment and Plan: * etiology not clear * furthermore, her creatinine has fluctuated to extremes in the last year * seems to average out to ~ 1.0 - 1.5mg/dl * however, it has been as high as 2.13mg/dl * she may have some underlying renal insufficiency at baseline * risk factors for CKD include cardiomyopathy/CHF, need for diuretic therapy, HTN (although seems controlled w/o medications), TING, and nephrolithiasis * creatinine running higher in the last few days... * due to diuretics +/- intravascular volume depletion? * urinary retention/obstruction of meeks due to hematuria? * possible UTI? * atrial fibrillation? * renal ultrasound noted * CT scan of abd/pelvis to be done * check urine electrolytes and urine eosinophils and CPK * r/o proteinuria/nephrotic syndrome * not opposed to trial of holding diuretics * follow repeat labs and UOP (2) Afib: Code(s): I48.91 - Unspecified atrial fibrillation Status: Acute Assessment and Plan: * not well controlled on admission * being managed with rate control + anticoagulation * however, not taking any rate control medications * further complicated by side effects of other medications as noted * noted plans for outpatient EP evaluation * continue rate control strategy within limits of treatment options * on eliquis * Cardiology following (3) Cardiomyopathy: Qualifiers: Cardiomyopathy type: dilated Qualified Code(s): I42.0 - Dilated cardiomyopathy Code(s): I42.9 - Cardiomyopathy, unspecified Status: Acute Assessment and Plan: * as noted by history and Echo * Cardiology recommendations noted * continue efforts to optimize medical therapy as patient will allow * trial of holding loop diuretics given #1 (4) Hematuria: Code(s): R31.9 - Hematuria, unspecified Status: Acute Assessment and Plan: * noted today * Urology recommendations noted * meeks catheter replaced (due to inability to irrigate) * may need CBI I will continue follow patient with you while she remains hospitalized and make further recommendations during her hospital course. Thank you for allowing me to participate in the care of this patient. History of Present Illness Reason for Consult Consult date: 05/20/22 Reason for consult: acute renal failure Chief Complaint Chief complaint: CHF/Atrial Fibrillation History of Present Illness Narrative: The patient is a 77-year-old female with extensive past medical history as outlined below who presented to [facility] Emergency room for further evaluation of shortness of breath. Apparently, on the day of presentation to the ER, she was supposed to have outpatient left eye cataract surgery. However, due to her shortness of breath, this procedure was canceled and EMS was called and she was transferred to the e mergency room for further assessment. Workup and evaluation emergency room demonstrated the patient complaining up shortness of breath however she did not appear to be acutely hypoxic. She was otherwise hemodynamically stable. The patient reports that she really says that she has been short of breath for a few days but seemed to be more so on the morning of presentation. She also reports that there has been increased swelling edema from her mid abdomen down to her lower extremities. She denies any fevers, chills, nausea, vomiting, diarrhea, dizziness,
--- NOTE | 2022-05-20 13:26 | PM.CNNEP ---
Assessment and Plan Assessment and plan (1) PRIETO (acute kidney injury): Code(s): N17.9 - Acute kidney failure, unspecified Status: Acute Assessment and Plan: etiology not clear furthermore, her creatinine has fluctuated to extremes in the last year seems to average out to ~ 1.0 - 1.5mg/dl however, it has been as high as 2.13mg/dl she may have some underlying renal insufficiency at baseline risk factors for CKD include cardiomyopathy/CHF, need for diuretic therapy, HTN (although seems controlled w/o medications), TING, and nephrolithiasis creatinine running higher in the last few days... due to diuretics +/- intravascular volume depletion? urinary retention/obstruction of meeks due to hematuria? possible UTI? atrial fibrillation? renal ultrasound noted CT scan of abd/pelvis to be done check urine electrolytes and urine eosinophils and CPK r/o proteinuria/nephrotic syndrome not opposed to trial of holding diuretics follow repeat labs and UOP (2) Afib: Code(s): I48.91 - Unspecified atrial fibrillation Status: Acute Assessment and Plan: not well controlled on admission being managed with rate control + anticoagulation however, not taking any rate control medications further complicated by side effects of other medications as noted noted plans for outpatient EP evaluation continue rate control strategy within limits [facility] following (3) Cardiomyopathy: Qualifiers: Cardiomyopathy type: dilated Qualified Code(s): I42.0 - Dilated cardiomyopathy Code(s): I42.9 - Cardiomyopathy, unspecified Status: Acute Assessment and Plan: as noted by history and Echo Cardiology recommendations noted continue efforts to optimize medical therapy as patient will allow trial of holding loop diuretics given #1 (4) Hematuria: Code(s): R31.9 - Hematuria, unspecified Status: Acute Assessment and Plan: noted today Urology recommendations noted meeks catheter replaced (due to inability to irrigate) may need CBI I will continue follow patient with you while she remains hospitalized and make further recommendations during her hospital course. Thank you for allowing me to participate in the care of this patient. History of Present Illness Reason for Consult Consult date: 05/20/22 Reason for consult: acute renal failure Chief Complaint Chief complaint: CHF/Atrial Fibrillation History of Present Illness Narrative: The patient is a 77-year-old female with extensive past medical history as outlined below who presented to [facility] Emergency room for further evaluation of shortness of breath. Apparently, on the day of presentation to the ER, she was supposed to have outpatient left eye cataract surgery. However, due to her shortness of breath, this procedure was canceled and EMS was called and she was transferred to the emergency room for further assessment. Workup and evaluation emergency room demonstrated the patient complaining up shortness of breath however she did not appear to be acutely hypoxic. She was otherwise hemodynamically stable. The patient reports that she really says that she has been short of breath for a few days but seemed to be more so on the morning of presentation. She also reports that there has been increased swelling edema from her mid abdomen down to her lower extremities. She denies any fevers, chills, nausea, vomiting, diarrhea, dizziness, or lightheadedness. Routine blood tests were significant for an elevated creatinine of 1.4 mg/dL with no critical electrolyte abnormalities but a BNP of 11 60. Her chest x-ray demonstrated mild atelectasis in left lower lung zone and cardiomegaly. She was noted to be in AFib with RVR and gives given a dose of IV Lopressor which seemed to improve her heart rate. There was some concern of CHF exacerbation
--- NOTE | 2022-05-20 14:09 | PM.PNCARD ---
Progress Note: A&P Assessment and Plan (1) Acute on chronic combined systolic and diastolic CHF (congestive heart failure): Code(s): I50.43 - Acute on chronic combined systolic (congestive) and diastolic (congestive) heart failure Status: Acute Assessment and Plan: She has a known cardiomyopathy with an EF of 40 - 45%.? Echo from 01/2022 showing moderate-severe MR, severe TR. She is not currently on any medical therapy for this.? Most recent office note from [facility] states patient was hesitant to agree to Entresto or Jardiance. Ideally, would like to start her on Entresto, Jardiance, and Spironolactone.? She refuses to take beta blockers, otherwise would recommend Toprol XL as well Repeat echo shows LVEF 40-45%, reduced RVSF, moderate MR, moderate-severe TR, dilated IVC with no collapse Continue with intermittent IV Lasix for today. Perhaps shift back to p.o. tomorrow. (2) Atrial fibrillation with RVR: Code(s): I48.91 - Unspecified atrial fibrillation Status: Acute Assessment and Plan: Persistent atrial fibrillation being managed with rate control and anticoagulation strategy.? Episode of RVR at outpatient surgery center.? She did not tolerate Metoprolol due to urinary retention which she believes was from the medication.? She also has diltiazem on her home medication list but reports she is not taking this medication either.? ? Difficult management as patient is unable to tolerate metoprolol (extreme shortness of breath and inability to urinate), diltiazem (unknown adverse reaction), amiodarone (elevated LFT's), flecainide and sotalol (reduced LVSF, and unsure if she has underlying CAD), digoxin (CKD stage 3).? She has been referred to Dr. Rodrigues for evaluation for possible ablation but missed her first appointment because of transportation issues.? Ultimately, she will need to reschedule with EP to explore non-medical options for management of her arrhythmia. For now, she is generally well rate controlled without any AV charity agents. Continue a/c with apixaban (3) CKD (chronic kidney disease) stage 3, GFR 30-59 ml/min: Code(s): N18.3 - Chronic kidney disease, stage 3 (moderate) Status: Acute Assessment and Plan: Monitor renal function closely Subjective Date/time seen: 05/20/22 14:09 Cardiology follow up for atrial fibrillation, CHF She is complaining of weakness today. Unable to sleep well last night. She is also complaining of nausea. She is denying any chest pain but states she can feel it. No palpitations or shortness of breath. Edema improved. Review of Systems Review of Systems: All systems reviewed & are unremarkable except as noted in HPI and below Exam Const: General: comfortable, no acute distress, alert and awake Orientation/consciousness: patient oriented x3 HENMT: Head: normal to inspection Eyes: General: appearance normal, both eyes and all related structures Sclera: sclerae normal Pupils: Equal, round and reactive pupils present Neck: Neck: normal visual inspection, supple and no JVD Carotids: normal carotid upstroke Resp: Effort & Inspection: normal respiratory effort Auscultation: clear to auscultation bilaterally Cardio: Rate: regular rate and tachycardic Rhythm: abnormal rhythm irregularly irregular Heart sounds: S1 normal heart sound present, S2 normal heart sound present and Murmur heart sound present systolic GI: Auscultation: normal bowel sounds Skin: General skin exam: normal color Neuro: General: patient oriented x3 Cranial nerves: Yes Equal, round and reactive pupils present Speech: normal speech Extrem: General: abnormal to inspection Other: She does not have any pitting edema. However, she does have significant swelling to her left lateral ankle which is chronic s/p ORIF Psych: Appearance: grossly normal Mental Status: mental status grossly normal Objective Data Vital Signs Vital Signs: Vital Signs
[2022-05-20] MEDS: CIPROFLOXACIN 500 MG TAB PO (19:07)
[2022-05-20] MEDS: BENZOCAINE/MENTHOL (*BKC) 18 EA LOZENGE 1 LOZENGE PO (19:08)
[2022-05-20] MEDS: PANTOPRAZOLE 40 MG TABLET PO (21:24)
[2022-05-20] MEDS: LORazepam INJ (*CRX) 2 MG/ML VIAL 0.5 MG IV PUSH (21:24)
[2022-05-20] MEDS: guaiFENesin 12 HR 600 MG TABCR PO (21:24)
--- NOTE | 2022-05-20 22:16 | ECG_ITS ---
Measurements Intervals [place] Rate: 129 P: MO: 0 QRS: 25 QRSD: 90 T: 22 QT: 306 QTc: 449 Interpretive Statements ATRIAL FIBRILLATION WITH RAPID VENTRICULAR RESPONSE LOW-VOLTAGE QRS IN PRECORDIAL LEADS ABNORMAL ECG COMPARED TO ECG 05/19/2022 00:49:04 NO SIGNIFICANT CHANGES Electronically Signed On 05-21-2022 16:39:58 CDT by Jj Jones M.D.
--- NOTE | 2022-05-20 22:28 | PC.NURSE ---
Pt. transferred to 329 at 2200 on 05/20/22, report given to Micheline RODRIGUEZ.
[2022-05-20] MEDS: DIGOXIN INJ 250 MCG/ML 2 ML AMP (*BKC) 125 MCG IV PUSH (23:00)
[2022-05-20] MEDS: oxyBUTYnin CHLORIDE 5 MG TABLET PO (23:00)
[2022-05-21] VITALS (21 sets, daily range): BP systolic 91–132; BP diastolic 56–80; PULSE 87–149; RESP 18–24; TEMP 35.5–36.6; O2SAT 94–100
[2022-05-21] MEDS: IPRATROPIUM BR 0.02% INH SOLN 0.5 MG/2.5 ML VIAL INHALATION ×4 (03:21→22:15)
[2022-05-21 04:55] LABS: Basophils Percent Auto 0.3 % (0.2-1.2); Eosinophils Percent Auto 0.2 % (0-4.4); Hematocrit 49.8 % (37.0-47.0); Hemoglobin 16.5 g/dL (12.0-15.0); Immature Granulocyte Absolute 0.06 K/mm3 (0.00-0.031); Immature Granulocyte Percent A 0.5 % (0-0.5); Immature Platelet Fraction Pct 16.7 % (0.9-11.2); Lymphocytes Absolute Auto 2.32 K/mm3 (0.9-3.2); Lymphocytes Percent Auto 18.8 % (18.3-44.2); Mean Corpuscular HGB Conc 33.1 g/dl (32-36); Mean Corpuscular Hemoglobin 31.3 pg (26-34); Mean Corpuscular Volume 94.5 fl (80-100); Mean Platelet Volume 13.7 fl (7.4-10.4); Monocytes Absolute Auto 0.9 K/mm3 (0.1-0.6); Neutrophils Absolute Auto 9.1 K/mm3 (1.3-6.7); Neutrophils Percent Auto 73.2 % (45.5-73.1); Nucleated Red Blood Cells Perc 0.2 % (0.0-0.2); Platelet Count Result 121 k/mm3 (150-375); Red Blood Count 5.27 M/mm3 (4.2-5.4); Red Cell Distribution Width 19.5 % (11.5-14.5); White Blood Count 12.4 K/mm3 (4.5-10.0)
[2022-05-21 05:02] LABS: Anion Gap 12 mmol/L (8-16); Blood Urea Nitrogen 49 mg/dL (7-17); Calcium 9.2 mg/dL (8.4-10.2); Carbon Dioxide 27 mmol/L (22-30); Chloride 95 mmol/L (98-107); Creatine Kinase 176 U/L (30-135); Estimated CRCL calculation 30 ml/min; Estimated Glomerular Filt Rate 33; Glucose 99 mg/dL (65-110); Phosphorus 3.8 mg/dL (2.5-4.5); Potassium 4.1 mmol/L (3.4-5.0); Sodium 134 mmol/L (137-145)
[2022-05-21 06:06] LABS: Creatinine Urine < 3.2 mg/dL; Total Protein Urine Random 12 mg/dL
[2022-05-21 06:24] LABS: Urea Random Urine < 67 MG/DL
[2022-05-21 06:25] LABS: Ur Ttl Prot Creatinine Ratio < 3.00 mg/mg (0-0.20)
[2022-05-21] MEDS: ASCORBIC ACID 500 MG TABLET 2000 MG PO (08:27)
[2022-05-21] MEDS: ASPIRIN 81 MG ENTERIC TABLET PO (08:27)
[2022-05-21] MEDS: guaiFENesin 12 HR 600 MG TABCR PO ×2 (08:27→20:29)
[2022-05-21] MEDS: CHOLECALCIFEROL 1,000 UNITS TABLET 2000 UNITS PO (08:27)
[2022-05-21] MEDS: FUROSEMIDE INJ 100 MG/10 ML VIAL 80 MG IV PUSH (08:27)
[2022-05-21] MEDS: metOLazone 5 MG TABLET PO (08:28)
[2022-05-21] MEDS: MULTIVITAMINS THERAPEUTIC TAB (*BKC) 1 TABLET PO (08:28)
[2022-05-21] MEDS: POTASSIUM CHLORIDE 10 MEQ TABLET.ER PO ×2 (08:28→16:46)
[2022-05-21] MEDS: HYDROCORTISONE ACETATE 25 MG SUPPOSITORY RECTAL ×2 (08:28→20:29)
[2022-05-21] MEDS: BENZOCAINE/MENTHOL (*BKC) 18 EA LOZENGE 1 LOZENGE PO ×2 (08:30→20:29)
--- NOTE | 2022-05-21 10:07 | WPDUROPN2 ---
Progress Note: A&P Assessment and Plan (1) UTI (urinary tract infection): Code(s): N39.0 - Urinary tract infection, site not specified Status: Acute Assessment and Plan: Urine culture negative. (2) PRIETO (acute kidney injury): Code(s): N17.9 - Acute kidney failure, unspecified Status: Acute Assessment and Plan: slightly improved, catheter is patent and draining, no upper tract obstruction on CT. No etiology for PRIETO urologically, consult nephrology. (3) Hematuria: Code(s): R31.9 - Hematuria, unspecified Status: Acute Assessment and Plan: Likely related to meeks trauma upon insertion as they had difficulty and she was on Eliquis at that time. This has resolved with CBI. No further evaluation needed. F/u as outpatient for cystoscopy Ok to remove meeks when no longer needed for I&O purposes. Subjective Subjective Date/Time Seen: 05/21/22 10:07 Gross hematuria is resolved s/p CBI. CBI is off and urine is clear. The patient is more lethargic today and confused at the bedside. CT scan shows no abnormality in the upper tracts. Creatinine 1.80 slightly improved, urine culture negative. Review of Systems Constitutional: Constitutional: Reports fatigue Cardiovascular: Cardiovascular: Denies chest pain Respiratory: Respiratory: Reports no additional respiratory complaints Gastrointestinal: Gastrointestinal: Denies abdominal pain, Denies nausea and Denies vomiting Genitourinary: Genitourinary: Denies hematuria Psychiatric: Psychiatric: Reports confusion Exam Const: General: cooperative Resp: Effort & Inspection: normal respiratory effort Cardio: Rate: regular rate GI: GI Palp: Yes Soft to palpation and No Tenderness to palpation present (GI) : General: Yes no CVA tenderness Urinary Catheter: Urinary Catheter: patent and draining and urine clear Back/Spine/Pelvis: Back: no CVA tenderness Extrem: Right lower extremity: no edema Left lower extremity: no edema Objective Data Vital Signs Vital Signs: Vital Signs - 24 hr 05/20/22 12:00 05/20/22 12:00 05/20/22 14:00 Temperature 96.3 F L Pulse Rate 126 H 114 H 105 H Respiratory Rate 16 Blood Pressure 111/74 Pulse Oximetry 100 Oxygen Delivery 05/20/22 14:33 05/20/22 14:34 05/20/22 14:43 Temperature Pulse Rate 112 H 112 H 109 H Respiratory Rate 18 18 18 Blood Pressure Pulse Oximetry 96 Oxygen Delivery Room Air 05/20/22 14:50 05/20/22 16:00 05/20/22 20:15 Temperature 96.2 F L Pulse Rate 107 H 115 H Respiratory Rate 24 H 18 Blood Pressure 121/77 Pulse Oximetry 97 Oxygen Delivery Room Air 05/20/22 16:00 05/20/22 18:00 05/20/22 20:00 Temperature 97 F L Pulse Rate 132 H 118 H 119 H Respiratory Rate 97 H Blood Pressure 110/58 L Pulse Oximetry 97 Oxygen Delivery 05/20/22 22:29 05/20/22 22:18 05/20/22 22:31 Temperature 97.4 F L Pulse Rate 148 H 122 H 152 H Respiratory Rate 22 H 20 Blood Pressure 108/75 Pulse Oximetry 100 Oxygen Delivery 05/20/22 22:33 05/20/22 22:35 05/20/22 22:38 Temperature Pulse Rate 133 H 145 H 165 H Respiratory Rate Blood Pressure Pulse Oximetry Oxygen Delivery 05/20/22 22:38 05/20/22 22:39 05/20/22 22:40 Temperature Pulse Rate 158 H 157 H 166 H Respiratory Rate Blood Pressure Pulse Oximetry Oxygen Delivery 05/20/22 22:42 05/20/22 22:43 05/20/22 23:03 Temperature Pulse Rate 159 H 162 H 166 H Respiratory Rate 20 Blood Pressure Pulse Oximetry Oxygen Delivery 05/20/22 23:07 05/20/22 23:07 05/20/22 23:14 Temperature Pulse Rate 162 H 167 H 161 H Respiratory Rate Blood Pressure Pulse Oximetry Oxygen Delivery 05/20/22 23:14 05/20/22 23:11 05/20/22 23:19 Temperature Pulse Rate 162 H 151 H 165 H Respiratory Rate Blood Pressure Pulse Oximetry Oxygen Delivery 05/20/22 23:25 05/21/22 0
[2022-05-21 10:38] LABS: Eosinophil Urine None Seen % (None Seen); Urine Eos QC 2nd Tech Confirmed
--- NOTE | 2022-05-21 10:39 | PCPTNOTE ---
Addendum entered by Romina Cortes, PT 05/21/22 14:41: Spoke with Dr. Hairston. OK to hold PT for today. Will follow. Original Note: Attempted PT evaluation. Per RN, pt is not appropriate for physical therapy at this time. Attempted to reach ordering physician, but was not successful. Will follow up with hospitalist when they become available.
--- NOTE | 2022-05-21 11:31 | PM.IMPN ---
Progress Note: A&P Assessment and Plan (1) PRIETO (acute kidney injury): Code(s): N17.9 - Acute kidney failure, unspecified Status: Acute Assessment and Plan: Hold Lasix and metolazone for now. Appreciate Nephrology input. She does have some edema in the thighs. This could be lymphedema. Workup pending to assess etiology of her PRIETO (2) Hematuria: Code(s): R31.9 - Hematuria, unspecified Status: Acute Assessment and Plan: Resolved. Renal ultrasound unremarkable consulted urology. They recommend outpatient follow-up (3) Afib: Code(s): I48.91 - Unspecified atrial fibrillation Status: Acute Assessment and Plan: Continue apixaban Continue with home medications. It appears that her diltiazem was placed on hold from outpatient medication reconciliation. Cardiology on board (4) Acute on chronic combined systolic and diastolic CHF (congestive heart failure): Code(s): I50.43 - Acute on chronic combined systolic (congestive) and diastolic (congestive) heart failure Status: Acute Assessment and Plan: Hold Lasix and metolazone for now given PRIETO. Appreciate cardiology input Echocardiogram: 1. Complete two-dimensional, color flow and Doppler transthoracic echocardiogram is performed. ? 2. Left ventricular chamber dimension is normal. ? 3. Left ventricular systolic function is mildly reduced, estimated at 40-45%. ? 4. There is mildly increased left ventricular wall thickness. ? 5. Right ventricular chamber dimension is mildly enlarged. ? 6. Right ventricular systolic function is reduced. ? 7. Flattening of the septum in diastole and systole consistent with right ventricular volume and pressure overload. ? 8. Left atrial chamber dimension is severely enlarged. ? 9. Right atrial chamber dimension is severely enlarged. ? 10. There is mild aortic valve regurgitation. ? 11. The mitral valve has thickened leaflets. ? 12. There is moderate mitral valve regurgitation. ? 13. There is moderate to severe tricuspid valve regurgitation. ? 14. There is mild pulmonic regurgitation. ? 15. Dilated inferior vena cava with no collapse upon inspiration consistent with elevated right atrial pressure, 15 mmHg. ? 16. There is small pericardial effusion. (5) Hypertension: Qualifiers: Hypertension type: essential hypertension Qualified Code(s): I10 - Essential (primary) hypertension Code(s): I10 - Essential (primary) hypertension Status: Acute Assessment and Plan: Monitor for now (6) Obstructive sleep apnea of adult: Code(s): G47.33 - Obstructive sleep apnea (adult) (pediatric) Status: Acute Assessment and Plan: Continue with CPAP/BiPAP (7) Hyperthyroidism: Code(s): E05.90 - Thyrotoxicosis, unspecified without thyrotoxic crisis or storm Status: Acute Assessment and Plan: Continue with current treatment. Subjective Date/time seen: 05/21/22 11:31 No new changes overnight Review of Systems Constitutional: Constitutional: Reports fatigue Cardiovascular: Cardiovascular: Denies chest pain Respiratory: Respiratory: Reports no additional respiratory complaints Gastrointestinal: Gastrointestinal: Denies abdominal pain, Denies nausea and Denies vomiting Genitourinary: Genitourinary: Denies hematuria Psychiatric: Psychiatric: Reports confusion Exam Const: General: cooperative Resp: Effort & Inspection: normal respiratory effort Cardio: Rate: regular rate GI: GI Palp: Yes Soft to palpation and No Tenderness to palpation present (GI) : General: Yes no CVA tenderness Urinary Catheter: Urinary Catheter: patent and draining and urine clear Back/Spine/Pelvis: Back: no CVA tenderness Extrem: Right lower extremity: no edema Left lower extremity: no edema Objective Data Vital Signs Vital Signs: Vital Signs - 24 hr 05/20/22 12:00 05/20/22 12:00 05/20/22 14:00 Temperature 96.3 F L Pulse Rate
--- NOTE | 2022-05-21 12:49 | P.PNNP_ITS ---
Progress Note: A&P Assessment and Plan (1) PRIETO (acute kidney injury): Code(s): N17.9 - Acute kidney failure, unspecified Status: Acute Assessment and Plan: * etiology not clear * furthermore, her creatinine has fluctuated to extremes in the last year * seems to average out to ~ 1.0 - 1.5mg/dl * however, it has been as high as 2.13mg/dl * she may have some underlying renal insufficiency at baseline * risk factors for CKD include cardiomyopathy/CHF, need for diuretic therapy, HTN (although seems controlled w/o medications), TING, and nephrolithiasis * creatinine running higher in the last few days... * due to diuretics +/- intravascular volume depletion? * urinary retention/obstruction of meeks due to hematuria? * possible UTI? * atrial fibrillation? 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 taking any 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 control 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 * further complicated by side effects of other medications as noted * noted plans for outpatient EP evaluation * continue rate control strategy within limits of treatment options * on eliquis * Cardiology following (3) Cardiomyopathy: Qualifiers: Cardiomyopathy type: dilated Qualified Code(s): I42.0 - Dilated cardiomyopathy Code(s): I42.9 - Cardiomyopathy, unspecified Status: Acute Assessment and Plan: * as noted by history and Echo * Cardiology recommendations noted * continue efforts to optimize medical therapy as patient will allow * trial of holding diuretics given #1 (4) Hematuria: Code(s): R31.9 - Hematuria, unspecified Status: Acute Assessment and Plan: * resolved * Urology recommendations noted * meeks catheter replaced (on 05/20/22 - due to inability to irrigate) * off CBI Will continue to follow. Subjective Date/time seen: 05/21/22 12:49 Hematuria appears to have resolved with use of continuous bladder irrigation overnight; mild improvement in creatinine/renal function by AM labs; continues to make urine even with diuretics on hold; no apparent distress noted at the time of my visit. Exam Narrative: General: elderly WD/WN AAfemale in NAD Heart: IRRR, normal S1 and S2; no rub Lungs: clear anteriorly, decreased at bases Abdomen: soft, nontender, nondistended, positive bowel sounds Extremities: no cyanosis or clubbing; trace - 1+ edema in thigh area Skin: warm and dry Objective Data Vital Signs Vital Signs: Vital Signs Temp Pulse Resp BP Pulse Ox O2 Del Method 05/21/22 12:00 Room Air 05/21/22 12:00 102 H 05/21/22 12:00 96.5 F L 89 20 115/72 100 05/21/22 08:00 Room Air 05/21/22 08:00 139 H 05/21/22 07:40 132 H 18 05/21/22 07:30 134 H 18 05/21/22 07:30 134 H 18 94 Room Air
--- NOTE | 2022-05-21 12:49 | PM.PNNEP ---
Progress Note: A&P Assessment and Plan (1) PRIETO (acute kidney injury): Code(s): N17.9 - Acute kidney failure, unspecified Status: Acute Assessment and Plan: etiology not clear furthermore, her creatinine has fluctuated to extremes in the last year seems to average out to ~ 1.0 - 1.5mg/dl however, it has been as high as 2.13mg/dl she may have some underlying renal insufficiency at baseline risk factors for CKD include cardiomyopathy/CHF, need for diuretic therapy, HTN (although seems controlled w/o medications), TING, and nephrolithiasis creatinine running higher in the last few days... due to diuretics +/- intravascular volume depletion? urinary retention/obstruction of meeks due to hematuria? possible UTI? atrial fibrillation? evaluation to date noted renal ultrasound without obstruction CT scan of abd/pelvis noted urine studies noted -- I suspect these tests may have been done when she was on CBI; will repeat CPK mildly elevated (but not enough to cause renal dysfunction) possible intravascular volume depletion despite outward signs of volume overload(?) trial of holding diuretics follow repeat labs and UOP (2) Afib: Code(s): I48.91 - Unspecified atrial fibrillation Status: Acute Assessment and Plan: not well controlled on admission being managed with rate control + anticoagulation however, not taking any rate control medications [employer] further complicated by side effects of other medications as noted noted plans for outpatient EP evaluation continue rate control strategy within limits of treatment options on eliis Cardiology following (3) Cardiomyopathy: Qualifiers: Cardiomyopathy type: dilated Qualified Code(s): I42.0 - Dilated cardiomyopathy Code(s): I42.9 - Cardiomyopathy, unspecified Status: Acute Assessment and Plan: as noted by history and Echo Cardiology recommendations noted continue efforts to optimize medical therapy as patient will allow trial of holding diuretics given #1 (4) Hematuria: Code(s): R31.9 - Hematuria, unspecified Status: Acute Assessment and Plan: resolved Urology recommendations noted meeks catheter replaced (on 05/20/22 - due to inability to irrigate) off CBI Will continue to follow. Subjective Date/time seen: 05/21/22 12:49 Hematuria appears to have resolved with use of continuous bladder irrigation overnight; mild improvement in creatinine/renal function by AM labs; continues to make urine even with diuretics on hold; no apparent distress noted at the time of my visit. Exam Narrative: General: elderly WD/WN AAfemale in NAD Heart: IRRR, normal S1 and S2; no rub Lungs: clear anteriorly, decreased at bases Abdomen: soft, nontender, nondistended, positive bowel sounds Extremities: no cyanosis or clubbing; trace - 1+ edema in thigh area Skin: warm and dry Objective Data Vital Signs Vital Signs: Vital Signs Temp Pulse Resp BP Pulse Ox O2 Del Method 05/21/22 12:00 Room Air 05/21/22 12:00 102 H 05/21/22 12:00 96.5 F L 89 20 115/72 100 05/21/22 08:00 Room Air 05/21/22 08:00 139 H 05/21/22 07:40 132 H 18 05/21/22 07:30 134 H 18 05/21/22 07:30 134 H 18 94 Room Air 05/21/22 08:26 96.4 F L 106 H 24 H 117/78 95 05/21/22 04:00 118 H 05/21/22 04:00 Room Air 05/21/22 04:39 97.7 F 149 H 21 H 132/71 94 05/21/22 03:21 128 H 18 05/21/22 03:31 135 H 18 05/20/22 20:30 112 H 18 05/21/22 01:00 143 H 05/21/22 00:00 138 H 05/21/22 00:19 97.1 F L 138 H 18 113/80 98 05/20/22 23:25 163 H 05/20/22 23:19 165 H 05/20/22 23:11 151 H 05/20/22 23:14 162 H 05/20/22 23:14 161 H 05/20/22 23:07 167 H 05/20/22 23:07 162 H 05/20/22 23:03 166 H 05/20/22 22:43 162 H 05/20/22 2
[2022-05-21] MEDS: CIPROFLOXACIN 500 MG TAB PO (12:56)
[2022-05-21] MEDS: APIXABAN 5 MG TABLET PO (20:29)
[2022-05-22] VITALS (24 sets, daily range): BP systolic 91–119; BP diastolic 44–77; PULSE 94–140; RESP 14–22; TEMP 36.1–36.9; O2SAT 96–100
[2022-05-22] MEDS: IPRATROPIUM BR 0.02% INH SOLN 0.5 MG/2.5 ML VIAL INHALATION ×4 (01:21→20:51)
[2022-05-22 04:21] LABS: Creatinine Urine 29.8 mg/dL; Sodium Urine Random 101 meq/L; Total Protein Urine Random 16 mg/dL; Ur Ttl Prot Creatinine Ratio 0.54 mg/mg (0-0.20); Urea Random Urine 325 MG/DL
[2022-05-22] MEDS: CIPROFLOXACIN 500 MG TAB PO (05:34)
[2022-05-22] MEDS: BENZOCAINE/MENTHOL (*BKC) 18 EA LOZENGE 1 LOZENGE PO ×3 (05:35→17:14)
[2022-05-22 05:57] LABS: Albumin Level 3.1 g/dL (3.5-5.1); Anion Gap 8 mmol/L (8-16); Blood Urea Nitrogen 48 mg/dL (7-17); Calcium 8.3 mg/dL (8.4-10.2); Carbon Dioxide 30 mmol/L (22-30); Chloride 95 mmol/L (98-107); Estimated CRCL calculation 38 ml/min; Estimated Glomerular Filt Rate 44; Glucose 93 mg/dL (65-110); Phosphorus 3.5 mg/dL (2.5-4.5); Potassium 3.4 mmol/L (3.4-5.0); Sodium 133 mmol/L (137-145)
--- NOTE | 2022-05-22 08:58 | PCOTNOTE ---
Attempted to see pt for Occupational Therapy treatment today. Per RN, request for therapy to attempt at a later time due to RN needing to assess pt's heart rate.
--- NOTE | 2022-05-22 09:12 | PM.IMPN ---
Progress Note: A&P Assessment and Plan (1) PRIETO (acute kidney injury): Code(s): N17.9 - Acute kidney failure, unspecified Status: Acute Assessment and Plan: Hold Lasix and metolazone for now. Appreciate Nephrology input. (2) Hematuria: Code(s): R31.9 - Hematuria, unspecified Status: Acute Assessment and Plan: Resolved. Renal ultrasound unremarkable consulted urology. They recommend outpatient follow-up (3) Afib: Code(s): I48.91 - Unspecified atrial fibrillation Status: Acute Assessment and Plan: Continue apixaban Continue with home medications. It appears that her diltiazem was placed on hold from outpatient medication reconciliation. Cardiology on board (4) Acute on chronic combined systolic and diastolic CHF (congestive heart failure): Code(s): I50.43 - Acute on chronic combined systolic (congestive) and diastolic (congestive) heart failure Status: Acute Assessment and Plan: Hold Lasix and metolazone for now given PRIETO. Appreciate cardiology input. Echo showed an EF of 40-45% with right-sided systolic function reduction, diffuse valvular disease noted (5) Hypertension: Qualifiers: Hypertension type: essential hypertension Qualified Code(s): I10 - Essential (primary) hypertension Code(s): I10 - Essential (primary) hypertension Status: Acute Assessment and Plan: Monitor for now (6) Obstructive sleep apnea of adult: Code(s): G47.33 - Obstructive sleep apnea (adult) (pediatric) Status: Acute Assessment and Plan: Continue with CPAP/BiPAP (7) Hyperthyroidism: Code(s): E05.90 - Thyrotoxicosis, unspecified without thyrotoxic crisis or storm Status: Acute Assessment and Plan: Continue with current treatment. Plan DVT prophylaxis with Eliquis GI prophylaxis not indicated Code status full code Subjective Date/time seen: 05/22/22 09:12 Interval history: 77-year-old female with history of AFib and heart failure presenting with shortness of breath. No overnight events noted. No chest pain or shortness of breath. No nausea, vomiting or diarrhea. No fevers or chills. Review of Systems Review of Systems: 12 point review of systems was assessed and was negative except as noted in the HPI Exam Narrative: General: No acute distress, alert and oriented per baseline HEENT: Atraumatic, normocephalic, mucous membranes moist CV: Irregularly irregular, S1, S2 Lungs: Diminished throughout, no wheeze Abdomen: Soft, nontender, nondistended Extremities: Normal to inspection, 2+ edema bilaterally Skin: No rashes noted, no lesions or wounds seen Psych: Euthymic, normal affect Objective Data Vital Signs Vital Signs: Vital Signs - 24 hr 05/21/22 12:00 05/21/22 12:00 05/21/22 12:00 Temperature 96.5 F L Pulse Rate 89 102 H Respiratory Rate 20 Blood Pressure 115/72 Pulse Oximetry 100 Oxygen Delivery Room Air 05/21/22 13:05 05/21/22 15:15 05/21/22 16:00 Temperature 96 F L Pulse Rate 106 H 109 H 87 Respiratory Rate 18 18 22 H Blood Pressure 105/75 Pulse Oximetry 97 Oxygen Delivery 05/21/22 16:00 05/21/22 16:00 05/21/22 21:42 Temperature 97.8 F Pulse Rate 92 105 H Respiratory Rate 20 Blood Pressure 112/56 L Pulse Oximetry 94 Oxygen Delivery Room Air 05/21/22 22:15 05/21/22 22:16 05/21/22 20:00 Temperature Pulse Rate 97 97 Respiratory Rate 20 20 Blood Pressure Pulse Oximetry 96 Oxygen Delivery Room Air Room Air 05/21/22 23:30 05/21/22 20:00 05/21/22 22:00 Temperature 97.8 F Pulse Rate 98 121 H 107 H Respiratory Rate 20 Blood Pressure 91/57 L Pulse Oximetry 95 Oxygen Delivery 05/22/22 00:00 05/22/22 00:00 05/22/22 01:23 Temperature Pulse Rate 106 H 94 Respiratory Rate 16 Blood Pressure Pulse Oximetry Oxygen Deliver
[2022-05-22] MEDS: APIXABAN 5 MG TABLET PO ×2 (09:19→21:45)
[2022-05-22] MEDS: CHOLECALCIFEROL 1,000 UNITS TABLET 2000 UNITS PO (09:19)
[2022-05-22] MEDS: POTASSIUM CHLORIDE 10 MEQ TABLET.ER PO ×2 (09:19→17:14)
[2022-05-22] MEDS: MULTIVITAMINS THERAPEUTIC TAB (*BKC) 1 TABLET PO (09:19)
[2022-05-22] MEDS: guaiFENesin 12 HR 600 MG TABCR PO ×2 (09:19→21:45)
[2022-05-22] MEDS: ASCORBIC ACID 500 MG TABLET 2000 MG PO (09:19)
[2022-05-22] MEDS: ASPIRIN 81 MG ENTERIC TABLET PO (09:19)
[2022-05-22] MEDS: HYDROCORTISONE ACETATE 25 MG SUPPOSITORY RECTAL (09:20)
--- NOTE | 2022-05-22 09:26 | P.PNNP_ITS ---
Progress Note: A&P Assessment and Plan (1) PRIETO (acute kidney injury): Code(s): N17.9 - Acute kidney failure, unspecified Status: Acute Assessment and Plan: * etiology not clear * furthermore, her creatinine has fluctuated to extremes in the last year * seems to average out to ~ 1.0 - 1.5mg/dl * however, it has been as high as 2.13mg/dl * she may have some underlying renal insufficiency at baseline * risk factors for CKD include cardiomyopathy/CHF, need for diuretic therapy, HTN (although seems controlled w/o medications), TING, and nephrolithiasis * creatinine running higher in the last few days... * due to diuretics +/- intravascular volume depletion? * Urine electrolytes non pre renal but she was on diuretics. Urine for fractional excretion of urea suggest pre renal azotemia. * urinary retention/obstruction of meeks due to hematuria? * possible UTI? * atrial fibrillation? * evaluation to date noted * renal ultrasound without obstruction * CT scan of abd/pelvis noted * urine studies noted -- I suspect these tests may have been done when she had been on CBI; * Repeat shows a FeUrea of around 31. Consistent with pre renal azotemia * CPK mildly elevated (but not enough to cause renal dysfunction) * possible intravascular volume depletion despite outward signs of volume overload(?) * Creatinine came down nicely holding the diuretics. * follow repeat labs and UOP (2) Afib: Code(s): I48.91 - Unspecified atrial fibrillation Status: Acute Assessment and Plan: * Heart rate in the low 100s. 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 * Cardiology recommendations noted * continue efforts to optimize medical therapy as patient will allow * trial of holding diuretics given #1 * Other causes of edema would includes proteinuria but her years is only 540, u nlikely to contribute. The patient's albumin level is well maintained making this an unlikely cause as well. * It sounds like she will need ongoing adjustments of the diuretics to balance the fluid versus the high BUN creatinine (4) Hematuria: Code(s): R31.9 - Hematuria, unspecified Status: Acute Assessment and Plan: * resolved * Urology recommendations noted * meeks catheter replaced (on 05/20/22 - due to inability to irrigate) * off CBI Will continue to follow. Subjective Date/time seen: 05/22/22 09:26 Interval history: Consuelo is still swollen. And no shortness of breath Exam Narrative: General: elderly WD/WN AAfemale in NAD Heart: IRRR, normal S1 and S2; no rub or gallop Lungs: clear anteriorly, decreased at bases Abdomen: soft, nontender, nondistended, positive bowel sounds Extremities: 2+ edema in thigh area Skin: No rash Objective Data Vital Signs Vital Signs:
--- NOTE | 2022-05-22 09:26 | PM.PNNEP ---
Progress Note: A&P Assessment and Plan (1) PRIETO (acute kidney injury): Code(s): N17.9 - Acute kidney failure, unspecified Status: Acute Assessment and Plan: etiology not clear furthermore, her creatinine has fluctuated to extremes in the last year seems to average out to ~ 1.0 - 1.5mg/dl however, it has been as high as 2.13mg/dl she may have some underlying renal insufficiency at baseline risk factors for CKD include cardiomyopathy/CHF, need for diuretic therapy, HTN (although seems controlled w/o medications), TING, and nephrolithiasis creatinine running higher in the last few days... due to diuretics +/- intravascular volume depletion? Urine electrolytes non pre renal but she was on diuretics. Urine for fractional excretion of urea suggest pre renal azotemia. urinary retention/obstruction of meeks due to hematuria? possible UTI? atrial fibrillation? evaluation to date noted renal ultrasound without obstruction CT scan of abd/pelvis noted urine studies noted -- I suspect these tests may have been done when she had been on CBI; Repeat shows a FeUrea of around 31. Consistent with pre renal azotemia CPK mildly elevated (but not enough to cause renal dysfunction) possible intravascular volume depletion despite outward signs of volume overload(?) Creatinine came down nicely holding the diuretics. follow repeat labs and UOP (2) Afib: Code(s): I48.91 - Unspecified atrial fibrillation Status: Acute Assessment and Plan: Heart rate in the low 100s. 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 Cardiology recommendations noted continue efforts to optimize medical therapy as patient will allow trial of holding diuretics given #1 Other causes of edema would includes proteinuria but her years is only 540, unlikely to contribute. The patient's albumin level is well maintained making this an unlikely cause as well. It sounds like she will need ongoing adjustments of the diuretics to balance the fluid versus the high BUN creatinine (4) Hematuria: Code(s): R31.9 - Hematuria, unspecified Status: Acute Assessment and Plan: resolved Urology recommendations noted meeks catheter replaced (on 05/20/22 - due to inability to irrigate) off CBI Will continue to follow. Subjective Date/time seen: 05/22/22 09:26 Interval history: Consuelo is still swollen. And no shortness of breath Exam Narrative: General: elderly WD/WN AAfemale in NAD Heart: IRRR, normal S1 and S2; no rub or gallop Lungs: clear anteriorly, decreased at bases Abdomen: soft, nontender, nondistended, positive bowel sounds Extremities: 2+ edema in thigh area Skin: No rash Objective Data Vital Signs Vital Signs: Vital Signs - 24 hr 05/21/22 12:00 05/21/22 12:00 05/21/22 12:00 Temperature 96.5 F L Pulse Rate 89 102 H Respiratory Rate 20 Blood Pressure 115/72 Pulse Oximetry 100 Oxygen Delivery Room Air 05/21/22 13:05 05/21/22 15:15 05/21/22 16:00 Temperature 96 F L Pulse Rate 106 H 109 H 87 Respiratory Rate 18 18 22 H Blood Pressure 105/75 Pulse Oximetry 97 Oxygen Delivery 05/21/22 16:00 05/21/22 16:00 05/21/22 21:42 Temperature 97.8 F Pulse Rate 92 105 H Respiratory Rate
--- NOTE | 2022-05-22 11:11 | PCPTNOTE ---
working with OT will attempt to evaluate later.
--- NOTE | 2022-05-22 14:55 | PM.PNCARD ---
Progress Note: A&P Assessment and Plan (1) Acute on chronic combined systolic and diastolic CHF (congestive heart failure): Code(s): I50.43 - Acute on chronic combined systolic (congestive) and diastolic (congestive) heart failure Status: Acute Assessment and Plan: She has a known cardiomyopathy with an EF of 40 - 45%.? Echo from 01/2022 showing moderate-severe MR, severe TR. She is not currently on any medical therapy for this.? Most recent office note from [facility] states patient was hesitant to agree to Entresto or Jardiance. Ideally, would like to start her on Entresto, Jardiance, and Spironolactone.? She refuses to take beta blockers, otherwise would recommend Toprol XL as well Repeat echo shows LVEF 40-45%, reduced RVSF, moderate MR, moderate-severe TR, dilated IVC with no collapse Diuretics are on hold. (2) Atrial fibrillation with RVR: Code(s): I48.91 - Unspecified atrial fibrillation Status: Acute Assessment and Plan: Persistent atrial fibrillation being managed with rate control and anticoagulation strategy.? Episode of RVR at outpatient surgery center.? She did not tolerate Metoprolol due to urinary retention which she believes was from the medication.? She also has diltiazem on her home medication list but reports she is not taking this medication either.? ? Difficult management as patient is unable to tolerate metoprolol (extreme shortness of breath and inability to urinate), diltiazem (unknown adverse reaction), amiodarone (elevated LFT's), flecainide and sotalol (reduced LVSF, and unsure if she has underlying CAD), digoxin (CKD stage 3).? Suggested we try verapamil (less than optimal in view of her cardiomyopathy but not unreasonable in this situation). The patient thinks she has tried that and has had some side effect in the past. Perhaps try digoxin cautiously in view of her chronic kidney disease with frequent checks of digoxin level. She has been referred to Dr. Rodrigues for evaluation for possible ablation but missed her first appointment because of transportation issues.? Ultimately, she will need to reschedule with EP to explore non-medical options for management of her arrhythmia. For now, she is generally well rate controlled without any AV charity agents. Continue a/c with apixaban (3) CKD (chronic kidney disease) stage 3, GFR 30-59 ml/min: Code(s): N18.3 - Chronic kidney disease, stage 3 (moderate) Status: Acute Assessment and Plan: Improving. monitor renal function closely Subjective Date/time seen: Follow-up for AFib RVR, multiple medication intolerances. date of service 05/22/22 14:55 patient says she feels a little better since admission but still short of breath. Diuresed 4800 cc. Telemetry shows AFib with rate around 120. Review of Systems Review of Systems: Had trouble swallowing her banana today but no trouble with aphasia at home. IV ongoing shortness of breath but no chest pain. Some abdominal discomfort relieved with belching. No chest pain. Exam Const: General: cooperative and comfortable; No healthy appearing or confusion Orientation/consciousness: oriented to person, patient oriented x3 and No confusion HENMT: Mouth: Yes moist mucous membranes Eyes: General: appearance normal, both eyes and all related structures Neck: Neck: supple Resp: Effort & Inspection: normal respiratory effort Auscultation: diminished lung sounds Other: Few rales left lower lobe Cardio: Rate: regular rate and tachycardic Rhythm: regular rhythm and abnormal rhythm irregularly irregular GI: Inspection: normal to inspection GI Palp: No abdominal tenderness Skin: General skin exam: normal color and no rashes or lesions noted Neuro: General: oriented to person, patient oriented x3 and No confusion Extrem: Right lower extremity: no edema Left lower extremity: no edema Psych: Appearance: grossly normal Mental Status: mental status gr
[2022-05-22] MEDS: CHLORHEXIDINE GLUCONATE 0.12% ORAL RINSE 473 ML BTL (*BKC) 15 ML SWISH/SPIT (17:17)
[2022-05-22] MEDS: SALINE LOCK FLUSH 10 ML IV PUSH (21:45)
[2022-05-23] VITALS (22 sets, daily range): BP systolic 101–163; BP diastolic 57–82; PULSE 48–155; RESP 12–20; TEMP 36.1–36.6; O2SAT 96–100
[2022-05-23] MEDS: CIPROFLOXACIN 500 MG TAB PO ×2 (00:40→17:24)
[2022-05-23] MEDS: IPRATROPIUM BR 0.02% INH SOLN 0.5 MG/2.5 ML VIAL INHALATION ×4 (02:24→20:40)
[2022-05-23] MEDS: SALINE LOCK FLUSH 10 ML IV PUSH ×3 (05:12→21:55)
[2022-05-23 05:28] LABS: Albumin Level 2.9 g/dL (3.5-5.1); Anion Gap 5 mmol/L (8-16); Blood Urea Nitrogen 40 mg/dL (7-17); Calcium 8.1 mg/dL (8.4-10.2); Carbon Dioxide 31 mmol/L (22-30); Chloride 95 mmol/L (98-107); Estimated CRCL calculation 44 ml/min; Estimated Glomerular Filt Rate 53; Glucose 108 mg/dL (65-110); Phosphorus 3.1 mg/dL (2.5-4.5); Potassium 3.2 mmol/L (3.4-5.0); Sodium 131 mmol/L (137-145)
[2022-05-23] MEDS: APIXABAN 5 MG TABLET PO ×2 (09:09→20:14)
[2022-05-23] MEDS: ASCORBIC ACID 500 MG TABLET 2000 MG PO (09:09)
[2022-05-23] MEDS: MULTIVITAMINS THERAPEUTIC TAB (*BKC) 1 TABLET PO (09:09)
[2022-05-23] MEDS: ASPIRIN 81 MG ENTERIC TABLET PO (09:09)
[2022-05-23] MEDS: guaiFENesin 12 HR 600 MG TABCR PO ×2 (09:09→20:14)
[2022-05-23] MEDS: POTASSIUM CHLORIDE 10 MEQ TABLET.ER PO ×2 (09:09→17:23)
[2022-05-23] MEDS: CHOLECALCIFEROL 1,000 UNITS TABLET 2000 UNITS PO (09:09)
[2022-05-23] MEDS: CHLORHEXIDINE GLUCONATE 0.12% ORAL RINSE 473 ML BTL (*BKC) 15 ML SWISH/SPIT ×2 (09:13→17:25)
--- NOTE | 2022-05-23 10:25 | P.PNNP_ITS ---
Progress Note: A&P Assessment and Plan (1) PRIETO (acute kidney injury): Code(s): N17.9 - Acute kidney failure, unspecified Status: Acute Assessment and Plan: * etiology looks like it is most likely from pre renal azotemia. * furthermore, her creatinine has fluctuated to extremes in the last year * seems to average out to ~ 1.0 - 1.5mg/dl * however, it has been as high as 2.13mg/dl * she may have some underlying renal insufficiency at baseline due to cardiomyopathy/CHF, need for diuretic therapy, HTN (although seems controlled w/o medications), TING, and nephrolithiasis * creatinine running higher in the last few days... * due to diuretics +/- intravascular volume depletion? * Urine electrolytes non pre renal but she was on diuretics. Urine for fractional excretion of urea suggest pre renal azotemia. * urinary retention/obstruction of meeks due to hematuria? * possible UTI? * atrial fibrillation? * Dr. Fowler held the diuretics and her creatinine has improved quite a bit. * I think we can restart the diuretics at a lower dose. She was on 80 mg of Lasix b.i.d. Intravenously. Will start Lasix 80 twice a day p.o.. * evaluation to date noted * renal ultrasound without obstruction * CT scan of abd/pelvis noted * urine studies noted -- I suspect these tests may have been done when she had been on CBI; * Repeat shows a FeUrea of around 31. 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 * Cardiology following and managing (3) Cardiomyopathy: Qualifiers: Cardiomyopathy type: dilated Qualified Code(s): I42.0 - Dilated cardiomyopathy Code(s): I42.9 - Cardiomyopathy, unspecified Status: Acute Assessment and Plan: * as noted by history and Echo * Notable findings are a low LVEF, by atrial enlargement, right-sided decompensation with moderate to severe tricuspid regurgitation. * Cardiology recommendations noted * continue efforts to optimize medical therapy as patient will allow * trial of holding diuretics given #1 * Because of her substantial swelling we will restart diuretics today. * Other causes of edema would includes proteinuria but her years is only 540, unlikely to contribute. The patient's albumin level is well maintained making this an unlikely cause as well. * It sounds like she will need ongoing adjustments of the diuretics to balance the fluid versus the high BUN and creatinine (4) Hematuria: Code(s): R31.9 - Hematuria, unspecified Status: Acute Assessment and Plan: * resolved * Urology recommendations noted * meeks catheter replaced (on 05/20/22 - due to inability to irrigate) * off CBI Will continue to follow. Subjective Date/time seen: 05/23/22 10:25 Interval history: Consuelo is still swollen. sitting up in a chair. Getting some physical therapy. Eating okay Exam Narrative:
--- NOTE | 2022-05-23 10:25 | PM.PNNEP ---
Progress Note: A&P Assessment and Plan (1) PRIETO (acute kidney injury): Code(s): N17.9 - Acute kidney failure, unspecified Status: Acute Assessment and Plan: etiology looks like it is most likely from pre renal azotemia. furthermore, her creatinine has fluctuated to extremes in the last year seems to average out to ~ 1.0 - 1.5mg/dl however, it has been as high as 2.13mg/dl she may have some underlying renal insufficiency at baseline due to cardiomyopathy/CHF, need for diuretic therapy, HTN (although seems controlled w/o medications), TING, and nephrolithiasis creatinine running higher in the last few days... due to diuretics +/- intravascular volume depletion? Urine electrolytes non pre renal but she was on diuretics. Urine for fractional excretion of urea suggest pre renal azotemia. urinary retention/obstruction of meeks due to hematuria? possible UTI? atrial fibrillation? Dr. Fowler held the diuretics and her creatinine has improved quite a bit. I think we can restart the diuretics at a lower dose. She was on 80 mg of Lasix b.i.d. Intravenously. Will start Lasix 80 twice a day p.o.. evaluation to date noted renal ultrasound without obstruction CT scan of abd/pelvis noted urine studies noted -- I suspect these tests may have been done when she had been on CBI; Repeat shows a FeUrea of around 31. 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 Cardiology following and managing (3) Cardiomyopathy: Qualifiers: Cardiomyopathy type: dilated Qualified Code(s): I42.0 - Dilated cardiomyopathy Code(s): I42.9 - Cardiomyopathy, unspecified Status: Acute Assessment and Plan: as noted by history and Echo Notable findings are a low LVEF, by atrial enlargement, right-sided decompensation with moderate to severe tricuspid regurgitation. Cardiology recommendations noted continue efforts to optimize medical therapy as patient will allow trial of holding diuretics given #1 Because of her substantial swelling we will restart diuretics today. Other causes of edema would includes proteinuria but her years is only 540, unlikely to contribute. The patient's albumin level is well maintained making this an unlikely cause as well. It sounds like she will need ongoing adjustments of the diuretics to balance the fluid versus the high BUN and creatinine (4) Hematuria: Code(s): R31.9 - Hematuria, unspecified Status: Acute Assessment and Plan: resolved Urology recommendations noted meeks catheter replaced (on 05/20/22 - due to inability to irrigate) off CBI Will continue to follow. Subjective Date/time seen: 05/23/22 10:25 Interval history: Consuelo is still swollen. sitting up in a chair. Getting some physical therapy. Eating okay Exam Narrative: General: elderly WD/WN AAfemale in NAD Heart: IRRR, normal S1 and S2; no rub or gallop Lungs: clear anteriorly, decreased at bases Abdomen: soft, nontender, nondistended, positive bowel sounds Extremities: 2+ edema bilaterally in thigh area Skin: No rash Objective Data Vital Signs Vital Signs: Vital Signs - 24 hr 05/22/22 12:00 05/22/22 12:00 05/22/22 12:00 Temperature 97.0 F L Pulse Rate 118 H 109 H 109 H Respiratory Rate 22 H 22 H Blood Pressure 119/77 Pulse Oximetry
--- NOTE | 2022-05-23 12:56 | PM.IMPN ---
Progress Note: A&P Assessment and Plan (1) PRIETO (acute kidney injury): Code(s): N17.9 - Acute kidney failure, unspecified Status: Acute Assessment and Plan: Appreciate Nephrology input. Restart oral diuretics per nephrology 05/23 (2) Hematuria: Code(s): R31.9 - Hematuria, unspecified Status: Acute Assessment and Plan: Resolved. Renal ultrasound unremarkable consulted urology. They recommend outpatient follow-up (3) Afib: Code(s): I48.91 - Unspecified atrial fibrillation Status: Acute Assessment and Plan: Continue apixaban Continue with home medications. It appears that her diltiazem was placed on hold from outpatient medication reconciliation. Cardiology on board (4) Acute on chronic combined systolic and diastolic CHF (congestive heart failure): Code(s): I50.43 - Acute on chronic combined systolic (congestive) and diastolic (congestive) heart failure Status: Acute Assessment and Plan: Hold Lasix and metolazone for now given PRIETO. Appreciate cardiology input. Echo showed an EF of 40-45% with right-sided systolic function reduction, diffuse valvular disease noted (5) Hypertension: Qualifiers: Hypertension type: essential hypertension Qualified Code(s): I10 - Essential (primary) hypertension Code(s): I10 - Essential (primary) hypertension Status: Acute Assessment and Plan: Monitor for now (6) Obstructive sleep apnea of adult: Code(s): G47.33 - Obstructive sleep apnea (adult) (pediatric) Status: Acute Assessment and Plan: Continue with CPAP/BiPAP (7) Hyperthyroidism: Code(s): E05.90 - Thyrotoxicosis, unspecified without thyrotoxic crisis or storm Status: Acute Assessment and Plan: Continue with current treatment. Plan DVT prophylaxis with Eliquis GI prophylaxis not indicated Code status full code Subjective Date/time seen: 05/23/22 12:56 Interval history: 77-year-old female with history of AFib and heart failure presenting with shortness of breath. No overnight events noted. No chest pain or shortness of breath. No nausea, vomiting or diarrhea. No fevers or chills. Review of Systems Review of Systems: 12 point review of systems was assessed and was negative except as noted in the HPI Exam Narrative: General: No acute distress, alert and oriented per baseline HEENT: Atraumatic, normocephalic, mucous membranes moist CV: Irregularly irregular, S1, S2 Lungs: Diminished throughout, no wheeze Abdomen: Soft, nontender, nondistended Extremities: Normal to inspection, 1+ edema bilaterally Skin: No rashes noted, no lesions or wounds seen Psych: Euthymic, normal affect Objective Data Vital Signs Vital Signs: Vital Signs - 24 hr 05/22/22 14:00 05/22/22 14:29 05/22/22 14:38 Temperature Pulse Rate 137 H 124 H 117 H Respiratory Rate 16 16 Blood Pressure Pulse Oximetry Oxygen Delivery 05/22/22 16:00 05/22/22 17:00 05/22/22 17:57 Temperature 97.8 F Pulse Rate 114 H 120 H 104 H Respiratory Rate 22 H Blood Pressure 99/51 L Pulse Oximetry 100 Oxygen Delivery 05/22/22 16:00 05/22/22 20:00 05/22/22 20:00 Temperature 98 F Pulse Rate 104 H 134 H Respiratory Rate 22 H 18 Blood Pressure 101/63 Pulse Oximetry 99 Oxygen Delivery Room Air Room Air 05/22/22 20:51 05/22/22 20:00 05/22/22 22:00 Temperature Pulse Rate 115 H 124 H 125 H Respiratory Rate 14 Blood Pressure Pulse Oximetry Oxygen Delivery 05/22/22 23:35 05/23/22 00:00 05/23/22 00:00 Temperature 97.9 F Pulse Rate 147 H 122 H Respiratory Rate 18 Blood Pressure 102/72 Pulse Oximetry 99 Oxygen Delivery Room Air 05/23/22 02:00 05/23/22 04:00 05/23/22 04:00 Temperature 97.1 F L Pulse Rate 114 H 117 H 112 H Respiratory Rate 18 Blood Pressure 163/57 H Pulse Oxime
--- NOTE | 2022-05-23 16:30 | PM.PNCARD ---
Progress Note: A&P Assessment and Plan (1) Acute on chronic combined systolic and diastolic CHF (congestive heart failure): Code(s): I50.43 - Acute on chronic combined systolic (congestive) and diastolic (congestive) heart failure Status: Acute Assessment and Plan: She has a known cardiomyopathy with an EF of 40 - 45%.? Echo from 01/2022 showing moderate-severe MR, severe TR. She is not currently on any medical therapy for this.? Most recent office note from [facility] states patient was hesitant to agree to Entresto or Jardiance. Ideally, would like to start her on Entresto, Jardiance, and Spironolactone.? She refuses to take beta blockers, otherwise would recommend Toprol XL as well Repeat echo shows LVEF 40-45%, reduced RVSF, moderate MR, moderate-severe TR, dilated IVC with no collapse Resuming furosemide [address] Bowie (2) Atrial fibrillation with RVR: Code(s): I48.91 - Unspecified atrial fibrillation Status: Acute Assessment and Plan: Persistent atrial fibrillation being managed with rate control and anticoagulation strategy.? Found to be in AFib rVR at outpatient surgery center.? She did not tolerate Metoprolol due to urinary retention which she believes was from the medication.? She also has diltiazem on her home medication list but reports she is not taking this medication either.? I have explained that her heart rate is not well controlled and is contributing to congestive heart failure. Difficult management as patient is unable to tolerate metoprolol (extreme shortness of breath and inability to urinate), diltiazem (unknown adverse reaction), amiodarone (elevated LFT's), flecainide and sotalol (reduced LVSF, and unsure if she has underlying CAD), digoxin (CKD stage 3).? Suggested we try verapamil (less than optimal in view of her cardiomyopathy but not unreasonable in this situation). The patient thinks she has tried that and has had some side effect in the past. Perhaps try digoxin cautiously in view of her chronic kidney disease with frequent checks of digoxin level--however I am very concerned, with her varying renal function that she will become digoxin toxic She has been referred to Dr. Rodrigues for evaluation for possible ablation but missed her first appointment because of transportation issues.? Ultimately, she will need to reschedule with EP to explore non-medical options for management of her arrhythmia. For now, she does not want to try any new medications. Continue a/c with apixaban (3) CKD (chronic kidney disease) stage 3, GFR 30-59 ml/min: Code(s): N18.3 - Chronic kidney disease, stage 3 (moderate) Status: Acute Assessment and Plan: Improving. monitor renal function closely Subjective Date/time seen: Follow-up for AFib RVR, multiple medication intolerances. Mild cardiomyopathy, EF 40-45%. 05/22/22? 14:55 patient says she feels a little better since admission but still short of breath.? Diuresed 4800 cc.? Telemetry shows AFib with rate around 120. 05/23/22 16:30 spontaneously diuresed well yesterday. Now on room air. Renal function has continued to improve. Review of Systems Review of Systems: No shortness of breath, chest pain, abdominal problems. Still complains of some edema. No dizziness. Exam Const: General: cooperative and comfortable; No healthy appearing or confusion Orientation/consciousness: oriented to person, patient oriented x3 and No confusion Other: Sitting up in a chair, no distress HENMT: Mouth: Yes moist mucous membranes Eyes: General: appearance normal, both eyes and all related structures Neck: Neck: supple Resp: Effort & Inspection: normal respiratory effort Auscultation: diminished lung sounds Other: Rales left lower lobe Cardio: Rate: regular rate and tachycardic Rhythm: regular rhythm and abnormal rhythm irregularly irregular GI: Inspection: normal to inspection Skin: General skin
[2022-05-23] MEDS: FUROSEMIDE 80 MG TABLET PO (17:23)
--- NOTE | 2022-05-23 18:45 | ADMGEN ---
This patient, Consuelo Tovar, was admitted to Medical Room 252-01. Patient/family oriented to hospital policies and general routines including ID bracelet, bed and alarms, visiting hours, pain management, procedures, bathroom and other care routines, personal items, smoking policy, room service/diet, and visiting hours. Information on how to activate the Rapid Response Team has been discussed. Patient/Family are encouraged to report perceived risks to care and to ask questions if they do not understand what they are told or what they should do.
[2022-05-24] VITALS (17 sets, daily range): BP systolic 100–118; BP diastolic 51–76; PULSE 96–124; RESP 16–18; TEMP 36.2–36.9; O2SAT 95–100
[2022-05-24] MEDS: IPRATROPIUM BR 0.02% INH SOLN 0.5 MG/2.5 ML VIAL INHALATION ×4 (01:19→21:13)
[2022-05-24] MEDS: SALINE LOCK FLUSH 10 ML IV PUSH ×3 (05:36→20:35)
[2022-05-24 05:50] LABS: Hematocrit 42.9 % (37.0-47.0); Hemoglobin 14.8 g/dL (12.0-15.0); Mean Corpuscular HGB Conc 34.5 g/dl (32-36); Mean Corpuscular Volume 89.9 fl (80-100); Mean Platelet Volume 12.6 fl (7.4-10.4); Platelet Count Result 108 k/mm3 (150-375); Red Blood Count 4.77 M/mm3 (4.2-5.4); Red Cell Distribution Width 17.7 % (11.5-14.5); White Blood Count 5.4 K/mm3 (4.5-10.0)
[2022-05-24 05:54] LABS: Albumin Level 2.8 g/dL (3.5-5.1); Anion Gap 3 mmol/L (8-16); Blood Urea Nitrogen 32 mg/dL (7-17); Calcium 7.8 mg/dL (8.4-10.2); Carbon Dioxide 36 mmol/L (22-30); Chloride 95 mmol/L (98-107); Estimated CRCL calculation 47 ml/min; Estimated Glomerular Filt Rate 59; Glucose 99 mg/dL (65-110); Phosphorus 3.2 mg/dL (2.5-4.5); Sodium 134 mmol/L (137-145)
[2022-05-24] MEDS: APIXABAN 5 MG TABLET PO ×2 (08:32→20:34)
[2022-05-24] MEDS: ASPIRIN 81 MG ENTERIC TABLET PO (08:32)
[2022-05-24] MEDS: CHOLECALCIFEROL 1,000 UNITS TABLET 2000 UNITS PO (08:32)
[2022-05-24] MEDS: FUROSEMIDE 80 MG TABLET PO ×2 (08:32→17:56)
[2022-05-24] MEDS: POTASSIUM CHLORIDE 10 MEQ TABLET.ER PO ×2 (08:32→18:02)
[2022-05-24] MEDS: ASCORBIC ACID 500 MG TABLET 2000 MG PO (08:32)
[2022-05-24] MEDS: guaiFENesin 12 HR 600 MG TABCR PO ×2 (08:32→20:34)
[2022-05-24] MEDS: MULTIVITAMINS THERAPEUTIC TAB (*BKC) 1 TABLET PO (08:32)
[2022-05-24] MEDS: CHLORHEXIDINE GLUCONATE 0.12% ORAL RINSE 473 ML BTL (*BKC) 15 ML SWISH/SPIT (08:33)
--- NOTE | 2022-05-24 11:10 | P.PNNP_ITS ---
Progress Note: A&P Assessment and Plan (1) PRIETO (acute kidney injury): Code(s): N17.9 - Acute kidney failure, unspecified Status: Acute Assessment and Plan: * improving * furthermore, her creatinine has fluctuated to extremes in the last year * seems to average out to ~ 1.0 - 1.5mg/dl * however, it has been as high as 2.13mg/dl * she may have some underlying renal insufficiency at baseline due to cardiomyopathy/CHF, need for diuretic therapy, HTN (although seems controlled w/o medications), TING, and nephrolithiasis * suspect multifactorial etiology: * due to diuretics +/- intravascular volume depletion * urine electrolytes non pre renal but she was on diuretics. Urine for fractional excretion of urea suggest pre renal azotemia. 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 * Cardiology recommendations noted * continue efforts to optimize medical therapy as patient will allow * back on diuretics * will likely need ongoing adjustments of the diuretics to balance the fluid versus the high BUN + creatinine (4) Hematuria: Code(s): R31.9 - Hematuria, unspecified Status: Acute Assessment and Plan: * resolved * Urology recommendations noted * meeks catheter replaced (on 05/20/22 - due to inability to irrigate) * off CBI Will continue to follow. Subjective Date/time seen: 05/24/22 11:10 Chart reviewed since last seen -- overall, she seems to be doing significantly better; improvement in renal function noted and resumed on oral diuretics at this time; no acute distress noted; no issues/events overnight or earlier this morning. Exam Narrative: General: elderly WD/WN AA female in NAD Heart: IRRR, normal S1 and S2; no rub Lungs: clear anteriorly, decreased at bases Abdomen: soft, nontender, nondistended, positive bowel sounds Extremities: 2+ edema bilaterally in thigh area Skin: no nodules Objective Data Vital Signs Vital Signs: Vital Signs Temp Pulse Resp BP Pulse Ox O2 Del Method FiO2 05/24/22 08:00 97.6 F 96 16 100/51 L 96 05/24/22 07:51 118 H 18 05/24/22 07:41 102 H 18 05/24/22 07:41 102 H 18 95 Room Air 21 05/24/22 04:00 114 H 05/24/22 01:52 116 H
--- NOTE | 2022-05-24 11:10 | PM.PNNEP ---
Progress Note: A&P Assessment and Plan (1) PRIETO (acute kidney injury): Code(s): N17.9 - Acute kidney failure, unspecified Status: Acute Assessment and Plan: improving furthermore, her creatinine has fluctuated to extremes in the last year seems to average out to ~ 1.0 - 1.5mg/dl however, it has been as high as 2.13mg/dl she may have some underlying renal insufficiency at baseline due to cardiomyopathy/CHF, need for diuretic therapy, HTN (although seems controlled w/o medications), TING, and nephrolithiasis suspect multifactorial etiology: due to diuretics +/- intravascular volume depletion urine electrolytes non pre renal but she was on diuretics. Urine for fractional excretion of urea suggest pre renal azotemia. 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 Cardiology recommendations noted continue efforts to optimize medical therapy as patient will allow back on diuretics will likely need ongoing adjustments of the diuretics to balance the fluid versus the high BUN + creatinine (4) Hematuria: Code(s): R31.9 - Hematuria, unspecified Status: Acute Assessment and Plan: resolved Urology recommendations noted meeks catheter replaced (on 05/20/22 - due to inability to irrigate) off CBI Will continue to follow. Subjective Date/time seen: 05/24/22 11:10 Chart reviewed since last seen -- overall, she seems to be doing significantly better; improvement in renal function noted and resumed on oral diuretics at this time; no acute distress noted; no issues/events overnight or earlier this morning. Exam Narrative: General: elderly WD/WN AA female in NAD Heart: IRRR, normal S1 and S2; no rub Lungs: clear anteriorly, decreased at bases Abdomen: soft, nontender, nondistended, positive bowel sounds Extremities: 2+ edema bilaterally in thigh area Skin: no nodules Objective Data Vital Signs Vital Signs: Vital Signs Temp Pulse Resp BP Pulse Ox O2 Del Method FiO2 05/24/22 08:00 97.6 F 96 16 100/51 L 96 05/24/22 07:51 118 H 18 05/24/22 07:41 102 H 18 05/24/22 07:41 102 H 18 95 Room Air 21 05/24/22 04:00 114 H 05/24/22 01:52 116 H 05/23/22 20:00 117 H 05/24/22 03:40 97.1 F L 101 H 18 111/61 97 05/24/22 01:26 99 18 05/24/22 01:21 99 18 05/23/22 21:00 90 18 05/23/22 23:06 97.3 F L 48 L 18 107/67 100 05/23/22 20:45 100 05/23/22 20:42 112 H 18 99 Room Air 21 05/23/22 20:41 102 H 18 05/23/22 20:00 Room Air 05/23/22 19:39 97.6 F 59 L 19 129/82 100 05/23/22 18:00 109 H 05/23/22 16:00 96.9 F L 60 20 101/58 L 100 05/23/22 16:00 Room Air 05/23/22 16:00 111 H 05/23/22 14:00 110 H 05/23/22 14:06 114 H 18 05/08
--- NOTE | 2022-05-24 12:48 | PM.IMPN ---
Progress Note: A&P Assessment and Plan (1) PRIETO (acute kidney injury): Code(s): N17.9 - Acute kidney failure, unspecified Status: Acute Assessment and Plan: Appreciate Nephrology input. Restart oral diuretics per nephrology 05/23 (2) Hematuria: Code(s): R31.9 - Hematuria, unspecified Status: Acute Assessment and Plan: Resolved. Renal ultrasound unremarkable consulted urology. They recommend outpatient follow-up (3) Afib: Code(s): I48.91 - Unspecified atrial fibrillation Status: Acute Assessment and Plan: Continue apixaban Continue with home medications. It appears that her diltiazem was placed on hold from outpatient medication reconciliation. Cardiology on board (4) Acute on chronic combined systolic and diastolic CHF (congestive heart failure): Code(s): I50.43 - Acute on chronic combined systolic (congestive) and diastolic (congestive) heart failure Status: Acute Assessment and Plan: Ora lasix restarted, Appreciate cardiology input. Echo showed an EF of 40-45% with right-sided systolic function reduction, diffuse valvular disease noted. watch bmp and DC home kassandra (5) Hypertension: Qualifiers: Hypertension type: essential hypertension Qualified Code(s): I10 - Essential (primary) hypertension Code(s): I10 - Essential (primary) hypertension Status: Acute Assessment and Plan: Monitor for now (6) Obstructive sleep apnea of adult: Code(s): G47.33 - Obstructive sleep apnea (adult) (pediatric) Status: Acute Assessment and Plan: Continue with CPAP/BiPAP (7) Hyperthyroidism: Code(s): E05.90 - Thyrotoxicosis, unspecified without thyrotoxic crisis or storm Status: Acute Assessment and Plan: Continue with current treatment. Plan DVT prophylaxis with Eliquis GI prophylaxis not indicated Code status full code Subjective Date/time seen: 05/24/22 12:48 Interval history: 77-year-old female with history of AFib and heart failure presenting with shortness of breath. ?The patient came to the emergency room today with complaints of shortness of breath.? Pt is treated with iv lasix. Pt as difficult to manage af. Pt seen by cardiology and nephrology. transitioned to oral lasix. Hematuria has stopped hopeful DC tomorrow. Review of Systems Review of Systems: Pt feels much better All systems reviewed & are unremarkable except as noted in HPI and below Exam Narrative: General: No acute distress, alert and oriented HEENT: Atraumatic, normocephalic, mucous membranes moist CV: Irregularly irregular, S1, S2 Lungs: Decreased BS Abdomen: Soft, nontender, nondistended Extremities: Normal to inspection, 1+ edema bilaterally Skin: No rashes noted, no lesions or wounds seen Psych: Euthymic, normal affect Objective Data Vital Signs Vital Signs: Vital Signs - 24 hr 05/23/22 13:54 05/23/22 13:57 05/23/22 14:06 Temperature Pulse Rate 110 H 110 H 114 H Respiratory Rate 18 18 18 Blood Pressure Pulse Oximetry 99 Oxygen Delivery Room Air Fraction of Inspired Oxygen 05/23/22 14:00 05/23/22 16:00 05/23/22 16:00 Temperature Pulse Rate 110 H 111 H Respiratory Rate Blood Pressure Pulse Oximetry Oxygen Delivery Room Air Fraction of Inspired Oxygen 05/23/22 16:00 05/23/22 18:00 05/23/22 19:39 Temperature 36.1 C L 36.4 C Pulse Rate 60 109 H 59 L Respiratory Rate 20 19 Blood Pressure 101/58 L 129/82 Pulse Oximetry 100 100 Oxygen Delivery Fraction of Inspired Oxygen 05/23/22 20:00 05/23/22 20:41 05/23/22 20:42 Temperature Pulse Rate 102 H 112 H Respiratory Rate 18 18 Blood Pressure Pulse Oximetry 99 Oxygen Delivery Room Air Room Air Fraction of Inspired Oxygen 05/23/22 20:45 05/23/22 23:06 05/23/22 21:00 Temperature 36.3 C L Pulse Rate 100 48 L 90
[2022-05-24] MEDS: CIPROFLOXACIN 500 MG TAB PO (13:03)
[2022-05-25] VITALS (10 sets, daily range): BP systolic 93–110; BP diastolic 59–71; PULSE 96–130; RESP 18; TEMP 36.4–36.7; O2SAT 100
[2022-05-25] MEDS: IPRATROPIUM BR 0.02% INH SOLN 0.5 MG/2.5 ML VIAL INHALATION ×2 (02:10→08:58)
[2022-05-25] MEDS: SALINE LOCK FLUSH 10 ML IV PUSH (05:02)
[2022-05-25] MEDS: CIPROFLOXACIN 500 MG TAB PO (05:02)
[2022-05-25 06:21] LABS: Blood Urea Nitrogen 27 mg/dL (7-17); Calcium 7.9 mg/dL (8.4-10.2); Carbon Dioxide > 40 mmol/L (22-30); Chloride 92 mmol/L (98-107); Estimated CRCL calculation 47 ml/min; Estimated Glomerular Filt Rate 59; Glucose 123 mg/dL (65-110); Potassium 3.2 mmol/L (3.4-5.0); Sodium 134 mmol/L (137-145)
[2022-05-25] MEDS: CHOLECALCIFEROL 1,000 UNITS TABLET 2000 UNITS PO (08:12)
[2022-05-25] MEDS: ASCORBIC ACID 500 MG TABLET 2000 MG PO (08:12)
[2022-05-25] MEDS: APIXABAN 5 MG TABLET PO (08:12)
[2022-05-25] MEDS: POTASSIUM CHLORIDE 10 MEQ TABLET.ER PO (08:12)
[2022-05-25] MEDS: ASPIRIN 81 MG ENTERIC TABLET PO (08:12)
[2022-05-25] MEDS: FUROSEMIDE 80 MG TABLET PO (08:12)
[2022-05-25] MEDS: guaiFENesin 12 HR 600 MG TABCR PO (08:12)
[2022-05-25] MEDS: MULTIVITAMINS THERAPEUTIC TAB (*BKC) 1 TABLET PO (08:12)
--- NOTE | 2022-05-25 10:39 | P.PNNP_ITS ---
Progress Note: A&P Assessment and Plan (1) PRIETO (acute kidney injury): Code(s): N17.9 - Acute kidney failure, unspecified Status: Acute Assessment and Plan: * improving/stable * furthermore, her creatinine has fluctuated to extremes in the last year * seems to average out to ~ 1.0 - 1.5mg/dl * however, it has been as high as 2.13mg/dl * she may have some underlying renal insufficiency at baseline due to cardi omyopathy/CHF, need for diuretic therapy, HTN (although seems controlled w/o medications), TING, and nephrolithiasis * suspect multifactorial etiology: * due to diuretics +/- intravascular volume depletion (urine electrolytes non pre renal but she was on diuretics; FeUrea suggest pre renal azotemia) * possible urinary retention/obstruction of meeks due to hematuria * evaluation to date noted * renal ultrasound without obstruction * CT scan of abd/pelvis noted * repeat shows a FeUrea of around 31 -- consistent with pre renal azotemia * CPK mildly elevated (but not enough to cause renal dysfunction) * back on oral diuretics * follow repeat labs and UOP (2) Afib: Code(s): I48.91 - Unspecified atrial fibrillation Status: Acute Assessment and Plan: * on eliquis * 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 * Cardiology recommendations noted * continue efforts to optimize medical therapy as patient will allow * back on diuretics * will likely need ongoing adjustments of the diuretics to balance the fluid versus the high BUN + creatinine (4) Hematuria: Code(s): R31.9 - Hematuria, unspecified Status: Acute Assessment and Plan: * resolved * Urology recommendations noted * meeks catheter replaced (on 05/20/22 - due to inability to irrigate) * off CBI Not opposed to discharge from renal perspective if otherwise medically stable. Will continue to follow. Subjective Date/time seen: 05/25/22 10:39 Overall, appears to be doing reasonably well; tolerating oral diuretic therapy without any issues or problems; no apparent distress noted; edema/swelling in bilateral thigh area is stable if not better; no events overnight or earlier this morning. Exam Narrative: General: elderly WD/WN AA female in NAD Heart: IRRR, normal S1 and S2; no rub Lungs: clear anteriorly, decreased at bases Abdomen: soft, nontender, nondistended, positive bowel sounds Extremities: 1 - 2+ edema bilaterally in thigh area Skin: warm and dry Objective Data Vital Signs Vital Signs: Vital Signs Temp Pulse Resp BP Pulse Ox O2 Del Method 05/25/22 10:25 97.6 F 103 H 18 93/59 L 100 05/25/22 09:06 108 H 18 05/25/22 08:59 96 18 05/25/22 04:00 120 H 05/25/22 03:45 98.0 F 117 H 18 110/71 100
--- NOTE | 2022-05-25 10:39 | PM.PNNEP ---
Progress Note: A&P Assessment and Plan (1) PRIETO (acute kidney injury): Code(s): N17.9 - Acute kidney failure, unspecified Status: Acute Assessment and Plan: improving/stable furthermore, her creatinine has fluctuated to extremes in the last year seems to average out to ~ 1.0 - 1.5mg/dl however, it has been as high as 2.13mg/dl she may have some underlying renal insufficiency at baseline due to cardiomyopathy/CHF, need for diuretic therapy, HTN (although seems controlled w/o medications), TING, and nephrolithiasis suspect multifactorial etiology: due to diuretics +/- intravascular volume depletion (urine electrolytes non pre renal but she was on diuretics; FeUrea suggest pre renal azotemia) possible urinary retention/obstruction of meeks due to hematuria evaluation to date noted renal ultrasound without obstruction CT scan of abd/pelvis noted repeat shows a FeUrea of around 31 -- consistent with pre renal azotemia CPK mildly elevated (but not enough to cause renal dysfunction) back on oral diuretics follow repeat labs and UOP (2) Afib: Code(s): I48.91 - Unspecified atrial fibrillation Status: Acute Assessment and Plan: on eliquis 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 Cardiology recommendations noted continue efforts to optimize medical therapy as patient will allow back on diuretics will likely need ongoing adjustments of the diuretics to balance the fluid versus the high BUN + creatinine (4) Hematuria: Code(s): R31.9 - Hematuria, unspecified Status: Acute Assessment and Plan: resolved Urology recommendations noted meeks catheter replaced (on 05/20/22 - due to inability to irrigate) off CBI Not opposed to discharge from renal perspective if otherwise medically stable. Will continue to follow. Subjective Date/time seen: 05/25/22 10:39 Overall, appears to be doing reasonably well; tolerating oral diuretic therapy without any issues or problems; no apparent distress noted; edema/swelling in bilateral thigh area is stable if not better; no events overnight or earlier this morning. Exam Narrative: General: elderly WD/WN AA female in NAD Heart: IRRR, normal S1 and S2; no rub Lungs: clear anteriorly, decreased at bases Abdomen: soft, nontender, nondistended, positive bowel sounds Extremities: 1 - 2+ edema bilaterally in thigh area Skin: warm and dry Objective Data Vital Signs Vital Signs: Vital Signs Temp Pulse Resp BP Pulse Ox O2 Del Method 05/25/22 10:25 97.6 F 103 H 18 93/59 L 100 05/25/22 09:06 108 H 18 05/25/22 08:59 96 18 05/25/22 04:00 120 H 05/25/22 03:45 98.0 F 117 H 18 110/71 100 05/25/22 00:00 121 H 05/24/22 20:00 109 H 05/25/22 02:17 112 H 18 05/25/22 02:10 117 H 18 05/24/22 23:18 98.4 F 115 H 17 118/76 99 05/24/22 20:00 Room Air 05/24/22 21:27 118 H 18 05/24/22 21:14 116 H 18 05/24/22 19:49 98.0 F 113 H 17 108/72 100 05/24/22 16:00 124 H 05/24/22 12:00 118 H 05/24/22 16:00 97.5 F L 107 H 18 110/75 96 05/24/22 12:00 97.9 F 105 H 16 101/70 100 05/24/22 13:52 116 H 18 05/24/22 13:31 115 H 18 Intake/Output Intake/Output: Intake & Output 05/22/22 05/23/22
--- NOTE | 2022-05-25 12:42 | PM.DS ---
DS: Admitting Diagnosis Discharge Date 05/25/2022 Admitting Diagnosis Shortness of breath DS: Discharge Diagnosis Discharge Diagnosis (1) PRIETO (acute kidney injury): Code(s): N17.9 - Acute kidney failure, unspecified Status: Acute Assessment and Plan: Unfortunately pt started having hematuria in her meeks catheter and uo is poor.Pt seen by nephrology started on diuretics hematuria stopped meeks removed prior to DC. Nephrology on board urology to follow as outpatient (2) Hematuria: Code(s): R31.9 - Hematuria, unspecified Status: Acute Assessment and Plan: Resolved. Renal ultrasound unremarkable consulted urology. They recommend outpatient follow-up (3) Afib: Code(s): I48.91 - Unspecified atrial fibrillation Status: Acute Assessment and Plan: pt has difficult to manage af, medications causing itchy rash. Patient has anasarca.? She has edema from her abdomen all the way down to her lower extremities.? Patient was given Lasix in the emergency room. Continue with home medications.? It appears that her diltiazem was placed on hold from outpatient medication reconciliation. Continue apixaban Cardiology on board (4) Acute on chronic combined systolic and diastolic CHF (congestive heart failure): Code(s): I50.43 - Acute on chronic combined systolic (congestive) and diastolic (congestive) heart failure Status: Acute Assessment and Plan: Oral lasix restarted, Appreciate cardiology input. Echo showed an EF of 40-45% with right-sided systolic function reduction, diffuse valvular disease noted. (5) Hypertension: Qualifiers: Hypertension type: essential hypertension Qualified Code(s): I10 - Essential (primary) hypertension Code(s): I10 - Essential (primary) hypertension Status: Acute Assessment and Plan: Stable right now (6) Obstructive sleep apnea of adult: Code(s): G47.33 - Obstructive sleep apnea (adult) (pediatric) Status: Acute Assessment and Plan: Continue with CPAP/BiPAP (7) Hyperthyroidism: Code(s): E05.90 - Thyrotoxicosis, unspecified without thyrotoxic crisis or storm Status: Acute Assessment and Plan: Continue with current treatment. DS: Summary Hospital Course Hospital Course: 7-year-old female patient who has a history of atrial fibrillation and congestive heart failure.? The patient came to the emergency room today with complaints of shortness of breath.? The patient was supposed to have a cataract removed from her left eye today and she developed shortness of breath.? EMS was activated.? The patient and she stated that she does not always take her medication as prescribed.? The patient has been short of breath since this morning and has been edematous.? She denies any fever chills.? The patient has not taken any of her medications today.? Chest x-ray was read as mild atelectasis and left lower lung zones cardiomegaly.? Creatinine is 1.4 today baseline is anywhere from 1.1 to 2.13.? BNP is 1160.? The patient was given Lopressor and Lasix in the emergency room.? The patient is being admitted to observation status on the date of service of 05/18/2022. Pt has difficult to manage af, medications causing itchy rash. Patient has anasarca.? She has edema from her abdomen all the way down to her lower extremities.? Patient was given Lasix in the emergency room. pt received iv lasix DC with oral lasix Continue with home medications.? It appears that her diltiazem was placed on hold from outpatient medication reconciliation. Continue apixaban Cardiology on board Unfortunately pt started having hematuria in her meeks catheter and uo is poor.Pt seen by nephrology started on diuretics hematuria stopped meeks removed prior to DC. Nephrology on board urology to follow as outpatient Time Spent with Patient Time attestation: Total time spent providing and/or coord
== END 2022-05-25 14:35 | disposition home or self-care (01) | DRG 291 ==
LOC: ANHED 08:49 → ANHIMU 12:53 → ANH3MEDSUR 05-20 22:26 → ANHIMU 05-21 01:51 → ANH2MED 05-23 17:25
PROVIDERS: Internal Medicine; Internal Medicine Nephrology; Nurse Practitioner; Admitting Provider Internal Medicine; Emergency Provider Emergency Medicine; PCP Family Medicine; Visit Provider Family Medicine
DX: I13.0 Hypertensive heart and chronic kidney disease with heart failure and stage 1 through stage 4 chronic kidney disease, or unspecified chronic kidney disease (principal); I50.43 Acute on chronic combined systolic (congestive) and diastolic (congestive) heart failure; N17.9 Acute kidney failure, unspecified; S37.39XA Other injury of urethra, initial encounter; I48.19 Other persistent atrial fibrillation; I42.9 Cardiomyopathy, unspecified; R31.9 Hematuria, unspecified; N18.30 Chronic kidney disease, stage 3 unspecified; G47.33 Obstructive sleep apnea (adult) (pediatric); E05.90 Thyrotoxicosis, unspecified without thyrotoxic crisis or storm; I25.10 Atherosclerotic heart disease of native coronary artery without angina pectoris; N28.9 Disorder of kidney and ureter, unspecified; E66.9 Obesity, unspecified; Z68.35 Body mass index [BMI] 35.0-35.9, adult; Z86.718 Personal history of other venous thrombosis and embolism; Z86.711 Personal history of pulmonary embolism; Z85.3 Personal history of malignant neoplasm of breast; Z90.49 Acquired absence of other specified parts of digestive tract; Z90.710 Acquired absence of both cervix and uterus; Z87.891 Personal history of nicotine dependence; Z79.82 Long term (current) use of aspirin; Z91.148 Patient's other noncompliance with medication regimen for other reason
CPT/HCPCS: 36415; 36569; 36600; 71045; 74018; 74176; 76775; 80048; 80053; 80069; 81001; 81050; 82436; 82550; 82570; 82805; 83735; 83880; 84156; 84300; 84439; 84443; 84480; 84484; 84540; 85025; 85027; 85055; 85610; 85730; 85999; 87040; 87086; 87088; 93005; 93306; 94640; 96374; 96375; 97110; 97161; 97165; 97530; 97535; 99285; A4248; A9270; C1751; G0378; J1160; J1940; J2060; J2930

== ENCOUNTER 2023-04-21 10:28 | Outpatient (CLI) | payer MEDICARE, SELFPAY ==
[2023-04-21 18:42] LABS: Basophils Percent Auto 0.5 % (0.2-1.2); Eosinophils Absolute Auto 0.3 K/mm3 (0-0.3); Eosinophils Percent Auto 3.8 % (0-4.4); Hematocrit 39.5 % (37.0-47.0); Hemoglobin 12.5 g/dL (12.0-15.0); Immature Granulocyte Absolute 0.01 K/mm3 (0.00-0.031); Immature Granulocyte Percent A 0.2 % (0-0.5); Lymphocytes Absolute Auto 1.56 K/mm3 (0.9-3.2); Lymphocytes Percent Auto 23.6 % (18.3-44.2); Mean Corpuscular HGB Conc 31.6 g/dl (32-36); Mean Corpuscular Hemoglobin 28.7 pg (26-34); Mean Corpuscular Volume 90.8 fl (80-100); Mean Platelet Volume 11.2 fl (7.4-10.4); Monocytes Absolute Auto 0.6 K/mm3 (0.1-0.6); Monocytes Percent Auto 8.8 % (2.6-8.5); Neutrophils Absolute Auto 4.2 K/mm3 (1.3-6.7); Neutrophils Percent Auto 63.1 % (45.5-73.1); Platelet Count Result 239 k/mm3 (150-375); Red Blood Count 4.35 M/mm3 (4.2-5.4); White Blood Count 6.6 K/mm3 (4.5-10.0)
[2023-04-21 18:49] LABS: Anion Gap 12 mmol/L (8-16); Blood Urea Nitrogen 51 mg/dL (7-17); Calcium 10.6 mg/dL (8.4-10.2); Carbon Dioxide 29 mmol/L (22-30); Chloride 97 mmol/L (98-107); Cholesterol 186 mg/dL (0-200); Estimated Glomerular Filt Rate 29; Glucose 97 mg/dL (65-110); HDL Direct 57 mg/dL; Magnesium 2.7 mg/dL (1.6-2.3); Potassium 3.9 mmol/L (3.4-5.0); Sodium 138 mmol/L (137-145); Triglycerides 158 mg/dL (<150)
[2023-04-21 18:59] LABS: LDL Cholesterol Direct 70 mg/dL
[2023-04-21 19:24] LABS: Appearance Urine Clear (Clear); Bacteria Urine None Seen /hpf; Bilirubin Urine Negative (Negative); Blood Urine Negative (Negative); Color Urine Yellow (Yellow); Glucose Urine UA Negative (Negative); Ketones Urine Negative (Negative); Leukocyte Esterase Ur 2+ LEU/UL (Negative); Need Manual Microscopic Reviewed; Nitrate Urine Negative (Negative); Non Pathogenic Casts 0-2; Protein Urine Negative (Negative); RBC Urine 0-2 /hpf (0-2); Specific Grav Ur 1.011 (1.001-1.035); Squamous Epithelial Cell Urine Occasional /hpf (Few); Urobilinogen Urine 0.2 mg/dL (<2.0); WBC Urine 0-5 /hpf (0-3); pH Urine 7.5 (5.0-9.0)
[2023-04-21 19:27] LABS: Add Urine Microscopic? YES
== END 2023-04-21 10:29 | disposition home or self-care (01) ==
PROVIDERS: PCP Nurse Practitioner Adult Health; Visit Provider Nurse Practitioner Adult Health
DX: I10 Essential (primary) hypertension (principal); R39.9 Unspecified symptoms and signs involving the genitourinary system
CPT/HCPCS: 36415; 80048; 80061; 83735; 84443; 85025

== ENCOUNTER 2023-10-24 09:51 | Outpatient (CLI) | payer MEDICARE, SELFPAY ==
[2023-10-24 18:24] LABS: Hemoglobin 12.6 g/dL (12.0-15.0); Mean Corpuscular HGB Conc 31.5 g/dl (32-36); Mean Corpuscular Hemoglobin 30.4 pg (26-34); Mean Corpuscular Volume 96.4 fl (80-100); Mean Platelet Volume 11.5 fl (7.4-10.4); Platelet Count Result 199 k/mm3 (150-375); Red Blood Count 4.15 M/mm3 (4.2-5.4); Red Cell Distribution Width 14.2 % (11.5-14.5); White Blood Count 5.6 K/mm3 (4.5-10.0)
[2023-10-24 18:43] LABS: Alanine Aminotransferase 27 U/L (6-35); Albumin Level 4.5 g/dL (3.5-5.1); Alkaline Phosphatase 194 U/L (38-126); Anion Gap 10 mmol/L (4-12); Aspartate Amino Transferase 92 U/L (14-36); Bilirubin,Total 0.5 mg/dL (0.2-1.3); Blood Urea Nitrogen 31 mg/dL (7-17); Calcium 10.8 mg/dL (8.4-10.2); Carbon Dioxide 30 mmol/L (22-30); Chloride 99 mmol/L (98-107); Cholesterol 286 mg/dL (0-200); Estimated Glomerular Filt Rate 25; Glucose 80 mg/dL (65-110); HDL Direct 62 mg/dL; Sodium 139 mmol/L (137-145); Triglycerides 181 mg/dL (<150)
[2023-10-24 18:54] LABS: LDL Cholesterol Direct 146 mg/dL
== END 2023-10-24 09:52 | disposition home or self-care (01) ==
PROVIDERS: PCP Nurse Practitioner Adult Health; Visit Provider Nurse Practitioner Adult Health
DX: I50.9 Heart failure, unspecified (principal); E03.9 Hypothyroidism, unspecified
CPT/HCPCS: 36415; 80053; 80061; 84443; 85027